=== PATIENT | female | born 1990 | race Two or more races ===

== ENCOUNTER → 2020-08-16 11:45 | Outpatient (BNVA) | payer OTHER, SELFPAY | PROVIDERS: PCP Internal Medicine; Visit Provider Surgery | DX: R10.33 Periumbilical pain (principal) | CPT/HCPCS: 99212 ==

== ENCOUNTER 2020-08-24 10:00 | Outpatient (REF) | payer OTHER, SELFPAY ==
--- NOTE | ~2020-08-24 | CT_ITS ---
EXAMINATION: CT ABDOMEN AND PELVIS WITHOUT CONTRAST CLINICAL INFORMATION: Periumbilical pain. COMPARISON: Abdominal ultrasound 11/24/2019. CT abdomen and pelvis May 2009. TECHNIQUE: Multidetector volumetric imaging was performed from the superior aspect of the liver through the pubic symphysis. Sagittal and coronal reformatted images were obtained on the technologist's workstation. This CT examination was performed using dose optimization techniques as appropriate, variously including the following: *Automated exposure control *Adjustment of mA and/or kV according to patient size (this includes techniques or standardized protocols for targeted exams where dose is matched to indication/reason for exam; i.e. extremities or head) *Use of iterative reconstruction technique DLP: 551 mGy-cm FINDINGS: LUNG BASES: Clear. LIVER, GALLBLADDER, AND BILIARY TREE: The liver is normal in size, shape, and attenuation. No focal hepatic lesion or biliary ductal dilatation is present. The gallbladder is unremarkable with no evidence of radiopaque gallstones, gallbladder wall thickening, or obvious pericholecystic inflammatory changes. PANCREAS: Unremarkable. SPLEEN: Unremarkable. ADRENAL GLANDS: Unremarkable. KIDNEYS AND URETERS: The kidneys are normal in size, shape, and attenuation. No hydronephrosis, hydroureter, or calculi are seen. No perinephric stranding. BLADDER: Unremarkable. GASTROINTESTINAL TRACT: The small and large bowel is unremarkable. The appendix is unremarkable. ABDOMINAL WALL: There is a focal area of fluid density just deep to the abdominal wall at the level of the umbilicus (see axial image 352, series 4). This measures 2.3 cm transverse, 0.8 cm AP and 1.8 cm craniocaudal. There also appears to be some stranding in the adjacent mesenteric or omental fat as well as some stranding in the superficial subcutaneous fat surrounding the umbilicus. There does appear to be a small amount of fat extending through a small defect in the abdominal wall in the region of the umbilicus compatible with a small umbilical hernia. This was not present on the prior CT in May 2009. LYMPH NODES: Normal. VASCULAR: Unremarkable. PELVIC VISCERA: Unremarkable. OSSEOUS STRUCTURES: Unremarkable. CT/CT abdomen pelvis wo con IMPRESSION: Small fat-containing umbilical hernia as well as a small fluid collection deep to the abdominal wall with some minimal stranding in the surrounding fat deep to as well as superficial to the abdominal wall in this area. Etiology is indeterminate but suggests a small inflammatory process/infection perhaps in involving the herniated fat. This was not present on the prior CT in 2008.
== END 2020-08-24 10:01 | disposition home or self-care (01) ==
LOC: HO.CT 10:00
PROVIDERS: Visit Provider Surgery
DX: R10.33 Periumbilical pain (principal)
CPT/HCPCS: 74176

== ENCOUNTER → 2020-08-30 10:48 | Outpatient (BNVA) | payer OTHER, SELFPAY | PROVIDERS: PCP Internal Medicine; Visit Provider Surgery | DX: K42.9 Umbilical hernia without obstruction or gangrene (principal) | CPT/HCPCS: 99212 ==

== ENCOUNTER 2020-09-14 07:52 | Day surgery (SDC) | payer OTHER, SELFPAY ==
[2020-09-07 16:21] VITALS: BMI 32.1
--- NOTE | 2020-09-13 09:54 | HO.ANESPROP2 ---
Documented by User: Lolly Lozoya 09/13/20 09:54 HPI - Anesthesia Eval Consult details Narrative: 30yo F for Repair of Recurrent Umbilical Hernia with Mesh PMFSH Active Problems Active Problems: All Active Problems (Updated 09/07/20 @ 16:18 by Lyndsay Anne) Nausea & vomiting (Acute) Diarrhea (Acute) Epigastric discomfort (Acute) Nausea (Acute) Umbilical hernia (Acute) Morbid obesity (Acute) Umbilical pain (Acute) Past Medical History Medical History Anxiety and depression Constipation Low back pain Migraines Morbid obesity Scoliosis Umbilical hernia Umbilical pain Family History Family History Father No problems noted. Mother No problems noted. Maternal Grandmother Unknown family medical history Brother No problems noted. Sister No problems noted. Sister No problems noted. Sister No problems noted. Son No problems noted. Surgical History Surgical History History of umbilical hernia repair Social History Social History Smoking Status: Never smoker Use of substances other than those prescribed or required for medical reasons: No Advance Directives: No Advance Directives Information Provided: No Advance Directives on File: No Meds Allergies Allergy/AdvReac Type Severity Reaction Status Date / Time acetaminophen [From TYLENOL] Allergy Intermediate Itching Verified 09/14/20 08:00 APAP Allergy Intermediate Itching Uncoded 09/07/20 16:19 Home Medications Medication Instructions Recorded Confirmed Last Taken Type diphenhydramine HCl 50 mg capsule 50 mg PO BEDTIME 08/30/20 09/07/20 Unknown History suvorexant 20 mg tablet 20 mg PO BEDTIME 08/30/20 09/07/20 Unknown History venlafaxine 75 mg capsule,extended 75 mg PO DAILY 08/30/20 09/07/20 Unknown History release 24 hr Exam Exam Date and Time: September 13, 2020 0954 Height,Weight and Vital Signs: Height 5 ft 2 in Weight 79.832 kg Assessment and Plan Assessment Anesthesia Assessment: Chart Reviewed Documented by User: Arelis Faust 09/14/20 08:50 PMF Past Medical History Medical History Anxiety and depression Constipation Low back pain Migraines Morbid obesity Scoliosis Umbilical hernia Umbilical pain Family History Family History Father No problems noted. Mother No problems noted. Maternal Grandmother Unknown family medical history Brother No problems noted. Sister No problems noted. Sister No problems noted. Sister No problems noted. Son No problems noted. Surgical History Surgical History History of umbilical hernia repair Social History Social History Smoking Status: Never smoker Use of substances other than those prescribed or required for medical reasons: No Advance Directives: No Advance Directives Information Provided: No Advance Directives on File: No Meds Allergies Allergy/AdvReac Type Severity Reaction Status Date / Time acetaminophen [From TYLENOL] Allergy Intermediate Itching Verified 09/14/20 08:00 APAP Allergy Intermediate Itching Uncoded 09/07/20 16:19 Home Medications Medication Instructions Recorded Confirmed Last Taken Type diphenhydramine HCl 50 mg capsule 50 mg PO BEDTIME 08/30/20 09/07/20 Unknown History suvorexant 20 mg tablet 20 mg PO BEDTIME 08/30/20 09/07/20 Unknown History venlafaxine 75 mg capsule,extended 75 mg PO DAILY 08/30/20 09/07/20 Unknown History release 24 hr Exam Airway Mallampati Class: II TM Dist: >3cm Neck ROM: Full Assessment and Plan Assessment Anesthesia Assessment: Anesthesia Plan Discussed and Chart Reviewed Final Anesthetic Review NPO: Yes ASA Class: II Final Preanesthetic Review: No Changes in Pt Med Stat, Meds/Allgs Chart Reviewed, Consent Obtained/Reviewed and Anes Risks/Benef Reviewed Patient Risk: Low Procedure Risk: Low Assessment/Block/Sedation in SS: Assess/Block/Sedation-SS Anesthetic Plan Anesthetic Plan: GA Disposition: Standard PACU
[2020-09-14] VITALS (13 sets, daily range): BP systolic 97–130; BP diastolic 41–86; PULSE 56–84; RESP 12–18; TEMP 36.1–36.5; O2SAT 95–97
[2020-09-14 08:10] LABS: UPreg QC Valid YES; Urine Pregnancy NEGATIVE (NEGATIVE)
[2020-09-14] MEDS: Lactated Ringers 1,000 ML 100 ML IVCONT (08:19)
--- NOTE | 2020-09-14 08:55 | MHC.SHP ---
Pre-Procedural Eval Section B Chief Complaint: Umbilical Hernia Allergies: Allergies Allergy/AdvReac Type Severity Reaction Status Date / Time acetaminophen [From TYLENOL] Allergy Intermediate Itching Verified 09/14/20 08:00 APAP Allergy Intermediate Itching Uncoded 09/07/20 16:19 Plan I have reviewed the history and physical and performed a pertinent physical examination on my patient. No changes have occurred unless specified.
--- NOTE | 2020-09-14 09:46 | PM.OP ---
Brief Operative Note Date of Service: 09/14/20 Pre-op diagnosis: Umbilical hernia recurrent Post-op diagnosis: same Procedure: Repair of recurrent umbilical hernia Implants: None Surgeon: Julius House MD Anesthesia: GLMA Estimated blood loss (mL): 2 Pathology: none sent Condition: stable Disposition: PACU
--- NOTE | 2020-09-14 09:47 | W.PM.OPN ---
Operative Note Operative Note Date of Service: 09/14/20 Narrative: Preop diagnosis: Recurrent umbilical hernia Postop diagnosis: Recurrent umbilical hernia Procedure: Repair of recurrent umbilical hernia Surgeon: Julius House MD The patient is a 30 year female who had undergone repair of an umbilical hernia in 2019 with V Patch mesh. She came to me this year complaining of pain again on the area of the umbilicus. I sent her for a CT scan which showed a small recurrent umbilical hernia containing fat. In view of her persistent pain, she wanted to proceed with repair again. She understood the technique of the procedure. She was aware of the risks, benefits, and alternatives. She was brought to the operating room placed supine on table under general anesthesia via laryngeal mask airway. The abdomen was prepped and draped in this herself fashion. A surgical time-out was done. The patient received cefazolin 2 g IV preoperatively. A small transverse supraumbilical incision was made on the skin using blade 15. This was carried down through the full-thickness skin subcutaneous fat with electrocautery. We proceeded to then lift the umbilicus off of the fascia as a flap using gentle sharp dissection with Metzenbaum scissors. By doing so I was able to dissect all the way down to the fascia and was able to identify a small fat containing hernia. This a small defect and was actually 6 mm in diameter. There was no bowel around this area. I could see part of the mesh underneath so it appeared that part of the omentum had crept from the superior edge of the old mesh. I gently applied a Abbi clamp to the fascial edge of the hernia. I made a ohdwrf-zo-hdeez stitch using Maxon 1 to close the hernia defect. The underside of this had been clearly visualized. There were no bowel loops or adhesions. I then irrigated the area. I applied a single stitch from the fascia to the umbilicus to recreate the dimple. I reapposed the subcutaneous layer with Dexon 3-0 interrupted sutures. Skin closure was achieved with Dexon 4-0 subcuticular stitch. Steri-Strips dressings were applied. The incision was infiltrated with Marcaine 0.5% for postop adhesions and the procedure was completed. The patient tolerated the procedure. There were no immediate complications. Initial and final counts of sponges and instruments were correct. Estimated blood loss was about 2 cc. The patient was extubated without difficulty and transferred to the recovery room with stable vital signs.
[2020-09-14] MEDS: oxyCODONE HCl Immed Release 5 MG TABLET PO ×2 (09:53→11:57)
[2020-09-14] MEDS: fentaNYL citrate/PF 100 MCG/2 ML VIAL 50 MCG IVPUSH ×3 (09:55→10:34)
[2020-09-14] MEDS: Ketorolac Tromethamine 30 MG/ML VIAL IVPUSH (10:21)
== END 2020-09-14 13:16 | disposition home or self-care (01) ==
PROVIDERS: Nurse Practitioner; PCP Internal Medicine; Visit Provider Surgery
PROC: (CPT 49585; principal; 2020-09-14 09:40)
DX: K42.9 Umbilical hernia without obstruction or gangrene (principal)
CPT/HCPCS: 49585; 81025; J0690; J1100; J1885; J2250; J2405; J3010

== ENCOUNTER → 2020-10-10 14:29 | Outpatient (BNVA) | payer OTHER, SELFPAY | PROVIDERS: PCP Internal Medicine; Visit Provider Surgery | DX: Z48.815 Encounter for surgical aftercare following surgery on the digestive system (principal); Z87.19 Personal history of other diseases of the digestive system | CPT/HCPCS: 99212 ==

== ENCOUNTER 2020-11-07 08:20 | Outpatient (REF) | payer OTHER, SELFPAY ==
--- NOTE | ~2020-11-07 | XR_ITS ---
EXAMINATION: XR ANKLE, RIGHT CLINICAL INFORMATION: Pain right ankle right foot COMPARISON: None TECHNIQUE: AP, lateral, and mortise views of the right ankle. FINDINGS: The bones and soft tissues are normal. No fracture. Alignment is anatomic. Joint spaces are maintained. No joint effusion. XR/XR ankle RT min 3V IMPRESSION: Normal right ankle.
== END 2020-11-07 08:21 | disposition home or self-care (01) ==
LOC: HO.HOSX 08:20
PROVIDERS: Visit Provider Physician Assistant
DX: S99.911A Unspecified injury of right ankle, initial encounter (principal); M25.571 Pain in right ankle and joints of right foot
CPT/HCPCS: 73610; 99202

== ENCOUNTER → 2020-12-05 12:40 | Outpatient (BNVA) | payer OTHER, SELFPAY | PROVIDERS: PCP Internal Medicine; Visit Provider Physician Assistant | DX: S93.401A Sprain of unspecified ligament of right ankle, initial encounter (principal) | CPT/HCPCS: 99212 ==

== ENCOUNTER 2021-03-12 10:29 | Outpatient (REF) | payer OTHER, SELFPAY ==
[2021-03-12 10:51] LABS: MANUAL DIFF FLAG NO
[2021-03-12 11:08] LABS: Basophils Percent Auto 0.5 % (0-2); Eosinophils Absolute Auto 0.5 X10*3/uL (0.0-0.4); Eosinophils Percent Auto 6.4 % (0-4); Hematocrit 37.3 % (37-47); Hemoglobin 11.8 g/dl (12.0-16.0); Imm Gran Abs Auto 0.02 X10*3/uL (0.00-0.03); Imm Gran Pct Auto 0.3 % (0.0-0.4); Lymphocytes Absolute Auto 2.7 X10*3/uL (1.2-4.9); Lymphocytes Percent Auto 33.6 % (20-40); Mean Corpuscular HGB Conc 31.6 g/dl (31.0-35.0); Mean Corpuscular Hemoglobin 25.2 pg (27.0-33.0); Mean Corpuscular Volume 79.7 fL (80-98); Mean Platelet Volume 11.5 fL (9.4-12.3); Monocytes Absolute Auto 0.4 X10*3/uL (0.1-1.2); Monocytes Percent Auto 4.5 % (2-11); Neutrophils Absolute Auto 4.4 X10*3/uL (2.0-8.3); Neutrophils Percent Auto 54.7 % (45-73); Platelet Count 266 X10*3/uL (160-400); Red Blood Count 4.68 X10*6/uL (4.20-5.50); Red Cell Distribution Width 14.8 % (11.0-16.0)
[2021-03-12 11:42] LABS: Alanine Aminotransferase 18 U/L (0-31); Albumin Level 4.3 g/dL (3.5-5.0); Alkaline Phosphatase 56 U/L (39-117); Anion Gap 13 (12-20); Aspartate Amino Transferase 14 U/L (5-31); Bilirubin Total 0.3 mg/dL (0.0-1.0); Blood Urea Nitrogen 10 mg/dL (9-16); Calcium 9.4 mg/dL (8.4-10.2); Carbon Dioxide 23 mmol/L (22-29); Chloride 107 mmol/L (96-108); Cholesterol 201 mg/dL; Estimated Glomerular Filt Rate > 60; Glucose Fasting 102 mg/dL (60-99); HDL Cholesterol 43 mg/dL; LDL Cholesterol Calculated 129 mg/dl; Potassium 4.6 mmol/L (3.3-5.1); Sodium 138 mmol/L (135-145); Total Protein 7.1 g/dL (6.5-8.0); Triglycerides 148 mg/dL
[2021-03-12 12:03] LABS: Thyroid Stimulating Hormone 1.76 uIU/mL (0.32-4.0)
[2021-03-12 12:10] LABS: Microalbum/Creatinine Ratio Ur 6.4 ug/mg cr
[2021-03-19 14:21] LABS: Vitamin D 25-OH, D2 <4 ng/mL; Vitamin D 25-OH, D3 29 ng/mL; Vitamin D 25-OH, Total 29 ng/mL (30-100)
== END 2021-03-12 10:30 | disposition home or self-care (01) ==
LOC: HO.LAB 10:29
PROVIDERS: PCP Internal Medicine; Visit Provider Internal Medicine
DX: E55.9 Vitamin D deficiency, unspecified (principal); E66.9 Obesity, unspecified; G43.909 Migraine, unspecified, not intractable, without status migrainosus; E11.9 Type 2 diabetes mellitus without complications
CPT/HCPCS: 36415; 80053; 80061; 82043; 82306; 84443; 85025

== ENCOUNTER 2021-07-18 12:18 | Outpatient (REF) | payer OTHER, SELFPAY ==
--- NOTE | ~2021-07-18 | XR_ITS ---
EXAMINATION: XR HAND, BILATERAL CLINICAL INFORMATION: Pain COMPARISON: None available at the time of this dictation. TECHNIQUE: Frontal lateral oblique views of each hand were obtained. FINDINGS: There is no fracture or dislocation. Radiocarpal, intercarpal, carpometacarpal, metacarpophalangeal and interphalangeal joints are intact. There are no osteolytic or osteoblastic lesions. There are no bone erosions. Surrounding soft tissue unremarkable. XR/XR hand LT 2V IMPRESSION: No significant osseous changes to explain patient's pain symptoms No erosions. No evidence of arthritis.
--- NOTE | ~2021-07-18 | XR_ITS ---
EXAMINATION: XR HAND, BILATERAL CLINICAL INFORMATION: Pain COMPARISON: None available at the time of this dictation. TECHNIQUE: Frontal lateral oblique views of each hand were obtained. FINDINGS: There is no fracture or dislocation. Radiocarpal, intercarpal, carpometacarpal, metacarpophalangeal and interphalangeal joints are intact. There are no osteolytic or osteoblastic lesions. There are no bone erosions. Surrounding soft tissue unremarkable. XR/XR hand RT 2V IMPRESSION: No significant osseous changes to explain patient's pain symptoms No erosions. No evidence of arthritis.
== END 2021-07-18 12:19 | disposition home or self-care (01) ==
LOC: HO.XRAY 12:18
PROVIDERS: PCP Internal Medicine; Visit Provider Internal Medicine
DX: M79.641 Pain in right hand (principal); M79.642 Pain in left hand
CPT/HCPCS: 73120

== ENCOUNTER 2021-08-26 09:00 | Outpatient (REF) | payer OTHER, SELFPAY ==
[2021-08-26 14:42] LABS: CT PCR NOT DETECTED (Not Detect.); NG PCR NOT DETECTED (Not Detect.)
[2021-08-27 14:09] LABS: BV Int Neg Control Negative (Negative); BV Int Pos Control Positive (Positive)
[2021-08-29 11:00] LABS: HPV mRNA E6/E7 rflx Not Detected (Not Detected)
== END 2021-08-26 09:01 | disposition home or self-care (01) ==
LOC: HO.LAB 09:00
PROVIDERS: PCP Internal Medicine; Visit Provider Advanced Practice Midwife
DX: Z01.419 Encounter for gynecological examination (general) (routine) without abnormal findings (principal); Z11.51 Encounter for screening for human papillomavirus (HPV); Z20.2 Contact with and (suspected) exposure to infections with a predominantly sexual mode of transmission
CPT/HCPCS: 87480; 87491; 87510; 87591; 87624; 87660; 88142

== ENCOUNTER 2021-10-07 10:00 | Outpatient (RCR) | payer OTHER, SELFPAY ==
--- NOTE | 2021-08-12 10:41 | MHC.OT.OEV ---
[address] [phone] F: [phone] Occupational Therapy Evaluation Diagnosis: PAIN IN UNSPECIFIED HAND Date of Onset: 05/15/21 Attending Provider: Dolores Gonzalez Prescribed Treatment: EVAL AND TREAT History of Current Condition: REPORTS ONSET OF B/L HAND PAIN, LOCKING OF JOINTS SINCE MAY 2021. REPORTS SYMPTOMS INCREASED AFTER COVID-19 VIRUS IN JUNE 2021. XRAYS 07/18/21 OF THE HANDS WITH NO SIGNIFICANT FINDINGS, NO SIGNS OF ARTHRITIS. 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 DIFFICULTIES WITH BUTTONS/ ZIPPERS. MODERATE DIFFICULTIES WITH PERFORMING QUYEN TOILETING TASKS/ DIAPERING. Sleep: TAKING SLEEP MEDICATION; INCREASED REDNESS AND PAIN AT NIGHT. OCCASIONAL STIFFNESS IN AM. Driving: OCCASIONAL DIFFICULTIES WITH GRIPPING/ HOLDING STEERING WHEEL. ALTERNATES UEs. Pain Assessment Pain Score: 5-10/10 Pain Scale Used: Numeric (0 - 10) Pain Location and Description: R HAND 8/10 AT REST; L HAND 5-6/10 AT REST R HAND 10/10; L HAND 8/10 WITH USE GREATEST IN THUMB IP AND MP; D2-D5 DIPj/PIPj OCCASIONAL WRIST DISCOMFORT ACHY/ THROBBING Aggravating Factors: COLD WEATHER Alleviating Factors: SOAKING IN HOT WATER, NAPROXEN (ALLERGIC TO IBUPROFEN/ ACETAMINOPHEN) Skin and Soft Tissue Assessment Skin and Soft Tissue: Comments: SWAN NECK POSTURING OF B/L D4 AND D5 Sensory Assessment Temperature: Light Touch: WFL Proprioception: Vibration: Comments: DENIES PARASTHESIA Edema Assessment Upper Extremity: WNL Lower Extremity: Comments: REPORTS OCCASIONAL EDEMA IN DIGITS CIRCUMFERENCE OF MCPs D2-D5: R 19.1 CM, L 19.0 CM Dexterity Assessment Dexterity: B/L Impaired Comments: FUNCTIONAL DEXTERITY TESTING: L 47 SECONDS, R 43 SECONDS AROM(PROM) Strength Wrist Flexion: R 75, L 70 Extension: R 70, L 80 Ulnar Deviation: Radial Deviation: Comments: Flexion: Extension: Ulnar Deviation: Radial Deviation: Comments: Thumb Thumb CMC Flexion: Thumb MCP Flexion: Thumb IP Flexion: Radial Abduction: Palmar Abduction: [place] ([place] 0-10): R 10/10, L 10/10 Comments: Digits Index MCP: PIP: DIP: Long MCP: PIP: DIP: Ring MCP: PIP: DIP: Small MCP: PIP: DIP: Comments: Gross Grasp: R 50, L 55 Lateral Pinch: Two-Point Pinch: Three-Jaw Dylon: Comments: Patient Education Primary Language: Telugu 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 Patient demonstrates Patient verbalizes Barriers to Learning: None Readiness for Learning: Accepting Who was educated? Patient Comments: Plan of Care Assessment: MS MISTRY IS A RIGHT HANDED FEMALE WHO REPORTS ABOUT A THREE MONTH HISTORY OF PAIN, EDEMA AND LOCKING OF JOINTS IN B/L HANDS, RIGHT GREATER THAN LEFT. SHE POSTURES IN A SWAN NECK DEFORMITY IN THE RING AND SMALL FINGERS OF BILATERAL HANDS. SHE STATES THAT HER PAIN IS GREATEST WITH COLD WEATHER, AND SOAKS HER HANDS IN WARM/HOT WATER FOR PAIN RELIEF. A 66% LIMITATION IS REPORTED PER THE QUICK DASH ASSESSMENT. ONGOING SKILLED OT IS WARRANTED TO ADDRESS THE AREAS MENTIONED ABOVE. STG Duration: 2 WEEKS Short Term Goals: IND HEP IND POSTURING TO AVOID HYPEREXTENSION OF PIPj IND ORTHOSIS USE IND USE OF HEAT, INCLUDING HOME PARAFFIN UNIT REPORT <2/10 PAIN AT REST LTG Duration: 4 WEEKS Radiology Orderly Goals: QUICK DASH <50% REPORT <5/10 PAIN WITH LIGHT LIFTING AND IADLs IMPROVE COORDINATION TO FUNCTIONAL LEVEL PER FUNCTIONAL DEXTERITY TEST IND JOINT PROTECTION STRATEGIES Frequency and Duration: The patient will be seen 2X/WEEK FOR 4 WEEKS Treatment Plan: Therapeutic Exercise Therapeutic Activity Home Exercise Program Splinting Neuro Re-ed Patient Education Desensitization/Sensory Re-ed Edema Control ADL Training Ultrasound NMES Iontophoresis Paraffin Fluidotherapy MHP Cold Packs Joint Mobilization Soft Tissue Mobilization Kinesiotaping Other (see comments) Electronically Signed By: CONSTANTINO POLLOCK/Danie Reviewed/agree with student documentation: N/A Therapist: Please sign and return to therapist, Thank you for your referral.
--- NOTE | 2021-10-28 08:38 | MHC.OT.DC ---
[address] [phone] F: [phone] Occupational Therapy Discharge Note Provider: Dolores Gonzalez Diagnosis: PAIN IN UNSPECIFIED HAND Date of Evaluation: 08/12/21 Date of Discharge: 10/28/21 Treatments to Date: 10 Cancellations to Date: 5 No Shows to Date: 2 Discharge Status: Improved Function Independent with HEP Discharge Summary: MS MISTRY HAS IMPROVED HER FUNCTION AND LEARNED COMPENSATORY TECHNIQUES FOR DECREASING B/L HAND PAIN DURING IADLs. SHE WAS PROVIDED WITH CUSTOM B/L ORTHOSIS FOR USE DURING IADLs TO DECREASED THUMB PAIN. A HOME EXERCISE PROGRAM WAS ESTABILISHED AND Pt WAS IND WITH COMPLETION OF PROGRAM. SHE WILL BE TRANSITIONED TO A HOME BASED PROGRAM AT THIS TIME AND SKILLED OT SERVICES WILL BE DISCONTINUED. Electronically Signed By: WICHO SALDAÑA OTR/L Reviewed/agree with student documentation: N/A Therapist: Please Sign and return to therapist, thank you for your referral.
== END 2021-10-28 08:35 | disposition home or self-care (01) ==
LOC: HO.OT 10:00
PROVIDERS: PCP Internal Medicine; Visit Provider Internal Medicine
DX: M79.643 Pain in unspecified hand (principal)
CPT/HCPCS: 29130; 97018; 97110; 97140; 97166; 97530; 97760

== ENCOUNTER 2021-12-09 08:11 | Outpatient (REF) | payer OTHER, SELFPAY ==
--- NOTE | ~2021-12-09 | MR_ITS ---
EXAMINATION: BRAIN MRI WITHOUT CONTRAST CLINICAL INFORMATION: Migraine headaches. COMPARISON: CT scan of the head 07/11/2009. TECHNIQUE: Multiplanar MR imaging of the brain was performed without contrast. FINDINGS: There are a few scattered nonspecific foci of T2 FLAIR signal hyperintensity within the periventricular white matter. No acute territorial infarct. No pathological magnetic susceptibility artifact. Intracranial vascular flow voids are maintained. There is no intracranial mass effect or midline shift. No abnormal extra-axial collection. Lateral and third ventricles are normal. No hydrocephalus. Midline structures including the cervicomedullary junction are normal. No acute bone marrow signal changes. There is no mastoid middle ear effusion. There are a few retention cysts within the alveolar recess of left maxillary sinus. Trivial mucosal thickening within ethmoid air cells. Globes and orbits are symmetric. MR/MR head/brain wo con IMPRESSION: There are a few scattered nonspecific signal changes involving the supratentorial white matter that can be seen in the clinical setting of migraine headaches. Otherwise no abnormal intracranial finding to provide an explanation for this patient's headaches.
== END 2021-12-09 08:12 | disposition home or self-care (01) ==
LOC: HO.MRI 08:11
PROVIDERS: Visit Provider Student in an Organized Health Care Education/Training Program
DX: G43.909 Migraine, unspecified, not intractable, without status migrainosus (principal)
CPT/HCPCS: 70551

== ENCOUNTER 2021-12-27 08:06 | Outpatient (REF) | payer OTHER, SELFPAY ==
--- NOTE | 2021-12-27 08:35 | EEG_ITS ---
This is a 16-channel EEG with an EKG lead. The patient is reported awake during the tracing. Background EEG rhythm is 5-20 microvolt, 12-14 hertz with no obvious asymmetry or paroxysmal tendency. Photic stimulation does not produce any significant driving. Hyperventilation is not performed. Cardiac lead does not reveal any significant abnormality. No sharp wave spikes or paroxysmal tendency noted. IMPRESSION: Unremarkable EEG. MD MOR Browne/JOSÉ ANTONIO / [phone]
== END 2021-12-27 08:07 | disposition home or self-care (01) ==
LOC: HO.NEURO 08:06
PROVIDERS: Visit Provider Internal Medicine
DX: R55 Syncope and collapse (principal)
CPT/HCPCS: 95816

== ENCOUNTER → 2022-01-02 08:20 | Outpatient (REF) | payer OTHER, SELFPAY ==
--- NOTE | 2022-01-02 08:22 | CA_ITS ---
Transthoracic Echocardiogram Patient (Last, First, Middle): Amaya [place], Gender: Female Date of : 1990 Age: 31 Procedure Date: 01/02/2022 Procedure Type: Transthoracic Echocardiogram Location: OP Height: 157.48 cm Weight: 78.93 kg BSA: 1.80 m2 Heart Rate: bpm BP: 105 / 70 mmHg Lump Maker: TO Referring MD: Dolores Gonzalez MD Independent Video Producer: Tahir Salas MD Symptoms: R55 - Syncope and collapse Study Quality: Fair ECG Rhythm: Sinus Conclusions: - Essentially normal study Findings Left Ventricle Normal left ventricular size, thickness, and systolic function. The visually estimated ejection fraction is between 65-70%. Spectral Doppler is indicative of a normal filling pattern. Right Ventricle Normal right ventricular cavity size and systolic function. Atria Both atria are normal in size. There is no evidence of interatrial shunt. Aortic Valve Normal aortic valve structure and function. There is no aortic valve stenosis. There is no aortic valve regurgitation. Mitral Valve Normal mitral valve structure and function. There is trace mitral valve regurgitation. There is no mitral valve stenosis. Pulmonic Valve The pulmonic valve is likely normal. There is trace pulmonic valve regurgitation. Tricuspid Valve Normal tricuspid valve structure. Tricuspid regurgitation envelope is inadequate for calculation of right ventricular systolic pressure. Normal right atrial pressure. Great Vessels All visible segments of the aorta are normal in size. The pulmonary artery was not well visualized. Venous The inferior vena cava is normal in size and collapses greater than 50% with inspiration. Pericardium/Pleural There is no evidence of pericardial effusion. Prior Study Comparison No prior study available for comparison. Measurements 2D Linear Measurements IVSd: 0.79 0.6-0.9/0.6-1.0 cm LVIDd: 3.70 3.9-5.3/4.2-5.9 cm LVIDd Index: 2.06 2.4-3.2/2.2-3.1 cm/m2 LVIDs: 2.67 2.0-3.6 cm LVPWd: 0.82 0.7-1.1 cm LA Diam: 2.70 2.7-3.8/3.0-4.0 cm LAIDs Index: 1.50 1.5-2.3 cm/m2 LV Mass: 103.03 67-162/88-224 g LV Mass Index: 57.24 43-95/49-115 g/m2 LVOT Diam: 2.00 3.0+(-)1.3 cm 2D Systolic Function EF 4C: 64.90 >55% EF 2C: 71.40 >55% EF BiP: 68.30 >55% Mitral Valve MV Pk E: 0.59 MV PK A: 0.44 MV Decel Time: 220.00 E/A: 1.30 E'Lateral: 12.10 E'Medial: 9.90 E/E' Med: 5.90 E/E' Lat: 4.90 PHT: 64.00 MVA PHT: 3.44 Decel [place]: 2.67 Aortic Valve AoV Pk Bobby: 1.33 AoV Mn Bobby: 0.88 AoV VTI: 0.27 AoV Pk Grad: 7.00 Aov Mn Grad: 4.00 PRISCILLA Cont.VTI: 2.51 LVOT LVOT Pk Bobby: 1.07 LVOT Mn Bobby: 0.72 LVOT VTI: 0.21 LVOT Pk Grad: 5.00 LVOT Mn Grad: 2.00 LVOT Diam: 2.00 LVOT Area: 3.14 Diastolic Function MV Pk E: 0.59 MV Pk A: 0.44 E/A: 1.30 E'Medial: 9.90 E/E' Med: 5.90 E' Laterial: 12.10 E/E' Lat: 4.90 Right Ventricle TAPSE (mm): 20.00 TVS' Bobby: 12.60 Tricuspid Valve RA Press: 3.00 Great Vessels Aorta Sinus of Valsalva: 2.79 2.0-3.[address] [place]: 2.10 1.7-3.4 cm Ao Asc: 2.80 2.1-3.4 cm Updated in Other Vendor System with Status of Final Tahir Salas MD electronically signed on 01/02/2022 4:48:27 PM with status of Final
== END ==
LOC: HO.CARD 08:20
PROVIDERS: PCP Internal Medicine; Visit Provider Internal Medicine
DX: R55 Syncope and collapse (principal)
CPT/HCPCS: 93306

== ENCOUNTER → 2022-02-04 14:42 | Outpatient (BNVA) | payer OTHER, SELFPAY | PROVIDERS: PCP Internal Medicine; Referring Provider Internal Medicine; Visit Provider Internal Medicine | DX: R55 Syncope and collapse (principal); Z79.899 Other long term (current) drug therapy | CPT/HCPCS: 93005; 99202 ==

== ENCOUNTER → 2022-02-05 13:44 | Outpatient (REF) | payer OTHER, SELFPAY ==
--- NOTE | 2022-02-05 13:47 | CA_ITS ---
Transthoracic Echocardiogram Patient (Last, First, Middle): Amaya Montana, Gender: Female Date of : 1990 Age: 31 Procedure Date: 02/05/2022 Procedure Type: Transthoracic Echocardiogram Location: OP Height: 157.48 cm Weight: 81.65 kg BSA: 1.83 m2 Heart Rate: bpm BP: 90 / 60 mmHg Cpas: TO Referring MD: Gamaliel Brooks MD Symptoms: R55 - Syncope and collapse Study Quality: Fair ECG Rhythm: Sinus Conclusions: - The left ventricular systolic function is normal. The calculated ejection fraction is 59% by biplane method. - There is mildly decreased right ventricular systolic function (could also possibly be related to image quality). - No obvious valvular pathology seen on this study. Findings Left Ventricle Normal left ventricular cavity size. There is normal left ventricular wall thickness. The left ventricular systolic function is normal. The calculated ejection fraction is 59% by biplane method. There is no evidence of regional wall motion abnormalities. Diastolic function is normal for age. Right Ventricle The right ventricle was not well visualized. Normal right ventricular cavity size. There is mildly decreased right ventricular systolic function. Atria Both atria are normal in size. Aortic Valve There is a normal trileaflet aortic valve. There is no aortic valve stenosis. There is no aortic valve regurgitation. Mitral Valve The mitral valve appears normal. There is severe anterior mitral annular calcification. There is no mitral valve regurgitation. There is no mitral valve stenosis. Pulmonic Valve The pulmonic valve is likely normal. Tricuspid Valve Normal tricuspid valve structure. There is trace tricuspid valve regurgitation. Tricuspid regurgitation envelope is inadequate for calculation of right ventricular systolic pressure. Great Vessels The aortic annulus, sinuses of valsalva, and asc aorta are normal in size. Venous The inferior vena cava is normal in size and collapses greater than 50% with inspiration. Pericardium/Pleural There is no evidence of pericardial effusion. Prior Study Comparison No significant change compared to prior study dated: 01/02/2022. Recommendations, Care & Conclusions No obvious valvular pathology seen on this study. Measurements 2D Linear Measurements IVSd: 0.75 0.6-0.9/0.6-1.0 cm LVIDd: 4.14 3.9-5.3/4.2-5.9 cm LVIDd Index: 2.26 2.4-3.2/2.2-3.1 cm/m2 LVIDs: 2.76 2.0-3.6 cm LVPWd: 0.67 0.7-1.1 cm LA Diam: 2.60 2.7-3.8/3.0-4.0 cm LAIDs Index: 1.42 1.5-2.3 cm/m2 LV Mass: 105.06 67-162/88-224 g LV Mass Index: 57.41 43-95/49-115 g/m2 LVOT Diam: 1.90 3.0+(-)1.3 cm 2D Systolic Function EF 4C: 60.20 >55% EF 2C: 54.50 >55% EF BiP: 58.60 >55% Mitral Valve MV Pk E: 0.57 MV PK A: 0.44 MV Decel Time: 209.00 E/A: 1.30 E'Lateral: 13.20 E'Medial: 7.29 E/E' Med: 7.80 E/E' Lat: 4.30 PHT: 61.00 MVA PHT: 3.61 Decel [place]: 2.71 Aortic Valve AoV Pk Bobby: 1.10 AoV Mn Bobby: 0.76 AoV VTI: 0.21 AoV Pk Grad: 5.00 Aov Mn Grad: 3.00 PRISCILLA Cont.VTI: 2.22 LVOT LVOT Pk Bobby: 0.95 LVOT Mn Bobby: 0.57 LVOT VTI: 0.17 LVOT Pk Grad: 4.00 LVOT Mn Grad: 2.00 LVOT Diam: 1.90 LVOT Area: 2.84 Diastolic Function MV Pk E: 0.57 MV Pk A: 0.44 E/A: 1.30 E'Medial: 7.29 E/E' Med: 7.80 E' Laterial: 13.20 E/E' Lat: 4.30 Right Ventricle TAPSE (mm): 15.50 TVS' Bobby: 10.90 Tricuspid Valve RA Press: 3.00 Great Vessels Aorta Sinus of Valsalva: 2.74 2.0-3.[address] [place]: 2.05 1.7-3.4 cm Ao Asc: 2.60 2.1-3.4 cm Updated in Other Vendor System with Status of Final Gamaliel Brooks MD electronically signed on 02/06/2022 11:45:28 AM with status of Final
== END ==
LOC: HO.CARD 13:44
PROVIDERS: PCP Internal Medicine; Visit Provider Internal Medicine
DX: R55 Syncope and collapse (principal)
CPT/HCPCS: 93306

== ENCOUNTER 2022-06-26 09:19 | Outpatient (REF) | payer OTHER, SELFPAY ==
[2022-06-26 09:37] LABS: MANUAL DIFF FLAG NO
[2022-06-26 09:51] LABS: Basophils Absolute Auto 0.1 X10*3/uL (0.0-0.2); Basophils Percent Auto 0.6 % (0-2); Eosinophils Absolute Auto 0.4 X10*3/uL (0.0-0.4); Eosinophils Percent Auto 4.9 % (0-4); Hematocrit 36.6 % (37.0-47.0); Hemoglobin 11.5 g/dl (12.0-16.0); Imm Gran Abs Auto 0.02 X10*3/uL (0.00-0.03); Imm Gran Pct Auto 0.3 % (0.0-0.4); Lymphocytes Absolute Auto 2.4 X10*3/uL (1.2-4.9); Lymphocytes Percent Auto 30.2 % (20-40); Mean Corpuscular HGB Conc 31.4 g/dl (31.0-35.0); Mean Corpuscular Hemoglobin 25.3 pg (27.0-33.0); Mean Corpuscular Volume 80.4 fL (80.0-98.0); Mean Platelet Volume 10.9 fL (9.4-12.3); Monocytes Absolute Auto 0.3 X10*3/uL (0.1-1.2); Monocytes Percent Auto 4.3 % (2-11); Neutrophils Absolute Auto 4.7 x10*3/uL (2.0-8.3); Neutrophils Percent Auto 59.7 % (45-73); Platelet Count 298 X10*3/uL (160-400); Red Blood Count 4.55 X10*6/uL (4.20-5.50); Red Cell Distribution Width 15.6 % (11.0-16.0); White Blood Count 7.9 X10*3/uL (4.8-10.8)
[2022-06-26 10:46] LABS: Alanine Aminotransferase 23 U/L (0-31); Albumin Level 4.4 g/dL (3.5-5.0); Alkaline Phosphatase 66 U/L (39-117); Anion Gap 10 (12-20); Aspartate Amino Transferase 14 U/L (5-31); Bilirubin Total 0.2 mg/dL (0.0-1.0); Blood Urea Nitrogen 18 mg/dL (9-16); Calcium 9.5 mg/dL (8.4-10.2); Carbon Dioxide 24 mmol/L (22-29); Chloride 108 mmol/L (96-108); Cholesterol 230 mg/dL; Estimated Glomerular Filt Rate > 60; Glucose Fasting 104 mg/dL (60-99); HDL Cholesterol 44 mg/dL; LDL Cholesterol Calculated 156 mg/dl; Potassium 4.1 mmol/L (3.3-5.1); Sodium 138 mmol/L (135-145); Total Protein 7.2 g/dL (6.5-8.0); Triglycerides 151 mg/dL
[2022-06-26 11:02] LABS: Vitamin D 25-OH Total 22.4 ng/mL (>30)
== END 2022-06-26 09:20 | disposition home or self-care (01) ==
LOC: HO.LAB 09:19
PROVIDERS: PCP Internal Medicine; Visit Provider Internal Medicine
DX: Z00.00 Encounter for general adult medical examination without abnormal findings (principal); G43.909 Migraine, unspecified, not intractable, without status migrainosus; E55.9 Vitamin D deficiency, unspecified; E78.5 Hyperlipidemia, unspecified
CPT/HCPCS: 36415; 80053; 80061; 82306; 85025

== ENCOUNTER 2022-11-21 10:26 | Outpatient (REF) | payer OTHER, SELFPAY ==
[2022-11-21 14:15] LABS: CT PCR NOT DETECTED (Not Detect.); NG PCR NOT DETECTED (Not Detect.)
[2022-11-22 14:51] LABS: BV Int Neg Control Negative (Negative); BV Int Pos Control Positive (Positive)
[2022-11-25 22:08] LABS: HPV mRNA E6/E7 rflx Not Detected (Not Detected)
== END 2022-11-21 10:27 | disposition home or self-care (01) ==
LOC: HO.LNP 10:26
PROVIDERS: PCP Internal Medicine; Visit Provider Advanced Practice Midwife
DX: Z01.419 Encounter for gynecological examination (general) (routine) without abnormal findings (principal); Z11.51 Encounter for screening for human papillomavirus (HPV); Z20.2 Contact with and (suspected) exposure to infections with a predominantly sexual mode of transmission
CPT/HCPCS: 0353U; 87480; 87510; 87624; 87660; 88142

== ENCOUNTER 2023-01-21 14:04 | Outpatient (AMB) | payer OTHER, SELFPAY ==
--- NOTE | 2023-01-21 14:05 | MHC.OFFWIV ---
Intake Vital Signs 01/21/23 14:06 Height 5 ft 2 in Weight 171 lb 8 oz BMI 31.4 BP 90/52 L Blood Pressure Location Rt brachial Position Sitting Pulse 83 Pulse Source Pulse Oximeter Temp 97.4 F Temp Source Temporal Artery Scan Pulse Oximetry (%) 97 Oxygen Delivery Method Room Air Intake Visit Reasons: EP ?shingles on thigh (lobby) Intake Note: Pt is here c/o possible shingle starting on her right thigh. Pt states it feels like its burning, very itchy and painful. Patient Tobacco Use Status: Never used Tobacco Allergies acetaminophen [From TYLENOL] Allergy (Intermediate, Verified 01/21/23 14:06) Itching oxycodone Allergy (Intermediate, Verified 01/21/23 14:06) rash APAP Allergy (Intermediate, Uncoded 01/21/23 14:06) Itching Do you need a note to return to daycare/school/sports/work: No PFSH Medical History (Updated 12/05/22 @ 16:50 by Becky Fall CNM) Allergic rhinitis Anxiety and depression Chronic GERD Constipation Constipation by delayed colonic transit Fibromyalgia DALE (generalized anxiety disorder) Hand pain Insomnia Low back pain Migraines Mild recurrent major depression Moderate recurrent major depression Morbid obesity Obese Polyarthralgia Right ankle injury Scoliosis Umbilical hernia Umbilical pain Surgical History History of umbilical hernia repair Family History Father Essential hypertension Mother Diabetes mellitus Essential hypertension Maternal Grandmother Unknown family medical history Brother No problems noted. Sister No problems noted. Sister No problems noted. Sister No problems noted. Son No problems noted. Social History Housing: House Alcohol intake: never Patient Tobacco Use Status: Never used Tobacco e-Cigarette/Vaping Use: Never Used Second Hand Smoke Exposure: No service: No Current occupational status: unemployed Gender identity: Female Cognitive needs: No Hearing needs: No Vision needs: Yes Female Reproductive History Menstrual Age of Menarche: 10 Review of Systems Eyes Reports no additional complaints ENT Reports Normal hearing present and Denies dysphagia Card Denies dyspnea and Denies slow heart rate Resp Denies cough and Denies dyspnea GI Denies dysphagia and Denies heartburn Denies dysuria Musc Denies tingling Skin/Breast Reports lesions, Denies skin ulcer and Denies unusual bruising Neuro Reports Normal hearing present, Denies Sensory deficit (Neuro), Denies tingling and Denies paresthesias Physical Exam Vital Signs: Last Vital Signs Temp 97.4 F 01/21/23 14:06 Pulse 83 01/21/23 14:06 BP 90/52 L 01/21/23 14:06 Pulse Ox 97 01/21/23 14:06 Oxygen Delivery Method Room Air 01/21/23 14:06 BMI result Body Mass Index 31.4 Const General: healthy appearing and no acute distress Resp Effort & Inspection: normal respiratory effort and able to speak in complete sentences Skin Other: Right medial thigh very tiny vesicles on an erythematous base Neuro Cranial nerves: Yes Normal hearing present Sensory Exam: No Sensory deficit (Neuro) Assessment & Plan Assessment & Plan (1) Shingles: Code(s): B02.9 - Zoster without complications Plan Shingles The patient's history and physical is consistent with above diagnosis. Will treat with antiviral medication. Medications: New valacyclovir (Valtrex) 1,000 mg PO TID 21 tabs 0RF 7 days Coding Level of Care Code Est Pt Level 3 (50348) Diagnoses Shingles B02.9
[2023-01-21 14:06] VITALS: BP 90/52; PULSE 83; TEMP 36.3; O2SAT 97; BMI 31.4
== END 2023-01-21 14:20 | disposition home or self-care (01) ==
PROVIDERS: PCP Internal Medicine; Visit Provider Emergency Medicine
DX: B02.9 Zoster without complications (principal)
CPT/HCPCS: 81003; 99213

== ENCOUNTER 2023-02-05 08:29 | Outpatient (AMB) | payer OTHER, SELFPAY ==
[2023-02-05 08:36] VITALS: BP 122/72; PULSE 83; O2SAT 98; BMI 30.7
--- NOTE | 2023-02-05 08:36 | A.OFFPC_ITS ---
Vital Signs 02/05/23 08:36 Height 5 ft 2 in Weight 168 lb BMI 30.7 BP 122/72 Blood Pressure Location Lt brachial Position Sitting Pulse 83 Pulse Source Pulse Oximeter Pulse Oximetry (%) 98 Oxygen Delivery Method Room Air Intake Visit Reasons: f/u Fibromyalgia Allergies acetaminophen [From TYLENOL] Allergy (Intermediate, Verified 02/05/23 08:36) Itching oxycodone Allergy (Intermediate, Verified 02/05/23 08:36) rash APAP Allergy (Intermediate, Uncoded 02/05/23 08:36) Itching Medication List - Last Reconciled 02/05/23 by WILIAN Sanders buspirone 30 mg PO BID cetirizine 10 mg PO DAILY PRN duloxetine 60 mg PO QAM fluticasone propionate 50 mcg/actuation (Flonase Allergy Relief) 2 sprays intranasal DAILY lactulose 10 grams (15 mL) PO BEDTIME 30 days lemborexant (Dayvigo) 10 mg PO BEDTIME lorazepam 1 mg PO BID meclizine mg PO naproxen 500 mg PO BID 30 days omeprazole 40 mg PO DAILY sumatriptan succinate 50 mg PO Q2-4H PRN 30 days topiramate 50 mg PO BID valacyclovir (Valtrex) 1,000 mg PO TID 7 days Tobacco use date assessed: 11/04/22 Dental Screening Dental Screen Date: 02/05/23 Did you have a dental visit in the last 12 months?: Yes Did you have a dental problem in the last 6 months where you did not have access to dental care?: No Was dental information given to patient?: Patient has dentist HPI HPI Comments History of Present Illness Details This is a 32-year-old female with moderate recurrent major depression, fibromyalgia, migraines, chronic GERD and constipation. Patient of Dr. Hardik bowman seen in October presents today for follow-up visit. Patient reports worsening fibromylgia pain since september, states duloxitine prescribed by psychiatrist Dr. Mendez that was helping her for her fibromyalgia pain however she reports this no longer helping her. Patient was advised by her psychiatrist to follow- up for specialist for her fibromyalgia. Patient reports bilateral pain in all her fingers and has difficulty opening bottles, she also reports pain in her ankle joints. [facility] Medical History (Updated 12/05/22 @ 16:50 by Becky Fall CNM) Allergic rhinitis Anxiety and depression Chronic GERD Constipation Constipation by delayed colonic transit Fibromyalgia DALE (generalized anxiety disorder) Hand pain Insomnia Low back pain Migraines Mild recurrent major depression Moderate recurrent major depression Morbid obesity Obese Polyarthralgia Right ankle injury Scoliosis Umbilical hernia Umbilical pain Surgical History History of umbilical hernia repair Family History Father Essential hypertension Mother Diabetes mellitus Essential hypertension Maternal Grandmother Unknown family medical history Brother No problems noted. Sister No problems noted. Sister No problems noted. Sister No problems noted. Son No problems noted. Social History Housing: House Alcohol intake: never Patient Tobacco Use Status: Never used Tobacco e-Cigarette/Vaping Use: Never Used Second Hand Smoke Exposure: No service: No Current occupational status: unemployed Gender identity: Female Cognitive needs: No Hearing needs: No Vision needs: Yes Female Reproductive History Menstrual Age of Menarche: 10 Questionnaire PHQ-9 Over the last 2 weeks, how often have you been bothered by any of the following problems? 1. Little interest or pleasure in doing things: more than half the days 2. Feeling down, depressed, or hopeless: more than half the days 3. Trouble falling or staying asleep, or sleeping too much: more than half the days 4. Feeling tired or having little energy: nearly every day 5. Poor appetite or overeating: several days 6. Feeling bad about yourself - or that you are a failure or have let yourself or your family down: several days 7. Trouble concentrating on things, such as reading the newspaper or watching television: nearly every day 8. Moving or speaking so slowly that other people could have noticed. Or the opposite - being so fidgety or restless that you have been moving around a lot more than usual: several days 9. Thoughts that you would be better off or of hurting yourself in some way: not at all Total score: 15 Depression Screening Interpretation: Positive Depression Screening Follow-up: Existing condition and In treatment 42966 - PHQ-9 Billing: Yes Source: Developed by Drs. Geovanni L. ManasDanelle saldana Kurt Kroenke and colleagues, with an educational desirae from [employer]. Thrive Questionnaire Date Thrive assessed: 11/04/22 AUDIT C Alcohol Use Questionnaire (AUDIT-C) 1. How often do you have a drink containing alcohol?: Never Total Score: 0 DALE-7 AMB Questionnaire DALE-7 Date DALE - 7 assessed: 07/22/22 Source: Developed by Danelle Sandoval Kurt Kroenke and colleagues, with an educational desirae from [employer]. Review of Systems Const Denies chills, Denies fatigue, Denies fever(s) and Denies poor appetite Eyes Denies no additional complaints ENT Reports Normal hearing present Card Denies chest pain, Denies syncope, Denies rapid heart rate and Denies dyspnea Resp Denies cough and Denies dyspnea GI Denies change in stool character, Denies constipation, Denies diarrhea, Denies nausea and Denies vomiting Denies urinary frequency, Denies dysuria and Denies urinary urgency Musc Reports arthralgias (fingers, ankles ) and Reports limited range of motion Neuro Reports Normal hearing present, Denies confusion and Denies syncope Psych Denies confusion Endo Denies fatigue Physical exam (Primary Care) Vital Signs: Last Vital Signs Pulse 83 02/05/23 08:36 BP 122/72 02/05/23 08:36 Pulse Ox 98 02/05/23 08:36 Oxygen Delivery Method Room Air 02/05/23 08:36 BMI result Body Mass Index 30.7 Tobacco/Smoking Status: Tobacco use Status Tobacco use date assessed 11/04/22 02/05/23 08:41 Patient Tobacco Use Status Never used Tobacco 02/05/23 08:41 e-Cigarette/Vaping Use Never Used 02/05/23 08:41 PHQ-9: PHQ-9 Score PHQ-9: Total score 15 02/05/23 09:05 Depression Screening Interpretation: Positive Depression Screening Follow-up: Existing condition and In treatment Thrive Assessment: Date of Thrive Assessment Date Thrive assessed 11/04/22 02/05/23 08:41 Const General: No confusion Orientation/consciousness: No confusion HENMT Head: Yes normocephalic and Yes atraumatic Eyes Conjunctivae: conjunctivae normal Chest Chest palpation & inspection: normal inspection of the chest Resp Effort & Inspection: normal respiratory effort Auscultation: clear to auscultation bilaterally, no crackles, no rhonchi and no wheezes Cardio Rate: regular rate Rhythm: regular rhythm Heart sounds: S1 normal heart sound present and S2 normal heart sound present Peripheral pulses: dorsalis pedis present GI Inspection: Yes normal to inspection General: Yes no CVA tenderness Back/Spine/Pelvis Back: no CVA tenderness Neuro General: No confusion Cranial nerves: Yes Normal hearing present Extrem General: No edema Right upper extremity: normal to inspection, normal capillary refill and Extremity exam: right hand Details: normal to inspection, normal capillary refill and abnormal ROM of finger Details: pain with active ROM and pain with passive ROM Left upper extremity: normal to inspection, full ROM, normal capillary refill and hand Details: normal to inspection, normal capillary refill and abnormal ROM of finger Details: pain with active ROM and pain with passive ROM Assessment and Plan Assessment & Plan (1) Fibromyalgia: Code(s): M79.7 - Fibromyalgia Plan: Continue on current medication. Will referred to a relocation coordinator to establish care. (2) Polyarthralgia: Code(s): M25.50 - Pain in unspecified joint Plan: Continue naproxen 500 mg b.i.d., diclofenac cream sent to patient's pharmacy to apply to bilateral ankles for joint pain. CMP, ESR, CRP, DESIREE and RF ordered to furthure evaluate joint pain. Plan Keep scheduled physical exam with PCP in March follow-up sooner if needed. Orders: Orders Comprehensive [place]. Panel Fast Today M25.50 - Pain in unspecified joint C Reactive Protein Today M25.50 - Pain in unspecified joint Rheumatoid Factor Today M25.50 - Pain in unspecified joint Erythrocyte Sedimentation Rate Today M25.50 - Pain in unspecified joint DESIREE Reflex Titer and Pattern Today M25.50 - Pain in unspecified joint Referrals Rheumatology Referral M79.7 - Fibromyalgia Medications: New diclofenac sodium 1% (Arthritis Pain (diclofenac)) apply to single elbow, wrist or hand; for hand includes palm/fingers/back of hand 2 grams topical QID 100 grams 0RF Coding Level of Care Code Est Pt Level 3 (37997) Diagnoses Fibromyalgia M79.7 Polyarthralgia M25.50
== END 2023-02-05 09:06 | disposition home or self-care (01) ==
PROVIDERS: PCP Internal Medicine; Visit Provider Nurse Practitioner Family
DX: M79.7 Fibromyalgia (principal); M25.50 Pain in unspecified joint
CPT/HCPCS: 99213

== ENCOUNTER 2023-02-10 09:48 | Outpatient (REF) | payer OTHER, SELFPAY ==
[2023-02-10 13:59] LABS: Rheumatoid Factor < 13.0 IU/mL (<15.0)
[2023-02-10 14:07] LABS: Alanine Aminotransferase 12 U/L (0-31); Albumin Level 4.3 g/dL (3.5-5.0); Alkaline Phosphatase 49 U/L (39-117); Anion Gap 11 (12-20); Aspartate Amino Transferase 12 U/L (5-31); Bilirubin Total 0.2 mg/dL (0.0-1.0); Blood Urea Nitrogen 12 mg/dL (9-16); C Reactive Protein 0.23 mg/dL (< or = 0.50); Calcium 9.6 mg/dL (8.4-10.2); Carbon Dioxide 23 mmol/L (22-29); Chloride 110 mmol/L (96-108); Estimated Glomerular Filt Rate > 60; Glucose Fasting 94 mg/dL (60-99); Potassium 4.3 mmol/L (3.3-5.1); Sodium 140 mmol/L (135-145); Total Protein 7.2 g/dL (6.5-8.0)
[2023-02-10 14:30] LABS: Erythrocyte Sedimentation Rate 19 MM/HR (0-20)
[2023-02-12 14:28] LABS: Anti Nuclear Antibody Screen NEGATIVE (NEGATIVE)
== END 2023-02-10 09:49 | disposition home or self-care (01) ==
LOC: HO.HMGCLDS 09:48
PROVIDERS: PCP Internal Medicine; Visit Provider Nurse Practitioner Family
DX: M25.50 Pain in unspecified joint (principal)
CPT/HCPCS: 36415; 80053; 85652; 86038; 86140; 86431

== ENCOUNTER 2023-03-30 09:58 | Outpatient (AMB) | payer OTHER, SELFPAY ==
--- NOTE | 2023-03-30 09:59 | A.OFFPC_ITS ---
Vital Signs 03/30/23 10:00 Height 5 ft 2 in Weight 174 lb BMI 31.8 BP 110/64 Blood Pressure Location Lt brachial Position Sitting Pulse 87 Pulse Source Pulse Oximeter Pulse Oximetry (%) 98 Oxygen Delivery Method Room Air Intake Visit Reasons: Physical Exam Intake Note: Patient here for a physical exam Computational Mathematician Required: No Accompanied by: Self / Same As Patient Allergies acetaminophen [From TYLENOL] Allergy (Intermediate, Verified 03/30/23 10:13) Itching oxycodone Allergy (Intermediate, Verified 03/30/23 10:13) rash APAP Allergy (Intermediate, Uncoded 03/30/23 10:13) Itching Medication List - Last Reconciled 03/30/23 by Dolores Gonzalez MD buspirone 30 mg PO BID cetirizine 10 mg PO DAILY PRN diclofenac sodium 1% (Arthritis Pain (diclofenac)) 2 grams topical QID duloxetine 60 mg PO QAM fluticasone propionate 50 mcg/actuation (Flonase Allergy Relief) 2 sprays intranasal DAILY lactulose 10 grams (15 mL) PO BEDTIME 30 days lemborexant (Dayvigo) 10 mg PO BEDTIME lorazepam 1 mg PO BID meclizine mg PO naproxen 500 mg PO BID 30 days omeprazole 40 mg PO DAILY sumatriptan succinate 50 mg PO Q2-4H PRN 30 days topiramate 50 mg PO BID valacyclovir (Valtrex) 1,000 mg PO TID 7 days Tobacco use date assessed: 11/04/22 Dental Screening Dental Screen Date: 03/30/23 Did you have a dental visit in the last 12 months?: Yes Did you have a dental problem in the last 6 months where you did not have access to dental care?: No Was dental information given to patient?: Patient has dentist HPI HPI Comments History of Present Illness Details This is 32-year-old female with moderate recurrent major depression t hat comes for her physical exam. Depression stable with duloxetine and this is follow by Psychiatry. Last Pap smear was 2022 and was normal. No chest pain or shortness of breath. She complains of constipation that has been chronic and last Gastroenterology visit was 5 years ago. Has tried MiraLax and lactulose with no significant improvement. [facility] Medical History Moderate recurrent major depression Fibromyalgia Chronic GERD Hand pain Constipation by delayed colonic transit Polyarthralgia Allergic rhinitis DALE (generalized anxiety disorder) Mild recurrent major depression Right ankle injury Obese Insomnia Constipation Low back pain Scoliosis Anxiety and depression Migraines Umbilical hernia Morbid obesity Umbilical pain Surgical History History of umbilical hernia repair Family History Father Essential hypertension Mother Diabetes mellitus Essential hypertension Maternal Grandmother Unknown family medical history Brother No problems noted. Sister No problems noted. Sister No problems noted. Sister No problems noted. Son No problems noted. Social History Housing: House Alcohol intake: never Patient Tobacco Use Status: Never used Tobacco e-Cigarette/Vaping Use: Never Used Second Hand Smoke Exposure: No service: No Current occupational status: unemployed Gender identity: Female Cognitive needs: No Hearing needs: No Vision needs: Yes Female Reproductive History Menstrual Age of Menarche: 10 Questionnaire Thrive Questionnaire Date Thrive assessed: 11/04/22 DALE-7 AMB Questionnaire DALE-7 Date DALE - 7 assessed: 07/22/22 Source: Developed by Drs. Geovanni Malagon, Danelle Shepherd, Richard Dougherty and colleagues, with an educational desirae from [employer]. Review of Systems Const All systems reviewed & are unremarkable except as noted in HPI and below Eyes Reports no additional complaints, Denies change in vision and Denies other visual disturbances Card Denies chest pain at rest, Denies chest pain with activity, Denies edema, Denies irregular heart rhythm, Denies claudication, Denies dyspnea, Denies dyspnea on exertion, Denies orthopnea, Denies paroxysmal nocturnal dyspnea and Denies slow heart rate Resp Denies cough, Denies dyspnea and Denies dyspnea on exertion GI Denies abdominal pain, Denies change in bowel habits, Reports constipation, Denies excessive flatus, Denies nausea and Denies vomiting Denies urinary incontinence, Denies urinary hesitancy and Denies urinary urgency Musc Denies abnormal gait, Denies atrophy, Denies deformity and Denies limited range of motion Skin/Breast Denies bleeding lesions, Denies changing lesions and Denies rash Neuro Denies abnormal gait and Denies lack of coordination Physical exam (Primary Care) Vital Signs: Last Vital Signs Pulse 87 03/30/23 10:00 BP 110/64 03/30/23 10:00 Pulse Ox 98 03/30/23 10:00 Oxygen Delivery Method Room Air 03/30/23 10:00 BMI result Body Mass Index 31.8 Tobacco/Smoking Status: Tobacco use Status Tobacco use date assessed 11/04/22 03/30/23 10:08 Patient Tobacco Use Status Never used Tobacco 03/30/23 10:08 e-Cigarette/Vaping Use Never Used 03/30/23 10:08 Thrive Assessment: Date of Thrive Assessment Date Thrive assessed 11/04/22 03/30/23 10:08 Const Orientation/consciousness: patient oriented x3 HENMT Head: Yes normal to inspection, Yes normocephalic and Yes atraumatic Ears: external ears normal Eyes General: appearance normal, both eyes and all related structures Eyelids: Yes eyelids normal Conjunctivae: conjunctivae normal Neck Neck: Yes normal visual inspection and Yes supple Resp Effort & Inspection: normal respiratory effort Auscultation: clear to auscultation bilaterally Cardio Jugular venous distension: no JVD Rate: regular rate Rhythm: regular rhythm Heart sounds: S1 normal heart sound present and S2 normal heart sound present GI Inspection: Yes normal to inspection Palpation (GI): Soft to palpation and nontender Auscultation: normal bowel sounds Skin General skin exam: no rashes or lesions noted Neuro General: patient oriented x3 and no focal motor deficits Extrem General: Yes full ROM Psych Appearance: grossly normal Office Procedures Flu Questionnaire Does the patient have a severe egg allergy?: No Immunizations flu vacc [id number] 6mos up(PF) 60 mcg(15 mcgx4)/0.5 mL IM syringe Performing Provider: Dolores Gonzalez MD [facility] Documented (not given) by: PATITO Keyes on 03/30/23 10:09 Reason Not Given: Patient Refused Assessment and Plan Assessment & Plan (1) Physical exam: Code(s): Z00.00 - Encounter for general adult medical examination without abnormal findings Plan: Repeat in a year. (2) Moderate recurrent major depression: Code(s): F33.1 - Major depressive disorder, recurrent, moderate Plan: Continue duloxetine. Orders: Orders Comprehensive [place]. Panel Fast Today Z00.00 - Encounter for general adult medical examination without abnormal findings Influenza [id number] Immunization Today Z23 - Encounter for immunization Lipid Panel Today Z00.00 - Encounter for general adult medical examination without abnormal findings Referrals Neurology Referral G43.909 - Migraine, unspecified, not intractable, without status migrainosus Gastroenterology Referral K59.01 - Slow transit constipation Medications: Changed From topiramate 50 mg PO BID To topiramate 50 mg PO BID 180 tabs 0RF 90 days Refilled naproxen 500 mg PO BID 60 tabs 3RF 30 days S93.409A - Sprain of unspecified ligament of unspecified ankle, initial encounter Coding Level of Care Code Est Pt Prev Care 18-39y(36525) Diagnoses Physical exam Z00.00 Moderate recurrent major depression F33.1 Time Spent (min) 34
[2023-03-30 10:00] VITALS: BP 110/64; PULSE 87; O2SAT 98; BMI 31.8
== END 2023-03-30 10:22 | disposition home or self-care (01) ==
PROVIDERS: Visit Provider Internal Medicine
DX: Z00.00 Encounter for general adult medical examination without abnormal findings (principal); F33.1 Major depressive disorder, recurrent, moderate; Z23 Encounter for immunization
CPT/HCPCS: 99395

== ENCOUNTER 2023-05-12 12:27 | Outpatient (AMB) | payer OTHER, SELFPAY ==
--- NOTE | 2023-05-12 13:10 | AM.OFFWIN_ITS ---
Intake Vital Signs 05/12/23 13:13 Height 5 ft 2 in Weight 175 lb BMI 32.0 BP 94/60 Blood Pressure Location Rt brachial Position Sitting Pulse 93 Pulse Source Pulse Oximeter Temp 98.1 F Temp Source Oral Pulse Oximetry (%) 99 Oxygen Delivery Method Room Air Intake Visit Reasons: EST/congestion (lobby masked) Intake Note: Pt is here today c/o chest congestion, bodyaches, H/A 1.5 weeks Patient Tobacco Use Status: Never used Tobacco Allergies acetaminophen [From TYLENOL] Allergy (Intermediate, Verified 05/12/23 13:34) Itching oxycodone Allergy (Intermediate, Verified 05/12/23 13:34) rash APAP Allergy (Intermediate, Uncoded 05/12/23 13:34) Itching Medication List - Last Reconciled 05/12/23 by Casey Faulkner MD buspirone 30 mg PO BID cetirizine 10 mg PO DAILY PRN diclofenac sodium 1% (Arthritis Pain (diclofenac)) 2 grams topical QID duloxetine 60 mg PO QAM fluticasone propionate 50 mcg/actuation (Flonase Allergy Relief) 2 sprays intranasal DAILY lactulose 10 grams (15 mL) PO BEDTIME 30 days lemborexant (Dayvigo) 10 mg PO BEDTIME lorazepam 1 mg PO BID meclizine mg PO naproxen 500 mg PO BID 30 days omeprazole 40 mg PO DAILY sumatriptan succinate 50 mg PO Q2-4H PRN 30 days topiramate 50 mg PO BID 90 days valacyclovir (Valtrex) 1,000 mg PO TID 7 days Do you need a note to return to daycare/school/sports/work: No HPI EST/congestion (lobby masked) HPI Details Patient presents for a sick visit. Reporting symptoms of sinus congestion, sore throat and difficulty swallowing. Low-grade fever. No family member is sick. No recent travel. Patient reports symptoms of malaise and fatigue. [facility] Medical History Moderate recurrent major depression Fibromyalgia Chronic GERD Hand pain Constipation by delayed colonic transit Polyarthralgia Allergic rhinitis DALE (generalized anxiety disorder) Mild recurrent major depression Right ankle injury Obese Insomnia Constipation Low back pain Scoliosis Anxiety and depression Migraines Umbilical hernia Morbid obesity Umbilical pain Surgical History History of umbilical hernia repair Family History Father Essential hypertension Mother Diabetes mellitus Essential hypertension Maternal Grandmother Unknown family medical history Brother No problems noted. Sister No problems noted. Sister No problems noted. Sister No problems noted. Son No problems noted. Social History Housing: House Alcohol intake: never Patient Tobacco Use Status: Never used Tobacco e-Cigarette/Vaping Use: Never Used Second Hand Smoke Exposure: No service: No Current occupational status: unemployed Gender identity: Female Cognitive needs: No Hearing needs: No Vision needs: Yes Female Reproductive History Menstrual Age of Menarche: 10 Physical Exam Vital Signs: Last Vital Signs Temp 98.1 F 05/12/23 13:13 Pulse 93 05/12/23 13:13 BP 94/60 05/12/23 13:13 Pulse Ox 99 05/12/23 13:13 Oxygen Delivery Method Room Air 05/12/23 13:13 BMI result Body Mass Index 32.0 Const General: cooperative and healthy appearing Nutritional Appearance: well nourished Orientation/consciousness: patient oriented x3 Limitations: no limitations HEENT Head: Yes normal to inspection Eyes General: appearance normal, both eyes and all related structures Neck Neck: Yes normal visual inspection Chest Chest palpation & inspection: normal palpation of entire chest wall Resp Effort & Inspection: normal respiratory effort Neuro General: patient oriented x3 Assessment & Plan Assessment & Plan (1) Upper respiratory tract infection: Code(s): J06.9 - Acute upper respiratory infection, unspecified Plan: Antibiotics ordered. Increase fluid intake. Tylenol for aches and pains. If symptoms worsen, follow-up here for a recheck. Coding Level of Care Code Est Pt Level 3 (21224) Diagnoses Upper respiratory tract infection J06.9
[2023-05-12 13:13] VITALS: BP 94/60; PULSE 93; TEMP 36.7; O2SAT 99; BMI 32.0
== END 2023-05-12 13:44 | disposition home or self-care (01) ==
PROVIDERS: PCP Internal Medicine; Visit Provider Internal Medicine
DX: J06.9 Acute upper respiratory infection, unspecified (principal)
CPT/HCPCS: 99213

== ENCOUNTER 2023-05-14 10:54 | Outpatient (AMB) | payer OTHER, SELFPAY ==
--- NOTE | 2023-05-14 11:12 | MHC.OFFVIS ---
Intake Vital Signs 05/14/23 11:13 Height 5 ft 2 in Weight 175 lb 4.28 oz BMI 32.1 BP 104/70 Blood Pressure Location Rt brachial Position Sitting Pulse 75 Pulse Source Pulse Oximeter Temp 97.2 F Temp Source Skin Pulse Oximetry (%) 98 Oxygen Delivery Method Room Air Intake Visit Reasons: FM Intake Note: New pt presents today for FM consult. C/o pain in multiple areas. Bl hand pain, fingers locking. Pain started approx 2 years ago. Has tried duloxetine for a year and mental health provider Dr Mendez feels it is not working was referred to us.. Pain is 10/10, worse in the cold weather. 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 Accompanied by: Self / Same As Patient Allergies acetaminophen [From TYLENOL] Allergy (Intermediate, Verified 05/14/23 11:15) Itching oxycodone Allergy (Intermediate, Verified 05/14/23 11:15) rash APAP Allergy (Intermediate, Uncoded 05/14/23 11:15) Itching Medication List - Last Reconciled 05/14/23 by Meredith Mendes MD azithromycin take 500 mg today (day 1), then 250 mg for 4 days (days 2-5) PO buspirone 30 mg PO BID cetirizine 10 mg PO DAILY PRN diclofenac sodium 1% (Arthritis Pain (diclofenac)) 2 grams topical QID duloxetine 60 mg PO QAM fluticasone propionate 50 mcg/actuation (Flonase Allergy Relief) 2 sprays intranasal DAILY lactulose 10 grams (15 mL) PO BEDTIME 30 days lemborexant (Dayvigo) 10 mg PO BEDTIME lorazepam 1 mg PO BID meclizine mg PO naproxen 500 mg PO BID 30 days omeprazole 40 mg PO DAILY sumatriptan succinate 50 mg PO Q2-4H PRN 30 days topiramate 50 mg PO BID 90 days valacyclovir (Valtrex) 1,000 mg PO TID 7 days HPI HPI Comments History of Present Illness Details 32-year-old female with fibromyalgia presents for evaluation. Patient stated that she was diagnosed with fibromyalgia 2 years ago at the [facility]. Patient has a history of depression, she also has a history of migraines. She has 2 autistic children. She was started on duloxetine by her psychiatrist a year ago and was ineffective. She also states that she was on another medication for fibromyalgia 1 year prior and a was not effective. Patient states that she wakes multiple times during the night from pain. [facility] Medical History Moderate recurrent major depression Fibromyalgia Chronic GERD Hand pain Constipation by delayed colonic transit Polyarthralgia Allergic rhinitis DALE (generalized anxiety disorder) Mild recurrent major depression Right ankle injury Obese Insomnia Constipation Low back pain Scoliosis Anxiety and depression Migraines Umbilical hernia Morbid obesity Umbilical pain Surgical History History of umbilical hernia repair Family History Father Essential hypertension Mother Diabetes mellitus Essential hypertension Maternal Grandmother Unknown family medical history Brother No problems noted. Sister No problems noted. Sister No problems noted. Sister No problems noted. Son No problems noted. Social History Household Members: Children Housing: House Alcohol intake: never Patient Tobacco Use Status: Never used Tobacco e-Cigarette/Vaping Use: Never Used Second Hand Smoke Exposure: No service: No Current occupational status: unemployed Gender identity: Female Cognitive needs: No Hearing needs: No Vision needs: Yes Female Reproductive History Menstrual Age of Menarche: 10 Total pregnancies: 2 Number of Living Children: 2 Review of Systems Const Reports headache(s) and Reports weakness Eyes Reports loss of vision ENT Reports dizziness, Reports headache(s) and Reports hearing loss Card Reports chest pain GI Reports constipation, Reports heartburn and Reports nausea Musc Reports back pain, Reports arthralgias, Reports joint swelling and Reports stiffness Skin/Breast Reports alopecia Neuro Reports dizziness, Reports headache(s), Reports loss of vision, Reports memory loss and Reports weakness Psych Reports abnormal sleep pattern, Reports anxiety, Reports depression and Reports memory loss Physical Exam Vital Signs: Last Vital Signs Temp 97.2 F 05/14/23 11:13 Pulse 75 05/14/23 11:13 BP 104/70 05/14/23 11:13 Pulse Ox 98 05/14/23 11:13 Oxygen Delivery Method Room Air 05/14/23 11:13 BMI result Body Mass Index 32.1 Const General: cooperative, healthy appearing and comfortable Nutritional Appearance: obese Orientation/consciousness: patient oriented x3 Limitations: no limitations HEENT Head: Yes normocephalic and Yes atraumatic Mouth: moist mucous membranes Resp Effort & Inspection: normal respiratory effort and able to speak in complete sentences Cardio Rate: regular rate Skin General skin exam: no rashes or lesions noted Neuro General: patient oriented x3 Extrem Other: Multiple fibromyalgia tender points. No active synovitis Normal nailfold capillaroscopy Assessment & Plan Assessment & Plan (1) Fibromyalgia: Code(s): M79.7 - Fibromyalgia Plan: This is a 32-year-old female with fibromyalgia who presents for evaluation. There are no symptoms or signs suggestive of an autoimmune rheumatic disease Discussed management of fibromyalgia with patient. Is a noninflammatory, non-autoimmune central afferent processing disorder leading to a diffuse pain syndrome. Patient follows up regularly with a psychotherapist and a psychiatrist. Try to follow sleep hygiene practices. I suggested a referral for a sleep study to rule out RACHAEL by her PCP. Patient would benefit from increased physical activity, either through formal physical therapy or by joining a gym. Advised patient that she should start activity slowly and increase as tolerated. Consider low-impact exercises such as walking, swimming, aqua therapy stretching, yoga. With regards to medication she mentions that she was on some medication for fibromyalgia for 1 year and it was ineffective. She has been on duloxetine for 1 year , also ineffective. I explained to patient that the main focus in fibromyalgia treatment is understanding the condition, working on her underlying anxiety/depression, working on her sleep and exercise. Other medications such as gabapentin, Lyrica, milnacipran can be considered Follow-up as needed Plan I spent 34 minutes reviewing patient's chart, evaluating patient, counseling patient and documenting in the chart Coding Level of Care Code New Pt Level 3 (47317) Diagnoses Fibromyalgia M79.7
[2023-05-14 11:13] VITALS: BP 104/70; PULSE 75; TEMP 36.2; O2SAT 98; BMI 32.1
== END 2023-05-14 11:49 | disposition home or self-care (01) ==
PROVIDERS: PCP Internal Medicine; Visit Provider Student in an Organized Health Care Education/Training Program
DX: M79.7 Fibromyalgia (principal)
CPT/HCPCS: 99203

== ENCOUNTER → 2023-05-14 10:54 | Outpatient (BNVA) | payer OTHER, SELFPAY | PROVIDERS: PCP Internal Medicine; Visit Provider Student in an Organized Health Care Education/Training Program | DX: M79.7 Fibromyalgia (principal) | CPT/HCPCS: 99202 ==

== ENCOUNTER 2023-05-19 09:16 | Outpatient (REF) | payer OTHER, SELFPAY ==
[2023-05-19 11:04] LABS: Alanine Aminotransferase 23 U/L (0-31); Albumin Level 4.4 g/dL (3.5-5.0); Alkaline Phosphatase 58 U/L (39-117); Anion Gap 13 (12-20); Aspartate Amino Transferase 13 U/L (5-31); Bilirubin Total 0.1 mg/dL (0.0-1.0); Blood Urea Nitrogen 13 mg/dL (9-16); Calcium 9.9 mg/dL (8.4-10.2); Carbon Dioxide 23 mmol/L (22-29); Chloride 106 mmol/L (96-108); Cholesterol 229 mg/dL (<200); Estimated Glomerular Filt Rate > 60; Glucose Fasting 105 mg/dL (60-99); HDL Cholesterol 47 mg/dL (>40); LDL Cholesterol Calculated 139 mg/dL (<100); Potassium 4.5 mmol/L (3.3-5.1); Sodium 137 mmol/L (135-145); Total Protein 7.9 g/dL (6.5-8.0); Triglycerides 216 mg/dL (<150)
[2023-05-19 11:17] LABS: TSH reflex Free T4 2.31 uIU/mL (0.32-4.0)
[2023-05-19 11:30] LABS: Folate 5.6 ng/mL (> or = 4.0); Vitamin B12 569 pg/mL (200-900)
[2023-05-23 17:13] LABS: Vitamin D 25-OH, D2 <4 ng/mL; Vitamin D 25-OH, D3 40 ng/mL; Vitamin D 25-OH, Total 40 ng/mL (30-100)
== END 2023-05-19 09:17 | disposition home or self-care (01) ==
LOC: HO.LAB 09:16
PROVIDERS: PCP Internal Medicine; Visit Provider Nurse Practitioner Family
DX: Z00.00 Encounter for general adult medical examination without abnormal findings (principal); R19.7 Diarrhea, unspecified; E55.9 Vitamin D deficiency, unspecified; E66.9 Obesity, unspecified; K21.9 Gastro-esophageal reflux disease without esophagitis; K59.01 Slow transit constipation
CPT/HCPCS: 36415; 80053; 80061; 82306; 82607; 82746; 84443; 99202

== ENCOUNTER 2023-05-19 09:16 | Outpatient (AMB) | payer OTHER, SELFPAY ==
--- NOTE | 2023-05-19 09:24 | A.OFFVIS_ITS ---
Intake Vital Signs 05/19/23 09:28 Height 5 ft 2 in Weight 176 lb 5.917 oz BMI 32.3 BP 112/60 Blood Pressure Location Lt brachial Position Sitting Pulse 76 Intake Visit Reasons: Slow Transit constipation Intake Note: Amaya presents in the office as a new patient for slow transit constipation. CC: She is here today for constipation. She has tried Senna and stool softeners and nothing seems to help her. She states that she has blood only when it is hurtful to have a BM. She has tried Miralax but it gave her pains in her stomach. She was given a syrup but was not sure of the name of it. 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 Patient was sent to us to be evaluated for constipation. Patient states that she has been constipated since she was a little girl. Tried multiple [id number] stool softeners and laxative without any effect. Patient also reports acid reflux currently controlled with omeprazole. Patient reports no BM sometimes for over 1 week. Patient reports severe abdominal cramps and bloating. Occasional blood when she has bowel movement. Patient denies any nausea or vomiting. Patient reports that she drinks water every day. Patient denies any other GI concerning symptoms [facility] Medical History Moderate recurrent major depression Fibromyalgia Chronic GERD Hand pain Constipation by delayed colonic transit Polyarthralgia Allergic rhinitis DALE (generalized anxiety disorder) Mild recurrent major depression Right ankle injury Obese Insomnia Constipation Low back pain Scoliosis Anxiety and depression Migraines Umbilical hernia Morbid obesity Umbilical pain Surgical History History of umbilical hernia repair Family History Father Essential hypertension Mother Diabetes mellitus Essential hypertension Maternal Grandmother Unknown family medical history Brother No problems noted. Sister No problems noted. Sister No problems noted. Sister No problems noted. Son No problems noted. Social History Household Members: Children Housing: House Alcohol intake: never Patient Tobacco Use Status: Never used Tobacco e-Cigarette/Vaping Use: Never Used Second Hand Smoke Exposure: No service: No Current occupational status: unemployed Gender identity: Female Cognitive needs: No Hearing needs: No Vision needs: Yes Female Reproductive History Menstrual Age of Menarche: 10 Review of Systems Const Denies weight gain and Denies weight loss ENT Reports no additional complaints, Denies dysphagia and Denies odynophagia Card Reports no additional complaints Resp Reports no additional complaints GI Denies abdominal pain, Denies belching, Denies melena, Denies bloating, Reports constipation, Denies dysphagia, Denies excessive flatus, Denies dyspepsia, Denies heartburn, Denies diarrhea, Denies loose stools, Denies nausea, Denies odynophagia and Denies vomiting Reports no additional complaints Musc Reports no additional complaints Neuro Reports no additional complaints Psych Reports no additional complaints Endo Reports no additional complaints Physical Exam Vital Signs: Last Vital Signs Pulse 76 05/19/23 09:28 BP 112/60 05/19/23 09:28 BMI result Body Mass Index 32.3 Const General: healthy appearing, no acute distress and well developed Nutritional Appearance: obese Orientation/consciousness: patient oriented x3 HEENT Head: Yes normal to inspection, Yes normocephalic and Yes atraumatic Face and sinus: Yes normal facial exam Mouth: Normal oral and palatal mucosa present Throat: Yes posterior oropharynx normal, Yes tonsils normal and Yes uvula midline Eyes General: appearance normal, both eyes and all related structures Neck Neck: Yes normal visual inspection, Yes full ROM and Yes trachea midline Thyroid: Thyroid normal Resp Effort & Inspection: normal respiratory effort, able to speak in complete sentences, no tracheal deviation and symmetric chest movement Auscultation: clear to auscultation bilaterally Cardio Rate: regular rate GI Inspection: Yes normal to inspection, No distended and Yes obesity Palpation (GI): Soft to palpation, not firm, nontender and No hepatosplenomegaly present Auscultation: normal bowel sounds General: Yes no CVA tenderness Back/Spine/Pelvis Back: no CVA tenderness Skin General skin exam: elasticity normal, turgor normal and dry skin Neuro General: patient oriented x3 Psych Appearance: grossly normal Mental Status: mental status grossly normal Affect: normal affect Assessment & Plan Assessment & Plan (1) Chronic GERD: Code(s): K21.9 - Gastro-esophageal reflux disease without esophagitis (2) Constipation by delayed colonic transit: Code(s): K59.01 - Slow transit constipation Plan Continue omeprazole. Discussed with patient avoiding dietary triggers and late night snacking. Patient is not moving her bowels well. Encouraged to increase fluid intake and activity to promote better bowel motility. He patient will be start taking Linzess, she can take Colace in the evening if she will continue to of constipation. Patient will call our office in couple weeks if she will continue to be constipated so we can increase the dose. Will check thyroid, vitamin-D, B12 and folate. Patient will follow-up in 5 weeks, sooner on as needed basis. Patient is agreeable to this plan and verbalizes he understanding of instructions. She was given the opportunity to ask questions and all questions answered. Thank you for allowing me to participate in her care Orders: Orders TSH reflex Free T4 Today K59.00 - Constipation, unspecified Vitamin D 25-OH (D2 and D3) Today E55.9 - Vitamin D deficiency, unspecified Vitamin B12 and Folate Today R19.7 - Diarrhea, unspecified Medications: New linaclotide (Linzess) 145 mcg PO DAILY 30 caps 2RF docusate sodium 200 mg (2 x 100 mg) PO BEDTIME 180 caps 3RF K59.00 - Constipation, unspecified Discontinued lactulose Discontinued Reason: Patient no longer taking 10 grams (15 mL) PO BEDTIME 30 days 450 mL 0RF constipation K59.01 - Slow transit constipation Coding Level of Care Code New Pt Level 3 (61265) Diagnoses Chronic GERD K21.9 Constipation by delayed colonic transit K59.01 Time Spent (min) 40 Comment 30 minutes spent with patient and additional 10 minutes spent reviewing her records
[2023-05-19 09:28] VITALS: BP 112/60; PULSE 76; BMI 32.3
== END 2023-05-19 10:03 | disposition home or self-care (01) ==
PROVIDERS: PCP Internal Medicine; Visit Provider Nurse Practitioner Family
DX: K21.9 Gastro-esophageal reflux disease without esophagitis (principal); K59.01 Slow transit constipation
CPT/HCPCS: 99203

== ENCOUNTER 2023-06-23 09:38 | Outpatient (AMB) | payer OTHER, SELFPAY ==
--- NOTE | 2023-06-23 09:40 | MHC.OFFVIS ---
Intake Vital Signs 06/23/23 09:44 Height 5 ft 2 in Weight 178 lb 9.191 oz BMI 32.7 BP 99/57 L Blood Pressure Location Lt brachial Position Sitting Pulse 64 Intake Visit Reasons: 5 week follow up constipation Intake Note: Amaya presents in the office as a 5 week follow up constipation. CC: She states that she was calling our office about her dosage change and she states that she never heard about it afterwards so she was a little confused. She states that the pills have not done much and she is still having constipation. Allergies acetaminophen [From TYLENOL] Allergy (Intermediate, Verified 06/23/23 09:44) Itching oxycodone Allergy (Intermediate, Verified 06/23/23 09:44) rash APAP Allergy (Intermediate, Uncoded 06/23/23 09:44) Itching HPI 5 week follow up constipation HPI Details LAST VISIT: Chronic GERD Constipation by delayed colonic transit Plan Continue omeprazole. Discussed with patient avoiding dietary triggers and late night snacking. Patient is not moving her bowels well. Encouraged to increase fluid intake and activity to promote better bowel motility. He patient will be start taking Linzess, she can take Colace in the evening if she will continue to of constipation. Patient will call our office in couple weeks if she will continue to be constipated so we can increase the dose. Will check thyroid, vitamin-D, B12 and folate. Patient will follow-up in 5 weeks, sooner on as needed basis. Patient is agreeable to this plan and verbalizes he understanding of instructions. She was given the opportunity to ask questions and all questions answered. ? Thank you for allowing me to participate in her care Orders Orders TSH reflex Free T4 Today K59.00 Vitamin D 25-OH (D2 and D3) Today E55.9 Vitamin B12 and Folate Today R19.7 Medications New linaclotide (Linzess) 145 mcg PO DAILY 30 caps 2RF docusate sodium 200 mg (2 x 100 mg) PO BEDTIME 180 caps 3RF K59.00 Discontinued lactulose Discontinued Reason: Patient no longer taking 10 grams (15 mL) PO BEDTIME 30 days 450 mL 0RF constipation K59.01 TODAY'S VISIT Patient is here today for follow-up and to discuss lab results. Patient had normal labs. Takes Linzess every day and continues to have constipation. No BM sometimes for 5 days. Patient reports that when she does have a bowel movement she does go all lot, which is an improvement. Patient is taking 2 Colace at night time. Patient reports that she is drinking fluids. Denies melena, hematochezia, unintentional weight loss or ribbon like stools. Patient denies any abdominal pain or discomfort. Does report occasional postprandial abdominal bloating. Symptoms of acid reflux are suppressed with omeprazole. Patient denies any dyspepsia, dysphagia or odynophagia. Reports to have a good appetite. [facility] Medical History Moderate recurrent major depression Fibromyalgia Chronic GERD Hand pain Constipation by delayed colonic transit Polyarthralgia Allergic rhinitis DALE (generalized anxiety disorder) Mild recurrent major depression Right ankle injury Obese Insomnia Constipation Low back pain Scoliosis Anxiety and depression Migraines Umbilical hernia Morbid obesity Umbilical pain Surgical History History of umbilical hernia repair Family History Father Essential hypertension Mother Diabetes mellitus Essential hypertension Maternal Grandmother Unknown family medical history Brother No problems noted. Sister No problems noted. Sister No problems noted. Sister No problems noted. Son No problems noted. Social History Household Members: Children Housing: House Alcohol intake: never Patient Tobacco Use Status: Never used Tobacco e-Cigarette/Vaping Use: Never Used Second Hand Smoke Exposure: No service: No Current occupational status: unemployed Gender identity: Female Cognitive needs: No Hearing needs: No Vision needs: Yes Female Reproductive History Menstrual Age of Menarche: 10 Review of Systems Const Denies weight gain and Denies weight loss ENT Reports no additional complaints, Denies dysphagia and Denies odynophagia Card Reports no additional complaints Resp Reports no additional complaints GI Denies abdominal pain, Denies belching, Denies melena, Denies bloating, Reports constipation, Denies dysphagia, Denies excessive flatus, Denies dyspepsia, Denies heartburn, Denies diarrhea, Denies loose stools, Denies nausea, Denies odynophagia and Denies vomiting Reports no additional complaints Musc Reports no additional complaints Neuro Reports no additional complaints Psych Reports no additional complaints Endo Reports no additional complaints Physical Exam Vital Signs: Last Vital Signs Pulse 64 06/23/23 09:44 BP 99/57 L 06/23/23 09:44 BMI result Body Mass Index 32.7 Const General: healthy appearing, no acute distress and well developed Nutritional Appearance: obese Orientation/consciousness: patient oriented x3 Resp Effort & Inspection: normal respiratory effort, able to speak in complete sentences, no tracheal deviation and symmetric chest movement Auscultation: clear to auscultation bilaterally Cardio Rate: regular rate GI Inspection: Yes normal to inspection, No distended and Yes obesity Palpation (GI): Soft to palpation, not firm, nontender and No hepatosplenomegaly present Auscultation: normal bowel sounds General: Yes no CVA tenderness Back/Spine/Pelvis Back: no CVA tenderness Skin General skin exam: elasticity normal, turgor normal and dry skin Neuro General: patient oriented x3 Psych Appearance: grossly normal Mental Status: mental status grossly normal Affect: normal affect Results Reviewed Results Reviewed: Laboratory Tests 05/19/23 10:36 Vitamin B12 569 25-OH Vitamin D Total 40 Folate 5.6 TSH 2.31 Assessment & Plan Assessment & Plan (1) Chronic GERD: Code(s): K21.9 - Gastro-esophageal reflux disease without esophagitis (2) Constipation by delayed colonic transit: Code(s): K59.01 - Slow transit constipation Plan Full continue taking omeprazole daily. Patient was encouraged to avoid dietary triggers and late Kristine plaquing. Patient will increase fluid intake and activity to promote better bowel motility. We will increase Linzess to 290 mcg daily. Patient can take Dulcolax tablets at nighttime to see if that will improve. Patient will call our office if she will have any issues. She will return to our office in 2-3 weeks, sooner on as needed basis. Patient is agreeable to this plan and verbalizes understanding of instructions. She was given the opportunity questions and all questions answered. Thank you for allowing me to participate in her care Medications: New linaclotide (Linzess) 290 mcg PO QAM 30 caps 4RF K59.00 - Constipation, unspecified bisacodyl (Dulcolax (bisacodyl)) 10 mg (2 x 5 mg) PO BEDTIME 180 tabs 4RF Discontinued linaclotide (Linzess) Discontinued Reason: Doctor's Order 145 mcg PO DAILY 30 caps 2RF Coding Level of Care Code Est Pt Level 3 (65019) Diagnoses Chronic GERD K21.9 Constipation by delayed colonic transit K59.01 Time Spent (min) 25 Comment 15 minutes spent with patient and additional 10 minutes spent reviewing her records
[2023-06-23 09:44] VITALS: BP 99/57; PULSE 64; BMI 32.7
== END 2023-06-23 10:11 | disposition home or self-care (01) ==
PROVIDERS: PCP Internal Medicine; Visit Provider Nurse Practitioner Family
DX: K21.9 Gastro-esophageal reflux disease without esophagitis (principal); K59.01 Slow transit constipation
CPT/HCPCS: 99213

== ENCOUNTER → 2023-06-23 09:38 | Outpatient (BNVA) | payer OTHER, SELFPAY | PROVIDERS: PCP Internal Medicine; Visit Provider Nurse Practitioner Family | DX: K21.9 Gastro-esophageal reflux disease without esophagitis (principal); K59.01 Slow transit constipation | CPT/HCPCS: 99212 ==

== ENCOUNTER 2023-07-08 08:59 | Outpatient (AMB) | payer OTHER, SELFPAY ==
--- NOTE | 2023-07-08 09:13 | A.OFFVIS_ITS ---
Intake Vital Signs 07/08/23 09:15 Height 5 ft 2 in Weight 183 lb 13.848 oz BMI 33.6 BP 105/75 Blood Pressure Location Rt brachial Position Sitting Pulse 90 Pulse Source Pulse Oximeter Intake Visit Reasons: 3 week follow up rediscuss meds Intake Note: Pt presents to the office today for a 3 week follow up to rediscuss meds. Pt states when she has gas she has a lot of stomach pain and bloating. Pt denies any vomiting or diarrhea bust states she will get nauseous occaionally when the pain is bad. Allergies acetaminophen [From TYLENOL] Allergy (Intermediate, Verified 07/08/23 09:16) Itching oxycodone Allergy (Intermediate, Verified 07/08/23 09:16) rash APAP Allergy (Intermediate, Uncoded 07/08/23 09:16) Itching HPI 3 week follow up rediscuss meds HPI Details LAST VISIT Chronic GERD Constipation by delayed colonic transit Plan Full continue taking omeprazole daily. Patient was encouraged to avoid dietary triggers and late Kristine plaquing. Patient will increase fluid intake and activity to promote better bowel motility. We will increase Linzess to 290 mcg daily. Patient can take Dulcolax tablets at nighttime to see if that will improve. Patient will call our office if she will have any issues. She will return to our office in 2-3 weeks, sooner on as needed basis. Patient is agreeable to this plan and verbalizes understanding of instructions. She was given the opportunity questions and all questions answered. ? Thank you for allowing me to participate in her care Medications New linaclotide (Linzess) 290 mcg PO QAM 30 caps 4RF K59.00 bisacodyl (Dulcolax (bisacodyl)) 10 mg (2 x 5 mg) PO BEDTIME 180 tabs 4RF Discontinued linaclotide (Linzess) Discontinued Reason: Doctor's Order 145 mcg PO DAILY 30 caps 2RF TODAY'S VISIT: Patient is here today for follow-up. Patient reports that she started taking Linzess 290 mcg in the morning and Dulcolax tablets in the evening. Patient states that she moves her bowels, however she feels like she is still not emptying completely. Patient reports frequent bloating no matter what she eats. Patient is not on any particular diet. Reports to be eating anything. Patient states that she eats chicken, steak, vegetables. Patient is avoiding food that is fried. Patient reports occasional acid reflux despite taking omeprazole. Denies any dyspepsia, dysphagia or odynophagia. Patient states that she feels very gassy. Patient reports feeling cramps if she is unable to have a bowel movement and feels very bloated than. Sometimes nauseous specially when bloated and constipated. Patient denies any melena, hematochezia, unintentional weight loss or ribbon like stools. Patient denies any diarrhea. PENDING SALE TO [facility] Medical History Moderate recurrent major depression Fibromyalgia Chronic GERD Hand pain Constipation by delayed colonic transit Polyarthralgia Allergic rhinitis DALE (generalized anxiety disorder) Mild recurrent major depression Right ankle injury Obese Insomnia Constipation Low back pain Scoliosis Anxiety and depression Migraines Umbilical hernia Morbid obesity Umbilical pain Surgical History History of umbilical hernia repair Family History Father Essential hypertension Mother Diabetes mellitus Essential hypertension Maternal Grandmother Unknown family medical history Brother No problems noted. Sister No problems noted. Sister No problems noted. Sister No problems noted. Son No problems noted. Social History Household Members: Children Housing: House Alcohol intake: never Patient Tobacco Use Status: Never used Tobacco e-Cigarette/Vaping Use: Never Used Second Hand Smoke Exposure: No service: No Current occupational status: unemployed Gender identity: Female Cognitive needs: No Hearing needs: No Vision needs: Yes Female Reproductive History Menstrual Age of Menarche: 10 Review of Systems Const Denies weight gain and Denies weight loss ENT Reports no additional complaints, Denies dysphagia and Denies odynophagia Card Reports no additional complaints Resp Reports no additional complaints GI Denies abdominal pain, Denies belching, Denies melena, Reports bloating, Denies change in bowel habits, Reports constipation, Reports GI cramping, Denies dysphagia, Denies excessive flatus, Denies dyspepsia, Denies heartburn, Denies diarrhea, Denies loose stools, Reports nausea, Denies odynophagia and Denies vomiting Reports no additional complaints Musc Reports no additional complaints Neuro Reports no additional complaints Psych Reports no additional complaints Endo Reports no additional complaints Physical Exam Vital Signs: Last Vital Signs Pulse 90 07/08/23 09:15 BP 105/75 07/08/23 09:15 BMI result Body Mass Index 33.6 Const General: healthy appearing, no acute distress and well developed Nutritional Appearance: obese Orientation/consciousness: patient oriented x3 Resp Effort & Inspection: normal respiratory effort, able to speak in complete sentences, no tracheal deviation and symmetric chest movement Auscultation: clear to auscultation bilaterally Cardio Rate: regular rate GI Inspection: Yes normal to inspection, No distended and Yes obesity Palpation (GI): Soft to palpation, not firm, nontender and No hepatosplenomegaly present Auscultation: normal bowel sounds General: Yes no CVA tenderness Back/Spine/Pelvis Back: no CVA tenderness Skin General skin exam: elasticity normal, turgor normal and dry skin Neuro General: patient oriented x3 Psych Appearance: grossly normal Mental Status: mental status grossly normal Assessment & Plan Assessment & Plan (1) Chronic GERD: Code(s): K21.9 - Gastro-esophageal reflux disease without esophagitis (2) Constipation by delayed colonic transit: Code(s): K59.01 - Slow transit constipation (3) Postprandial abdominal bloating: Code(s): R14.0 - Abdominal distension (gaseous) (4) IBS (irritable bowel syndrome): Code(s): K58.9 - Irritable bowel syndrome without diarrhea Qualifiers: Irritable bowel syndrome type: with constipation Qualified Code(s): K58.1 - Irritable bowel syndrome with constipation Plan Patient will stop taking omeprazole and will switch her to esomeprazole. Patient was also encouraged to avoid dietary triggers late night snacking. Staying upright for minimum 3 hours after meals discussed with patient. Patient will also follow low FODMAP diet. List of food recommended as well as list of food to avoid given to patient. Patient will try to avoid beans, lactose, gluten and see if his symptoms will get better. Patient was also encouraged to drink plenty fluids. Currently patient is not drinking enough. Encouraged to increase mobility to promote better bowel will motility I will see patient in 5 weeks, sooner on as needed basis. Patient is agreeable to this plan and verbalizes understanding of instructions. She was given the opportunity to ask questions and all questions answered. Thank you for allowing me to participate in her care Medications: New esomeprazole magnesium (Nexium) 40 mg PO DAILY 30 caps 5RF K21.9 - Gastro- esophageal reflux disease without esophagitis Discontinued omeprazole Discontinued Reason: Doctor's Order 40 mg PO DAILY 90 caps 2RF Coding Level of Care Code Est Pt Level 3 (85736) Diagnoses Chronic GERD K21.9 Constipation by delayed colonic transit K59.01 Postprandial abdominal bloating R14.0 Irritable bowel syndrome with constipation K58.1 Irritable bowel syndrome type: with constipation Time Spent (min) 30 Comment 20 minutes spent with patient and additional 10 minutes spent reviewing her records
[2023-07-08 09:15] VITALS: BP 105/75; PULSE 90; BMI 33.6
== END 2023-07-08 09:38 | disposition home or self-care (01) ==
PROVIDERS: PCP Internal Medicine; Visit Provider Nurse Practitioner Family
DX: K21.9 Gastro-esophageal reflux disease without esophagitis (principal); K59.01 Slow transit constipation; R14.0 Abdominal distension (gaseous); K58.1 Irritable bowel syndrome with constipation
CPT/HCPCS: 99213

== ENCOUNTER → 2023-07-08 08:59 | Outpatient (BNVA) | payer OTHER, SELFPAY | PROVIDERS: PCP Internal Medicine; Visit Provider Nurse Practitioner Family | DX: K21.9 Gastro-esophageal reflux disease without esophagitis (principal); K59.01 Slow transit constipation; K58.1 Irritable bowel syndrome with constipation; R14.0 Abdominal distension (gaseous) | CPT/HCPCS: 99212 ==

== ENCOUNTER 2023-08-12 09:08 | Outpatient (AMB) | payer OTHER, SELFPAY ==
--- NOTE | 2023-08-12 09:14 | MHC.OFFVIS ---
Intake Vital Signs 08/12/23 09:16 Height 5 ft 2 in Weight 184 lb BMI 33.7 BP 111/66 Blood Pressure Location Lt brachial Position Sitting Pulse 70 Intake Visit Reasons: 5 week follow up Intake Note: Amaya presents in the office as a 5 week follow up. CC: The mediation for her stomach she does not feel like works for her. She has to do it twice a day but was given it or once a day. Drier Take Off Tender Required: No Allergies acetaminophen [From TYLENOL] Allergy (Intermediate, Verified 08/12/23 09:18) Itching oxycodone Allergy (Intermediate, Verified 08/12/23 09:18) rash APAP Allergy (Intermediate, Uncoded 08/12/23 09:18) Itching HPI 5 week follow up HPI Details LAST VISIT: Chronic GERD Constipation by delayed colonic transit Postprandial abdominal bloating IBS (irritable bowel syndrome) Plan Patient will stop taking omeprazole and will switch her to esomeprazole. Patient was also encouraged to avoid dietary triggers late night snacking. Staying upright for minimum 3 hours after meals discussed with patient. Patient will also follow low FODMAP diet. List of food recommended as well as list of food to avoid given to patient. Patient will try to avoid beans, lactose, gluten and see if his symptoms will get better. Patient was also encouraged to drink plenty fluids. Currently patient is not drinking enough. Encouraged to increase mobility to promote better bowel will motility I will see patient in 5 weeks, sooner on as needed basis. Patient is agreeable to this plan and verbalizes understanding of instructions. She was given the opportunity to ask questions and all questions answered. ? Thank you for allowing me to participate in her care Medications New esomeprazole magnesium (Nexium) 40 mg PO DAILY 30 caps 5RF K21.9 Discontinued omeprazole Discontinued Reason: Doctor's Order 40 mg PO DAILY 90 caps 2RF TODAY'S VISIT: Patient is here today for follow-up. Patient reports that she is taking Nexium in the morning and still feels like she will have epigastric discomfort postprandially. Sometimes when she does not eat she feels like she has bloating and left upper quadrant discomfort. Patient states that she wakes up in the morning frequently feeling pain in her upper abdomen and feeling of nausea. Postprandially patient feels like she gets very bloated. Sometimes she has to take Nexium twice a day as her symptoms get worse towards the end of the day. Patient reports that she is moving her bowels better now that she is taking MiraLax and Dulcolax. Patient denies any melena, hematochezia, unintentional weight loss or ribbon like stools. Patient states that she changed her diet and feels better, however she continues to have epigastric pain with no matter what she eats. Patient denies odynophagia or dysphagia [facility] Medical History Moderate recurrent major depression Fibromyalgia Chronic GERD Hand pain Constipation by delayed colonic transit Polyarthralgia Allergic rhinitis DALE (generalized anxiety disorder) Mild recurrent major depression Right ankle injury Obese Insomnia Constipation Low back pain Scoliosis Anxiety and depression Migraines Umbilical hernia Morbid obesity Umbilical pain Surgical History History of umbilical hernia repair Family History Father Essential hypertension Mother Diabetes mellitus Essential hypertension Maternal Grandmother Unknown family medical history Brother No problems noted. Sister No problems noted. Sister No problems noted. Sister No problems noted. Son No problems noted. Social History Household Members: Children Housing: House Alcohol intake: never Patient Tobacco Use Status: Never used Tobacco e-Cigarette/Vaping Use: Never Used Second Hand Smoke Exposure: No service: No Current occupational status: unemployed Gender identity: Female Cognitive needs: No Hearing needs: No Vision needs: Yes Female Reproductive History Menstrual Age of Menarche: 10 Review of Systems Const Denies weight gain and Denies weight loss ENT Reports no additional complaints, Denies dysphagia and Denies odynophagia Card Reports no additional complaints Resp Reports no additional complaints GI Reports abdominal pain (epigastric), Denies belching, Denies melena, Reports bloating, Denies change in bowel habits, Denies dysphagia, Denies excessive flatus, Denies dyspepsia, Reports heartburn, Denies diarrhea, Denies loose stools, Denies nausea, Denies odynophagia and Denies vomiting Reports no additional complaints Musc Reports no additional complaints Neuro Reports no additional complaints Psych Reports no additional complaints Endo Reports no additional complaints Physical Exam Vital Signs: Last Vital Signs Pulse 70 08/12/23 09:16 BP 111/66 08/12/23 09:16 BMI result Body Mass Index 33.7 Const General: healthy appearing, no acute distress and well developed Nutritional Appearance: obese Orientation/consciousness: patient oriented x3 Resp Effort & Inspection: normal respiratory effort, able to speak in complete sentences, no tracheal deviation and symmetric chest movement Auscultation: clear to auscultation bilaterally Cardio Rate: regular rate GI Inspection: Yes normal to inspection, No distended and Yes obesity Palpation (GI): Soft to palpation, not firm, nontender and No hepatosplenomegaly present Auscultation: normal bowel sounds General: Yes no CVA tenderness Back/Spine/Pelvis Back: no CVA tenderness Skin General skin exam: elasticity normal, turgor normal and dry skin Neuro General: patient oriented x3 Psych Appearance: grossly normal Mental Status: mental status grossly normal Assessment & Plan Assessment & Plan (1) Chronic GERD: Code(s): K21.9 - Gastro-esophageal reflux disease without esophagitis (2) Constipation by delayed colonic transit: Code(s): K59.01 - Slow transit constipation (3) Postprandial abdominal bloating: Code(s): R14.0 - Abdominal distension (gaseous) (4) IBS (irritable bowel syndrome): Code(s): K58.9 - Irritable bowel syndrome without diarrhea Qualifiers: Irritable bowel syndrome type: without diarrhea Qualified Code(s): K58.9 - Irritable bowel syndrome without diarrhea Plan Patient continues with epigastric discomfort after meals and occasionally pain not related to meals. Will send her to rule out celiac, check lipase and liver panel. Will check for H pylori. Patient will stop taking Nexium and will start her on pantoprazole. She can take sucralfate at bedtime. Discussed with patient continue avoiding dietary triggers and late night snacking. Staying upright for minimum 3 hours after meals discussed with patient. I will see her in 6 weeks, sooner on as needed basis. Patient is agreeable to this plan and verbalizes understanding of instructions. She was given the opportunity to ask questions and all questions answered. Thank you for allowing me to participate in her care Orders: Orders Transglutaminase IgA Today R10.9 - Unspecified abdominal pain Lipase Today R10.9 - Unspecified abdominal pain Liver Panel Today R74.01 - Elevation of levels of liver transaminase levels H pylori Ag Stool Today K21.9 - Gastro-esophageal reflux disease without esophagitis Pancreatic Elastase-1 Today R10.9 - Unspecified abdominal pain Transglutaminase Ab IgG Today R10.9 - Unspecified abdominal pain Medications: New sucralfate 1 g PO BEDTIME 30 tabs 4RF R19.7 - Diarrhea, unspecified pantoprazole take one tablet half an hour before breakfast 40 mg PO DAILY 30 tabs 2RF K21.9 - Gastro-esophageal reflux disease without esophagitis Discontinued esomeprazole magnesium (Nexium) Discontinued Reason: Doctor's Order 40 mg PO DAILY 30 caps 5RF K21.9 - Gastro-esophageal reflux disease without esophagitis Coding Level of Care Code Est Pt Level 4 (14053) Diagnoses Chronic GERD K21.9 Constipation by delayed colonic transit K59.01 Postprandial abdominal bloating R14.0 Irritable bowel syndrome without diarrhea K58.9 Irritable bowel syndrome type: without diarrhea Time Spent (min) 35 Comment 20 minutes spent with patient and additional 15 minutes spent reviewing her records
[2023-08-12 09:16] VITALS: BP 111/66; PULSE 70; BMI 33.7
== END 2023-08-12 09:52 | disposition home or self-care (01) ==
PROVIDERS: PCP Internal Medicine; Visit Provider Nurse Practitioner Family
DX: K21.9 Gastro-esophageal reflux disease without esophagitis (principal); K59.01 Slow transit constipation; R14.0 Abdominal distension (gaseous); K58.9 Irritable bowel syndrome, unspecified
CPT/HCPCS: 99214

== ENCOUNTER 2023-08-12 09:08 | Outpatient (REF) | payer OTHER, SELFPAY ==
[2023-08-12 11:04] LABS: Alanine Aminotransferase 17 U/L (0-31); Albumin Level 4.2 g/dL (3.5-5.0); Alkaline Phosphatase 55 U/L (39-117); Aspartate Amino Transferase 11 U/L (5-31); Bilirubin Direct < 0.2 mg/dL (0.0-0.5); Bilirubin Total 0.2 mg/dL (0.0-1.0); Lipase 33 U/L (8-78); Total Protein 7.3 g/dL (6.5-8.0)
[2023-08-13 19:09] LABS: Transglutaminase Ab IgG <1.0 U/mL; Transglutaminase IgA <1.0 U/mL
== END 2023-08-12 09:09 | disposition home or self-care (01) ==
LOC: HO.LAB 09:08
PROVIDERS: PCP Internal Medicine; Visit Provider Nurse Practitioner Family
DX: R10.9 Unspecified abdominal pain (principal); R74.01 Elevation of levels of liver transaminase levels; K21.9 Gastro-esophageal reflux disease without esophagitis; K58.1 Irritable bowel syndrome with constipation; K58.0 Irritable bowel syndrome with diarrhea; K59.01 Slow transit constipation; R14.0 Abdominal distension (gaseous)
CPT/HCPCS: 36415; 80076; 83690; 86364; 99212

== ENCOUNTER 2023-08-14 11:23 | Outpatient (REF) | payer OTHER, SELFPAY ==
[2023-08-22 18:58] LABS: Pancreatic Elastase-1 >500 mcg/g
== END 2023-08-14 11:24 | disposition home or self-care (01) ==
LOC: HO.LNP 11:23
PROVIDERS: Visit Provider Nurse Practitioner Family
DX: R10.9 Unspecified abdominal pain (principal); K21.9 Gastro-esophageal reflux disease without esophagitis
CPT/HCPCS: 82656; 87338

== ENCOUNTER 2023-08-17 08:59 | Day surgery (SDC) | payer OTHER, SELFPAY ==
--- NOTE | 2023-08-14 11:57 | HO.ANESPROP2 ---
Documented by User: Lolly Lozoya NP 08/14/23 11:58 HPI - Anesthesia Eval Consult details Narrative: 33yo F for Upper Endoscopy PMFSH Active Problems Active Problems: All Active Problems (Updated 12/05/22 @ 16:50 by Becky Fall CNM) control counseling (Acute) Cervical cancer screening (Acute) Physical exam (Acute) Syncope and collapse (Acute) Hospital discharge follow-up (Acute) Migraines (Acute) Chest pain (Acute) Syncope (Acute) Moderate recurrent major depression (Acute) Fibromyalgia (Acute) Potential exposure to STD (Acute) Well woman exam with routine gynecological exam (Acute) Chronic GERD (Acute) Hand pain (Acute) Constipation by delayed colonic transit (Acute) Polyarthralgia (Acute) Allergic rhinitis (Acute) DALE (generalized anxiety disorder) (Acute) Right ankle sprain (Acute) Right ankle injury (Acute) Obese (Acute) Migraines (Acute) Insomnia (Acute) Nausea & vomiting (Acute) Diarrhea (Acute) Epigastric discomfort (Acute) Nausea (Acute) Umbilical hernia (Acute) Umbilical pain (Acute) Past Medical History Medical History Moderate recurrent major depression Fibromyalgia Chronic GERD Hand pain Constipation by delayed colonic transit Polyarthralgia Allergic rhinitis DALE (generalized anxiety disorder) Mild recurrent major depression Right ankle injury Obese Insomnia Constipation Low back pain Scoliosis Anxiety and depression Migraines Umbilical hernia Morbid obesity Umbilical pain Family History Family History Father Essential hypertension Mother Diabetes mellitus Essential hypertension Maternal Grandmother Unknown family medical history Brother No problems noted. Sister No problems noted. Sister No problems noted. Sister No problems noted. Son No problems noted. Surgical History Surgical History History of umbilical hernia repair Social History Social History Household Members: Children Housing: House Alcohol intake: never Patient Tobacco Use Status: Never used Tobacco e-Cigarette/Vaping Use: Never Used Second Hand Smoke Exposure: No Advance Directives: No Advance Directives Information Provided: Yes service: No Current occupational status: unemployed Gender identity: Female Cognitive needs: No Hearing needs: No Vision needs: Yes Meds Allergies Allergy/AdvReac Type Severity Reaction Status Date / Time acetaminophen [From TYLENOL] Allergy Intermediate Itching Verified 08/17/23 09:39 oxycodone Allergy Intermediate rash Verified 08/17/23 09:39 APAP Allergy Intermediate Itching Uncoded 08/12/23 09:18 Home Medications Medication Instructions Recorded Confirmed Last Taken Type buspirone 30 mg tablet 30 mg PO BID 11/26/21 03/30/23 Unknown History meclizine 25 mg tablet mg PO 11/26/21 03/30/23 Unknown History lorazepam 1 mg tablet 1 mg PO BID 07/22/22 03/30/23 Unknown History lemborexant 10 mg tablet (Dayvigo) 10 mg PO BEDTIME 02/05/23 03/30/23 Unknown History Exam Pertinent Lab Results Pertinent Lab Results: Laboratory Tests 06/26/22 05/19/23 09:35 10:36 WBC 7.9 Hgb 11.5 L Hct 36.6 L Plt Count 298 Sodium 137 Potassium 4.5 Chloride 106 Carbon Dioxide 23 BUN 13 Creatinine 0.82 Narrative Narrative: ECHO 2021 Conclusions: - The left ventricular systolic function is normal. The calculated ejection fraction is 59% by biplane method. - There is mildly decreased right ventricular systolic function (could also possibly be related to image quality). - No obvious valvular pathology seen on this study. Documented by User: Juliana Dewey MD 08/17/23 09:54 [facility] Past Medical History Medical History Moderate recurrent major depression Fibromyalgia Chronic GERD Hand pain Constipation by delayed colonic transit Polyarthralgia Allergic rhinitis DALE (generalized anxiety disorder) Mild recurrent major depression Right ankle injury Obese Insomnia Constipation Low back pain Scoliosis Anxiety and depression Migraines Umbilical hernia Morbid obesity Umbilical pain Family History Family History Father Essential hypertension Mother Diabetes mellitus Essential hypertension Maternal Grandmother Unknown family medical history Brother No problems noted. Sister No problems noted. Sister No problems noted. Sister No problems noted. Son No problems noted. Family history of problems with anesthesia: No Surgical History Surgical History History of umbilical hernia repair History of Problems with Anesthesia: No Social History Social History Household Members: Children Housing: House Alcohol intake: never Patient Tobacco Use Status: Never used Tobacco e-Cigarette/Vaping Use: Never Used Second Hand Smoke Exposure: No Advance Directives: No Advance Directives Information Provided: Yes service: No Current occupational status: unemployed Gender identity: Female Cognitive needs: No Hearing needs: No Vision needs: Yes Meds Allergies Allergy/AdvReac Type Severity Reaction Status Date / Time acetaminophen [From TYLENOL] Allergy Intermediate Itching Verified 08/17/23 09:39 oxycodone Allergy Intermediate rash Verified 08/17/23 09:39 APAP Allergy Intermediate Itching Uncoded 08/12/23 09:18 Home Medications Medication Instructions Recorded Confirmed Last Taken Type buspirone 30 mg tablet 30 mg PO BID 11/26/21 03/30/23 Unknown History meclizine 25 mg tablet mg PO 11/26/21 03/30/23 Unknown History lorazepam 1 mg tablet 1 mg PO BID 07/22/22 03/30/23 Unknown History lemborexant 10 mg tablet (Dayvigo) 10 mg PO BEDTIME 02/05/23 03/30/23 Unknown History Exam Airway Mallampati Class: II TM Dist: >3cm Neck ROM: Full Heart: rrr Lungs: cta Assessment and Plan Assessment Anesthesia Assessment: Anesthesia Plan Discussed and Chart Reviewed Final Anesthetic Review Family History of Problems with Anesthesia: No History of Problems with Anesthesia: No NPO: Yes ASA Class: II Final Preanesthetic Review: No Changes in Pt Med Stat, Meds/Allgs Chart Reviewed and Consent Obtained/Reviewed Patient Risk: Low Procedure Risk: Intermediate Anesthetic Plan Anesthetic Plan: MAC: Disposition: Standard PACU
[2023-08-17 09:24] LABS: UPreg QC Valid YES; Urine Pregnancy NEGATIVE (NEGATIVE)
--- NOTE | 2023-08-17 09:31 | MHC.SHP ---
Pre-Procedural Eval Section A - 24 Hr Update-Section A only Date of Service: 08/17/23 The patient is an INPATIENT: No The patient has been examined within 24 hours of the surgical procedure. The History & Physical has been completed within 30 days and I have reviewed it.: No Section B - Complete if H&P > 30 days Chief Complaint: GERD, epigastric pain Relevant Family History (Specify if Yes): No Relevant Social History: None Present Medications: see Short Stay Collaborative assessment Medical History: Significant History (Fibromyalgia Chronic GERD Hand pain Constipation by delayed colonic transit Polyarthralgia Allergic rhinitis DALE (generalized anxiety disorder) Mild recurrent major depression Right ankle injury Obese Insomnia Constipation Low back pain Scoliosis Anxiety and depression Migraines Umbilical hernia Mor) History of Previous Operations: Relevant previous surgery/procedure and date(s) (History of umbilical hernia repair) Allergies: Allergies Allergy/AdvReac Type Severity Reaction Status Date / Time acetaminophen [From TYLENOL] Allergy Intermediate Itching Verified 08/12/23 09:18 oxycodone Allergy Intermediate rash Verified 08/12/23 09:18 APAP Allergy Intermediate Itching Uncoded 08/12/23 09:18 Review of Systems Sugical H&P ROS: Negative: Constitution, Cardiovascular and Respiratory and Yes, Specify: Gastrointestinal (GERD) Exam Surgical H&P Exam: Normal: Heart, Normal: Lungs, Normal: Extremities and Normal: Abdomen Plan Diagnosis/Plan: Change (Proceed with EGD) I have reviewed the history and physical and performed a pertinent physical examination on my patient. No changes have occurred unless specified. Time Spent With Patient Time: Total time managing care of this patient today ____ minutes.
[2023-08-17 09:56] VITALS: BP 114/82; PULSE 64; RESP 15; TEMP 36.8; O2SAT 95; BMI 33.5
[2023-08-17] MEDS: Lactated Ringers 1,000 ML 100 ML IVCONT (10:01)
--- NOTE | 2023-08-17 10:07 | W.PM.OPN ---
Operative Note Operative Note Date of Service: 08/17/23 Narrative: FLEXIBLE TRANSORAL UPPER GASTROINTESTINAL ENDOSCOPY WITH BIOPSIES Pre-op diagnosis: GERD, upper abdominal pain Post-op diagnosis: GERD, gastric polyps, gastritis Endoscopist:? Maegan Sarmiento MD Anesthesia:?MAC Consent: Indications for the procedure and potential complications of bleeding, perforation, reaction to medications and missed diagnosis were discussed with the patient and informed consent was obtained. Instrument: Olympus GIF H 190 mid size upper endoscope Monitoring: Vital signs and clinical assessment, continuous EKG monitoring, Pulse oximetry, Carbon Dioxide monitoring and blood pressure monitoring were done throughout the procedure. Procedure: The patient was placed in the left lateral decubitis position and pre-procedure medications were administered and a bite block was placed. The endoscope was inserted into the mouth and advanced under direct vision to the third part of duodenum. A careful inspection was made as the upper endoscope was withdrawn including a retroflexed examination of the proximal stomach; Findings and interventions are described below. Findings: Larynx: Normal Esophagus: GE junction at 35 cms. No esophagitis or Bowling's. Stomach: A few 4-5 mm benign appearing polyps in the gastric body - biopsied. A 2 cms x 3 cms focal area of erythematous and friable mucosa in the distal body along the greater curve - biopsied. Mild gastric antral erythema - biopsies were obtained to check for Helicobacter pylori infection. Grade 2 flap valve on retroflexed examination of the cardia. DUODENAL: Normal bulb and descending duodenum - biopsies were obtained from 3rd part of the duodenal check for celiac sprue. Intervention: Biopsies as noted above Impression and Post Procedure Diagnosis: Endoscopy Findings: STOMACH: A few 4-5 mm benign appearing polyps in the gastric body - biopsied. A 2 cms x 3 cms focal area of erythematous and friable mucosa in the distal body along the greater curve - likely related to Naproxen use. Mild gastric antral erythema - biopsies were obtained to check for Helicobacter pylori infection. DUODENUM: Normal - biopsied to check for celiac sprue Plan: Await pathology results Patient has an appointment on 10/09/23 in the GI Clinic with Kelsy Manriquez NP. Above findings were reviewed with the patient and GERD and Gastric Polyps handouts was given in the discharge area
[2023-08-17 10:23] VITALS: BP 102/62; PULSE 73; RESP 16; TEMP 36.3; O2SAT 96
[2023-08-17 10:38] VITALS: BP 106/65; PULSE 69; RESP 16; TEMP 36.3; O2SAT 97
[2023-08-17 10:53] VITALS: BP 103/68; PULSE 66; RESP 14; TEMP 36.2; O2SAT 98
== END 2023-08-17 10:58 | disposition home or self-care (01) ==
PROVIDERS: Nurse Practitioner; PCP Internal Medicine; Visit Provider Internal Medicine Gastroenterology
PROC: 0DJ08ZZ Inspection of Upper Intestinal Tract, Via Natural or Artificial Opening Endoscopic (ICD-10-PCS; CPT 43235; principal; 2023-08-17 10:00)
DX: K31.7 Polyp of stomach and duodenum (principal); K29.60 Other gastritis without bleeding; K21.9 Gastro-esophageal reflux disease without esophagitis; R14.0 Abdominal distension (gaseous); K59.01 Slow transit constipation; K58.9 Irritable bowel syndrome, unspecified; E66.9 Obesity, unspecified; Z68.33 Body mass index [BMI] 33.0-33.9, adult
CPT/HCPCS: 43239; 81025; 88305; 88313; 88342; J2704

== ENCOUNTER → 2023-08-17 08:59 | Outpatient (BNV) | payer OTHER, SELFPAY | PROVIDERS: PCP Internal Medicine; Visit Provider Internal Medicine Gastroenterology | DX: K21.9 Gastro-esophageal reflux disease without esophagitis (principal); K31.7 Polyp of stomach and duodenum; K29.70 Gastritis, unspecified, without bleeding | CPT/HCPCS: 43239 ==

== ENCOUNTER 2023-09-08 11:55 | Outpatient (AMB) | payer OTHER, SELFPAY ==
--- NOTE | 2023-09-08 12:04 | MHC.OFFVIS ---
Intake Vital Signs 09/08/23 12:05 Height 5 ft 2 in Weight 187 lb 6.287 oz BMI 34.3 BP 101/63 Blood Pressure Location Rt brachial Position Sitting Pulse 75 Intake Visit Reasons: s/p egd Intake Note: Patient in office today in follow up of EGD on 08/16/33. CC: Patient reports that the first 2 weeks after the EGD she was having a lot of pain from LUQ abdomen, worst after eating. She states that she is now feeling somewhat better from abdominal pain. She c/o nausea, acid reflux, and heartburn. Per patient sometimes she needs to take Pantoprazole BID d/t symptoms. Patient states she is having regular BMs. Public Health Sanitarian Required: No Accompanied by: Self / Same As Patient Allergies acetaminophen [From TYLENOL] Allergy (Intermediate, Verified 09/08/23 12:12) Itching oxycodone Allergy (Intermediate, Verified 09/08/23 12:12) rash APAP Allergy (Intermediate, Uncoded 08/12/23 09:18) Itching HPI s/p egd HPI Details LAST VISIT Chronic GERD Constipation by delayed colonic transit Postprandial abdominal bloating IBS (irritable bowel syndrome) Plan Patient continues with epigastric discomfort after meals and occasionally pain not related to meals. Will send her to rule out celiac, check lipase and liver panel. Will check for H pylori. Patient will stop taking Nexium and will start her on pantoprazole. She can take sucralfate at bedtime. Discussed with patient continue avoiding dietary triggers and late night snacking. Staying upright for minimum 3 hours after meals discussed with patient. I will see her in 6 weeks, sooner on as needed basis. Patient is agreeable to this plan and verbalizes understanding of instructions. She was given the opportunity to ask questions and all questions answered. ? Thank you for allowing me to participate in her care Orders Orders Transglutaminase IgA Today R10.9 Lipase Today R10.9 Liver Panel Today R74.01 H pylori Ag Stool Today K21.9 Pancreatic Elastase-1 Today R10.9 Transglutaminase Ab IgG Today R10.9 Medications New sucralfate 1 g PO BEDTIME 30 tabs 4RF R19.7 pantoprazole take one tablet half an hour before breakfast 40 mg PO DAILY 30 tabs 2RF K21.9 Discontinued esomeprazole magnesium (Nexium) Discontinued Reason: Doctor's Order 40 mg PO DAILY 30 caps 5RF K21.9 UPPER ENDOSCOPY Findings: Larynx: Normal Esophagus: GE junction at 35 cms. No esophagitis or Bowling's. Stomach: A few 4-5 mm benign appearing polyps in the gastric body - biopsied. A 2 cms x 3 cms focal area of erythematous and friable mucosa in the distal body along the greater curve - biopsied. Mild gastric antral erythema - biopsies were obtained to check for Helicobacter pylori infection. Grade 2 flap valve on retroflexed examination of the cardia. DUODENAL: Normal bulb and descending duodenum - biopsies were obtained from 3rd part of the duodenal check for celiac sprue. Intervention: Biopsies as noted above Impression and Post Procedure Diagnosis: Endoscopy Findings: STOMACH: A few 4-5 mm benign appearing polyps in the gastric body - biopsied. A 2 cms x 3 cms focal area of erythematous and friable mucosa in the distal body along the greater curve - likely related to Naproxen use. Mild gastric antral erythema - biopsies were obtained to check for Helicobacter pylori infection. DUODENUM: Normal - biopsied to check for celiac sprue Plan: Await pathology results Patient has an appointment on 10/09/23 in the GI Clinic with Kelsy Manriquez NP. Above findings were reviewed with the patient and GERD and Gastric Polyps handouts was given in the discharge area PATHOLOGY RESULTS Diagnosis A. Small bowel, biopsy: Duodenal mucosa within normal limits; negative for celiac disease. B. Stomach, antrum, biopsy: Antral-type mucosa with mild chronic inactive inflammation; no Helicobacter organisms seen. C. Stomach, body, biopsy: Oxyntic mucosa with mild chronic inactive inflammation; no Helicobacter organisms seen. D. Stomach, polyps, biopsy: Fundic gland polyps with background mild chronic inactive inflammation; no Helicobacter organisms seen TODAY'S VISIT Laboratory Tests 08/12/23 08/12/23 08/14/23 10:14 10:14 11:24 Total Bilirubin 0.2 Direct Bilirubin < 0.2 AST 11 ALT 17 Lipase 33 Stool Pancreat Lizzeth stase >500 Tiss Transglutamin IgG <1.0 Tiss Transglutamin IgA <1.0 Patient is here today for follow-up and to discuss upper endoscopy results, biopsy and lab results. Patient had normal lab values. We ruled out pancreatic insufficiency, pancreatitis, celiac. Biopsy from upper endoscopy confirmed negative for celiac sprue. Patient has mild irritation to her stomach most likely related to food and also NSAID use. Patient stopped taking NSAIDs. Currently is taking pantoprazole in the morning and sometimes in the afternoon he will have acid reflux and dyspepsia. Patient reports that she is moving her bowels better now that she is taking Linzess and occasionally Dulcolax in the evening. Patient states that Linzess works for her well. Feels like she empties, however sometimes she needs to use Dulcolax in order to empty her bowels completely. Patient does admit that she is eating rice, however patient started to eat more vegetables and is avoiding greasy and fried food. Patient would like to lose weight, have not tried any diet or has not seen and ops manager who can have. Patient denies any nausea or vomiting. Reports occasional left upper quadrant discomfort with no radiation to any area. Patient reports that after the procedure she had left upper quadrant pain for almost 2 weeks. REPLACED BY [facility] Medical History Moderate recurrent major depression Fibromyalgia Chronic GERD Hand pain Constipation by delayed colonic transit Polyarthralgia Allergic rhinitis DALE (generalized anxiety disorder) Mild recurrent major depression Right ankle injury Obese Insomnia Constipation Low back pain Scoliosis Anxiety and depression Migraines Umbilical hernia Morbid obesity Umbilical pain Surgical History History of esophagogastroduodenoscopy (EGD) History of umbilical hernia repair Family History Father Essential hypertension Mother Diabetes mellitus Essential hypertension Maternal Grandmother Unknown family medical history Brother No problems noted. Sister No problems noted. Sister No problems noted. Sister No problems noted. Son No problems noted. Social History Household Members: Children Housing: House Alcohol intake: never Patient Tobacco Use Status: Never used Tobacco e-Cigarette/Vaping Use: Never Used Second Hand Smoke Exposure: No service: No Current occupational status: unemployed Gender identity: Female Cognitive needs: No Hearing needs: No Vision needs: Yes Female Reproductive History Menstrual Age of Menarche: 10 Review of Systems Const Denies weight gain and Denies weight loss ENT Reports no additional complaints, Denies dysphagia and Denies odynophagia Card Reports no additional complaints Resp Reports no additional complaints GI Reports abdominal pain (LUQ, occasional), Denies belching, Denies melena, Reports bloating, Reports constipation (Occasional), Denies dysphagia, Denies excessive flatus, Denies dyspepsia, Reports heartburn (Occasional in the afternoon), Denies diarrhea, Denies loose stools, Denies nausea, Denies odynophagia and Denies vomiting Reports no additional complaints Musc Reports no additional complaints Neuro Reports no additional complaints Psych Reports no additional complaints Endo Reports no additional complaints Physical Exam Vital Signs: Last Vital Signs Pulse 75 09/08/23 12:05 BP 101/63 09/08/23 12:05 BMI result Body Mass Index 34.3 Const General: healthy appearing and no acute distress Nutritional Appearance: obese Orientation/consciousness: patient oriented x3 Resp Effort & Inspection: normal respiratory effort, able to speak in complete sentences, no tracheal deviation and symmetric chest movement Auscultation: clear to auscultation bilaterally Cardio Rate: regular rate GI Inspection: Yes normal to inspection, No distended and Yes obesity Palpation (GI): Soft to palpation, not firm, nontender and No hepatosplenomegaly present Auscultation: normal bowel sounds General: Yes no CVA tenderness Back/Spine/Pelvis Back: no CVA tenderness Skin General skin exam: elasticity normal, turgor normal and dry skin Neuro General: patient oriented x3 Psych Appearance: grossly normal Mental Status: mental status grossly normal Assessment & Plan Assessment & Plan (1) Chronic GERD: Code(s): K21.9 - Gastro-esophageal reflux disease without esophagitis (2) Constipation by delayed colonic transit: Code(s): K59.01 - Slow transit constipation (3) Postprandial abdominal bloating: Code(s): R14.0 - Abdominal distension (gaseous) (4) IBS (irritable bowel syndrome): Code(s): K58.9 - Irritable bowel syndrome without diarrhea Qualifiers: Irritable bowel syndrome type: with constipation Qualified Code(s): K58.1 - Irritable bowel syndrome with constipation Plan Pain and left upper quadrant most likely related to gas trapping in splenic flexure due to constipation. Patient was encouraged to drink plenty fluids increase activity to promote better bowel motility. Continue taking Linzess daily and Dulcolax on as needed basis to help her empty completely. All of her blood work was discussed with patient and negative for any acute findings. Continue PPI and sucralfate as ordered. Discussed with patient low FODMAP diet and list of food recommended as well as list of food to avoid given to patient. She will return in the office in 3 months, sooner on as needed basis. Patient will try berberine supplement with breakfast to see if it helps with carbs cravings. Patient is agreeable to this plan and verbalizes understanding of instructions. She was given the opportunity to ask questions and all questions answered. Thank you for allowing me to participate in her care Medications: Refilled sucralfate 1 g PO BEDTIME 30 tabs 4RF R19.7 - Diarrhea, unspecified pantoprazole take one tablet half an hour before breakfast 40 mg PO DAILY 30 tabs 2RF K21.9 - Gastro-esophageal reflux disease without esophagitis Discontinued naproxen Discontinued Reason: Doctor's Order 500 mg PO BID 30 days 60 tabs 3RF S93.409A - Sprain of unspecified ligament of unspecified ankle, initial encounter Coding Level of Care Code Est Pt Level 4 (26501) Diagnoses Chronic GERD K21.9 Constipation by delayed colonic transit K59.01 Postprandial abdominal bloating R14.0 Irritable bowel syndrome with constipation K58.1 Irritable bowel syndrome type: with constipation Time Spent (min) 35 Comment 20 minutes spent with patient and additional 15 minutes spent reviewing her records
[2023-09-08 12:05] VITALS: BP 101/63; PULSE 75; BMI 34.3
== END 2023-09-08 12:37 | disposition home or self-care (01) ==
PROVIDERS: PCP Internal Medicine; Visit Provider Nurse Practitioner Family
DX: K21.9 Gastro-esophageal reflux disease without esophagitis (principal); K59.01 Slow transit constipation; R14.0 Abdominal distension (gaseous); K58.1 Irritable bowel syndrome with constipation
CPT/HCPCS: 99214

== ENCOUNTER → 2023-09-08 11:55 | Outpatient (BNVA) | payer OTHER, SELFPAY | PROVIDERS: PCP Internal Medicine; Visit Provider Nurse Practitioner Family | DX: K21.9 Gastro-esophageal reflux disease without esophagitis (principal); K59.01 Slow transit constipation; K58.1 Irritable bowel syndrome with constipation; R14.0 Abdominal distension (gaseous) | CPT/HCPCS: 99212 ==

== ENCOUNTER 2023-09-23 12:58 | Outpatient (AMB) | payer OTHER, SELFPAY ==
[2023-09-23 13:01] VITALS: BP 110/70; BMI 34.6
--- NOTE | 2023-09-23 13:01 | MHC.PC.OV ---
Vital Signs 09/23/23 13:01 Height 5 ft 2 in Weight 189 lb BMI 34.6 BP 110/70 Blood Pressure Location Lt brachial Position Sitting Intake Visit Reasons: Results F/U Intake Note: Patient here for results follow up, c/o ankle and leg pain, depression and anxiety Intensive Care Medicine Specialist Required: No Accompanied by: Self / Same As Patient Allergies acetaminophen [From TYLENOL] Allergy (Intermediate, Verified 09/23/23 13:28) Itching oxycodone Allergy (Intermediate, Verified 09/23/23 13:28) rash APAP Allergy (Intermediate, Uncoded 09/23/23 13:28) Itching Medication List - Last Reconciled 09/23/23 by Dolores Gonzalez MD bisacodyl (Dulcolax (bisacodyl)) 10 mg (2 x 5 mg) PO BEDTIME buspirone 30 mg PO BID cetirizine 10 mg PO DAILY PRN diclofenac sodium 1% (Arthritis Pain (diclofenac)) 2 grams topical QID docusate sodium 200 mg (2 x 100 mg) PO BEDTIME fluticasone propionate 50 mcg/actuation (Flonase Allergy Relief) 2 sprays intranasal DAILY lemborexant (Dayvigo) 10 mg PO BEDTIME linaclotide (Linzess) 290 mcg PO QAM lorazepam 1 mg PO BID meclizine 25 mg PO DAILY PRN pantoprazole 40 mg PO DAILY sucralfate 1 g PO BEDTIME sumatriptan succinate 50 mg PO Q2-4H PRN 30 days valacyclovir (Valtrex) 1,000 mg PO TID 7 days Tobacco use date assessed: 09/23/23 Dental Screening Dental Screen Date: 09/23/23 Did you have a dental visit in the last 12 months?: Yes Did you have a dental problem in the last 6 months where you did not have access to dental care?: No Was dental information given to patient?: Patient has dentist HPI HPI Comments History of Present Illness Details This is a 33-year-old female with chronic GERD, constipation, migraines and moderate recurrent major depression that comes today follow-up on her conditions. GERD stable with Carafate and this is follow by Gastroenterology as well as constipation which is stable with Linzess. On sumatriptan as needed for her migraines and this is follow by Neurology. Has depression but lost her counselor and Psychiatry and is on a waiting list. She is obese with a BMI of 34.6 and has tried diet and exercise with no improvement. Will send Wegovy for weight loss. Complains of diffuse joint pain more prominent in the and goals most likely due to fibromyalgia. Was advised to practice sleep hygiene education. [facility] Medical History Moderate recurrent major depression Fibromyalgia Chronic GERD Hand pain Constipation by delayed colonic transit Polyarthralgia Allergic rhinitis DALE (generalized anxiety disorder) Mild recurrent major depression Right ankle injury Obese Insomnia Constipation Low back pain Scoliosis Anxiety and depression Migraines Umbilical hernia Morbid obesity Umbilical pain Surgical History History of esophagogastroduodenoscopy (EGD) History of umbilical hernia repair Family History Father Essential hypertension Mother Diabetes mellitus Essential hypertension Maternal Grandmother Unknown family medical history Brother No problems noted. Sister No problems noted. Sister No problems noted. Sister No problems noted. Son No problems noted. Social History Household Members: Children Housing: House Alcohol intake: never Patient Tobacco Use Status: Never used Tobacco e-Cigarette/Vaping Use: Never Used Second Hand Smoke Exposure: No service: No Current occupational status: unemployed Gender identity: Female Cognitive needs: No Hearing needs: No Vision needs: Yes Female Reproductive History Menstrual Age of Menarche: 10 Questionnaire PHQ-9 Over the last 2 weeks, how often have you been bothered by any of the following problems? 1. Little interest or pleasure in doing things: more than half the days 2. Feeling down, depressed, or hopeless: more than half the days 3. Trouble falling or staying asleep, or sleeping too much: nearly every day 4. Feeling tired or having little energy: nearly every day 5. Poor appetite or overeating: several days 6. Feeling bad about yourself - or that you are a failure or have let yourself or your family down: more than half the days 7. Trouble concentrating on things, such as reading the newspaper or watching television: more than half the days 8. Moving or speaking so slowly that other people could have noticed. Or the opposite - being so fidgety or restless that you have been moving around a lot more than usual: more than half the days 9. Thoughts that you would be better off or of hurting yourself in some way: not at all Total score: 17 Source: Developed by Drs. Geovanni Malagon, Danelle Shepherd, Richard Dougherty and colleagues, with an educational desirae from [employer]. Thrive Questionnaire Date Thrive assessed: 09/23/23 I am a: Patient What is your living situation today?: I have a steady place to live Within the past 12 months, did the food you bought not last and you didn't have the money to get more?: Never true Within the past 12 months, did you worry whether your food would run out before you got money to buy more?: Never true Do you have trouble paying for medicines?: No Do you have trouble getting transportation to medical appointments?: No Do you have trouble paying your heating and electricity bill?: No Do you have trouble taking care of your child, family member or friend?: No Do you have trouble with day-to-day activities such as bathing, preparing meals, shopping, managing finances, etc.?: No Are you currently unemployed and looking for a job?: No Are you interested in more education?: No Please select the resources that you would like help with: None Currently or been in a relationship where the following occur: no concerns reported THRIVE Score: 0 AUDIT C Alcohol Use Questionnaire (AUDIT-C) 1. How often do you have a drink containing alcohol?: Never Total Score: 0 DALE-7 AMB Questionnaire DALE-7 Date DALE - 7 assessed: 09/23/23 Feeling nervous, anxious, or on edge: 3 = Nearly every day Not being able to stop or control worryin = Not at all Worrying too much about different things: 1 = Several days Trouble relaxin = Nearly every day Being so restless that it is hard to sit still: 1 = Several days Becoming easily annoyed or irritable: 2 = More than half the days Feeling afraid as if something awful might happen: 1 = Several days Total DALE-7 score (0-4 normal; 5-9 mild; 10-14 moderate; 15-21 severe): 11 Source: Developed by Drs. Geovanni Malagon, Danelle Shepherd, Richard Dougherty and colleagues, with an educational desirae from [employer]. Review of Systems Const All systems reviewed & are unremarkable except as noted in HPI and below Eyes Reports no additional complaints, Denies change in vision and Denies other visual disturbances Card Denies chest pain at rest, Denies chest pain with activity, Denies edema, Denies irregular heart rhythm, Denies claudication, Denies dyspnea, Denies dyspnea on exertion, Denies orthopnea, Denies paroxysmal nocturnal dyspnea and Denies slow heart rate Resp Denies cough, Denies dyspnea and Denies dyspnea on exertion Physical exam (Primary Care) Vital Signs: Last Vital Signs BP 110/70 09/23/23 13:01 BMI result Body Mass Index 34.6 Tobacco/Smoking Status: Tobacco use Status Tobacco use date assessed 09/23/23 09/23/23 13:10 Patient Tobacco Use Status Never used Tobacco 09/23/23 13:10 e-Cigarette/Vaping Use Never Used 09/23/23 13:10 PHQ-9: PHQ-9 Score PHQ-9: Total score 17 09/23/23 13:10 Thrive Assessment: Date of Thrive Assessment Date Thrive assessed 09/23/23 09/23/23 13:10 Currently or been in a relationship where the following occur: no concerns reported Resp Effort & Inspection: normal respiratory effort Auscultation: clear to auscultation bilaterally Cardio Jugular venous distension: no JVD Rate: regular rate Rhythm: regular rhythm Heart sounds: S1 normal heart sound present and S2 normal heart sound present Extrem General: Yes full ROM Assessment and Plan Assessment & Plan (1) Moderate recurrent major depression: Code(s): F33.1 - Major depressive disorder, recurrent, moderate Plan: Continue Dayvigo. (2) Migraines: Code(s): G43.909 - Migraine, unspecified, not intractable, without status migrainosus Plan: Use sumatriptan as needed. (3) Constipation by delayed colonic transit: Code(s): K59.01 - Slow transit constipation Plan: Continue Linzess. (4) Chronic GERD: Code(s): K21.9 - Gastro-esophageal reflux disease without esophagitis Plan: Continue Carafate. Medications: New buspirone 30 mg PO BID 30 days 60 tabs 6RF semaglutide (weight loss) (Ori) administer weeks 1 through 4 of therapy 0.25 mg (0.5 mL) subcut QWEEK 30 days 2.5 mL 0RF Changed From lemborexant (Dayvigo) 10 mg PO BEDTIME To lemborexant (Dayvigo) 10 mg PO BEDTIME 90 days 90 tabs 1RF From lorazepam 1 mg PO BID To lorazepam 1 mg PO BID 30 days 60 tabs 0RF Coding Level of Care Code Est Pt Level 4 (44930) Diagnoses Moderate recurrent major depression F33.1 Migraines G43.909 Constipation by delayed colonic transit K59.01 Chronic GERD K21.9 Time Spent (min) 24
== END 2023-09-23 13:36 | disposition home or self-care (01) ==
PROVIDERS: PCP Internal Medicine; Visit Provider Internal Medicine
DX: F33.1 Major depressive disorder, recurrent, moderate (principal); G43.909 Migraine, unspecified, not intractable, without status migrainosus; K59.01 Slow transit constipation; K21.9 Gastro-esophageal reflux disease without esophagitis
CPT/HCPCS: 99214

== ENCOUNTER 2023-12-08 11:20 | Outpatient (AMB) | payer OTHER, SELFPAY ==
--- NOTE | 2023-12-08 11:23 | A.OFFVIS_ITS ---
Vital Signs 12/08/23 11:32 Height 5 ft 2 in Weight 182 lb 8.684 oz BMI 33.4 BP 112/68 Blood Pressure Location Rt brachial Position Sitting Pulse 68 Pulse Source Pulse Oximeter Pulse Oximetry (%) 98 Oxygen Delivery Method Room Air Intake Visit Reasons: 3 month follow up GERD Intake Note: Amaya presents in office today for a scheduled 3 mos FUV. CC: Amaya was rx'd pantoprazole and sucralfate at her last visit. Pt denies any new concerns or sx since starting new Rx. Pt states that their sx seem to be stable and/or unchanged since starting new Rx. 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 Patient was encouraged to drink plenty fluids increase activity to promote better bowel motility. Continue taking Linzess daily and Dulcolax on as needed basis to help her empty completely. All of her blood work was discussed with patient and negative for any acute findings. Continue PPI and sucralfate as ordered. Discussed with patient low FODMAP diet and list of food recommended as well as list of food to avoid given to patient. She will return in the office in 3 months, sooner on as needed basis. Patient will try berberine supplement with breakfast to see if it helps with carbs cravings. Patient is agreeable to this plan and verbalizes understanding of instructions. She was given the opportunity to ask questions and all questions answered. ? Thank you for allowing me to participate in her care Medications Refilled sucralfate 1 g PO BEDTIME 30 tabs 4RF R19.7 pantoprazole take one tablet half an hour before breakfast 40 mg PO DAILY 30 tabs 2RF K21.9 Discontinued naproxen Discontinued Reason: Doctor's Order 500 mg PO BID 30 days 60 tabs 3RF S93.409A TODAY'S VISIT Patient is here today for follow-up. Patient reports that since last time I have seen her she has been feeling little better, however she still has occasional epigastric discomfort after dinner and sometimes when she wakes up in the morning. Patient states that she feels like the sucralfate might not be helping as much. Patient states that she takes pantoprazole in the morning and for the most part she feels well. Patient is trying to avoid dietary triggers. Patient is avoiding food that is spicy, greasy or fried. Patient states that she is trying to change her diet. States that she is moving her bowels better now. She is taking Linzess and occasionally is using Dulcolax. Patient states that she started taking Wegovy about month ago to help her lose weight. Patient reports that she is tolerating it well [facility] Medical History Moderate recurrent major depression Fibromyalgia Chronic GERD Hand pain Constipation by delayed colonic transit Polyarthralgia Allergic rhinitis DALE (generalized anxiety disorder) Mild recurrent major depression Right ankle injury Obese Insomnia Constipation Low back pain Scoliosis Anxiety and depression Migraines Umbilical hernia Morbid obesity Umbilical pain Surgical History History of esophagogastroduodenoscopy (EGD) History of umbilical hernia repair Family History Father Essential hypertension Mother Diabetes mellitus Essential hypertension Maternal Grandmother Unknown family medical history Brother No problems noted. Sister No problems noted. Sister No problems noted. Sister No problems noted. Son No problems noted. Social History Household Members: Children Housing: House Alcohol intake: never Patient Tobacco Use Status: Never used Tobacco e-Cigarette/Vaping Use: Never Used Second Hand Smoke Exposure: No service: No Current occupational status: unemployed Gender identity: Female Cognitive needs: No Hearing needs: No Vision needs: Yes Female Reproductive History Menstrual Age of Menarche: 10 Review of Systems Const Denies weight gain and Denies weight loss ENT Reports no additional complaints, Denies dysphagia and Denies odynophagia Card Reports no additional complaints Resp Reports no additional complaints GI Reports abdominal pain (LUQ, occasional), Denies belching, Denies melena, Reports bloating, Reports constipation (Occasional), Denies dysphagia, Denies excessive flatus, Denies dyspepsia, Reports heartburn (Occasional in the afternoon), Denies diarrhea, Denies loose stools, Denies nausea, Denies odynophagia and Denies vomiting Reports no additional complaints Musc Reports no additional complaints Neuro Reports no additional complaints Psych Reports no additional complaints Endo Reports no additional complaints Physical Exam Vital Signs: Last Vital Signs Pulse 68 12/08/23 11:32 BP 112/68 12/08/23 11:32 Pulse Ox 98 12/08/23 11:32 Oxygen Delivery Method Room Air 12/08/23 11:32 BMI result Body Mass Index 33.4 Const General: healthy appearing and no acute distress Nutritional Appearance: obese Orientation/consciousness: patient oriented x3 Resp Effort & Inspection: normal respiratory effort, able to speak in complete sentences, no tracheal deviation and symmetric chest movement Auscultation: clear to auscultation bilaterally Cardio Rate: regular rate GI Inspection: Yes normal to inspection, No distended and Yes obesity Palpation (GI): Soft to palpation, not firm, nontender and No hepatosplenomegaly present Auscultation: normal bowel sounds General: Yes no CVA tenderness Back/Spine/Pelvis Back: no CVA tenderness Skin General skin exam: elasticity normal, turgor normal and dry skin Neuro General: patient oriented x3 Psych Appearance: grossly normal Mental Status: mental status grossly normal Assessment & Plan Assessment & Plan (1) Chronic GERD: Code(s): K21.9 - Gastro-esophageal reflux disease without esophagitis Category: Medical (2) Constipation by delayed colonic transit: Code(s): K59.01 - Slow transit constipation Category: Medical (3) Postprandial abdominal bloating: Code(s): R14.0 - Abdominal distension (gaseous) (4) IBS (irritable bowel syndrome): Code(s): K58.9 - Irritable bowel syndrome without diarrhea Qualifiers: Irritable bowel syndrome type: with constipation Qualified Code(s): K58.1 - Irritable bowel syndrome with constipation Plan Stop sucralfate and start famotidine 40 mg at bedtime. Continue avoiding dietary triggers and late night snacking. Staying upright for minimum 3 hours after meals discussed with patient. Continue taking Linzess and Dulcolax as needed. Weight loss management with Ori followed by PCP. Patient is aware to look for symptoms and reports to her PCP. Patient will follow-up in 3 months, sooner on as needed basis. She is agreeable to this plan and verbalizes understanding of instructions. She was given the opportunity to ask questions and all questions answered. Thank you for allowing me to participate in her care Medications: New famotidine 40 mg PO BEDTIME 30 tabs 3RF K21.9 - Gastro-esophageal reflux disease without esophagitis Discontinued sucralfate Discontinued Reason: Doctor's Order 1 g PO BEDTIME 30 tabs 4RF R19.7 - Diarrhea, unspecified Coding Level of Care Code Est Pt Level 3 (27127) Diagnoses Chronic GERD K21.9 Constipation by delayed colonic transit K59.01 Postprandial abdominal bloating R14.0 Irritable bowel syndrome with constipation K58.1 Irritable bowel syndrome type: with constipation Time Spent (min) 30 Comment 20 minutes spent with patient and additional 10 minutes spent reviewing her records
[2023-12-08 11:32] VITALS: BP 112/68; PULSE 68; O2SAT 98; BMI 33.4
== END 2023-12-08 12:08 | disposition home or self-care (01) ==
PROVIDERS: PCP Internal Medicine; Visit Provider Nurse Practitioner Family
DX: K21.9 Gastro-esophageal reflux disease without esophagitis (principal); K59.01 Slow transit constipation; R14.0 Abdominal distension (gaseous); K58.1 Irritable bowel syndrome with constipation
CPT/HCPCS: 99213

== ENCOUNTER → 2023-12-08 11:20 | Outpatient (BNVA) | payer OTHER, SELFPAY | PROVIDERS: PCP Internal Medicine; Visit Provider Nurse Practitioner Family | DX: K21.9 Gastro-esophageal reflux disease without esophagitis (principal); K59.01 Slow transit constipation; R14.0 Abdominal distension (gaseous); K58.1 Irritable bowel syndrome with constipation | CPT/HCPCS: 99212 ==

== ENCOUNTER 2024-04-04 10:08 | Outpatient (AMB) | payer OTHER, SELFPAY ==
--- NOTE | 2024-04-04 10:11 | A.OFFPC_ITS ---
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 Accompanied by: Self / Same As Patient Allergies acetaminophen [From TYLENOL] Allergy (Intermediate, Verified 04/04/24 10:24) Itching oxycodone Allergy (Intermediate, Verified 04/04/24 10:24) rash APAP Allergy (Intermediate, Uncoded 04/04/24 10:24) Itching Medication List - Last Reconciled 04/04/24 by Dolores Gonzalez MD bisacodyl (Dulcolax (bisacodyl)) 10 mg (2 x 5 mg) PO BEDTIME buspirone 30 mg PO BID 30 days cetirizine 10 mg PO DAILY PRN diclofenac sodium 1% (Arthritis Pain (diclofenac)) 2 grams topical QID docusate sodium 200 mg (2 x 100 mg) PO BEDTIME duloxetine 60 mg PO DAILY famotidine 40 mg PO BEDTIME fluticasone propionate 50 mcg/actuation 2 sprays intranasal DAILY lemborexant (Dayvigo) 10 mg PO BEDTIME 90 days linaclotide (Linzess) 290 mcg PO DAILY lorazepam 1 mg PO BID 30 days meclizine 25 mg PO DAILY PRN pantoprazole 40 mg PO DAILY propranolol 20 mg PO BID sumatriptan succinate mg PO topiramate 50 mg PO BID valacyclovir (Valtrex) 1,000 mg PO TID 7 days Tobacco use date assessed: 09/23/23 Dental Screening Dental Screen Date: 09/23/23 HPI HPI Comments History of Present Illness Details This is a 33-year-old female with moderate recurrent major depression that comes for her physical exam. Depression is follow by Psychiatry. Pap smear done 2022 was normal. Has diffuse joint pain and still has depression and this is why I will increase duloxetine from 60 mg to 90 mg. No chest pain or shortness on breath. [facility] Medical History (Updated 04/04/24 @ 10:35 by Dolores Gonzalez MD) Moderate recurrent major depression Fibromyalgia Chronic GERD Hand pain Constipation by delayed colonic transit Polyarthralgia Allergic rhinitis DALE (generalized anxiety disorder) Mild recurrent major depression Right ankle injury Obese Insomnia Constipation Low back pain Scoliosis Anxiety and depression Migraines Umbilical hernia Morbid obesity Umbilical pain Surgical History History of esophagogastroduodenoscopy (EGD) History of umbilical hernia repair Family History (Updated 04/04/24 @ 10:29 by Dolores Gonzalez MD) Father Essential hypertension Mother Diabetes mellitus Essential hypertension Pulmonary fibrosis Maternal Grandmother Unknown family medical history Brother No problems noted. Sister No problems noted. Sister No problems noted. Sister No problems noted. Son No problems noted. Social History Household Members: Children Housing: House Alcohol intake: never Patient Tobacco Use Status: Never used Tobacco e-Cigarette/Vaping Use: Never Used Second Hand Smoke Exposure: No service: No Current occupational status: unemployed Gender identity: Female Cognitive needs: No Hearing needs: No Vision needs: Yes Female Reproductive History Menstrual Age of Menarche: 10 Questionnaire PHQ-9 Over the last 2 weeks, how often have you been bothered by any of the following problems? 1. Little interest or pleasure in doing things: nearly every day 2. Feeling down, depressed, or hopeless: nearly every day 3. Trouble falling or staying asleep, or sleeping too much: nearly every day 4. Feeling tired or having little energy: nearly every day 5. Poor appetite or overeating: several days 6. Feeling bad about yourself - or that you are a failure or have let yourself or your family down: not at all 7. Trouble concentrating on things, such as reading the newspaper or watching television: nearly every day 8. Moving or speaking so slowly that other people could have noticed. Or the opposite - being so fidgety or restless that you have been moving around a lot more than usual: not at all 9. Thoughts that you would be better off or of hurting yourself in some way: not at all Total score: 16 Depression Screening Interpretation: Positive Depression Screening Follow-up: Existing condition, In treatment, Community Mental Health Worker F/U and Follow- up Visit Requested Depression Screening Done: Yes 57956 - PHQ-9 Billing: Yes Source: Developed by Drs. Geovanni Malagon, Danelle Shepherd, Richard Dougherty and colleagues, with an educational desirae from [employer]. Thrive Questionnaire Date Thrive assessed: 04/04/24 I am a: Patient What is your living situation today?: I choose not to answer this question Within the past 12 months, did the food you bought not last and you didn't have the money to get more?: I choose not to answer this question Within the past 12 months, did you worry whether your food would run out before you got money to buy more?: I choose not to answer this question Do you have trouble paying for medicines?: I choose not to answer this question Do you have trouble getting transportation to medical appointments?: I choose not to answer this question Do you have trouble paying your heating and electricity bill?: I choose not to answer this question Do you have trouble taking care of your child, family member or friend?: No Do you have trouble with day-to-day activities such as bathing, preparing meals, shopping, managing finances, etc.?: I choose not to answer this question Are you currently unemployed and looking for a job?: I choose not to answer this question Are you interested in more education?: I choose not to answer this question Please select the resources that you would like help with: None Currently or been in a relationship where the following occur: I choose not to answer THRIVE Score: 0 AUDIT C Alcohol Use Questionnaire (AUDIT-C) 1. How often do you have a drink containing alcohol?: Never Total Score: 0 Score Reviewed/Action Taken: No DALE-7 AMB Questionnaire DALE-7 Date DALE - 7 assessed: 04/04/24 Feeling nervous, anxious, or on edge: 3 = Nearly every day Not being able to stop or control worryin = Nearly every day Worrying too much about different things: 3 = Nearly every day Trouble relaxin = Nearly every day Being so restless that it is hard to sit still: 3 = Nearly every day Becoming easily annoyed or irritable: 3 = Nearly every day Feeling afraid as if something awful might happen: 3 = Nearly every day Total DALE-7 score (0-4 normal; 5-9 mild; 10-14 moderate; 15-21 severe): 21 Source: Developed by Drs. Geovanni Malagon, Richard Barry and colleagues, with an educational desirae from [employer]. DALE-7 Assessment Billing DALE-7 Assessment Tool: DALE-7 Assessment 35692 Review of Systems Const All systems reviewed & are unremarkable except as noted in HPI and below ENT Reports post nasal drip Card Denies chest pain at rest, Denies chest pain with activity, Denies edema, Denies irregular heart rhythm, Denies claudication, Denies dyspnea, Denies dyspnea on exertion, Denies orthopnea, Denies paroxysmal nocturnal dyspnea and Denies slow heart rate Resp Denies cough, Denies dyspnea and Denies dyspnea on exertion GI Denies abdominal pain, Denies change in bowel habits, Denies excessive flatus, Denies nausea and Denies vomiting Denies urinary incontinence, Denies urinary hesitancy and Denies urinary urgency Musc Reports back pain, Denies atrophy, Denies deformity, Reports arthralgias, Denies limited range of motion and Reports muscle weakness Psych Reports abnormal sleep pattern, Reports anxiety and Reports depression Physical exam (Primary Care) Vital Signs: Last Vital Signs BP 120/78 04/04/24 10:14 BMI result Body Mass Index 34.2 BMI Assessment/Plan discussion: High BMI High, discussed plan: lifestyle, weight reduction, dietary and physical activity Tobacco/Smoking Status: Tobacco use Status Tobacco use date assessed 09/23/23 04/04/24 10:13 Patient Tobacco Use Status Never used Tobacco 04/04/24 10:13 e-Cigarette/Vaping Use Never Used 04/04/24 10:13 PHQ-9: PHQ-9 Score PHQ-9: Total score 16 04/04/24 10:30 Depression Screening Interpretation: Positive Depression Screening Follow-up: Existing condition, In treatment, Community Mental Health Worker F/U and Follow- up Visit Requested Thrive Assessment: Date of Thrive Assessment Date Thrive assessed 04/04/24 04/04/24 10:13 Currently or been in a relationship where the following occur: I choose not to answer HENMT Head: Yes normal to inspection, Yes normocephalic and Yes atraumatic Ears: external ears normal Eyes General: appearance normal, both eyes and all related structures Eyelids: Yes eyelids normal Conjunctivae: conjunctivae normal Neck Neck: Yes normal visual inspection and Yes supple Resp Effort & Inspection: normal respiratory effort Auscultation: clear to auscultation bilaterally Cardio Jugular venous distension: no JVD Rate: regular rate Rhythm: regular rhythm Heart sounds: S1 normal heart sound present and S2 normal heart sound present GI Inspection: Yes normal to inspection Palpation (GI): Soft to palpation and nontender Auscultation: normal bowel sounds Skin General skin exam: no rashes or lesions noted Neuro General: no focal motor deficits Extrem General: Yes full ROM Psych Appearance: grossly normal Office Procedures Flu Questionnaire Does the patient have a severe egg allergy?: No Immunizations Fluarix Triv [id number] (PF) 45 mcg (15 mcg x 3)/0.5 mL IM syringe Performing Provider: Dolores Gonzalez MD Performing [facility]: [facility] [place] [facility] Documented (not given) by: PATITO Keyes on 04/04/24 10:19 Reason Not Given: Patient Refused Coding Level of Care Code Est Pt Prev Care 18-39y(16992) Diagnoses Physical exam Z00.00 Moderate recurrent major depression F33.1 Additional Codes DALE-7 Assessment Billing - DALE-7 Assessment Tool: DALE-7 Assessment 26923 ([id number]) Time Spent (min) 33 Assessment & Plan Assessment & Plan (1) Physical exam: Code(s): Z00.00 - Encounter for general adult medical examination without abnormal findings Category: Medical Plan: Repeat in a year. (2) Moderate recurrent major depression: Code(s): F33.1 - Major depressive disorder, recurrent, moderate Category: Medical Plan: Increase duloxetine. Follow-up with psychiatry. Orders: Orders Vitamin B12 and Folate Today E53.8 - Deficiency of other specified B group vitamins Complete Blood Count Auto Diff Today D64.9 - Anemia, unspecified Lipid Panel Today E78.5 - Hyperlipidemia, unspecified Comprehensive [place]. Panel Fast Today Z00.00 - Encounter for general adult medical examination without abnormal findings Influenza [id number] Immunization Today Z23 - Encounter for immunization Vitamin D 25-OH Total Today E55.9 - Vitamin D deficiency, unspecified IRON PROFILE Today D64.9 - Anemia, unspecified Medications: New duloxetine 30 mg PO DAILY 90 caps 1RF 90 days
[2024-04-04 10:14] VITALS: BP 120/78; BMI 34.2
== END 2024-04-04 10:42 | disposition home or self-care (01) ==
PROVIDERS: PCP Internal Medicine; Visit Provider Internal Medicine
DX: Z00.00 Encounter for general adult medical examination without abnormal findings (principal); F33.1 Major depressive disorder, recurrent, moderate; Z23 Encounter for immunization

== ENCOUNTER → 2024-04-04 10:08 | Outpatient (BNVA) | payer OTHER, SELFPAY | PROVIDERS: PCP Internal Medicine; Visit Provider Internal Medicine | DX: Z00.00 Encounter for general adult medical examination without abnormal findings (principal); F33.1 Major depressive disorder, recurrent, moderate; Z79.899 Other long term (current) drug therapy; Z28.21 Immunization not carried out because of patient refusal | CPT/HCPCS: 90471; 96127; 99395 ==

== ENCOUNTER 2024-04-12 12:57 | Outpatient (AMB) | payer OTHER, SELFPAY ==
[2024-04-12 13:03] VITALS: BP 122/80; BMI 34.4
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
== END 2024-04-12 13:27 | disposition home or self-care (01) ==
PROVIDERS: PCP Internal Medicine; Visit Provider Internal Medicine
DX: M25.511 Pain in right shoulder (principal); M25.551 Pain in right hip; M54.2 Cervicalgia; F33.1 Major depressive disorder, recurrent, moderate; M79.7 Fibromyalgia

== ENCOUNTER → 2024-04-12 12:57 | Outpatient (BNVA) | payer OTHER, SELFPAY | PROVIDERS: PCP Internal Medicine; Visit Provider Internal Medicine ==

== ENCOUNTER 2024-04-13 10:07 | Outpatient (REF) | payer OTHER, SELFPAY ==
[2024-04-13 10:46] LABS: MANUAL DIFF FLAG NO
[2024-04-13 11:28] LABS: Basophils Absolute Auto 0.1 X10*3/uL (0.0-0.2); Basophils Percent Auto 0.6 % (0-2); Eosinophils Absolute Auto 0.4 X10*3/uL (0.0-0.4); Eosinophils Percent Auto 4.6 % (0-4); Hematocrit 35.1 % (37.0-47.0); Imm Gran Abs Auto 0.02 X10*3/uL (0.00-0.03); Imm Gran Pct Auto 0.3 % (0.0-0.4); Lymphocytes Absolute Auto 2.7 X10*3/uL (1.2-4.9); Mean Corpuscular HGB Conc 31.3 g/dl (31.0-35.0); Mean Corpuscular Hemoglobin 24.2 pg (27.0-33.0); Mean Corpuscular Volume 77.1 fL (80.0-98.0); Mean Platelet Volume 11.5 fL (9.4-12.3); Monocytes Absolute Auto 0.4 X10*3/uL (0.1-1.2); Monocytes Percent Auto 4.8 % (2-11); Neutrophils Absolute Auto 4.4 x10*3/uL (2.0-8.3); Neutrophils Percent Auto 55.7 % (45-73); Platelet Count 329 X10*3/uL (160-400); Red Blood Count 4.55 X10*6/uL (4.20-5.50)
[2024-04-13 12:28] LABS: Folate 7.1 ng/mL (> or = 4.0); Vitamin B12 591 pg/mL (200-900)
[2024-04-13 12:44] LABS: Alanine Aminotransferase 24 U/L (0-31); Albumin Level 4.5 g/dL (3.5-5.0); Alkaline Phosphatase 50 U/L (39-117); Anion Gap 14 (12-20); Aspartate Amino Transferase 22 U/L (5-31); Bilirubin Total 0.3 mg/dL (0.0-1.0); Blood Urea Nitrogen 12 mg/dL (9-16); Calcium 9.3 mg/dL (8.4-10.2); Carbon Dioxide 25 mmol/L (22-29); Chloride 106 mmol/L (96-108); Cholesterol 200 mg/dL (<200); Estimated Glomerular Filt Rate > 60; Glucose Fasting 106 mg/dL (60-99); HDL Cholesterol 48 mg/dL (>40); Iron 34 mcg/dL (30-160); LDL Cholesterol Calculated 129 mg/dL (<100); Percent Iron Saturation 10 % (15-50); Potassium 4.2 mmol/L (3.3-5.1); Sodium 141 mmol/L (135-145); Total Iron Binding Capacity 343 mcg/dL (228-428); Total Protein 7.7 g/dL (6.5-8.0); Triglycerides 115 mg/dL (<150); Unsaturated Iron Binding 309 ug/dL
[2024-04-13 13:08] LABS: Vitamin D 25-OH Total 30.9 ng/mL (>30)
== END 2024-04-13 10:08 | disposition home or self-care (01) ==
LOC: HO.LAB 10:07
PROVIDERS: PCP Internal Medicine; Visit Provider Internal Medicine
DX: Z00.00 Encounter for general adult medical examination without abnormal findings (principal); D64.9 Anemia, unspecified; E78.5 Hyperlipidemia, unspecified; E55.9 Vitamin D deficiency, unspecified; E53.8 Deficiency of other specified B group vitamins; M54.2 Cervicalgia; M25.511 Pain in right shoulder; M25.551 Pain in right hip
CPT/HCPCS: 36415; 72040; 73030; 73502; 80053; 80061; 82306; 82607; 82746; 83540; 85025

== ENCOUNTER 2024-06-06 14:27 | Outpatient (AMB) | payer OTHER, SELFPAY ==
--- NOTE | 2024-06-06 14:36 | A.OFFVIS_ITS ---
Vital Signs 06/06/24 14:39 Height 5 ft 2 in Weight 185 lb 3.013 oz BMI 33.9 BP 110/66 Blood Pressure Location Rt brachial Position Sitting Pulse 86 Pulse Source Pulse Oximeter Pulse Oximetry (%) 97 Oxygen Delivery Method Room Air Intake Visit Reasons: follow up CIC, Gerd Intake Note: ESTABLISHED PATIENT Amaya presents in office today for a scheduled 6 mos FUV. Meds and Allergies reviewed? Y No recent or relevant surgeries? N Any significant concerns or new changes? Increase in nocturnal toileting and hemorrhoid related concerns. Pharmacy verified? 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 Continue avoiding dietary triggers and late night snacking. Staying upright for minimum 3 hours after meals discussed with patient. Continue taking Linzess and Dulcolax as needed. Weight loss management with [facility] followed by PCP. Patient is aware to look for symptoms and reports to her PCP. Patient will follow-up in 3 months, sooner on as needed basis. She is agreeable to this plan and verbalizes understanding of instructions. She was given the opportunity to ask questions and all questions answered. ? Thank you for allowing me to participate in her care Medications New famotidine 40 mg PO BEDTIME 30 tabs 3RF K21.9 Discontinued sucralfate Discontinued Reason: Doctor's Order 1 g PO BEDTIME 30 tabs 4RF R19.7 TODAY'S VISIT Patient is here today for follow-up. Patient reports that she has been doing fairly well, however she will still have occasional urgency during the night time. She feels like she does not empty her bowels completely. Taking Linzess in the morning and occasionally takes the stool starts nurse at night time. Patient reports that her symptoms of acid reflux are suppressed for the most part. She is taking pantoprazole in the morning and famotidine at bedtime. Her symptoms of acid reflux are suppressed. Denies any epigastric pain postprandially. Denies any nausea or vomiting. Patient denies dyspepsia, dysphagia or odynophagia. Denies melena, hematochezia. Patient denies any other GI concerning symptoms. [facility] Medical History Moderate recurrent major depression Fibromyalgia Chronic GERD Hand pain Constipation by delayed colonic transit Polyarthralgia Allergic rhinitis DALE (generalized anxiety disorder) Mild recurrent major depression Right ankle injury Obese Insomnia Constipation Low back pain Scoliosis Anxiety and depression Migraines Umbilical hernia Morbid obesity Umbilical pain Surgical History History of esophagogastroduodenoscopy (EGD) History of umbilical hernia repair Family History Father Essential hypertension Mother Diabetes mellitus Essential hypertension Pulmonary fibrosis Maternal Grandmother Unknown family medical history Brother No problems noted. Sister No problems noted. Sister No problems noted. Sister No problems noted. Son No problems noted. Social History Household Members: Children Housing: House Alcohol intake: never Patient Tobacco Use Status: Never used Tobacco e-Cigarette/Vaping Use: Never Used Second Hand Smoke Exposure: No service: No Current occupational status: unemployed Gender identity: Female Cognitive needs: No Hearing needs: No Vision needs: Yes Female Reproductive History Menstrual Age of Menarche: 10 Review of Systems Const Denies weight gain and Denies weight loss ENT Reports no additional complaints, Denies dysphagia and Denies odynophagia Card Reports no additional complaints Resp Reports no additional complaints GI Denies abdominal pain, Denies belching, Denies melena, Reports bloating, Reports constipation (Occasional), Denies dysphagia, Denies excessive flatus, Denies dyspepsia, Denies heartburn, Denies diarrhea, Reports loose stools, Denies nausea, Denies odynophagia and Denies vomiting Reports no additional complaints Musc Reports no additional complaints Neuro Reports no additional complaints Psych Reports no additional complaints Endo Reports no additional complaints Physical Exam Vital Signs: Last Vital Signs Pulse 86 06/06/24 14:39 BP 110/66 06/06/24 14:39 Pulse Ox 97 06/06/24 14:39 Oxygen Delivery Method Room Air 06/06/24 14:39 BMI result Body Mass Index 33.9 Const General: healthy appearing and no acute distress Nutritional Appearance: obese Orientation/consciousness: patient oriented x3 Resp Effort & Inspection: normal respiratory effort, able to speak in complete sentences, no tracheal deviation and symmetric chest movement Auscultation: clear to auscultation bilaterally Cardio Rate: regular rate GI Inspection: Yes normal to inspection, No distended and Yes obesity Palpation (GI): Soft to palpation, not firm, nontender and No hepatosplenomegaly present Auscultation: normal bowel sounds General: Yes no CVA tenderness Back/Spine/Pelvis Back: no CVA tenderness Skin General skin exam: elasticity normal, turgor normal and dry skin Neuro General: patient oriented x3 Psych Appearance: grossly normal Mental Status: mental status grossly normal Assessment & Plan Assessment & Plan (1) Chronic GERD: Code(s): K21.9 - Gastro-esophageal reflux disease without esophagitis Category: Medical (2) Constipation by delayed colonic transit: Code(s): K59.01 - Slow transit constipation Category: Medical (3) Postprandial abdominal bloating: Code(s): R14.0 - Abdominal distension (gaseous) (4) IBS (irritable bowel syndrome): Code(s): K58.9 - Irritable bowel syndrome, unspecified Qualifiers: Irritable bowel syndrome type: with both diarrhea and constipation Qualified Code(s): K58.2 - Mixed irritable bowel syndrome Plan Patient was encouraged to increase fiber intake. May take probiotics as well. Continue taking Linzess. May take stool softener as needed. Increase fluid intake and activity to promote better bowel motility. Avoid dietary triggers and late night snacking. Continue pantoprazole in the morning. Will decrease famotidine to 20 mg at night time. Patient was encouraged to stay upright for minimum 3 hours after meals. Follow-up in 6 months, sooner on as needed basis. Patient is agreeable to this plan and verbalizes understanding of instructions. She was given the opportunity to ask questions and all questions answered. Thank you for allowing me to participate in her care Medications: New famotidine (Pepcid) 20 mg PO BEDTIME 30 tabs 3RF K21.9 - Gastro-esophageal reflux disease without esophagitis Discontinued famotidine Discontinued Reason: Doctor's Order 40 mg PO BEDTIME 30 tabs 3RF K21.9 - Gastro-esophageal reflux disease without esophagitis Coding Level of Care Code Est Pt Level 3 (96946) Diagnoses Chronic GERD K21.9 Constipation by delayed colonic transit K59.01 Postprandial abdominal bloating R14.0 Irritable bowel syndrome with both constipation and diarrhea K58.2 Irritable bowel syndrome type: with both diarrhea and constipation Time Spent (min) 25 Comment 15 minutes spent with patient and additional 10 minutes spent reviewing her records
[2024-06-06 14:39] VITALS: BP 110/66; PULSE 86; O2SAT 97; BMI 33.9
== END 2024-06-06 15:49 | disposition home or self-care (01) ==
PROVIDERS: PCP Internal Medicine; Visit Provider Nurse Practitioner Family
DX: K21.9 Gastro-esophageal reflux disease without esophagitis (principal); K59.01 Slow transit constipation; R14.0 Abdominal distension (gaseous); K58.2 Mixed irritable bowel syndrome
CPT/HCPCS: 99213

== ENCOUNTER → 2024-06-06 14:27 | Outpatient (BNVA) | payer OTHER, SELFPAY | PROVIDERS: PCP Internal Medicine; Visit Provider Nurse Practitioner Family | DX: K58.2 Mixed irritable bowel syndrome (principal); K59.01 Slow transit constipation; K21.9 Gastro-esophageal reflux disease without esophagitis; R14.0 Abdominal distension (gaseous) | CPT/HCPCS: 99212 ==

== ENCOUNTER 2024-10-03 10:42 | Outpatient (AMB) | payer OTHER, SELFPAY ==
--- OUTSIDE RECORDS SUMMARY | 2024-10-03 10:45 | XMS_ITS | Clinical Summary ---
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 Name Role Phone Unavailable Primary Care Provider Unavailabl e Social History Tobacco Use Types Packs/Day Years Used Date Smoking Tobacco: Never Assessed Comments Unknown Sex and Gender Information Value Date Recorded Sex Assigned at Not on file Legal Sex Female 10:45 PM EST Gender Identity Not on file Sexual Orientation Not on file Plan of Treatment Health Maintenance Due Date Last Done Comments DTaP,Tdap,and Td Vaccines (1 - Tdap) 2007 Hepatitis B Vaccines (1 of 3 - 19+ 3-dose series) 2007 Cervical Cancer Screening: P ap Smear 2009 Depression Screening 05/18/2022 HIV Screening 05/18/2022 Hepatitis C Screening 05/18/2022 Social Influencers of Health Screening 05/18/2022 COVID-19 Vaccine (2023-2 5 season) 2024 Influenza Vaccine (Season Ended) 2025 HIB Vaccines Aged Out No longer eligi ble based on patient's age to complete this topic HPV Vaccines Aged Out No longer eligi ble based on patient's age to complete this topic Hepatitis A Vaccines Aged Out No long er eligible based on patient's age to complete this topic IPV Vaccines Aged Out No longer eligi ble based on patient's age to complete this topic MMR Vaccines Aged Out No longer eligi ble based on patient's age to complete this topic Meningococcal ACWY Vaccine Aged Out N o longer eligible based on patient's age to complete this topic Meningococcal B Vaccine Aged Out No l onger eligible based on patient's age to complete this topic Pneumococcal Vaccine: Pediat rics (0 to 5 Years) and At-Risk Patients (6 to 64 Years) Aged Out No longer eligible b ased on patient's age to complete this topic RSV Immunization Patients Un stella 20 months Aged Out No longer eligible b ased on patient's age to complete this topic Varicella Vaccines Aged Out No longer eligible based on patient's age to complete this topic
--- NOTE | 2024-10-03 10:51 | A.OFFPC_ITS ---
Vital Signs 10/03/24 10:53 Height 5 ft 2 in Weight 167 lb BMI 30.5 BP 112/76 Blood Pressure Location Lt brachial Position Sitting Intake Visit Reasons: depression Intake Note: Patient here for a follow up Depression Child Support Case Officer Required: No Accompanied by: Self / Same As Patient Allergies acetaminophen [From TYLENOL] Allergy (Intermediate, Verified 10/03/24 11:04) Itching oxycodone Allergy (Intermediate, Verified 10/03/24 11:04) rash APAP Allergy (Intermediate, Uncoded 10/03/24 11:04) Itching Medication List - Last Reconciled 10/03/24 by Dolores Gonzalez MD bisacodyl (Dulcolax (bisacodyl)) 10 mg (2 x 5 mg) PO BEDTIME bupropion HCl XL 150 mg PO DAILY cetirizine 10 mg PO DAILY PRN clonazepam 1 mg PO BID PRN cyclobenzaprine 10 mg PO BEDTIME 30 days diclofenac sodium 1% (Arthritis Pain (diclofenac)) 2 grams topical QID docusate sodium 200 mg (2 x 100 mg) PO BEDTIME duloxetine 60 mg PO DAILY duloxetine 30 mg PO DAILY 90 days famotidine 20 mg PO BEDTIME fluticasone propionate 50 mcg/actuation 2 sprays intranasal DAILY lemborexant (Dayvigo) 10 mg PO BEDTIME 90 days linaclotide (Linzess) 290 mcg PO QAM meclizine 25 mg PO DAILY PRN meloxicam 15 mg PO DAILY 30 days ondansetron 4 mg PO DAILY pantoprazole 40 mg PO QAM propranolol 20 mg PO BID sumatriptan succinate mg PO tirzepatide 5 mg subcut QWEEK topiramate 50 mg PO BID valacyclovir (Valtrex) 1,000 mg PO TID 7 days verapamil 40 mg PO BID Tobacco use date assessed: 10/03/24 Dental Screening Dental Screen Date: 10/03/24 Did you have a dental visit in the last 12 months?: No Did you have a dental problem in the last 6 months where you did not have access to dental care?: No Was dental information given to patient?: Patient has dentist HPI HPI Comments History of Present Illness Details The patient is a 34-year-old female presenting with a follow-up for various chronic issues. Prediabetes was previously noted with a fasting glucose of 106 and hyperlipidemia with slightly elevated cholesterol. She has mild anemia, with recent significant menstrual irregularities, experiencing twice- monthly cycles. For depression, a PHQ-9 of 13 was noted, and bupropion increased under psychiatric guidance, showing recent improvement attributed to diet and weight loss, which were self-motivated steps. The patient manages migraines with dejesus matriptan, propranolol, and Topamax, and when adhering to these, the episodes appear controlled. Her fibromyalgia is treated with duloxetine and muscle spasms with Flexeril. GERD management involves famotidine and pantoprazole. She suffers from chronic constipation, addressed with Dulcolax and lenses. Emotional and physical support through recent weight loss has positively impacted her mental health, reducing her depressive symptoms significantly. [facility] Medical History (Updated 10/03/24 @ 11:21 by Dolores Gonzalez MD) Moderate recurrent major depression Fibromyalgia Chronic GERD Hand pain Constipation by delayed colonic transit Polyarthralgia Allergic rhinitis DALE (generalized anxiety disorder) Mild recurrent major depression Right ankle injury Obese Insomnia Constipation Low back pain Scoliosis Anxiety and depression Migraines Umbilical hernia Morbid obesity Umbilical pain Surgical History History of esophagogastroduodenoscopy (EGD) History of umbilical hernia repair Family History Father Essential hypertension Mother Diabetes mellitus Essential hypertension Pulmonary fibrosis Maternal Grandmother Unknown family medical history Brother No problems noted. Sister No problems noted. Sister No problems noted. Sister No problems noted. Son No problems noted. Social History Household Members: Children Housing: House Alcohol intake: never Patient Tobacco Use Status: Never used Tobacco e-Cigarette/Vaping Use: Never Used Second Hand Smoke Exposure: No service: No Current occupational status: unemployed Gender identity: Female Cognitive needs: No Hearing needs: No Vision needs: Yes Female Reproductive History Menstrual Age of Menarche: 10 Questionnaire PHQ-9 Over the last 2 weeks, how often have you been bothered by any of the following problems? 1. Little interest or pleasure in doing things: more than half the days 2. Feeling down, depressed, or hopeless: nearly every day 3. Trouble falling or staying asleep, or sleeping too much: more than half the days 4. Feeling tired or having little energy: more than half the days 5. Poor appetite or overeating: not at all 6. Feeling bad about yourself - or that you are a failure or have let yourself or your family down: not at all 7. Trouble concentrating on things, such as reading the newspaper or watching television: nearly every day 8. Moving or speaking so slowly that other people could have noticed. Or the opposite - being so fidgety or restless that you have been moving around a lot more than usual: several days 9. Thoughts that you would be better off or of hurting yourself in some way: not at all Total score: 13 Depression Screening Interpretation: Positive Depression Screening Follow-up: Existing condition, In treatment, Community Mental Health Worker F/U and Follow- up Visit Requested Depression Screening Done: Yes 42914 - PHQ-9 Billing: Yes Source: Developed by Drs. Geovanni Malagon, Danelle Shepherd, Richard Dougherty and colleagues, with an educational desirae from [employer]. Thrive Questionnaire Date Thrive assessed: 10/03/24 I am a: Patient What is your living situation today?: I choose not to answer this question Within the past 12 months, did the food you bought not last and you didn't have the money to get more?: I choose not to answer this question Within the past 12 months, did you worry whether your food would run out before you got money to buy more?: I choose not to answer this question Do you have trouble paying for medicines?: I choose not to answer this question Do you have trouble getting transportation to medical appointments?: I choose not to answer this question Do you have trouble paying your heating and electricity bill?: I choose not to answer this question Do you have trouble taking care of your child, family member or friend?: No Do you have trouble with day-to-day activities such as bathing, preparing meals, shopping, managing finances, etc.?: I choose not to answer this question Are you currently unemployed and looking for a job?: I choose not to answer this question Are you interested in more education?: I choose not to answer this question Please select the resources that you would like help with: None Currently or been in a relationship where the following occur: I choose not to answer THRIVE Score: 0 AUDIT C Alcohol Use Questionnaire (AUDIT-C) 1. How often do you have a drink containing alcohol?: Never Total Score: 0 Score Reviewed/Action Taken: No DALE-7 AMB Questionnaire DALE-7 Date DALE - 7 assessed: 10/03/24 Feeling nervous, anxious, or on edge: 3 = Nearly every day Not being able to stop or control worryin = Several days Worrying too much about different things: 3 = Nearly every day Trouble relaxin = More than half the days Being so restless that it is hard to sit still: 1 = Several days Becoming easily annoyed or irritable: 2 = More than half the days Feeling afraid as if something awful might happen: 1 = Several days Total DALE-7 score (0-4 normal; 5-9 mild; 10-14 moderate; 15-21 severe): 13 Source: Developed by Drs. Geovanni Malagon, Danelle Shepherd, Richard Dougherty and colleagues, with an educational desirae from [employer]. DALE-7 Assessment Billing DALE-7 Assessment Tool: DALE-7 Assessment 51236 Review of Systems Const All systems reviewed & are unremarkable except as noted in HPI and below Card Denies chest pain at rest, Denies chest pain with activity, Denies edema, Denies irregular heart rhythm, Denies claudication, Denies dyspnea, Denies dyspnea on exertion, Denies orthopnea, Denies paroxysmal nocturnal dyspnea and Denies slow heart rate Resp Denies cough, Denies dyspnea and Denies dyspnea on exertion GI Denies abdominal pain, Denies change in bowel habits, Denies excessive flatus, Denies nausea and Denies vomiting Denies urinary incontinence, Denies urinary hesitancy and Denies urinary urgency Musc Denies atrophy, Denies deformity and Denies limited range of motion Skin/Breast Denies bleeding lesions, Denies changing lesions and Denies rash Physical exam (Primary Care) Vital Signs: Last Vital Signs BP 112/76 10/03/24 10:53 BMI result Body Mass Index 30.5 BMI Assessment/Plan discussion: High BMI High, discussed plan: lifestyle, weight reduction, dietary and physical activity Tobacco/Smoking Status: Tobacco use Status Tobacco use date assessed 10/03/24 10/03/24 11:01 Patient Tobacco Use Status Never used Tobacco 10/03/24 10:53 e-Cigarette/Vaping Use Never Used 10/03/24 10:53 PHQ-9: PHQ-9 Score PHQ-9: Total score 13 10/03/24 11:01 Depression Screening Interpretation: Positive Depression Screening Follow-up: Existing condition, In treatment, Community Mental Health Worker F/U and Follow- up Visit Requested Thrive Assessment: Date of Thrive Assessment Date Thrive assessed 10/03/24 10/03/24 10:53 Currently or been in a relationship where the following occur: I choose not to answer Resp Effort & Inspection: normal respiratory effort Auscultation: clear to auscultation bilaterally Cardio Jugular venous distension: no JVD Rate: regular rate Rhythm: regular rhythm Heart sounds: S1 normal heart sound present and S2 normal heart sound present Extrem General: Yes full ROM Coding Level of Care Code Est Pt Level 4 (36875) Complex EM visit Add On G2211 Diagnoses Abnormal menses N92.6 Right foot pain M79.671 Left foot pain M79.672 Migraines G43.909 Chronic GERD K21.9 Constipation by delayed colonic transit K59.01 Iron deficiency anemia due to chronic blood loss D50.0 Impaired glucose tolerance R73.02 Pure hypercholesterolemia E78.00 Additional Codes PHQ-9 - 08979 - PHQ-9 Billing: Yes ([id number]) DALE-7 Assessment Billing - DALE-7 Assessment Tool: DALE-7 Assessment 05976 ([id number]) Time Spent (min) 23 Assessment & Plan Assessment & Plan (1) Abnormal menses: Code(s): N92.6 - Irregular menstruation, unspecified Category: Medical (2) Right foot pain: Code(s): M79.671 - Pain in right foot Category: Medical (3) Left foot pain: Code(s): M79.672 - Pain in left foot Category: Medical (4) Migraines: Code(s): G43.909 - Migraine, unspecified, not intractable, without status migrainosus Category: Medical (5) Chronic GERD: Code(s): K21.9 - Gastro-esophageal reflux disease without esophagitis Category: Medical (6) Constipation by delayed colonic transit: Code(s): K59.01 - Slow transit constipation Category: Medical (7) Iron deficiency anemia due to chronic blood loss: Code(s): D50.0 - Iron deficiency anemia secondary to blood loss (chronic) Category: Medical (8) Impaired glucose tolerance: Code(s): R73.02 - Impaired glucose tolerance (oral) Category: Medical (9) Pure hypercholesterolemia: Code(s): E78.00 - Pure hypercholesterolemia, unspecified Category: Medical Plan I plan to address the patient's prediabetes by repeating fasting glucose levels to monitor progress. Elevated cholesterol will be tackled with lifestyle modifications, focusing on diet modifications. Pertaining to her anemia, further labs to ascertain levels and determine the need for iron supplements will be reviewed. Noting menstruation irregularities, a referral to gynecology is indicated to explore perimenopause possibilities. Depression management continues with increased bupropion and evaluation of PHQ-9 scores. Anxiety can be controlled with clonazepam. For migraine management, adhering to therapy including sumatriptan, propranolol, and Topamax shows effectiveness. Fibromyalgia management includes duloxetine, with Flexeril aiding muscle spasms. For GERD, famotidine and pantoprazole remain in use. Chronic constipation is controlled with Dulcolax. Encourage continuity in her motivational dietary adjustments and weight maintenance. Follow-up appointments will review overall management and health progress. Patient was informed and verbally consented to the use of an ambient scribe for clinic note documentation during this visit. During the visit, I discussed with the patient her diagnoses and emphasized the importance of managing these conditions through lifestyle interventions and medication adherence. We reviewed the potential progression of prediabetes to diabetes, reinforcing the necessity for repeat glucose testing. I confirmed the importance of lifestyle actions in addressing hyperlipidemia and possible anemia treatment with supplemental iron. Discussed menstrual irregularities related to possible perimenopause and the need for specialist evaluation. For depression, the transition to an increased bupropion dosage showed effective adjustment, with continued monitoring advised. Migraine management strategy includes consistency with present medications. I explored GERD management and shared advice regarding dietary patterns for sustained weight loss. Future follow-up is essential to gauge outcomes of current treatments and make necessary adjustments. Orders: Orders Lipid Panel Today E78.5 - Hyperlipidemia, unspecified Complete Blood Count Auto Diff Today D64.9 - Anemia, unspecified IRON PROFILE Today D64.9 - Anemia, unspecified Vitamin B12 and Folate Today E53.8 - Deficiency of other specified B group vitamins XR foot LT 2V Today M79.672 - Pain in left foot XR foot RT 2V Today M79.671 - Pain in right foot Vitamin D 25-OH Total Today E55.9 - Vitamin D deficiency, unspecified Comprehensive [place]. Panel Fast Today G43.909 - Migraine, unspecified, not intractable, without status migrainosus Referrals STOCK TRACER Referral N92.6 - Irregular menstruation, unspecified Medications: Refilled diclofenac sodium 1% (Arthritis Pain (diclofenac)) apply to single elbow, wrist or hand; for hand includes palm/fingers/back of hand 2 grams topical QID 100 grams 0RF meloxicam 15 mg PO DAILY 30 days 30 tabs 0RF Patient Instructions: - Repeat fasting glucose testing is needed. - Maintain dietary modifications, aim for healthy weight loss. - Monitor for changes in menstrual cycle; consider consultation with gynecology. - Continue current medications for depression and anxiety. - Adhere to migraine treatment; schedule neurology follow-up if necessary. - Persist with current GERD management; observe dietary choices. - Keep constipation management regimen as discussed. - Return for follow-up appointments to review health progress.
[2024-10-03 10:53] VITALS: BP 112/76; BMI 30.5
== END 2024-10-03 11:19 | disposition home or self-care (01) ==
LOC: HO.HMCH 10:42
PROVIDERS: PCP Internal Medicine; Visit Provider Internal Medicine
DX: N92.6 Irregular menstruation, unspecified (principal); M79.671 Pain in right foot; M79.672 Pain in left foot; G43.909 Migraine, unspecified, not intractable, without status migrainosus; K21.9 Gastro-esophageal reflux disease without esophagitis; K59.01 Slow transit constipation; D50.0 Iron deficiency anemia secondary to blood loss (chronic); R73.02 Impaired glucose tolerance (oral); E78.00 Pure hypercholesterolemia, unspecified

== ENCOUNTER → 2024-10-03 10:42 | Outpatient (BNVA) | payer OTHER, SELFPAY | PROVIDERS: PCP Internal Medicine; Visit Provider Internal Medicine | DX: N92.6 Irregular menstruation, unspecified (principal); M79.671 Pain in right foot; M79.672 Pain in left foot; G43.909 Migraine, unspecified, not intractable, without status migrainosus; K21.9 Gastro-esophageal reflux disease without esophagitis; K59.01 Slow transit constipation; D50.0 Iron deficiency anemia secondary to blood loss (chronic); R73.02 Impaired glucose tolerance (oral); E78.00 Pure hypercholesterolemia, unspecified | CPT/HCPCS: 96127; 99212 ==

== ENCOUNTER 2024-10-13 09:23 | Outpatient (REF) | payer OTHER, SELFPAY ==
--- NOTE | ~2024-10-13 | XR_ITS ---
CLINICAL HISTORY: M79.672 - Pain in left foot 3 view left foot Comparison: None Findings: Bones intact. No dislocations. No significant arthritic change or erosions. No ankle effusion. No radiopaque foreign body. IMPRESSION: 1. No acute findings. This document has been electronically signed by: Osvaldo Almonte MD on 10/15/2024 07:43:06
--- NOTE | ~2024-10-13 | XR_ITS ---
CLINICAL HISTORY: M79.671 - Pain in right foot 3 view right foot Comparison: None Findings: No fractures or dislocations. No significant loss of joint space, osteophytes, or erosions. No ankle effusion. No radiopaque foreign body. IMPRESSION: 1. No acute findings. This document has been electronically signed by: Osvaldo Almonte MD on 10/15/2024 07:43:07
[2024-10-13 09:35] LABS: MANUAL DIFF FLAG NO
[2024-10-13 09:55] LABS: Basophils Absolute Auto 0.1 X10*3/uL (0.0-0.2); Basophils Percent Auto 0.6 % (0-2); Eosinophils Absolute Auto 0.4 X10*3/uL (0.0-0.4); Eosinophils Percent Auto 4.6 % (0-4); Hematocrit 35.9 % (37.0-47.0); Hemoglobin 11.4 g/dl (12.0-16.0); Imm Gran Abs Auto 0.03 X10*3/uL (0.00-0.03); Imm Gran Pct Auto 0.4 % (0.0-0.4); Lymphocytes Absolute Auto 3.1 X10*3/uL (1.2-4.9); Lymphocytes Percent Auto 38.3 % (20-40); Mean Corpuscular HGB Conc 31.8 g/dl (31.0-35.0); Mean Corpuscular Hemoglobin 24.4 pg (27.0-33.0); Mean Corpuscular Volume 76.7 fL (80.0-98.0); Mean Platelet Volume 11.5 fL (9.4-12.3); Monocytes Absolute Auto 0.5 X10*3/uL (0.1-1.2); Monocytes Percent Auto 5.7 % (2-11); Neutrophils Absolute Auto 4.1 x10*3/uL (2.0-8.3); Neutrophils Percent Auto 50.4 % (45-73); Platelet Count 322 X10*3/uL (160-400); Red Blood Count 4.68 X10*6/uL (4.20-5.50); Red Cell Distribution Width 16.2 % (11.0-16.0)
--- OUTSIDE RECORDS SUMMARY | 2024-10-13 10:14 | XMS_ITS | Clinical Summary ---
Author Organization [facility] it Address [address] [place] [address] Care Team Providers Care City Plant Supervisor Name Role Phone Unavailable Primary Care Provider [...]
[2024-10-13 10:59] LABS: Alanine Aminotransferase 21 U/L (0-31); Albumin Level 4.5 g/dL (3.5-5.0); Alkaline Phosphatase 56 U/L (39-117); Anion Gap 13 (12-20); Aspartate Amino Transferase 26 U/L (5-31); Bilirubin Total 0.4 mg/dL (0.0-1.0); Blood Urea Nitrogen 11 mg/dL (9-16); Calcium 9.5 mg/dL (8.4-10.2); Carbon Dioxide 23 mmol/L (22-29); Chloride 108 mmol/L (96-108); Cholesterol 231 mg/dL (<200); Estimated Glomerular Filt Rate > 60; Glucose Fasting 93 mg/dL (60-99); HDL Cholesterol 37 mg/dL (>40); Iron 52 mcg/dL (30-160); LDL Cholesterol Calculated 162 mg/dL (<100); Percent Iron Saturation 18 % (15-50); Potassium 3.5 mmol/L (3.3-5.1); Sodium 140 mmol/L (135-145); Total Iron Binding Capacity 288 mcg/dL (228-428); Total Protein 7.5 g/dL (6.5-8.0); Triglycerides 164 mg/dL (<150); Unsaturated Iron Binding 236 ug/dL
[2024-10-13 11:03] LABS: Vitamin D 25-OH Total 27.1 ng/mL (>30)
[2024-10-13 11:27] LABS: Folate 6.8 ng/mL (> or = 4.0); Vitamin B12 623 pg/mL (200-900)
== END 2024-10-13 09:24 | disposition home or self-care (01) ==
LOC: HO.XRAY 09:23
PROVIDERS: PCP Internal Medicine; Visit Provider Internal Medicine
DX: M79.671 Pain in right foot (principal); M79.672 Pain in left foot; D64.9 Anemia, unspecified; E55.9 Vitamin D deficiency, unspecified; E78.5 Hyperlipidemia, unspecified; E53.8 Deficiency of other specified B group vitamins; G43.909 Migraine, unspecified, not intractable, without status migrainosus
CPT/HCPCS: 36415; 73620; 80053; 80061; 82306; 82607; 82746; 83540; 85025

== ENCOUNTER → 2024-10-13 09:35 | Outpatient (BNV) | payer OTHER, SELFPAY | PROVIDERS: PCP Internal Medicine; Visit Provider Specialist | DX: M79.671 Pain in right foot (principal); M79.672 Pain in left foot | CPT/HCPCS: 73620 ==

== ENCOUNTER 2024-12-02 14:32 | Outpatient (AMB) | payer OTHER, SELFPAY ==
--- OUTSIDE RECORDS SUMMARY | 2024-12-02 14:34 | XMS_ITS | Clinical Summary ---
Author Organization [facility] it Address [address] [place] [address] Care Team Providers Care Veterinary Surgery Technologist Name Role Phone Unavailable Primary Care Provider [...]
[2024-12-02 14:38] VITALS: BP 112/68; PULSE 83; TEMP 37; O2SAT 96; BMI 27.4
--- NOTE | 2024-12-02 14:38 | MHC.OFFWIV ---
Intake Vital Signs 12/02/24 14:38 Height 5 ft 2 in Weight 150 lb BMI 27.4 BP 112/68 Blood Pressure Location Lt brachial Position Sitting Pulse 83 Pulse Source Pulse Oximeter Temp 98.6 F Temp Source Oral Pulse Oximetry (%) 96 Intake Visit Reasons: EP Tick bite Patient Tobacco Use Status: Never used Tobacco Allergies acetaminophen (From TYLENOL) Allergy (Intermediate, Verified 12/02/24 14:39) Itching oxycodone Allergy (Intermediate, Verified 12/02/24 14:39) rash APAP Allergy (Intermediate, Uncoded 10/03/24 11:04) Itching Do you need a note to return to daycare/school/sports/work: No HPI HPI Comments History of Present Illness Details History - The patient is a 34-year-old female presenting with tick exposure on the neck at the base of her head. - The patient felt something crawling on her while she was in her bed this am. - She discovered a tick in her hair this morning, which caused tenderness in the area. - There was no visible bite javy or puncture but it hurts to touch the area. - She was working in the yard the previous day, which may have contributed to the tick exposure. - The patient reports no fever, joint pain, or additional rashes. Physical Exam General: Cooperative, healthy appearing, comfortable, no acute distress and well developed Orientation: Patient oriented x3 Limitations: No limitations Head: Tenderness noted at the site of tick on the right posterior neck Neck: Normal visual inspection and Yes full ROM. No lymphadenopathy noted. Respiratory: Normal respiratory effort and able to speak in complete sentences. Skin: No redness noted. No rashes noted. No open areas or bite snyder noted. Patient was informed and verbally consented to the use of an ambient scribe for clinic note documentation during this visit. [facility] Medical History Moderate recurrent major depression Fibromyalgia Chronic GERD Hand pain Constipation by delayed colonic transit Polyarthralgia Allergic rhinitis DALE (generalized anxiety disorder) Mild recurrent major depression Right ankle injury Obese Insomnia Constipation Low back pain Scoliosis Anxiety and depression Migraines Umbilical hernia Morbid obesity Umbilical pain Surgical History History of esophagogastroduodenoscopy (EGD) History of umbilical hernia repair Family History Father Essential hypertension Mother Diabetes mellitus Essential hypertension Pulmonary fibrosis Maternal Grandmother Unknown family medical history Brother No problems noted. Sister No problems noted. Sister No problems noted. Sister No problems noted. Son No problems noted. Social History Household Members: Children Housing: House Alcohol intake: never Patient Tobacco Use Status: Never used Tobacco e-Cigarette/Vaping Use: Never Used Second Hand Smoke Exposure: No service: No Current occupational status: unemployed Gender identity: Female Cognitive needs: No Hearing needs: No Vision needs: Yes Female Reproductive History Menstrual Age of Menarche: 10 Review of Systems Const All systems reviewed & are unremarkable except as noted in HPI and below Physical Exam Vital Signs: Last Vital Signs Temp 98.6 F 12/02/24 14:38 Pulse 83 12/02/24 14:38 BP 112/68 12/02/24 14:38 Pulse Ox 96 12/02/24 14:38 BMI result Body Mass Index 27.4 Assessment & Plan Assessment & Plan (1) Tick bite of neck: Code(s): S10.96XA - Insect bite of unspecified part of neck, initial encounter; W57.XXXA - Bitten or stung by nonvenomous insect and other nonvenomous arthropods, initial encounter Qualifiers: Encounter type: initial encounter Qualified Code(s): S10.96XA - Insect bite of unspecified part of neck, initial encounter; W57.XXXA - Bitten or stung by nonvenomous insect and other nonvenomous arthropods, initial encounter Plan Most likely ticj exposure Plan - Prescribed doxycycline for prophylaxis against potential tick-borne illnesses. - Advised to avoid sun exposure due to photosensitivity risk associated with doxycycline. - Tylenol or motrin as needed - follow up with PCP Medications: New doxycycline hyclate 100 mg PO BID 14 tabs 0RF 7 days Coding Level of Care Code Est Pt Level 3 (64698) Diagnoses Tick bite of neck, initial encounter S10.96XA; W57.XXXA Encounter type: initial encounter
== END 2024-12-02 15:43 | disposition home or self-care (01) ==
PROVIDERS: PCP Internal Medicine; Visit Provider Physician Assistant Medical
DX: S10.96XA Insect bite of unspecified part of neck, initial encounter (principal); W57.XXXA Bitten or stung by nonvenomous insect and other nonvenomous arthropods, initial encounter

== ENCOUNTER → 2024-12-02 14:32 | Outpatient (BNVA) | payer OTHER, SELFPAY | PROVIDERS: PCP Internal Medicine; Visit Provider Physician Assistant Medical | DX: S10.96XA Insect bite of unspecified part of neck, initial encounter (principal); W57.XXXA Bitten or stung by nonvenomous insect and other nonvenomous arthropods, initial encounter | CPT/HCPCS: 99212 ==

== ENCOUNTER 2024-12-27 09:36 | Outpatient (AMB) | payer OTHER, SELFPAY ==
--- NOTE | 2024-12-27 09:38 | MHC.OFFVIS ---
Vital Signs 12/27/24 09:40 Height 5 ft 2 in Weight 141 lb BMI 25.8 BP 96/58 L Blood Pressure Location Lt brachial Position Sitting Pulse 92 Pulse Oximetry (%) 100 Oxygen Delivery Method Room Air Intake Visit Reasons: GERD mgmt. 6 mos FUV. Intake Note: Patient 6 month follow up for GERD. Patient cc: last month she was with N/V, constipation with sensation of not emptying completely, abdominal pain with bloating, GERD is better with med. 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 6 mos FUV.: Details: LAST VISIT: Chronic GERD Constipation by delayed colonic transit Postprandial abdominal bloating IBS (irritable bowel syndrome) Plan Patient was encouraged to increase fiber intake. May take probiotics as well. Continue taking Linzess. May take stool softener as needed. Increase fluid intake and activity to promote better bowel motility. Avoid dietary triggers and late night snacking. Continue pantoprazole in the morning. Will decrease famotidine to 20 mg at night time. Patient was encouraged to stay upright for minimum 3 hours after meals. Follow-up in 6 months, sooner on as needed basis. Patient is agreeable to this plan and verbalizes understanding of instructions. She was given the opportunity to ask questions and all questions answered. ? Thank you for allowing me to participate in her care New famotidine (Pepcid) 20 mg PO BEDTIME 30 tabs 3RF K21.9 Discontinued famotidine Discontinued Reason: Doctor's Order 40 mg PO BEDTIME 30 tabs 3RF K21.9 TODAY'S VISIT: Patient is here today for follow-up. Patient reports that the for the most part she has been doing better. Patient lost 40 lb in 6 months. She was started on terzepatide and for the most part patient reports that she is tolerating well. Patient also is eating better. She is going to the gym. He still occasionally will have epigastric pain and acid reflux. Reports abdominal bloating from time to time. She has take Linzess and sometimes for Dulcolax tablets in order to have a bowel movement. Denies melena, hematochezia, unintentional weight loss or ribbon like stools. Denies dyspepsia, dysphagia or odynophagia. [facility] Medical History Moderate recurrent major depression Fibromyalgia Chronic GERD Hand pain Constipation by delayed colonic transit Polyarthralgia Allergic rhinitis DALE (generalized anxiety disorder) Mild recurrent major depression Right ankle injury Obese Insomnia Constipation Low back pain Scoliosis Anxiety and depression Migraines Umbilical hernia Morbid obesity Umbilical pain Surgical History History of esophagogastroduodenoscopy (EGD) History of umbilical hernia repair Family History Father Essential hypertension Mother Diabetes mellitus Essential hypertension Pulmonary fibrosis Maternal Grandmother Unknown family medical history Brother No problems noted. Sister No problems noted. Sister No problems noted. Sister No problems noted. Son No problems noted. Social History Household Members: Children Housing: House Alcohol intake: never Patient Tobacco Use Status: Never used Tobacco e-Cigarette/Vaping Use: Never Used Second Hand Smoke Exposure: No service: No Current occupational status: unemployed Gender identity: Female Cognitive needs: No Hearing needs: No Vision needs: Yes Female Reproductive History Menstrual Age of Menarche: 10 Review of Systems Const Denies weight gain and Denies weight loss ENT Reports no additional complaints, Denies dysphagia and Denies odynophagia Card Reports no additional complaints Resp Reports no additional complaints GI Denies abdominal pain, Denies belching, Denies melena, Reports bloating, Reports constipation (Occasional), Denies dysphagia, Denies excessive flatus, Denies dyspepsia, Reports heartburn, Denies diarrhea, Denies loose stools, Denies nausea, Denies odynophagia and Denies vomiting Reports no additional complaints Musc Reports no additional complaints Neuro Reports no additional complaints Psych Reports no additional complaints Endo Reports no additional complaints Physical Exam Vital Signs: Last Vital Signs Pulse 92 12/27/24 09:40 BP 96/58 L 12/27/24 09:40 Pulse Ox 100 12/27/24 09:40 Oxygen Delivery Method Room Air 12/27/24 09:40 BMI result Body Mass Index 25.8 Const General: healthy appearing and no acute distress Nutritional Appearance: obese Orientation/consciousness: patient oriented x3 Resp Effort & Inspection: normal respiratory effort, able to speak in complete sentences, no tracheal deviation and symmetric chest movement Auscultation: clear to auscultation bilaterally Cardio Rate: regular rate GI Inspection: Yes normal to inspection, No distended and Yes obesity Palpation (GI): Soft to palpation, not firm, nontender and No hepatosplenomegaly present Auscultation: normal bowel sounds General: Yes no CVA tenderness Back/Spine/Pelvis Back: no CVA tenderness Skin General skin exam: elasticity normal, turgor normal and dry skin Neuro General: patient oriented x3 Psych Appearance: grossly normal Mental Status: mental status grossly normal Assessment & Plan Assessment & Plan (1) Nausea: Code(s): R11.0 - Nausea Category: Medical (2) Chronic GERD: Code(s): K21.9 - Gastro-esophageal reflux disease without esophagitis Category: Medical (3) Constipation by delayed colonic transit: Code(s): K59.01 - Slow transit constipation Category: Medical (4) Epigastric discomfort: Code(s): R10.13 - Epigastric pain Category: Medical (5) Postprandial abdominal bloating: Code(s): R14.0 - Abdominal distension (gaseous) Plan Patient will stop Linzess and will start taking Motegrity. May take Dulcolax no more than 2 tablets and evening if no bowel movement. Will change PPI to Nexium. Avoid dietary triggers and late night snacking. Staying upright for minimal 3 hours after meals discussed with patient. Patient encouraged to increase fluid intake and activity to promote better bowel motility. Follow-up in 3 months, sooner on as needed basis. She is agreeable to this plan and verbalizes understanding of instructions. She was given the opportunity to ask questions and all questions answered. Thank you for allowing me to participate in her care Medications: New prucalopride (Motegrity) 2 mg PO DAILY 30 tabs 2RF K59.04 - Chronic idiopathic constipation esomeprazole magnesium (Nexium) 40 mg PO DAILY 30 caps 2RF K21.9 - Gastro-esophageal reflux disease without esophagitis prucalopride (Motegrity) 2 mg PO DAILY 30 tabs 2RF K59.04 - Chronic idiopathic constipation Discontinued linaclotide (Linzess) Discontinued Reason: Doctor's Order 290 mcg PO QAM 30 caps 4RF K59.00 - Constipation, unspecified pantoprazole Discontinued Reason: Doctor's Order 40 mg PO QAM 90 tabs 2RF K21.9 - Gastro-esophageal reflux disease without esophagitis Coding Level of Care Code Est Pt Level 4 (28928) Complex EM visit Add On G2211 Diagnoses Nausea R11.0 Chronic GERD K21.9 Constipation by delayed colonic transit K59.01 Epigastric discomfort R10.13 Postprandial abdominal bloating R14.0 Time Spent (min) 35 Comment 25 minutes spent with patient and additional 10 minutes spent reviewing her records
[2024-12-27 09:40] VITALS: BP 96/58; PULSE 92; O2SAT 100; BMI 25.8
--- OUTSIDE RECORDS SUMMARY | 2024-12-27 10:16 | XMS_ITS | Clinical Summary ---
Author Organization [facility] it Address [address] [place] [address] Care Team Providers Care Instrument Tech Name Role Phone Unavailable Primary Care Provider [...] Vaccine (2023-2 5 season) 2024 Influenza Vaccine (#1) 2025 HIB Vaccines Aged Out No longer [...] 5 Years) and At-Risk Patients (6 to 49 Years) Aged Out No longer eligible b ased on patient's age to complete this topic RSV Immunization Patients Un stella 20 months Aged Out No longer eligible b ased on patient's age to complete this topic Varicella Vaccines Aged Out No longer eligible based on patient's age to complete this topic
== END 2024-12-27 10:03 | disposition home or self-care (01) ==
LOC: HO.HGI 09:37
PROVIDERS: PCP Internal Medicine; Visit Provider Nurse Practitioner Family
DX: R11.0 Nausea (principal); K21.9 Gastro-esophageal reflux disease without esophagitis; K59.01 Slow transit constipation; R10.13 Epigastric pain; R14.0 Abdominal distension (gaseous)
CPT/HCPCS: 99214; G2211

== ENCOUNTER → 2024-12-27 09:36 | Outpatient (BNVA) | payer OTHER, SELFPAY | PROVIDERS: PCP Internal Medicine; Visit Provider Nurse Practitioner Family | DX: K21.9 Gastro-esophageal reflux disease without esophagitis (principal); R11.0 Nausea; K59.01 Slow transit constipation; R10.13 Epigastric pain; R14.0 Abdominal distension (gaseous) | CPT/HCPCS: 99212 ==

== ENCOUNTER 2025-02-01 10:58 | Outpatient (AMB) | payer OTHER, SELFPAY ==
[2025-02-01 11:01] VITALS: BP 104/70; PULSE 78; BMI 24.2
--- NOTE | 2025-02-01 11:01 | A.OFFVIS_ITS ---
Vital Signs 02/01/25 11:01 Height 5 ft 2 in Weight 132 lb 4.438 oz BMI 24.2 BP 104/70 Blood Pressure Location Lt brachial Position Sitting Pulse 78 Intake Visit Reasons: 5w Intake Note: Est pt for GERD + CIC mgmt. CC; She states that she has issues with constipation a lot and she feels like it is getting worse. States that her reflux depends on her medications if she takes and what she eats. She states she did not have a good result with the nexium - she had to take her linzess and dulcolax after 5 days of not going to the bathroom. 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 Required: No Accompanied by: Self / Same As Patient Allergies acetaminophen (From TYLENOL) Allergy (Intermediate, Verified 02/01/25 11:04) Itching oxycodone Allergy (Intermediate, Verified 02/01/25 11:04) rash APAP Allergy (Intermediate, Uncoded 02/01/25 11:04) Itching Medication List - Last Reconciled 02/01/25 by WILIAN Ernst- bisacodyl 10 mg (2 x 5 mg) PO BEDTIME bupropion HCl XL 150 mg PO DAILY cetirizine 10 mg PO DAILY PRN clonazepam 1 mg PO BID PRN diclofenac sodium 1% (Arthritis Pain (diclofenac)) 2 grams topical QID divalproex ER 250 mg PO DAILY docusate sodium 200 mg (2 x 100 mg) PO BEDTIME doxycycline hyclate 100 mg PO BID 7 days duloxetine 60 mg PO DAILY duloxetine 30 mg PO DAILY 90 days esomeprazole magnesium (Nexium) 40 mg PO DAILY famotidine 20 mg PO BEDTIME fluticasone propionate 50 mcg/actuation 2 sprays intranasal DAILY lemborexant (Dayvigo) 10 mg PO BEDTIME 90 days meclizine 25 mg PO DAILY PRN meloxicam 15 mg PO DAILY 30 days ondansetron 4 mg PO DAILY propranolol 20 mg PO BID sumatriptan succinate mg PO tirzepatide 5 mg subcut QWEEK topiramate 50 mg PO BID valacyclovir (Valtrex) 1,000 mg PO TID 7 days verapamil 40 mg PO BID HPI HPI 5w: Details: LAST VISIT Nausea Chronic GERD Constipation by delayed colonic transit Epigastric discomfort Postprandial abdominal bloating Plan Patient will stop Linzess and will start taking Motegrity. May take Dulcolax no more than 2 tablets and evening if no bowel movement. Will change PPI to Nexium. Avoid dietary triggers and late night snacking. Staying upright for minimal 3 hours after meals discussed with patient. Patient encouraged to increase fluid intake and activity to promote better bowel motility. Follow-up in 3 months, sooner on as needed basis. She is agreeable to this plan and verbalizes understanding of instructions. She was given the opportunity to ask questions and all questions answered. ? Thank you for allowing me to participate in her care New prucalopride (Motegrity) 2 mg PO DAILY 30 tabs 2RF K59.04 esomeprazole magnesium (Nexium) 40 mg PO DAILY 30 caps 2RF K21.9 prucalopride (Motegrity) 2 mg PO DAILY 30 tabs 2RF K59.04 Discontinued linaclotide (Linzess) Discontinued Reason: Doctor's Order 290 mcg PO QAM 30 caps 4RF K59.00 pantoprazole Discontinued Reason: Doctor's Order 40 mg PO QAM 90 tabs 2RF K21.9 TODAY'S VISIT Patient is here today for follow-up. Patient reports that she has been doing well, however she still struggles with constipation. She tried Motegrity, however it was not working for her. She had no BM for 5 days. Patient switched to Linzess. With Linzess she is taking Dulcolax in the evening and Ex-Lax twice a day in addition in order to have a bowel movement. Patient denies melena, hematochezia, unintentional weight loss or ribbon like stools. Patient is on terzepatide for weight loss. Patient last total of 50 lb already. Her goal is 5 more lb. Patient is hoping to be done in February. Patient reports that her acid reflux is suppressed only if she has no BM for 3-5 days she is having epigastric pain. Patient currently is taking Nexium. Patient denies this dyspepsia, dysphagia or odynophagia. [facility] Medical History Moderate recurrent major depression Fibromyalgia Chronic GERD Hand pain Constipation by delayed colonic transit Polyarthralgia Allergic rhinitis DALE (generalized anxiety disorder) Mild recurrent major depression Right ankle injury Obese Insomnia Constipation Low back pain Scoliosis Anxiety and depression Migraines Umbilical hernia Morbid obesity Umbilical pain Surgical History History of esophagogastroduodenoscopy (EGD) History of umbilical hernia repair Family History Father Essential hypertension Mother Diabetes mellitus Essential hypertension Pulmonary fibrosis Maternal Grandmother Unknown family medical history Brother No problems noted. Sister No problems noted. Sister No problems noted. Sister No problems noted. Son No problems noted. Social History Household Members: Children Housing: House Alcohol intake: never Patient Tobacco Use Status: Never used Tobacco e-Cigarette/Vaping Use: Never Used Second Hand Smoke Exposure: No service: No Current occupational status: unemployed Gender identity: Female Cognitive needs: No Hearing needs: No Vision needs: Yes Female Reproductive History Menstrual Age of Menarche: 10 Review of Systems Const Denies weight gain and Denies weight loss ENT Reports no additional complaints, Denies dysphagia and Denies odynophagia Card Reports no additional complaints Resp Reports no additional complaints GI Denies abdominal pain, Denies belching, Denies melena, Reports bloating, Reports constipation (Occasional), Denies dysphagia, Denies excessive flatus, Denies dyspepsia, Reports heartburn (Occasional), Denies diarrhea, Denies loose stools, Denies nausea, Denies odynophagia and Denies vomiting Reports no additional complaints Musc Reports no additional complaints Neuro Reports no additional complaints Psych Reports no additional complaints Endo Reports no additional complaints Physical Exam Vital Signs: Last Vital Signs Pulse 78 02/01/25 11:01 BP 104/70 02/01/25 11:01 BMI result Body Mass Index 24.2 Const General: healthy appearing and no acute distress Nutritional Appearance: obese Orientation/consciousness: patient oriented x3 Resp Effort & Inspection: normal respiratory effort, able to speak in complete sentences, no tracheal deviation and symmetric chest movement Auscultation: clear to auscultation bilaterally Cardio Rate: regular rate GI Inspection: Yes normal to inspection, No distended and Yes obesity Palpation (GI): Soft to palpation, not firm, nontender and No hepatosplenomegaly present Auscultation: normal bowel sounds General: Yes no CVA tenderness Back/Spine/Pelvis Back: no CVA tenderness Skin General skin exam: elasticity normal, turgor normal and dry skin Neuro General: patient oriented x3 Psych Appearance: grossly normal Mental Status: mental status grossly normal Assessment & Plan Assessment & Plan (1) Nausea: Code(s): R11.0 - Nausea Category: Medical (2) Chronic GERD: Code(s): K21.9 - Gastro-esophageal reflux disease without esophagitis Category: Medical (3) Constipation by delayed colonic transit: Code(s): K59.01 - Slow transit constipation Category: Medical (4) Epigastric discomfort: Code(s): R10.13 - Epigastric pain Category: Medical Plan Patient will continue taking Nexium. Avoid dietary triggers and late night snacking. Staying upright for minimal 3 hours after meals discussed with patient. She will stop Linzess as this is not working for her. Will try Amitiza twice a day. Patient will call us if she will have trouble moving her bowels. Milk of magnesia will be ordered as needed if no bowel movements in 2-3 days. Patient was encouraged to increase fluid intake and activity to promote better bowel motility. Follow-up in 3 months, sooner on as needed basis. She is agreeable to this plan and verbalizes understanding of instructions. She was given the opportunity to ask questions and all questions answered. Thank you for allowing me to participate in her care Medications: New lubiprostone (Amitiza) 24 mcg PO BID 60 caps 3RF magnesium hydroxide (Milk of Magnesia) 10 mL PO DAILY PRN 355 mL 0RF constipation Coding Level of Care Code Est Pt Level 4 (82673) Complex EM visit Add On G2211 Diagnoses Nausea R11.0 Chronic GERD K21.9 Constipation by delayed colonic transit K59.01 Epigastric discomfort R10.13 Time Spent (min) 35 Comment 25 minutes spent with patient and additional 10 minutes spent reviewing her records
--- OUTSIDE RECORDS SUMMARY | 2025-02-01 12:21 | XMS_ITS | Clinical Summary ---
Author Organization [facility] it Address [address] [place] [address] Care Team Providers Care Healthcare Educator Name Role Phone Unavailable Primary Care Provider [...] Cervical Cancer Screening: P ap Smear 2009 HIV Screening 05/18/2022 Hepatitis C Screening 05/18/2022 Social Influencers of Health Screening 05/18/2022 COVID-19 Vaccine ( - 2023-2 5 season) 2024 Depression Screening 06/15/2024 Influenza Vaccine (#1) 2025 HIB Vaccines Aged [...]
== END 2025-02-01 11:20 | disposition home or self-care (01) ==
LOC: HO.HGI 10:59
PROVIDERS: PCP Internal Medicine; Visit Provider Nurse Practitioner Family
DX: R11.0 Nausea (principal); K21.9 Gastro-esophageal reflux disease without esophagitis; K59.01 Slow transit constipation; R10.13 Epigastric pain
CPT/HCPCS: 99214

== ENCOUNTER → 2025-02-01 10:58 | Outpatient (BNVA) | payer OTHER, SELFPAY | PROVIDERS: PCP Internal Medicine; Visit Provider Nurse Practitioner Family | DX: K21.9 Gastro-esophageal reflux disease without esophagitis (principal); R11.0 Nausea; K59.01 Slow transit constipation; R10.13 Epigastric pain | CPT/HCPCS: 99212 ==

== ENCOUNTER 2025-02-16 09:50 | Outpatient (AMB) | payer OTHER, SELFPAY ==
--- NOTE | 2025-02-16 10:29 | A.OFFVIS_ITS ---
Intake Visit Reasons: 6 weeks/ Migraine Allergies acetaminophen (From TYLENOL) Allergy (Intermediate, Verified 02/01/25 11:04) Itching oxycodone Allergy (Intermediate, Verified 02/01/25 11:04) rash APAP Allergy (Intermediate, Uncoded 02/01/25 11:04) Itching HPI Comments Details: 34 yo woman with anxiety, depression, FM, and migraine, including complicated migraine symptoms. She is presenting with the complaint of migraines. She has noticed an increase in the frequency of headaches, which now often occur upon waking. She has a history of trying various migraine prophylactic medications including Depakote, topiramate, propranolol, and verapamil, with limited success. Despite ineffective management with these medications, her sleep quality is reported as good. The patient is currently on duloxetine. As part of her migraine history, she recalls previous use of a medication from when she was 14, the details of which are obscured by time. Nurtec has not been used in recent years. Given the recurrent nature of her headaches and the ineffectiveness of past treatments, alternative medication strategies require consideration, taking into account her insurance coverage. [facility] Medical History Moderate recurrent major depression Fibromyalgia Chronic GERD Hand pain Constipation by delayed colonic transit Polyarthralgia Allergic rhinitis DALE (generalized anxiety disorder) Mild recurrent major depression Right ankle injury Obese Insomnia Constipation Low back pain Scoliosis Anxiety and depression Migraines Umbilical hernia Morbid obesity Umbilical pain Surgical History History of esophagogastroduodenoscopy (EGD) History of umbilical hernia repair Family History Father Essential hypertension Mother Diabetes mellitus Essential hypertension Pulmonary fibrosis Maternal Grandmother Unknown family medical history Brother No problems noted. Sister No problems noted. Sister No problems noted. Sister No problems noted. Son No problems noted. Social History Household Members: Children Housing: House Alcohol intake: never Patient Tobacco Use Status: Never used Tobacco e-Cigarette/Vaping Use: Never Used Second Hand Smoke Exposure: No service: No Current occupational status: unemployed Gender identity: Female Cognitive needs: No Hearing needs: No Vision needs: Yes Female Reproductive History Menstrual Age of Menarche: 10 Review of Systems Const Details: - Neurological: Reports headaches more frequently, waking with headaches. - Sleep: Reports good sleep quality. Physical Exam Neuro Other: Mental Status: Alert and oriented to person, place, and time. Normal attention. Normal spontaneous speech, fluency, and comprehension. No obvious issues with mood and memory. Affect is appropriate. Cranial Nerves: CN II: Visual leggett full to confrontation, visual acuity intact. CN III, IV, : Pupils equal, round, reactive to light and accommodation. Extraocular movements are normal. CN V: Facial sensation is normal. CN VII: Facial movements symmetrical. CN VIII: Hearing intact to bedside conversation is normal. CN IX, X: Palate elevates symmetrically. CN XI: Shoulder shrug and head turn symmetrical. CN XII: Tongue midline without atrophy or fasciculations. Coordination: [id number] and [id number] testing normal. No dysmetria. Gait and Station: No obvious gait abnormality. No ataxia or instability. Extrapyramidal: Full facial expressions and blinking. No rigidity. Movements are appropriate with no tremor or abnormality. Speech: Normal; no dysarthria or tremor. Assessment & Plan Assessment & Plan (1) Migraines: Comment: Meds tried: Topiramate, sumatriptan, propranolol, verapamil, Duloxetine MRI brain WO at [facility] in December 2021: No sig abn. Code(s): G43.909 - Migraine, unspecified, not intractable, without status migrainosus Category: Medical Qualifiers: Migraine type: unspecified Status migrainosus presence: without status migrainosus Intractability: not intractable Qualified Code(s): G43.909 - Migraine, unspecified, not intractable, without status migrainosus Plan: I discussed with the patient the likely diagnosis of chronic migraines and the ineffectiveness of current and past medications, such as Depakote. We explored alternative treatments, including a new medication regimen, depending on insurance approval. The patient was informed about the possibility of taking this medication every other day and to monitor for effectiveness. Plan Impression: Chronic intractable migraine w/o aura Rec: DC depakote Try Nurtec 75mg every other day Medications: New rimegepant (Nurtec ODT) 75 mg PO Q OTHER DAY 15 tabs 2RF 30 days Coding Level of Care Code Est Pt Level 4 (15564) Diagnoses Migraine without status migrainosus, not intractable, unspecified migraine type G43.909 Migraine type: unspecified Status migrainosus presence: without status migrainosus Intractability: not intractable
--- OUTSIDE RECORDS SUMMARY | 2025-02-16 10:49 | XMS_ITS | Clinical Summary ---
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
== END 2025-02-16 10:36 | disposition home or self-care (01) ==
LOC: HO.HSM 09:51
PROVIDERS: PCP Internal Medicine; Visit Provider Psychiatry & Neurology Neurology
DX: G43.909 Migraine, unspecified, not intractable, without status migrainosus (principal)
CPT/HCPCS: 99214

== ENCOUNTER → 2025-02-16 09:50 | Outpatient (BNVA) | payer OTHER, SELFPAY | PROVIDERS: PCP Internal Medicine; Visit Provider Psychiatry & Neurology Neurology | DX: G43.909 Migraine, unspecified, not intractable, without status migrainosus (principal) | CPT/HCPCS: 99212 ==

== ENCOUNTER 2025-03-15 16:22 | Outpatient (AMB) | payer OTHER, SELFPAY ==
--- OUTSIDE RECORDS SUMMARY | 2025-03-09 14:13 | XMS_ITS | Encounter Summary ---
Author Organization [facility] Address [address] [place] [address] Care Team Providers Care Crime Scene Technician Name Role Phone Physician, No Pcp Primary Care Provider Unavaila ble Reason for Visit * Reason Comments Syncope * Auth/Cert (Routine) Specialty Diagnoses / Procedures Referred By Ari pavon Referred To Contact Diagnoses Hypokalemia Syncope Near syncope Procedures [facility] IP/OBS CARE INITIAL MODERATE LEVEL PER DAY Jaden Cramer MD [address] [place] [phone] Phone: tel: fax: [facility] [address] [place] [phone] Phone: tel: Referral ID Status Reason Start Date Expiration Date Visits Re quested Visits Authorized [id number] 1 1 Encounter Details Date Type Department Care Team (Latest Contact Info) Description 03/09/2025 2:13 PM EDT - 03/10/2025 4:54 PM EDT Hospital Encounter [facility] [address] [place] [phone] Argenis Gamboa MD [address] [place] [address] Jaden Cramer MD [address] [place] [phone] Moises Garrison MD [address] [place] [id number] Hypokalemia (Primary Dx); Near syncope Discharge Disposition: Home or Self Care Social History Tobacco Use Types Packs/Day Years Used Date Smoking Tobacco: Never Assessed Interpersonal Safety Answer Date Record ed Physical Abuse Unrecognized value 03/09/2025 Verbal Abuse Unrecognized value 03/09/2025 Comments Unknown Sex and Gender Information Value Date Recorded Sex Assigned at Not on file Legal Sex Female 10:45 PM EST Gender Identity Not on file Sexual Orientation Not on file documented as of this encounter Last Filed Vital Signs Vital Sign Reading Time Taken Comments Blood Pressure 107/78 03/10/2025 4:11 PM EDT Pulse 66 03/10/2025 4:11 PM EDT Temperature 36.3 C (97.3 F) 03/10/2025 4:11 PM EDT Respiratory Rate 18 03/10/2025 4:11 PM EDT Oxygen Saturation 100% 03/10/2025 4:11 PM EDT Inhaled Oxygen Concentration - - Weight 58.4 kg (128 lb 12.8 oz) 03/09/2025 9:25 PM EDT Height 157.5 cm (5' 2 ) 03/09/2025 9:25 PM EDT Body Mass Index 23.56 03/09/2025 9:25 PM EDT documented in this encounter Functional Status * Calculated C-SSRS Risk Score (Lifetime/Recent) Answer Date of Assessment Author No Risk Indicated 03/09/2025 7:40 PM EDT Subha Bar RN * [place] Suicide Severity Rating Scale (Screener/Recent Self-Report) Question Answer Date of Assessment Author 1. Wish to be (Past 1 Month) No 03/09/2025 7:40 PM EDT Subha Bar RN 2. Non-Specific Active Suici ashlie Thoughts (Past 1 Month) No 03/09/2025 7:40 PM EDT Anna Bar RN 6. Suicidal Behavior (Lifetime) No 7:40 PM EDT Subha Bar RN documented as of this encounter Discharge Summaries * Moises Garrison MD - 03/10/2025 2:25 PM EDT Images from the original note were not included. DISCHARGE SUMMARY Patient Information Amaya Montana : 1990 [34 y.o.] Admitting Provider Jaden Cramer MD Discharge Provider Moises Garrison MD, Moises Major* Primary Care Physician No Pcp Physician Admission Date 03/09/2025 Discharge Date 03/10/2025 Discharge disposition-Home Summary of Hospital Problems Primary Discharge Diagnosis: Presyncope Hospital Course Summary Admission HPI from H&P per admitting physician/BRIAN- This is a 34-year-old female with a past medical history significant for anxiety and depression, muscle spasms, migraine headaches, herpes simplex virus, hypertension who presents emergency department today for an evaluation of dizziness, tingling of bilateral hands and feet and a near syncopal event. At time of my assessment of patient, she has currently denying current symptoms however are here. She reports that earlier today she was at the campaign specialist office when she was standing and then she went to walk into the room when she felt dizzy, felt her became blurry and reports that everything went black for a few seconds. Patient reports that she has been increasing her Dulcolax on her ownto 20 mg twice daily and has been having 2-3 episodes of loose diarrheal stools . Patient reports that if she does not take this amount of Dulcolax, she does not have bowel movements and then her abdomen feels full and she cannot eat and is uncomfortable. Patient also reports that she called her medications last night, did not eat much or drink this morning, had diarrhea and then went to her appointment Chest x-ray:Normal heart size and pulmonary vascularity. Lungs are clear and costophrenic angles are sharp. No acute osseous abnormality. EKG: NSR Initial laboratory results: CMP reveals potassium of 2.8, anion gap 12, AST 8. High-sensitivity troponin 3 with a repeat of 3. hCG negative. CBC with differential mainly unremarkable. Urinalysis negative for infection however does reveal trace ketones and large blood/RBCs. In the emergency department the above was performed and patient received a total of 80 mEq p.o. potassium and 1L NS. The decision was made to admit patient for medical management. Brief Hospital course Patient is a 34 years old female with past medical history significant for but not limited to anxiety, depression, migraine, hypertension, presents to the hospital with dizziness and presyncope episode. - Patient reports that she was at her campaign specialist clinic when she suddenly felt nausea, blurry vision, dizziness, nausea followed by feeling of almost passing out however she did not lose consciousness or have any fall. - She reports that she has history of IBS and takes couple of medicines for IBS related constipation and has had multiple episodes of bowel movements in last few days. - Also she is on multiple medications including Wellbutrin, Cymbalta, lemborexant, Topamax, Klonopin which could be affecting neurological status. -CT scan head negative for any acute intracranial changes. - Obtaining CT angiogram head and neck to rule out any hemodynamically significant occlusion. - However this appears to be most likely consistent with vasovagal episode with possible polypharmacy. Patient education given and recommended to maintain hydration and follow-up with psychiatry to discuss weaning down on psychiatric medications. Physical Exam at time of Discharge Temp (24hrs), Av.7 ??C (98 ??F), Min:36.3 ??C (97.3 ??F), Max:37.2 ??C (98.9 ??F) Body mass index is 23.56 kg/m??. No results found for: PTWT , PTHT Physical Exam General-patient appears comfortable, no acute distress HEENT-NCAT Eyes-anicteric Cardiology-no significant murmur appreciated Respiratory-no significant wheezing appreciated abdomen-nontender nondistended Extremity-no significant lower extremity edema noted Neurology-awake alert oriented to time place and person Skin-warm and dry Follow-Up Instructions and Recommendations Outpatient follow-up with psychiatry discussed weaning down on psych medication regimen Discharge Medications Your medication list CONTINUE taking these medications Instructions Last Dose Given Next Dose Due bisacodyL 5 mg EC tablet Commonly known as: DULCOLAX Take 2 tablets (10 mg total) by mouth at bedtime. at bedtime buPROPion XL 300 mg 24 hr tablet Commonly known as: WELLBUTRIN XL Take 1 tablet (300 mg total) by mouth 1 (one) time each day in the morning. clonazePAM 1 mg tablet Commonly known as: KlonoPIN Take 1 tablet (1 mg total) by mouth 2 (two) times a day if needed for anxiety. Dayvigo 10 mg tablet Generic drug: lemborexant Take 1 tablet by mouth at bedtime. Max Daily Amount: 1 tablet DUL[address] capsule Commonly known as: CYMBALTA Take 1 capsule (60 mg total) by mouth 2 (two) times a day. esomeprazole [address] capsule Commonly known as: NexIUM Take 1 capsule (40 mg total) by mouth 1 (one) time each day before breakfast. SUMAtriptan 100 mg tablet Commonly known as: IMITREX Take 1 tablet (100 mg total) by mouth 1 (one) time if needed for migraine. STOP taking these medications divalproex 250 mg 24 hr tablet Commonly known as: DEPAKOTE ER lubiprostone 24 mcg capsule Commonly known as: AMITIZA meloxicam 15 mg tablet Commonly known as: MOBIC Lab Results Component Value Date GLUCOSE 86 03/10/2025 CALCIUM 7.8 (L) 03/10/2025 NA 141 03/10/2025 K 4.2 03/10/2025 CO2 22 03/10/2025 CL 116 (H) 03/10/2025 BUN 6 03/10/2025 CREATININE 0.61 03/10/2025 Lab Results Component Value Date WBC 5.5 03/10/2025 HGB 9.0 (L) 03/10/2025 HCT 28.5 (L) 03/10/2025 MCV 80.5 03/10/2025 PLT 215 03/10/2025 CT Head wo Contrast Result Date: 03/09/2025 INDICATION: Syncope, simple, normal neuro exam CT head without contrast Comparison: None available Findings: No acute hemorrhage. No extra-axial fluid collection. No hydrocephalus, mass-effect or herniation. Dominguez-white differentiation is maintained. White matter is within normal limits for age. No acute orbital pathology. No acute soft tissue abnormality. No fracture. The visualized paranasal sinuses are predominantly clear. The mastoid air cells are clear. Impression: No acute findings. This document has been electronically signed by: Lyn Peres MD on 03/09/2025 19:47:30 XR Chest 2 Views Result Date: 03/09/2025 XR CHEST 2 VIEWS INDICATION: chest pain TECHNIQUE: XR CHEST 2 VIEWS COMPARISON: No priors available. FINDINGS/IMPRESSION: Normal heart size and pulmonary vascularity. Lungs are clear and costophrenic angles are sharp. No acute osseous abnormality. -------- FINAL REPORT -------- Dictated By: Tabatha Brooks Dictated Date: 03/09/2025 15:05 ET Assigned Physician: Tabatha Brooks Reviewed and Electronically Signed By: Tabatha Brooks Signed Date: 03/09/2025 15:06 ET Workstation ID: [id number] Transcribed By: Self Edit Transcribed Date: 03/09/2025 15:05 ET About 35 minutes spent independently today in discharge process for this patient including but not limited to chart review, clinical decision making, care coordination. documented in this encounter Discharge Instructions * Discharge Instructions* Moises Garrison MD - 03/10/2025 11:59 AM EDT - Please follow-up with your psychiatrist outpatient; you may need to wean off on some of your anxiety/depression medications. - Follow-up with primary care physician documented in this encounter Medications at Time of Discharge bisacodyL (DULCOLAX) 5 mg EC tablet Take 2 tablets (10 mg total) by mouth at bedtime. at bedtime 02/18/2025 buPROPion XL (WELLBUTRIN XL) 300 mg 24 hr tablet Take 1 tablet (300 mg total) by mouth 1 (one) time each day in the morning. 02/22/2025 clonazePAM (KlonoPIN) 1 mg tablet Take 1 tablet (1 mg total) by mouth 2 (two) times a day if needed for anxiety. 02/22/2025 Dayvigo 10 mg tablet Take 1 tablet by mouth at bedtime. Max Daily Amount: 1 tablet 02/23/2025 DULoxetine (CYMBALTA) [address] capsule Take 1 capsule (60 mg total) by mouth 2 (two) times a day. 02/22/2025 esomeprazole (NexIUM) [address] capsule Take 1 capsule (40 mg total) by mouth 1 (one) time each day before breakfast. 12/27/2024 SUMAtriptan (IMITREX) 100 mg tablet Take 1 tablet (100 mg total) by mouth 1 (one) time if needed for migraine. 02/24/2025 documented as of this encounter Discharge Disposition Disposition Code Departure Means Destination Comment s Home or Self Care Car Home documented in this encounter Progress Notes * Rylie Danielson RN - 03/10/2025 4:30 PM EDT Education provided with regards to home meds and f/u appointments. Patient acknowledged. * Yolanda Alcala RN - 03/10/2025 4:10 PM EDT 03/10/25 1610 Initial Transition Plan Initial Transition Plan Home Discharge Planning Living Arrangements Family members;Children Type of Residence Private residence Assistive Devices Eyeglasses Support Systems Parent;Children Medication Coverage Has Med Coverage Under Insurance Plan Yes Medication Affordability No concerns related to payment for meds Anticipated Discharge Needs Discipline following for SNF placement Injection Molding SupervisorChild Adolescent Psychiatrist What day is the transport expected? 03/10/25 Final Discharge Disposition Home or Self Care * Subha Bar RN - 03/10/2025 4:05 AM EDT Problem: Falls: Fall Risk (Adult IP BH) Goal: (Goal) Patient will experience maximum safety and reduce risk for falls. Outcome: Progressing Goal: Patient will not fall or injure themselves during hospitalization. Outcome: Progressing Problem: Sensory: Acute Pain Goal: Pain level will improve or be tolerable Outcome: Progressing Goal: Ability to develop a pain control plan will improve Outcome: Progressing Problem: Cognitive: Acute Pain Goal: Expressions of feelings of enhanced comfort will increase Outcome: Progressing Problem: Patient Specific Problem: Acute Pain Goal: Patient Specific Outcome Outcome: Progressing Goals: Identify possible barriers to meeting goals/advancing plan of care: Stability of the patient: Moderately Stable - Low risk of patient condition declining or worsening End of Shift Summary: Patient safety and comfort maintained. Pain medicated. Standby to the BR. On IV fluids. Resting calmly. Bed alarm on. Fall precaution noted. * Andra Ceballos RN - 03/09/2025 6:48 PM EDT ED RN HANDOFF (All Smith Below Must Be Completed) Reason/Diagnosis for Admission: hypokalemia/near syncope Type of Admission: [x] Medsurg, [] Telemetry Already in a Hospital Bed: [] Yes / [x] No Room Considerations/Precautions (ex: fever, diarrhea, or any infectious concerns): [] Yes / [x] No Flatwork Washer: [] Yes / [x] No If YES, Cardiac Rhythm: [x] NSR, [] SB, [] ST, [] A-FIB, [] A-Flutter, [] Pacemaker, [] 1st Degree HB, [] 2nd Degree HB, [] 3rd Degree HB Reason for Flatwork Washer: VS: Visit Vitals BP 110/77 (BP Location: Left arm, Patient Position: Sitting) Pulse 72 Temp 36.3 ??C (97.3 ??F) (Oral) Resp 18 Ht 1.58 m (62.21 ) Wt 58.1 kg (128 lb) SpO2 100% BMI 23.26 kg/m?? BSA 1.59 m?? Current Mental Status: A/O x [x]4, []3, []2, []1 Current Ambulation Status: ad jazmín IV Access: [x] Yes / [] No Field IV present: [] Yes / [x] No Hx of Violence: [] Yes / [x] No / [] Unknown Fall Risk:[] Yes / [x] No Yellow Bracelet Applied [] Yes / [] No Yellow Socks Applied [] Yes / [] No Patient Belongings inventoried and BL completed: [] Yes / [x] No Patient belongings stored in the security closet: [] Yes (If Yes please supply Security bag #): [x] No Patient Medications stored in Pharmacy: [] Yes (If Yes please supply Medication Security bag #): [x] No ED Summary of Care: pt came to ER after having a near syncopal episode. Found to have k of 2.8. 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 Patient states prior to this she felt fine, she has been sitting in line for about 10 minutes when this started, has a history of similar symptoms with prolonged standing, most recently earlier this year. Patient states this happened a few times in the last 10 years, she has only been to emergency department for this, spoke with her PCP who said there was nothing more to do since the ED did not find anything, has not seen a mosquito sprayer. She denies fainting. Patient states that her symptoms went on for about 30 minutes and have since resolved. She also states that she noticed that when they took her blood pressure here her hand went stiff like she had no control over it but there was no twitching. Patient states that she is currently menstruating, denies chest pain, shortness of breath, palpitations, abdominal pain, urinary symptoms, abnormal vaginal discha rge or bleeding, recent cold or flu symptoms, vomiting, diarrhea. History provided by: Patient nuclear control operator used: No [place] Coma Scale Score: 15 Patient History No past medical history on file. No past surgical history on file. No family history on file. Social History Tobacco Use Smoking status: Not on file Smokeless tobacco: Not on file Substance Use Topics Alcohol use: Not on file Drug use: Not on file Review of Systems Review of Systems Physical Exam ED Triage Vitals [03/09/25 1149] Temp Heart Rate Resp BP 36.4 ??C (97.5 ??F) 85 16 93/77 SpO2 Temp src Heart Rate Source Patient Position 100 % -- -- -- BP Location FiO2 (%) -- -- Physical Exam Vitals and nursing note reviewed. Constitutional: General: She is not in acute distress. Appearance: Normal appearance. She is not ill-appearing. HENT: Mouth/Throat: Mouth: Mucous membranes are dry. Eyes: General: Vision grossly intact. No visual field deficit. Extraocular Movements: Extraocular movements intact. Right eye: No nystagmus. Left eye: No nystagmus. Pupils: Pupils are equal, round, and reactive to light. Cardiovascular: Rate and Rhythm: Normal rate and regular rhythm. Heart sounds: Normal heart sounds. Pulmonary: Effort: Pulmonary effort is normal. Breath sounds: Normal breath sounds. Abdominal: Palpations: Abdomen is soft. Tenderness: There is no abdominal tenderness. Musculoskeletal: General: Normal range of motion. Skin: Capillary Refill: Capillary refill takes less than 2 seconds. Neurological: General: No focal deficit present. Mental Status: She is alert. Cranial Nerves: Cranial nerves 2-12 are intact. Sensory: Sensation is intact. Motor: Motor function is intact. Coordination: Coordination is intact. Vdmapn-Nxom-Hbsydv Test normal. ED Course & MDM Medical Decision Making Ddx: Orthostasis, vasovagal, hypovolemia, electrolyte derangement, anemia, arrhythmia, valvular pathology, UTI, unlikely acute intracranial pathology Patient is well-appearing with vitals soft BP to 93/77 improved to 100/22 on repeat, otherwise WNL on RA on arrival and normal cardiopulmonary and abdominal exams with somewhat dry mucous membranes and normal cap refill. Will obtain orthostatic vitals. Patient is pending EKG, CXR, UA, basic labs, lytes, trop. Will treat with IVF fluids, analgesia specifically triptan per pt request. Did consider CTH however patient has mild headache, no red flag symptoms, light- headedness is less commonly an intracranial etiology, neuro exam is reassuring. Discussed plan, potential admission depending on findings and clinical status. Amount and/or Complexity of Data Reviewed Labs: ordered. Decision-making details documented in ED Course. Radiology: ordered and independent interpretation performed. Decision-making details documented in ED Course. ECG/medicine tests: ordered and independent interpretation performed. Decision- making details documented in ED Course. Risk Decision regarding hospitalization. ED Course as of 03/10/252207 Shaye Mar 09, 2025 1559 ECG 12 lead 03/09/2025 12:01:55 on my read normal sinus rhythm, regular, rate 70, normal intervals, no BRODY, borderline ST depression in V3, no TWI, compared to 11/21/21 no significant change [RG] 1600 XR Chest 2 Views On my read no consolidations, effusions, edema read by radiology as FINDINGS/IMPRESSION: Normal heart size and pulmonary vascularity. Lungs are clear and costophrenic angles are sharp. No acute osseous abnormality. [RG] 1601 CBC and differential(!) No leukocytosis or anemia [RG] 1601 Lipase: 44 WNL [RG] 1601 High Sensitivity Troponin I: <3 WNL [RG] 1601 Magnesium: 2.3 WNL [RG] 1601 Urinalysis with reflex microscopic(!) No evidence of infection, has hematuria, per patient she is menstruating [RG] 1602 Comprehensive metabolic panel(!!) Severe hypokalemia to 2.8, otherwise unremarkable, will replete, will likely need admission [RG] 1635 Discussed low potassium with patient, given her symptoms feel that she needs to be admitted [facility], patient is agreeable. Hospitalist consult began. [RG] 1806 Patient admitted to hospitalist [RG] ED Course User Index [RG] Argenis Gamboa MD Clinical Impressions as of 03/10/252207 Hypokalemia Near syncope Procedures Argenis Gamboa MD 03/09/25 1606 Argenis Gamboa MD 03/10/25 2214 documented in this encounter Plan of Treatment Not on file documented as of this encounter Procedures Procedure Name Priority Date/Time Associated Diagnosis Comments ECG ANNOTATED 03/13/2025 CT ANGIO HEAD/NECK WO AND/OR W CONTRAST STAT 03/10/2025 1:50 PM EDT CBC WITH AUTO DIFFERENTIAL Routine 03/10/2025 6:43 AM EDT CBC AND DIFFERENTIAL Routine 03/10/2025 6:43 AM EDT BASIC METABOLIC PANEL Routine 03/10/2025 6:[address] HEAD WO CONTRAST STAT 03/09/2025 6 :55 PM EDT SST - GOLD Routine 03/09/2025 6:33 PM EDT EXTRA TUBES Routine 03/09/2025 6:33 PM EDT POTASSIUM STAT Add-on 03/09/2025 6:33 PM EDT XR CHEST 2 VIEWS STAT 03/09/2025 2:55 PM EDT TROPONIN I HIGH SENSITIVITY Timed 03/09/2025 2:14 PM EDT URINALYSIS WITH REFLEX MICROSCOPIC STAT 03/09/2025 2:03 PM EDT URINALYSIS WITH REFLEX MICROSCOPIC STAT 03/09/2025 2:03 PM EDT ECG 12-LEAD STAT 03/09/2025 12:01 PM EDT TROPONIN I HIGH SENSITIVITY Timed 03/09/2025 11:57 AM EDT CBC WITH AUTO DIFFERENTIAL STAT 03/09/2025 11:57 AM EDT CBC AND DIFFERENTIAL STAT 03/09/2025 11:57 AM EDT HCG, SERUM, QUALITATIVE STAT Add-on 03/09/2025 11:57 AM EDT MAGNESIUM STAT 03/09/2025 11:57 AM EDT LIPASE STAT 03/09/2025 11:57 AM EDT COMPREHENSIVE METABOLIC PANEL STAT 03/09/2025 11:57 AM EDT documented in this encounter Results * ECG-Annotated (03/13/2025) us Provider Onbase MD ECG ORDERABLES Final Result * CT Angio Head/Neck wo and/or w Contrast (03/10/2025 1:50 PM EDT) Anatomical Region Laterality Modality Head and Neck Computed Tomogra phy 03/10/2025 3:08 PM EDT Impressions 03/10/2025 3:12 PM EDT NO ACUTE FINDINGS. -------- FINAL REPORT -------- Dictated By: Tabatha Brooks Dictated Date: 03/10/2025 15:08 ET Assigned Physician: Tabatha Brooks Reviewed and Electronically Signed By: Tabatha Brooks Signed Date: 03/10/2025 15:12 ET Workstation ID: [id number] Transcribed By: Self Edit Transcribed Date: 03/10/2025 15:08 ET Narrative 03/10/2025 3:12 PM EDT PROCEDURE: CTA HEAD AND NECK INDICATION: syncope. ?CVA TECHNIQUE: CTA of the head and neck with intravenous contrast. Multiplanar reformats. The examination was performed utilizing dose reduction techniques.3-D or MIP images were produced with postprocessing on an independent computer workstation. 90cc Omnipaque 370 injected. Scan was analyzed using [facility] Contact AI based computer aided triage software. Total DLP: 1555 mGy/cm COMPARISON: No priors available. FINDINGS: Noncon Brain: Cerebral hemispheres are symmetric without evidence for mass, hemorrhage or CT evidence for acute territorial infarct. CTA Neck: There is a left-sided aortic arch. Great vessels are patent with conventional anatomy. Common carotid and internal carotid arteries are patent in the neck. Cervical vertebral arteries are patent. Visualized lung apices are clear. Soft tissues of the neck are normal. CTA Head: Intracranial portions of the internal carotid arteries are patent. Proximal middle and anterior circulation is patent. Vertebrobasilar system is patent. Proximal recreation leader are patent. Major dural venous sinuses opacify normally with contrast. Extracranial structures are unremarkable. Degenerative changes in the bones. Procedure Note Tabatha Brooks MD - 03/10/2025 PROCEDURE: CTA HEAD AND NECK INDICATION: syncope. ?CVA TECHNIQUE: CTA of the head and neck with intravenous contrast. Multiplanarreformats. The examination was performed utilizing dose reductiontechniques.3-D or MIP images were produced with postprocessing on anindependent computer workstation. 90cc Omnipaque 370 injected. Scan wasanalyzed using [facility] Contact AI based computer aided triage software. Total DLP: 1555 mGy/cm COMPARISON: No priors available. FINDINGS: Noncon Brain: Cerebral hemispheres are symmetric without evidence for mass, hemorrhageor CT evidence for acute territorial infarct. CTA Neck: There is a left-sided aortic arch. Great vessels are patent withconventional anatomy. Common carotid and internal carotid arteries arepatent in the neck. Cervical vertebral arteries are patent. Visualized lung apices are clear. Soft tissues of the neck are normal. CTA Head: Intracranial portions of the internal carotid arteries are patent. Proximal middle and anterior circulation is patent. Vertebrobasilar system is patent. Proximal recreation leader are patent. Major dural venous sinuses opacify normally with contrast. Extracranial structures are unremarkable. Degenerative changes in thebones. IMPRESSION: NO ACUTE FINDINGS. -------- FINAL REPORT -------- Dictated By: Tabatha Brooks Dictated Date: 03/10/2025 15:08 ET Assigned Physician: Tabatha Brooks Reviewed and Electronically Signed By: Tabatha Brooks Signed Date: 03/10/2025 15:12 ET Workstation ID: [id number] Transcribed By: Self Edit Transcribed Date: 03/10/2025 15:08 ET Moises Garrison MD [facility] [place]EDURES F inal Result * (ABNORMAL) CBC auto differential (03/10/2025 6:43 AM EDT) [facility] Signature WBC 5.5 4.8 - 10.8 K/mcL LAB HEMETOLOGY METHOD 03/10/2025 7:26 AM EDT [facility] RBC 3.50(L) 3.80 - 4.80 M/mcL LAB HEMETOLOGY METHOD 03/10/2025 7:26 AM [facility] Hemoglobin 9.0(L) 11.5 - 16.0 g/dL LAB HEMETOLOGY METHOD 03/10/2025 7:26 AM [facility] Hematocrit 28.5(L) 35.0 - 47.0 % LAB HEMETOLOGY METHOD 03/10/2025 7:26 AM [facility] MCV 80.5 79.0 - 98.0 FL LAB HEMETOLOGY METHOD 03/10/2025 7:26 AM [facility] MCH 25.4(L) 27.0 - 32.0 pcg LAB HEMETOLOGY METHOD 03/10/2025 7:26 AM [facility] MCHC 31.6(L) 32.0 - 37.0 g/dL LAB HEMETOLOGY METHOD 03/10/2025 7:26 AM [facility] RDW 16.1(H) 11.0 - 15.0 % LAB HEMETOLOGY METHOD 03/10/2025 7:26 AM [facility] Platelets 215 130 - 400 K/mcL LAB HEMETOLOGY METHOD 03/10/2025 7:26 AM [facility] MPV 12.0(H) 7.0 - 11.0 FL LAB HEMETOLOGY METHOD 03/10/2025 7:26 AM [facility] NRBC 0.0 <1.0 % LAB HEMETOLOGY METHOD 03/10/2025 7:26 AM [facility] NRBC Absolute 0.00 <0.10 K/mcL LAB HEMETOLOGY METHOD 03/10/2025 7:26 AM [facility] Neutrophils Relative 41.1 % LAB HEMETOLOGY METHOD 03/10/2025 7:26 AM [facility] Lymphocytes Relative 44.5 % LAB HEMETOLOGY METHOD 03/10/2025 7:26 AM [facility] Monocytes Relative 6.7 % LAB HEMETOLOGY METHOD 03/10/2025 7:26 AM [facility] Eosinophils Relative 7.1 % LAB HEMETOLOGY METHOD 03/10/2025 7:26 AM [facility] Basophils Relative 0.4 % LAB HEMETOLOGY METHOD 03/10/2025 7:26 AM [facility] Immature Granulocytes Relative 0.2 % LAB HEMETOLOGY METHOD 03/10/2025 7:26 AM [facility] Neutrophils Absolute 2.27 1.50 - 7.00 K/mcL LAB HEMETOLOGY METHOD 03/10/2025 7:26 AM [facility] Lymphocytes Absolute 2.45 1.00 - 5.00 K/mcL LAB HEMETOLOGY METHOD 03/10/2025 7:26 AM [facility] Monocytes Absolute 0.37 0.20 - 1.00 K/mcL LAB HEMETOLOGY METHOD 03/10/2025 7:26 AM [facility] Eosinophils Absolute 0.39 0.00 - 0.50 K/mcL LAB HEMETOLOGY METHOD 03/10/2025 7:26 AM [facility] Basophils Absolute 0.02 0.00 - 0.20 K/mcL LAB HEMETOLOGY METHOD 03/10/2025 7:26 AM [facility] Immature Granulocytes Absolute 0.01 0.00 - 0.03 K/mcL LAB HEMETOLOGY METHOD 03/10/2025 7:26 AM [facility] Blood Venous blood specimen / Unknown Venipuncture / Unknown 03/10/2025 6:43 AM EDT 03/10/2025 7:04 AM EDT Meryl Lucas Krupa SUPERVISOR DEHYDROGENATION LAB BLOOD ORDERABLES Fin al Result [facility] [address] [place] [address], * (ABNORMAL) Basic metabolic panel (03/10/2025 6:43 AM EDT) Sodium 141 133 - 145 mmol/L LAB CHEMISTRY METHOD 03/10/2025 7:29 AM [facility] Potassium 4.2 3.5 - 5.5 mmol/L LAB CHEMISTRY METHOD 03/10/2025 7:29 AM [facility] Chloride 116(H) 96 - 110 mmol/L LAB CHEMISTRY METHOD 03/10/2025 7:29 AM [facility] CO2 22 21 - 32 mmol/L LAB CHEMISTRY METHOD 03/10/2025 7:29 AM [facility] Anion Gap 3 3 - 11 LAB CHEMISTRY METHOD 03/10/2025 7:29 AM [facility] Glucose 86 70 - 100 mg/dL LAB CHEMISTRY METHOD 03/10/2025 7:29 AM [facility] BUN 6 5 - 25 mg/dL LAB CHEMISTRY METHOD 03/10/2025 7:29 AM [facility] Creatinine 0.61 0.50 - 1.10 mg/dL LAB CHEMISTRY METHOD 03/10/2025 7:29 AM [facility] eGFR 119 >=60 mL/min/1. 73m2 LAB CHEMISTRY METHOD 03/10/2025 7:29 AM [facility] Comment:Calculation based on the Chronic Kidney Disease Epidemiology Collaboration (CKD-EPI) equation refit without adjustment for race. BUN/Creatinine Ratio 9.8 LAB CHEMISTRY METHOD 03/10/2025 7:29 AM [facility] Calcium 7.8(L) 8.5 - 10.5 mg/dL LAB CHEMISTRY METHOD 03/10/2025 7:29 AM EDT [facility] Blood Venous blood specimen / Unknown Venipuncture / Unknown 03/10/2025 6:43 AM EDT 03/10/2025 7:04 AM EDT us Meryl Gentile SUPER[employer] DEHYDROGENATION LAB BLOOD ORDERABLES Fin al Result [facility] [address] [place] [address], * CT Head wo Contrast (03/09/2025 6:55 PM EDT) Anatomical Region Laterality Modality Head and Neck Computed Tomogra phy 03/09/2025 7:47 PM EDT Impressions 03/09/2025 7:47 PM EDT Impression: No acute findings. This document has been electronically signed by: Lyn Peres MD on 03/09/2025 19:47:30 Narrative 03/09/2025 7:47 PM EDT INDICATION: Syncope, simple, normal neuro exam CT head without contrast Comparison: None available Findings: No acute hemorrhage. No extra-axial fluid collection. No hydrocephalus, mass-effect or herniation. Dominguez-white differentiation is maintained. White matter is within normal limits for age. No acute orbital pathology. No acute soft tissue abnormality. No fracture. The visualized paranasal sinuses are predominantly clear. The mastoid air cells are clear. Procedure Note Lyn Grace MD - 03/09/2025 INDICATION: Syncope, simple, normal neuro exam CT head without contrast Comparison: None available Findings: No acute hemorrhage. No extra-axial fluid collection. No hydrocephalus, mass-effect or herniation. Dominguez-white differentiation is maintained.White matter is within normal limits for age. No acute orbital pathology. No acute soft tissue abnormality. Nofracture. The visualized paranasal sinuses are predominantly clear. The mastoidair cells are clear. IMPRESSION: Impression: No acute findings. This document has been electronically signed by: Lny Peres MD on 03/09/2025 19:47:30 Meryl Gentile SUPERVISOR DEHYDROGENATION IMG CT PROCEDURES Final Result * (ABNORMAL) Potassium (03/09/2025 6:33 PM EDT) [facility] Potassium 3.3(L) 3.5 - 5.5 mmol/L LAB CHEMISTRY METHOD 03/09/2025 8:17 PM EDT [facility] Comment:Hemolysis present Blood Venous blood specimen / Unknown 03/09/2025 6:33 PM EDT 03/09/2025 6:46 PM EDT Meryl Gentile NP LAB BLOOD ORDERABLES Fin al Result Performing Organization Address City/[facility]/ZIP Co de Phone Number [facility] [address] [place] [address], [place] [phone] * SST tube (03/09/2025 6:33 PM EDT) [facility] Extra Tube Hold for add-ons. 03/09/2025 8:01 PM EDT [facility] Comment:Auto resulted. Blood Venous blood specimen / Unknown 03/09/2025 6:33 PM EDT 03/09/2025 6:46 PM EDT Jaden Cramer MD LAB BLOOD ORDERABLES Fi nal Result Performing Organization Address City/[facility]/ZIP Co de Phone Number [facility] [address] [place] [address], [place] [phone] * XR Chest 2 Views (03/09/2025 2:55 PM EDT) Anatomical Region Laterality Modality Body Radiographic Gracie ging 03/09/2025 3:05 PM EDT Impressions 03/09/2025 3:06 PM EDT FINDINGS/IMPRESSION: Normal heart size and pulmonary vascularity. Lungs are clear and costophrenic angles are sharp. No acute osseous abnormality. -------- FINAL REPORT -------- Dictated By: Tabatha Brooks Dictated Date: 03/09/2025 15:05 ET Assigned Physician: Tabatha Brooks Reviewed and Electronically Signed By: Tabatha Brooks Signed Date: 03/09/2025 15:06 ET Workstation ID: [id number] Transcribed By: Self Edit Transcribed Date: 03/09/2025 15:05 ET Narrative 03/09/2025 3:06 PM EDT XR CHEST 2 VIEWS INDICATION: chest pain TECHNIQUE: XR CHEST 2 VIEWS COMPARISON: No priors available. Procedure Note Tabatha Brooks MD - 03/09/2025 XR CHEST 2 VIEWS INDICATION: chest pain TECHNIQUE: XR CHEST 2 VIEWS COMPARISON: No priors available. IMPRESSION: FINDINGS/IMPRESSION: Normal heart size and pulmonary vascularity. Lungsare clear and costophrenic angles are sharp. No acute osseousabnormality. -------- FINAL REPORT -------- Dictated By: Tabatha Brooks Dictated Date: 03/09/2025 15:05 ET Assigned Physician: Tabatha Brooks Reviewed and Electronically Signed By: Tabatha Brooks Signed Date: 03/09/2025 15:06 ET Workstation ID: [id number] Transcribed By: Self Edit Transcribed Date: 03/09/2025 15:05 ET Rigoberto Quiroz MD IMG XR PROCEDURES Final Result * Troponin I high sensitivity (03/09/2025 2:14 PM EDT) High Sensitivity Troponin I <3 <=54 ng/L LAB CHEMISTRY METHOD 03/09/2025 4:06 PM EDT [facility] Blood Venous blood specimen / Unknown Venipuncture / Unknown 03/09/2025 2:14 PM EDT 03/09/2025 3:24 PM EDT Narrative [facility] - 03/09/2025 4:06 PM EDT High levels of biotin in samples may falsely decrease hsTroponin values. Use caution when interpreting hsTroponin results in patients taking biotin who exhibit renal impairment (eGFR <60) or in patients taking more than 20 mg/day of biotin. us Rigoberto Quiroz MD LAB BLOOD ORDERABLES Final Res ult [facility] [address] [place] [address], [place] [phone] * (ABNORMAL) Urinalysis with reflex microscopic (03/09/2025 2:03 PM EDT) Pathologist [facility] [place] Specific [place] Urine 1.015 1.003 - 1.030 LAB URINALYSIS - AUTOMATED METHOD 03/09/2025 3:47 PM EDT [facility] pH, Urine 6.0 5.0 - 8.0 pH LAB URINALYSIS - AUTOMATED METHOD [facility]09[facility] Leukocytes, Urine Negative Negative LAB URINALYSIS - AUTOMATED METHOD 03/09/2025 3:[facility] Nitrite, Urine Negative Negative LAB URINALYSIS - AUTOMATED METHOD 03/09/2025 3:47 PM EDT [facility] Protein, Urine Trace <=Trace mg/dL LAB URINALYSIS - AUTOMATED METHOD 03/09/2025 3:47 PM EDT [facility] Glucose, Urine Negative Negative mg/dL LAB URINALYSIS - AUTOMATED METHOD 03/09/2025 3:47 PM EDT [facility] Ketones, Urine Trace(A) Negative mg/dL LAB URINALYSIS - AUTOMATED METHOD 03/09/2025 3:47 PM EDT [facility] Urobilinogen , Urine 0.2 0.2 - 1.0 mg/dL LAB URINALYSIS - AUTOMATED METHOD 03/09/2025 3:47 PM EDT [facility] Bilirubin, Urine Negative Negative LAB URINALYSIS - AUTOMATED METHOD 03/09/2025 3:47 PM EDT [facility] Blood, Urine Large(A) Negative LAB URINALYSIS - AUTOMATED METHOD 03/09/2025 3:47 PM EDT [facility] RBC, Urine >100(H) 0 - 4 /HPF 03/09/2025 3:47 PM EDT [facility] WBC, Urine 10(H) 0 - 4 /HPF 03/09/2025 3:47 PM EDT [facility] Squamous Epithelial, Urine 20 0 - 60 /LPF 03/09/2025 3:47 PM EDT [facility] Non-Squamous Epithelial, Urine 2-5 Transitional epithelial cells. /LPF 03/09/2025 3:47 PM EDT [facility] Crystals, Urine Heavy Uric Acid crystals. /LPF 03/09/2025 3:47 PM EDT [facility] Bacteria, Urine Negative Negative /HPF 03/09/2025 3:47 PM EDT [facility] Hyaline Casts, Urine 1 0 - 3 /LPF 03/09/2025 3:47 PM EDT [facility] Mucus, Urine Moderate None /HPF 03/09/2025 3:47 PM EDT [facility] Urine Urine specimen obtained by clean catch procedure / Unknown Non-blood Collection / Unknown 03/09/2025 2:03 PM EDT 03/09/2025 2:41 PM EDT us Rigoberto Quiroz MD LAB URINE ORDERABLES Final Res ult [facility] [address] [place] [address], * ECG 12 lead (03/09/2025 12:01 PM EDT) Ventricular Rate ECG 70 BPM GEMUSE Atrial Rate 70 BPM GEMUSE P-R Interval 138 ms GEMUSE QRS Duration 82 ms GEMUSE Q-T Interval 418 ms GEMUSE QTc 451 ms GEMUSE P Wave [place] 32 degrees GEMUSE R [place] 62 degrees GEMUSE T [place] 16 degrees GEMUSE ECG Interpretation Normal sinus rhythm T wave abnormality, consider inferior ischemia Abnormal ECG When compared with ECG of 21-NOV-2021 19:27, T wave inversion now evident in Anterior leads Confirmed by Naun KRAUSE JOHN ([id number]) on 03/09/2025 1:35:48 PM GEMUSE 03/09/2025 12:0 1 PM EDT 03/09/2025 1:35 PM EDT us Rigoberto Quiroz MD ECG ORDERABLES Final Result GEMUSE * hCG, serum, qualitative (03/09/2025 11:57 AM EDT) [facility] hCG Qual Negative Negative 03/09/2025 5:42 PM EDT [facility] Blood Venous blood specimen / Unknown Venipuncture / Unknown 03/09/2025 11:57 AM EDT 03/09/2025 1:26 PM EDT Argenis Gamboa MD LAB BLOOD ORDERABLES Final Resul t [facility] [address] [place] [address], [place] [phone] * (ABNORMAL) CBC auto differential (03/09/2025 11:57 AM EDT) [facility] WBC 6.9 4.8 - 10.8 K/mcL LAB HEMETOLOGY METHOD 03/09/2025 1:33 PM EDT [facility] RBC 4.50 3.80 - 4.80 M/mcL LAB HEMETOLOGY METHOD 03/09/2025 1:33 PM EDT [facility] Hemoglobin 11.6 11.5 - 16.0 g/dL LAB HEMETOLOGY METHOD 03/09/2025 1:33 PM EDT [facility] Hematocrit 35.8 35.0 - 47.0 % LAB HEMETOLOGY METHOD 03/09/2025 1:33 PM EDT [facility] MCV 79.2 79.0 - 98.0 FL LAB HEMETOLOGY METHOD 03/09/2025 1:33 PM [facility] MCH 25.7(L) 27.0 - 32.0 pcg LAB HEMETOLOGY METHOD 03/09/2025 1:33 PM EDT [facility] MCHC 32.4 32.0 - 37.0 g/dL LAB HEMETOLOGY METHOD 03/09/2025 1:33 PM [facility] RDW 15.9(H) 11.0 - 15.0 % LAB HEMETOLOGY METHOD 03/09/2025 1:33 PM [facility] Platelets 312 130 - 400 K/mcL LAB HEMETOLOGY METHOD 03/09/2025 1:33 PM [facility] MPV 12.1(H) 7.0 - 11.0 FL LAB HEMETOLOGY METHOD 03/09/2025 1:[facility] NRBC 0.0 <1.0 % LAB HEMETOLOGY METHOD 03/09/2025 1:33 PM [facility] NRBC Absolute 0.00 <0.10 K/mcL LAB HEMETOLOGY METHOD 03/09/2025 1:33 PM [facility] Neutrophils Relative 50.1 % LAB HEMETOLOGY METHOD 03/09/2025 1:33 PM [facility] Lymphocytes Relative 36.9 % LAB HEMETOLOGY METHOD 03/09/2025 1:33 PM [facility] Monocytes Relative 5.9 % LAB HEMETOLOGY METHOD 03/09/2025 1:33 PM [facility] Eosinophils Relative 6.1 % LAB HEMETOLOGY METHOD 03/09/2025 1:33 PM [facility] Basophils Relative 0.7 % LAB HEMETOLOGY METHOD 03/09/2025 1:33 PM EDT [facility] Immature Granulocytes Relative 0.3 % LAB HEMETOLOGY METHOD 03/09/2025 1:33 PM EDT [facility] Neutrophils Absolute 3.46 1.50 - 7.00 K/mcL LAB HEMETOLOGY METHOD 03/09/2025 1:33 PM EDT [facility] Lymphocytes Absolute 2.55 1.00 - 5.00 K/mcL LAB HEMETOLOGY METHOD 03/09/2025 1:33 PM EDT [facility] Monocytes Absolute 0.41 0.20 - 1.00 K/mcL LAB HEMETOLOGY METHOD 03/09/2025 1:33 PM EDT [facility] Eosinophils Absolute 0.42 0.00 - 0.50 K/mcL LAB HEMETOLOGY METHOD 03/09/2025 1:33 PM EDT [facility] Basophils Absolute 0.05 0.00 - 0.20 K/mcL LAB HEMETOLOGY METHOD 03/09/2025 1:33 PM EDT [facility] Immature Granulocytes Absolute 0.02 0.00 - 0.03 K/mcL LAB HEMETOLOGY METHOD 03/09/2025 1:33 PM EDT [facility] Blood Venous blood specimen / Unknown Venipuncture / Unknown 03/09/2025 11:57 AM EDT 03/09/2025 1:26 PM EDT us Rigoberto Quiroz MD LAB BLOOD ORDERABLES Final Res ult [facility] [address] [place] [address], * Troponin I high sensitivity (03/09/2025 11:57 AM EDT) High Sensitivity Troponin I <3 <=54 ng/L LAB CHEMISTRY METHOD 03/09/2025 2:08 PM EDT [facility] Blood Venous blood specimen / Unknown Venipuncture / Unknown 03/09/2025 11:57 AM EDT 03/09/2025 1:26 PM EDT Narrative [facility] - 03/09/2025 2:08 PM EDT High levels of biotin in samples may falsely decrease hsTroponin values. Use caution when interpreting hsTroponin results in patients taking biotin who exhibit renal impairment (eGFR <60) or in patients taking more than 20 mg/day of biotin. us Rigoberto Quiroz MD LAB BLOOD ORDERABLES Final Res ult Performing Organization Address [facility]/ZIP Co de Phone Number [facility] [address] [place] [address], [place] [phone] * Magnesium (03/09/2025 11:57 AM EDT) Magnesium 2.3 1.9 - 2.6 mg/dL LAB CHEMISTRY METHOD 03/09/2025 1:52 PM EDT [facility] Blood Venous blood specimen / Unknown Venipuncture / Unknown 03/09/2025 11:57 AM EDT 03/09/2025 1:26 PM EDT us Rigoberto Quiroz MD LAB BLOOD ORDERABLES Final Res ult [facility] [address] [place] [address], [place] [phone] * Lipase (03/09/2025 11:57 AM EDT) Lipase 44 13 - 75 unit/L LAB CHEMISTRY METHOD 03/09/2025 1:52 PM EDT [facility] Blood Venous blood specimen / Unknown Venipuncture / Unknown 03/09/2025 11:57 AM EDT 03/09/2025 1:26 PM EDT us Rigoberto Quiroz MD LAB BLOOD ORDERABLES Final Res ult [facility] [address] [place] [address], [place] [phone] * (ABNORMAL) Comprehensive metabolic panel (03/09/2025 11:57 AM EDT) Pathologist [facility] [place] Sodium 138 133 - 145 mmol/L LAB CHEMISTRY METHOD 03/09/2025 2:09 PM [facility] Potassium 2.8(LL) 3.5 - 5.5 mmol/L LAB CHEMISTRY METHOD 03/09/2025 2:09 PM [facility] Chloride 103 96 - 110 mmol/L LAB CHEMISTRY METHOD 03/09/2025 2:09 PM [facility] CO2 23 21 - 32 mmol/L LAB CHEMISTRY METHOD 03/09/2025 2:09 PM [facility] Anion Gap 12(H) 3 - 11 LAB CHEMISTRY METHOD 03/09/2025 2:09 PM [facility] Glucose 88 70 - 100 mg/dL LAB CHEMISTRY METHOD 03/09/2025 2:09 PM [facility] BUN 8 5 - 25 mg/dL LAB CHEMISTRY METHOD 03/09/2025 2:09 PM [facility] Creatinine 0.78 0.50 - 1.10 mg/dL LAB CHEMISTRY METHOD 03/09/2025 2:09 PM [facility] eGFR 101 >=60 mL/min/1. 73m2 LAB CHEMISTRY METHOD 03/09/2025 2:09 PM [facility] Comment:Calculation based on the Chronic Kidney Disease Epidemiology Collaboration (CKD-EPI) equation refit without adjustment for race. BUN/Creatinine Ratio 10.3 LAB CHEMISTRY METHOD 03/09/2025 2:09 PM [facility] Calcium 9.4 8.5 - 10.5 mg/dL LAB CHEMISTRY METHOD 03/09/2025 2:09 PM EDT [facility] AST (SGOT) 8(L) 10 - 42 unit/L LAB CHEMISTRY METHOD 03/09/2025 2:09 PM [facility] ALT (SGPT) 15 10 - 60 unit/L LAB CHEMISTRY METHOD 03/09/2025 2:09 PM EDT [facility] Alkaline Phosphatase 53 42 - 121 unit/L LAB CHEMISTRY METHOD 03/09/2025 2:09 PM EDT [facility] Total Protein 7.4 6.0 - 8.0 g/dL LAB CHEMISTRY METHOD 03/09/2025 2:09 PM T [facility] Albumin 4.4 3.2 - 5.0 g/dL LAB CHEMISTRY METHOD 03/09/2025 2:09 PM T [facility] Total Bilirubin 0.5 0.0 - 1.4 mg/dL LAB CHEMISTRY METHOD 03/09/2025 2:09 PM T [facility] Blood Venous blood specimen / Unknown Venipuncture / Unknown 03/09/2025 11:57 AM EDT 03/09/2025 1:26 PM EDT us Rigoberto Quiroz MD LAB BLOOD ORDERABLES Final Res ult [facility] [address] [place] [address], [place] [phone] documented in this encounter Visit Diagnoses Diagnosis Syncope- Primary Syncope and collapse Hypokalemia Hypopotassemia Near syncope documented in this encounter Admitting Diagnoses Diagnosis Syncope Syncope and collapse documented in this encounter Administered Medications Inactive Administered Medications - up to 3 most recent administrations Medication Order MAR Action Action Date Dose Rate Site bisacodyL (DULCOLAX) EC tablet 10 mg 10 mg, oral, Nightly, First dose (after last modification) on Shaye 03/09/25 at 2215, Do not give within 1 hour of antacids, milk, or dairy products. Do not crush, chew, or split. Given 03/09/2025 10:18 PM EDT 10 mg buPROPion XL (WELLBUTRIN XL) 24 hr tablet 300 mg 300 mg, oral, Every morning, First dose on Thu03/10/25 at 0700, Do not crush, chew, or split. Given 03/10/2025 5:53 AM EDT 300 mg clonazePAM (KlonoPIN) tablet 1 mg 1 mg, oral, 2 times daily PRN, anxiety, Starting on Thu03/09/25 at 2017, Hazardous Medication Intact: - Single pair of ASTM standard [id number] certified gloves - Eye/face protection if vomit or potential to spit up Manipulated: - Double pair of ASTM standard [id number] certified gloves - Eye/face protection if vomit or potential to spit up - Staff at reproductive risk must also wear a hazardous gown - Crushing must be performed in sealed closed pouch - Splitting/cutting should be performed by pharmacy, if possible Given 03/09/2025 11:56 PM EDT 1 mg diphenhydrAMINE (BENADRYL) capsule 25 mg 25 mg, oral, Once, On Thu03/10/25 at 0315, For 1 dose Given 03/10/2025 3:31 AM EDT 25 mg divalproex (DEPAKOTE ER) 24 hr tablet 250 mg 250 mg, oral, Daily, First dose on Thu03/10/25 at 0900, Hazardous Medication Intact: - Single pair of ASTM standard [id number] certified gloves - Eye/face protection if vomit or potential to spit up - Do NOT split, crush, or open dosage units Given 03/10/2025 9:49 AM EDT 250 mg DULoxetine (CYMBALTA) DR capsule 60 mg 60 mg, oral, 2 times daily, First dose on Thu03/09/25 at 2215, Do not crush or chew. Given 03/10/2025 9:49 AM EDT 60 mg Given 03/09/2025 10:18 PM EDT 60 mg ibuprofen (ADVIL,MOTRIN) tablet 400 mg 400 mg, oral, Once as needed, headaches, Starting on Thu03/10/25 at 1615, For 1 dose, Administer with food or milk to decrease GI upset Given 03/10/2025 4:38 PM EDT 400 mg iopamidoL (ISOVUE-370) 370 mg iodine /mL (76 %) injection 90 mL 90 mL, intravenous, Once in imaging, Starting on Thu03/10/25 at 1335, For 1 dose Given 03/10/2025 1:37 PM EDT 90 mL pantoprazole (PROTONIX) EC tablet 40 mg 40 mg, oral, Every morning before breakfast, First dose on Thu03/10/25 at 0700, Do not crush, chew, or split. Given 03/10/2025 5:54 AM EDT 40 mg potassium chloride (KLOR-CON M20) CR tablet 40 mEq 40 mEq, oral, Once, On Shaye 03/09/25 at 2215, For 1 dose, Tablet may be swallowed whole (do not crush/chew/suck on) OR broken in half and each half swallowed separately OR dissolved (whole tablet) in ~4 ounces of water (allow ~2 minutes to dissolve, stir well and administer immediately). Given 03/09/2025 10:19 PM EDT 40 mEq potassium chloride (KLOR-CON M20) CR tablet 40 mEq 40 mEq, oral, Once, On Thu03/10/25 at 0015, For 1 dose, Tablet may be swallowed whole (do not crush/chew/suck on) OR broken in half and each half swallowed separately OR dissolved (whole tablet) in ~4 ounces of water (allow ~2 minutes to dissolve, stir well and administer immediately). Given 03/09/2025 11:56 PM EDT 40 mEq potassium chloride (KLOR-CON) packet 40 mEq 40 mEq, oral, Once, On Thu03/09/25 at 1559, For 1 dose, Dissolve each packet in 4 ounces of water = 5 mEq per 1 oz fluid. Given 03/09/2025 5:18 PM EDT 40 mEq potassium chloride (KLOR-CON) packet 40 mEq 40 mEq, oral, Once, On Thu03/09/25 at 1759, For 1 dose, Dissolve each packet in 4 ounces of water = 5 mEq per 1 oz fluid. Given 03/09/2025 5:19 PM EDT 40 mEq sodium chloride 0.9 % bolus 1,000 mL 1,000 mL, intravenous, at 1,000 mL/hr, Administer over 1 Hours, Once, On Thu03/09/25 at 1559, For 1 dose New Bag 03/09/2025 4:56 PM EDT 1,000 mL 1000 mL/hr sodium chloride 0.9 % flush 10 mL 10 mL, intravenous, Once, On Thu03/10/25 at 1400, For 1 dose Given 03/10/2025 1:36 PM EDT 10 mL sodium chloride 0.9 % infusion 100 mL/hr, intravenous, Continuous, Starting on Thu03/09/25 at 1858, For 12 hours New Bag 03/10/2025 5:56 AM EDT 100 mL/hr 100 mL/hr New Bag 03/09/2025 8:13 PM EDT 100 mL/hr 100 mL/hr SUMAtriptan (IMITREX) tablet 25 mg 25 mg, oral, Once as needed, migraine, Starting on Shaye 03/09/25 at 1606, For 1 dose, Do not exceed 2 doses in 24 hours and do not exceed 200 mg in 24 hours. Given 03/09/2025 9:12 PM EDT 25 mg documented in this encounter Discontinued Medications Medication Sig Discontinue Reason Start Date End Da te famotidine (PEPCID) 40 mg tablet Take 1 tablet (40 mg total) by mouth at bedtime. at bedtime. 03/09/2025 topiramate (TOPAMAX) 50 mg tablet Take 1 tablet (50 mg total) by mouth 2 (two) times a day. 01/25/2025 03/09/2025 cetirizine (ZyrTEC) 10 mg tablet Take 1 tablet (10 mg total) by mouth 1 (one) time each day if needed for allergies. 10/28/2024 03/09/2025 divalproex (DEPAKOTE ER) 250 mg 24 hr tablet Take 1 tablet (250 mg total) by mouth 1 (one) time each day. for 30 days Stop Taking at Discharge 01/07/2025 03/10/2025 lubiprostone (AMITIZA) 24 mcg capsule Take 1 capsule (24 mcg total) by mouth 2 (two) times a day. Stop Taking at Discharge 02/02/2025 03/10/2025 meloxicam (MOBIC) 15 mg tablet Take 1 tablet (15 mg total) by mouth 1 (one) time each day if needed for mild pain. Stop Taking at Discharge 02/20/2025 03/10/2025 documented as of this encounter Historical Medications * This list may reflect changes made after this encounter. SUMAtriptan (IMITREX) 100 mg tablet Take 1 tablet (100 mg total) by mouth 1 (one) time if needed for migraine. 02/24/2025 Dayvigo 10 mg tablet Take 1 tablet by mouth at bedtime. Max Daily Amount: 1 tablet 02/23/2025 esomeprazole (NexIUM) [address] capsule Take 1 capsule (40 mg total) by mouth 1 (one) time each day before breakfast. 12/27/2024 DULoxetine (CYMBALTA) [address] capsule Take 1 capsule (60 mg total) by mouth 2 (two) times a day. 02/22/2025 clonazePAM (KlonoPIN) 1 mg tablet Take 1 tablet (1 mg total) by mouth 2 (two) times a day if needed for anxiety. 02/22/2025 buPROPion XL (WELLBUTRIN XL) 300 mg 24 hr tablet Take 1 tablet (300 mg total) by mouth 1 (one) time each day in the morning. 02/22/2025 bisacodyL (DULCOLAX) 5 mg EC tablet Take 2 tablets (10 mg total) by mouth at bedtime. at bedtime 02/18/2025 topiramate (TOPAMAX) 50 mg tablet Take 1 tablet (50 mg total) by mouth 2 (two) times a day. 01/25/2025 03/09/2025 meloxicam (MOBIC) 15 mg tablet Take 1 tablet (15 mg total) by mouth 1 (one) time each day if needed for mild pain. 02/20/2025 03/10/2025 lubiprostone (AMITIZA) 24 mcg capsule Take 1 capsule (24 mcg total) by mouth 2 (two) times a day. 02/02/2025 03/10/2025 famotidine (PEPCID) 40 mg tablet Take 1 tablet (40 mg total) by mouth at bedtime. at bedtime. 03/09/2025 divalproex (DEPAKOTE ER) 250 mg 24 hr tablet Take 1 tablet (250 mg total) by mouth 1 (one) time each day. for 30 days 01/07/2025 03/10/2025 cetirizine (ZyrTEC) 10 mg tablet Take 1 tablet (10 mg total) by mouth 1 (one) time each day if needed for allergies. 10/28/2024 03/09/2025 added in this encounter Active and Recently Administered Medications Times are shown in EDT. Scheduled Medication Order 03/08/2025 03/09/2025 03/10/2025 bisacodyL (DULCOLAX) EC tablet 10 mg 10 mg, oral, Nightly, First dose (after last modification) on Shaye 03/09/25 at 2215, Do not give within 1 hour of antacids, milk, or dairy products. Do not crush, chew, or split. 8 (Given - Provider: Subha Bar RN) buPROPion XL (WELLBUTRIN XL) 24 hr tablet 300 mg 300 mg, oral, Every morning, First dose on Thu03/10/25 at 0700, Do not crush, chew, or split. 0553 (Given - Provid er: Subha Bar RN) diphenhydrAMINE (BENADRYL) capsule 25 mg (COMPLETED) 25 mg, oral, Once, On Thu03/10/25 at 0315, For 1 dose 0331 (Given - Provid er: Subha Bar RN) divalproex (DEPAKOTE ER) 24 hr tablet 250 mg 250 mg, oral, Daily, First dose on Thu03/10/25 at 0900, Hazardous Medication Intact: - Single pair of ASTM standard [id number] certified gloves - Eye/face protection if vomit or potential to spit up - Do NOT split, crush, or open dosage units 0949 (Given - Provid er: Kellee Covington RN) DULoxetine (CYMBALTA) DR capsule 60 mg 60 mg, oral, 2 times daily, First dose on Shaye 03/09/25 at 2215, Do not crush or chew. 2218 (Given - Provider: Subha Bar RN) 0949 (Given - Provider: Kellee Covington RN) iopamidoL (ISOVUE-370) 370 mg iodine /mL (76 %) injection 90 mL (COMPLETED) 90 mL, intravenous, Once in imaging, Starting on Thu03/10/25 at 1335, For 1 dose 1337 (Given - Provid er: Merline Daley) pantoprazole (PROTONIX) EC tablet 40 mg 40 mg, oral, Every morning before breakfast, First dose on Thu03/10/25 at 0700, Do not crush, chew, or split. 0554 (Given - Provid er: Subha Bar RN) potassium chloride (KLOR-CON M20) CR tablet 40 mEq (COMPLETED)(Linked Group 1) 40 mEq, oral, Once, On Thu03/09/25 at 2215, For 1 dose, Tablet may be swallowed whole (do not crush/chew/suck on) OR broken in half and each half swallowed separately OR dissolved (whole tablet) in ~4 ounces of water (allow ~2 minutes to dissolve, stir well and administer immediately). 221 (Given - Provider: Subha Bar RN) potassium chloride (KLOR-CON M20) CR tablet 40 mEq (COMPLETED)(Linked Group 1) 40 mEq, oral, Once, On Thu03/10/25 at 0015, For 1 dose, Tablet may be swallowed whole (do not crush/chew/suck on) OR broken in half and each half swallowed separately OR dissolved (whole tablet) in ~4 ounces of water (allow ~2 minutes to dissolve, stir well and administer immediately). 235 (Given - Provider: Subha Bar RN) potassium chloride (KLOR-CON) packet 40 mEq (COMPLETED)(Linked Group 2) 40 mEq, oral, Once, On Thu03/09/25 at 1559, For 1 dose, Dissolve each packet in 4 ounces of water = 5 mEq per 1 oz fluid. 171 (Given - Provider: Andra Ceballos RN) potassium chloride (KLOR-CON) packet 40 mEq (COMPLETED)(Linked Group 2) 40 mEq, oral, Once, On Thu03/09/25 at 1759, For 1 dose, Dissolve each packet in 4 ounces of water = 5 mEq per 1 oz fluid. 171 (Given - Provider: Andra Ceballos RN) sodium chloride 0.9 % bolus 1,000 mL (COMPLETED) 1,000 mL, intravenous, at 1,000 mL/hr, Administer over 1 Hours, Once, On Thu03/09/25 at 1559, For 1 dose 1656 (New Bag - Provider: Andra Ceballos RN)1756 (Stopped - Provider: Andra Ceballos RN) sodium chloride 0.9 % flush 10 mL (COMPLETED) 10 mL, intravenous, Once, On Thu03/10/25 at 1400, For 1 dose 1336 (Given - Provid er: Merline Daley) Continuous Medication Order 03/08/2025 03/09/2025 03/10/2025 sodium chloride 0.9 % infusion 100 mL/hr, intravenous, Continuous, Starting on Thu03/09/25 at 1858, For 12 hours 2012 (New Bag - Provider: Subha Bar RN) 0556 (New Bag - Provider: Subha Bar RN)1000 (Stopped - Provider: Kellee Covington RN) PRN Medication Order 03/08/2025 03/09/2025 03/10/2025 clonazePAM (KlonoPIN) tablet 1 mg 1 mg, oral, 2 times daily PRN, anxiety, Starting on Thu03/09/25 at 2017, Hazardous Medication Intact: - Single pair of ASTM standard [id number] certified gloves - Eye/face protection if vomit or potential to spit up Manipulated: - Double pair of ASTM standard [id number] certified gloves - Eye/face protection if vomit or potential to spit up - Staff at reproductive risk must also wear a hazardous gown - Crushing must be performed in sealed closed pouch - Splitting/cutting should be performed by pharmacy, if possible 4026 (Given - Provider: Subha Bar, DOMINIQUE) ibuprofen (ADVIL,MOTRIN) tablet 400 mg (COMPLETED) 400 mg, oral, Once as needed, headaches, Starting on Thu03/10/25 at 1615, For 1 dose, Administer with food or milk to decrease GI upset 1638 (Given - Provid er: Kellee Covington RN) SUMAtriptan (IMITREX) tablet 25 mg (COMPLETED) 25 mg, oral, Once as needed, migraine, Starting on Thu03/09/25 at 1606, For 1 dose, Do not exceed 2 doses in 24 hours and do not exceed 200 mg in 24 hours. 2111 (Given - Provider: Subha Bar RN) Linked Groups Order Group 1: potassium chloride (KLOR-CON M20) CR tablet 40 mEq (COMPLETED)Jump to med 40 mEq, oral, Once, On Shaye 03/09/25 at 2215, For 1 dose, Tablet may be swallowed whole (do not crush/chew/suck on) OR broken in half and each half swallowed separately OR dissolved (whole tablet) in ~4 ounces of water (allow ~2 minutes to dissolve, stir well and administer immediately). Followed by potassium chloride (KLOR-CON M20) CR tablet 40 mEq (COMPLETED)Jump to med 40 mEq, oral, Once, On Thu03/10/25 at 0015, For 1 dose, Tablet may be swallowed whole (do not crush/chew/suck on) OR broken in half and each half swallowed separately OR dissolved (whole tablet) in ~4 ounces of water (allow ~2 minutes to dissolve, stir well and administer immediately). Group 2: potassium chloride (KLOR-CON) packet 40 mEq (COMPLETED)Jump to med 40 mEq, oral, Once, On Shaye 03/09/25 at 1559, For 1 dose, Dissolve each packet in 4 ounces of water = 5 mEq per 1 oz fluid. Followed by potassium chloride (KLOR-CON) packet 40 mEq (COMPLETED)Jump to med 40 mEq, oral, Once, On Shaye 03/09/25 at 1759, For 1 dose, Dissolve each packet in 4 ounces of water = 5 mEq per 1 oz fluid. documented in this encounter Orders Medications Ordered That Faisal ht Not Have Been Administered Count Last Ordered Date First Ordered Date bisacodyL (DULCOLAX) EC tablet 10 mg 1 02/14 EKG Orders Without Results Count Last Ordered D ate First Ordered Date ECG 12-LEAD 2 03/09/2025 Nursing Count Last Ordered Date First Orde red Date ORTHOSTATIC BLOOD PRESSURE 1 03/09/2025 VITAL SIGNS 1 03/09/2025 Admission Count Last Ordered Date First Orde red Date INITIATE OBSERVATION STATUS 1 03/09/2025 Discharge Count Last Ordered Date First Orde red Date DISCHARGE PATIENT 1 03/10/2025 documented in this encounter Care Teams Crime Scene Technician Relationship Specialty Start Date End Date Physician, No Pcp PCP - General 03/09/25 documented as of this encounter
[2025-03-15 16:25] VITALS: BP 114/66; PULSE 64; TEMP 36.2; O2SAT 100; BMI 23.8
--- NOTE | 2025-03-15 16:25 | MHC.PC.OV ---
Vital Signs 03/15/25 16:25 Height 5 ft 2 in Weight 130 lb 4 oz BMI 23.8 BP 114/66 Blood Pressure Location Lt brachial Position Sitting Pulse 64 Pulse Source Pulse Oximeter Temp 97.1 F Temp Source Temporal Artery Scan Pulse Oximetry (%) 100 Oxygen Delivery Method Room Air Intake Visit Reasons: [facility] 03/10 Low BP/Potassium level 4.0 Hub Associate Required: No Accompanied by: Self / Same As Patient Allergies acetaminophen (From TYLENOL) Allergy (Intermediate, Verified 03/15/25 17:03) Itching oxycodone Allergy (Intermediate, Verified 03/15/25 17:03) rash APAP Allergy (Intermediate, Uncoded 03/15/25 17:03) Itching Medication List - Last Reconciled 03/15/25 by Dolores Gonzalez MD bisacodyl 10 mg (2 x 5 mg) PO BEDTIME bupropion HCl XL 150 mg PO DAILY cetirizine 10 mg PO DAILY PRN clonazepam 1 mg PO BID PRN diclofenac sodium 1% (Arthritis Pain (diclofenac)) 2 grams topical QID divalproex ER 250 mg PO DAILY docusate sodium 200 mg (2 x 100 mg) PO BEDTIME doxycycline hyclate 100 mg PO BID 7 days duloxetine 60 mg PO DAILY duloxetine 30 mg PO DAILY 90 days esomeprazole magnesium (Nexium) 40 mg PO DAILY famotidine 20 mg PO BEDTIME fluticasone propionate 50 mcg/actuation 2 sprays intranasal DAILY lemborexant (Dayvigo) 10 mg PO BEDTIME 90 days lubiprostone (Amitiza) 24 mcg PO BID magnesium hydroxide (Milk of Magnesia) 10 mL PO DAILY PRN ondansetron 4 mg PO DAILY prucalopride (Motegrity) 2 mg PO DAILY rimegepant (Nurtec ODT) 75 mg PO Q OTHER DAY 30 days tirzepatide 5 mg subcut QWEEK valacyclovir (Valtrex) 1,000 mg PO TID 7 days verapamil 40 mg PO BID Tobacco use date assessed: 03/15/25 Dental Screening Dental Screen Date: 03/15/25 Did you have a dental visit in the last 12 months?: No Did you have a dental problem in the last 6 months where you did not have access to dental care?: No Was dental information given to patient?: No HPI HPI Comments History of Present Illness Details The patient is a 34-year-old female presenting with episodes of loss of consciousness and associated symptoms. She reported a recent episode where she experienced a loss of consciousness while at an appointment, which was preceded by cold sweating and followed by an inability to walk without assistance. Upon arrival at the hospital, she was found to have hypokalemia with a potassium level of 2.5 mmol/L, which slightly improved to 2.7 mmol/L after treatment. The patient has a history of experiencing shortness of breath and difficulty sleeping, which she has been experiencing for over 10 years. She also reported episodes of hair loss over the past three weeks, which she noticed after waking up with hair on her pillow. In the past, she has experienced similar episodes of loss of consciousness, but this is the first time she experienced symptoms involving her hands and legs, which included involuntary movements and discoloration. She has not been taking verapamil, which was previously prescribed, due to insurance issues. [facility] Medical History (Updated 03/15/25 @ 17:14 by Dolores Gonzalez MD) Moderate recurrent major depression Fibromyalgia Chronic GERD Hand pain Constipation by delayed colonic transit Polyarthralgia Allergic rhinitis DALE (generalized anxiety disorder) Mild recurrent major depression Right ankle injury Obese Insomnia Constipation Low back pain Scoliosis Anxiety and depression Migraines Umbilical hernia Morbid obesity Umbilical pain Surgical History History of esophagogastroduodenoscopy (EGD) History of umbilical hernia repair Family History Father Essential hypertension Mother Diabetes mellitus Essential hypertension Pulmonary fibrosis Maternal Grandmother Unknown family medical history Brother No problems noted. Sister No problems noted. Sister No problems noted. Sister No problems noted. Son No problems noted. Social History Household Members: Children Housing: House Alcohol intake: never Patient Tobacco Use Status: Never used Tobacco e-Cigarette/Vaping Use: Never Used Second Hand Smoke Exposure: No service: No Current occupational status: unemployed Gender identity: Female Cognitive needs: No Hearing needs: No Vision needs: Yes Female Reproductive History Menstrual Age of Menarche: 10 Questionnaire PHQ-9 Over the last 2 weeks, how often have you been bothered by any of the following problems? 1. Little interest or pleasure in doing things: more than half the days 2. Feeling down, depressed, or hopeless: nearly every day 3. Trouble falling or staying asleep, or sleeping too much: nearly every day 4. Feeling tired or having little energy: nearly every day 5. Poor appetite or overeating: several days 6. Feeling bad about yourself - or that you are a failure or have let yourself or your family down: not at all 7. Trouble concentrating on things, such as reading the newspaper or watching television: more than half the days 8. Moving or speaking so slowly that other people could have noticed. Or the opposite - being so fidgety or restless that you have been moving around a lot more than usual: several days 9. Thoughts that you would be better off or of hurting yourself in some way: not at all Total score: 15 Depression Screening Interpretation: Positive (no suicidal thoughts) Depression Screening Follow-up: Existing condition and Follow-up Visit Requested Depression Screening Done: Yes [id number] - PHQ-9 Billing: Yes Source: Developed by Drs. Geovanni Malagon, Danelle Shepherd, Richard Dougherty and colleagues, with an educational desirae from [employer]. Thrive Questionnaire Date Thrive assessed: 10/03/24 I am a: Patient What is your living situation today?: I have a steady place to live Within the past 12 months, did the food you bought not last and you didn't have the money to get more?: I choose not to answer this question Within the past 12 months, did you worry whether your food would run out before you got money to buy more?: Sometimes True Do you have trouble paying for medicines?: I choose not to answer this question Do you have trouble getting transportation to medical appointments?: No Do you have trouble paying your heating and electricity bill?: I choose not to answer this question Do you have trouble taking care of your child, family member or friend?: No Do you have trouble with day-to-day activities such as bathing, preparing meals, shopping, managing finances, etc.?: I choose not to answer this question Are you currently unemployed and looking for a job?: I choose not to answer this question Are you interested in more education?: Yes Please select the resources that you would like help with: None Currently or been in a relationship where the following occur: I choose not to answer THRIVE Score: 1 AUDIT C Alcohol Use Questionnaire (AUDIT-C) 1. How often do you have a drink containing alcohol?: Never 3. How often do you have six or more drinks on one occasion?: Never Total Score: 0 Score Reviewed/Action Taken: No DALE-7 AMB Questionnaire DALE-7 Date DALE - 7 assessed: 10/03/24 Feeling nervous, anxious, or on edge: 2 = More than half the days Not being able to stop or control worryin = Nearly every day Worrying too much about different things: 1 = Several days Trouble relaxin = More than half the days Being so restless that it is hard to sit still: 1 = Several days Becoming easily annoyed or irritable: 2 = More than half the days Feeling afraid as if something awful might happen: 0 = Not at all Total DALE-7 score (0-4 normal; 5-9 mild; 10-14 moderate; 15-21 severe): 11 Source: Developed by Drs. Geovanni Malagon, Danelle Shepherd, Richard Dougherty and colleagues, with an educational desirae from [employer]. Review of Systems Const All systems reviewed & are unremarkable except as noted in HPI and below Card Denies chest pain at rest, Denies chest pain with activity, Denies edema, Denies irregular heart rhythm, Denies claudication, Denies dyspnea, Denies dyspnea on exertion, Denies orthopnea, Denies paroxysmal nocturnal dyspnea and Denies slow heart rate Resp Denies cough, Denies dyspnea and Denies dyspnea on exertion Physical exam (Primary Care) Vital Signs: Last Vital Signs Temp 97.1 F 03/15/25 16:25 Pulse 64 03/15/25 16:25 BP 114/66 03/15/25 16:25 Pulse Ox 100 03/15/25 16:25 Oxygen Delivery Method Room Air 03/15/25 16:25 BMI result Body Mass Index 23.8 Tobacco/Smoking Status: Tobacco use Status Tobacco use date assessed 03/15/25 03/15/25 16:30 Patient Tobacco Use Status Never used Tobacco 03/15/25 16:30 e-Cigarette/Vaping Use Never Used 03/15/25 16:30 PHQ-9: PHQ-9 Score PHQ-9: Total score 15 03/15/25 17:09 Depression Screening Interpretation: Positive (no suicidal thoughts) Depression Screening Follow-up: Existing condition and Follow-up Visit Requested Thrive Assessment: Date of Thrive Assessment Date Thrive assessed 10/03/24 03/15/25 16:30 Currently or been in a relationship where the following occur: I choose not to answer Resp Effort & Inspection: normal respiratory effort Auscultation: clear to auscultation bilaterally Cardio Jugular venous distension: no JVD Rate: regular rate Rhythm: regular rhythm Heart sounds: S1 normal heart sound present and S2 normal heart sound present Extrem General: Yes full ROM Coding Level of Care Code Est Pt Level 4 (22247) Complex EM visit Add On G2211 Diagnoses Moderate recurrent major depression F33.1 DALE (generalized anxiety disorder) F41.1 Migraine without status migrainosus, not intractable, unspecified migraine type G43.909 Migraine type: unspecified Status migrainosus presence: without status migrainosus Intractability: not intractable Syncope R55 Pure hypercholesterolemia E78.00 Additional Codes PHQ-9 - 36359 - PHQ-9 Billing: Yes ([id number]) Time Spent (min) 21 Assessment & Plan Assessment & Plan (1) Moderate recurrent major depression: Code(s): F33.1 - Major depressive disorder, recurrent, moderate Category: Medical (2) DALE (generalized anxiety disorder): Code(s): F41.1 - Generalized anxiety disorder Category: Medical (3) Migraines: Comment: Meds tried: Topiramate, sumatriptan, propranolol, verapamil, Dulox[place] [facility] [place] No sig abn. Code(s): G43.909 - Migraine, unspecified, not intractable, without status migrainosus Category: Medical Qualifiers: Migraine type: unspecified Status migrainosus presence: without status migrainosus Intractability: not intractable Qualified Code(s): G43.909 - Migraine, unspecified, not intractable, without status migrainosus (4) Syncope: Code(s): R55 - Syncope and collapse Category: Medical (5) Pure hypercholesterolemia: Code(s): E78.00 - Pure hypercholesterolemia, unspecified Category: Medical Plan Plan Patient was informed and verbally consented to the use of an ambient scribe for clinic note documentation during this visit. 1. Neurocardiogenic Syncope The patient is suspected to have neurocardiogenic syncope, which may be triggered by factors such as heat, dehydration, or stress. It was recommended to avoid these triggers as there is no specific medication for this condition. 2. Hypokalemia The patient was found to have hypokalemia with a potassium level of 2.5 mmol/L, which improved to 2.7 mmol/L after treatment. A follow-up potassium level check was planned to monitor the condition. 3. Hair Loss The patient reported significant hair loss over the past three weeks. Thyroid function tests were considered to rule out thyroid-related causes. 4. Shortness Of Breath The patient has been experiencing shortness of breath for over 10 years, which has been recurrent and associated with difficulty sleeping. Further evaluation by a sharemilker was recommended to explore potential cardiac causes. 5. Loss Of Consciousness The patient has experienced recurrent episodes of loss of consciousness, with the most recent episode involving additional symptoms of involuntary movements and discoloration of the hands. A referral to a neurologist was made for further evaluation. Orders: Orders MR head/brain wo con Today R55 - Syncope and collapse CA echo transthoracic complete Today R55 - Syncope and collapse Thyroid Stimulating Hormone Today R55 - Syncope and collapse Comprehensive [place]. Panel Fast Today E78.00 - Pure hypercholesterolemia, unspecified ECG holter monitor 48 hour Today R55 - Syncope and collapse US carotid duplex BI Today R55 - Syncope and collapse EEG ambulatory Today R55 - Syncope and collapse Referrals Cardiology Referral R55 - Syncope and collapse
--- OUTSIDE RECORDS SUMMARY | 2025-03-15 16:41 | XMS_ITS | Clinical Summary ---
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 at bedtime 02/19/20 25 Active buPROPion XL (WELLBUTRIN XL) 300 mg 24 hr tablet Take 1 tablet (300 mg total) by mouth 1 (one) time each day in the morning. 02/23/20 25 Active clonazePAM (KlonoPIN) 1 mg tablet Take 1 tablet (1 mg total) by mouth 2 (two) times a day if needed for anxiety. 02/23/20 25 Active DULoxetine (CYMBALTA) [address] capsule Take 1 capsule (60 mg total) by mouth 2 (two) times a day. 02/23/20 25 Active esomeprazole (NexIUM) [address] capsule Take 1 capsule (40 mg total) by mouth 1 (one) time each day before breakfast. 12/28/19 25 Active Dayvigo 10 mg tablet Take 1 tablet by mouth at bedtime. Max Daily Amount: 1 tablet 02/24/20 25 Active SUMAtriptan (IMITREX) 100 mg tablet Take 1 tablet (100 mg total) by mouth 1 (one) time if needed for migraine. 02/25/20 25 Active cetirizine (ZyrTEC) 10 mg tablet Take 1 tablet (10 mg total) by mouth 1 (one) time each day if needed for allergies. 10/29/19 25 025 Discontinued divalproex (DEPAKOTE ER) 250 mg 24 hr tablet Take 1 tablet (250 mg total) by mouth 1 (one) time each day. for 30 days 01/08/20 25 025 Discontinued(St op Taking at Discharge) famotidine (PEPCID) 40 mg tablet Take 1 tablet (40 mg total) by mouth at bedtime. at bedtime. 025 Discontinued lubiprostone (AMITIZA) 24 mcg capsule Take 1 capsule (24 mcg total) by mouth 2 (two) times a day. 02/03/20 025 Discontinued(St op Taking at Discharge) meloxicam (MOBIC) 15 mg tablet Take 1 tablet (15 mg total) by mouth 1 (one) time each day if needed for mild pain. 02/21/20 025 Discontinued(St op Taking at Discharge) topiramate (TOPAMAX) 50 mg tablet Take 1 tablet (50 mg total) by mouth 2 (two) times a day. 01/26/20 025 Discontinued Active Problems Problem Noted Date Diagnosed Date Syncope 03/09/2025 Encounters Date Type Department Care Team Description 03/09/2025 2:13 PM EDT - 03/10/2025 4:54 PM EDT Hospital Encounter [facility] Urology Unit [address] [place] [id number] Argenis Gamboa MD Seralathan, Manikandan, MD Kela, Kashyap Devendrabhai, MD Hypokalemia (Primary Dx); Near syncope Discharge Disposition: Home or Self Care from Last 3 Months Medical History Medical History Date Comments Anxiety Depression Headache Social History Tobacco Use Types Packs/Day Years Used Date Smoking Tobacco: Never Assessed Interpersonal Safety Answer Date Record ed Physical Abuse Unrecognized value 03/09/2025 Verbal Abuse Unrecognized value 03/09/2025 Comments Unknown Sex and Gender Information Value Date Recorded Sex Assigned at Not on file Legal Sex Female 10:45 PM EST Gender Identity Not on file Sexual Orientation Not on file Obstetrics History Last Filed Vital Signs Vital Sign Reading [...] Mass Index 23.56 03/09/2025 9:25 PM EDT Plan of Treatment Health Maintenance Due Date Last Done Comments Hepatitis B Vaccines (1 of 3 - 19+ 3-dose series) 2007 Cervical Cancer Screening: P ap Smear 2009 HPV Vaccines (1 - 3-dose SCD M series) 2015 DTaP,Tdap,and Td Vaccines (3 - Td or Tdap) 06/15/2019 06/15/2009, 06/15/2004 HIV Screening 05/18/2022 Hepatitis C Screening 05/18/2022 Social Influencers of Health Screening 05/18/2022 Depression Screening 06/15/2024 COVID-19 Vaccine (3 - 2024-2 6 season) 2025 01/05/2021, 12/08/2020 Influenza Vaccine (#1) 2025 RSV Immunization Adult Patients (1 - 1-dose 75+ series) 2063 HIB Vaccines Aged Out No longer eligi [...] age to complete this topic Pneumococcal Vaccine: Pediatrics (0 to 5 Years) and At-Risk Patients (6 to 49 Years) Aged Out No longer eligible b ased on patient's age to complete this topic RSV Immunization Patients Under 20 months Aged Out No longer eligible b ased on patient's age to complete this topic Varicella Vaccines Aged Out No longer eligible based on patient's age to complete this topic Procedures Procedure Name Priority Date/Time Associated Diagnosis Comments ECG ANNOTATED 03/13/2025 CT ANGIO HEAD/NECK WO AND/OR W CONTRAST STAT 03/10/2025 1:50 PM EDT CBC WITH AUTO DIFFERENTIAL Routine 03/10/2025 6:43 AM EDT BASIC METABOLIC PANEL Routine 03/10/2025 6:43 AM EDT CBC AND DIFFERENTIAL Routine 03/10/2025 6:[address] HEAD WO CONTRAST STAT 03/09/2025 6 :55 PM EDT POTASSIUM STAT Add-on 03/09/2025 6:33 PM EDT SST - GOLD Routine 03/09/2025 6:33 PM EDT EXTRA TUBES Routine 03/09/2025 6:33 PM EDT XR CHEST 2 VIEWS STAT 03/09/2025 2:55 PM EDT TROPONIN I HIGH SENSITIVITY Timed 03/09/2025 2:14 PM EDT URINALYSIS WITH REFLEX MICROSCOPIC STAT 03/09/2025 2:03 PM EDT URINALYSIS WITH REFLEX MICROSCOPIC STAT 03/09/2025 2:03 PM EDT ECG 12-LEAD STAT 03/09/2025 12:01 PM EDT HCG, SERUM, QUALITATIVE STAT Add-on 03/09/2025 11:57 AM EDT CBC WITH AUTO DIFFERENTIAL STAT 03/09/2025 11:57 AM EDT TROPONIN I HIGH SENSITIVITY Timed 03/09/2025 11:57 AM EDT MAGNESIUM STAT 03/09/2025 11:57 AM EDT LIPASE STAT 03/09/2025 11:57 AM EDT COMPREHENSIVE METABOLIC PANEL STAT 03/09/2025 11:57 AM EDT CBC AND DIFFERENTIAL STAT 03/09/2025 11:57 AM EDT from Last 3 Months Results * ECG-Annotated (03/13/2025) us Provider Onbase [...] Signed Date: 03/10/2025 15:12 ET Workstation ID: [id number] Transcribed By: Self Edit Transcribed Date: 03/10/2025 15:08 ET Narrative 03/10/2025 3:12 PM EDT PROCEDURE: CTA HEAD AND NECK INDICATION: syncope. ?CVA TECHNIQUE: CTA of the head and neck with intravenous contrast. Multiplanar reformats. The examination was performed utilizing dose reduction techniques.3-D or MIP images were produced with postprocessing on an independent computer workstation. 90cc Omnipaque 370 injected. Scan was analyzed using [facility] Contact AI based computer aided triage software. [...] is patent. Vertebrobasilar system is patent. Proximal production foreman are patent. Major dural venous sinuses opacify normally with contrast. Extracranial structures are unremarkable. Degenerative changes in the bones. Procedure Note Tabatha Brooks MD - 03/10/2025 PROCEDURE: CTA HEAD AND NECK INDICATION: syncope. ?CVA TECHNIQUE: CTA of the head and neck with intravenous contrast. Multiplanarreformats. The examination was performed utilizing dose reductiontechniques.3-D or MIP images were produced with postprocessing on anHeartbeat computer workstation. 90cc Omnipaque 370 injected. Scan wasanalyzed using [employer] Contact AI based computer aided triage software. [...] is patent. Vertebrobasilar system is patent. Proximal production foreman are patent. Major dural venous sinuses opacify normally with contrast. Extracranial structures are unremarkable. Degenerative changes in thebones. IMPRESSION: NO ACUTE FINDINGS. -------- FINAL REPORT -------- Dictated By: Tabatha Brooks Dictated Date: 03/10/2025 15:08 ET Assigned Physician: Tabatha Brooks Reviewed and Electronically Signed By: Tabatha Brooks Signed Date: 03/10/2025 15:12 ET Workstation ID: [id number] Transcribed By: Self Edit Transcribed Date: 03/10/2025 15:08 ET Moises Garrison MD IM CT PROCEDURES F inal Result * (ABNORMAL) CBC auto differential (03/10/2025 6:43 AM EDT) Only the most recent of2 resultswithin the time period is included. [facility] WBC 5.5 4.8 - 10.8 K/mcL LAB HEMETOLOGY METHOD 03/10/2025 7:26 AM [facility] RBC 3.50(L) 3.80 - 4.80 M/mcL LAB HEMETOLOGY METHOD 03/10/2025 7:26 AM [facility] Hemoglobin 9.0(L) 11.5 - 16.0 g/dL LAB HEMETOLOGY METHOD 03/10/2025 7:26 AM [facility] Hematocrit 28.5(L) 35.0 - 47.0 % LAB HEMETOLOGY METHOD 03/10/2025 7:26 AM [facility] MCV 80.5 79.0 - 98.0 FL LAB HEMETOLOGY METHOD 03/10/2025 7:26 AM [facility] MCH 25.4(L) 27.0 - 32.0 pcg LAB HEMETOLOGY METHOD 03/10/2025 7:26 AM [facility] MCHC 31.6(L) 32.0 - 37.0 g/dL LAB HEMETOLOGY METHOD 03/10/2025 7:26 AM [facility] RDW 16.1(H) 11.0 - 15.0 % LAB HEMETOLOGY METHOD 03/10/2025 7:26 AM [facility] Platelets 215 130 - 400 K/mcL LAB HEMETOLOGY METHOD 03/10/2025 7:26 AM [facility] MPV 12.0(H) 7.0 - 11.0 FL LAB HEMETOLOGY METHOD 03/10/2025 7:26 AM [facility] NRBC 0.0 <1.0 % LAB HEMETOLOGY METHOD 03/10/2025 7:26 AM [facility] NRBC Absolute 0.00 <0.10 K/mcL LAB HEMETOLOGY METHOD 03/10/2025 7:26 AM [facility] Neutrophils Relative 41.1 % LAB HEMETOLOGY METHOD 03/10/2025 7:26 AM [facility] Lymphocytes Relative 44.5 % LAB HEMETOLOGY METHOD 03/10/2025 7:26 AM [facility] Monocytes Relative 6.7 % LAB HEMETOLOGY METHOD 03/10/2025 7:26 AM [facility] Eosinophils Relative 7.1 % LAB HEMETOLOGY METHOD 03/10/2025 7:26 AM [facility] Basophils Relative 0.4 % LAB HEMETOLOGY METHOD 03/10/2025 7:26 AM [facility] Immature Granulocytes Relative 0.2 % LAB HEMETOLOGY METHOD 03/10/2025 7:26 AM [facility] Neutrophils Absolute 2.27 1.50 - 7.00 K/mcL LAB HEMETOLOGY METHOD 03/10/2025 7:26 AM [facility] Lymphocytes Absolute 2.45 1.00 - 5.00 K/mcL LAB HEMETOLOGY METHOD 03/10/2025 7:26 AM [facility] Monocytes Absolute 0.37 0.20 - 1.00 K/mcL LAB HEMETOLOGY METHOD 03/10/2025 7:26 AM [facility] Eosinophils Absolute 0.39 0.00 - 0.50 K/mcL LAB HEMETOLOGY METHOD 03/10/2025 7:26 AM [facility] Basophils Absolute 0.02 0.00 - 0.20 K/mcL LAB HEMETOLOGY METHOD 03/10/2025 7:26 AM [facility] Immature Granulocytes Absolute 0.01 0.00 - 0.03 K/mcL LAB HEMETOLOGY METHOD 03/10/2025 7:26 AM [facility] Blood Venous blood specimen / Unknown Venipuncture / Unknown 03/10/2025 6:43 AM EDT 03/10/2025 7:04 AM EDT us Meryl Gentile NP LAB BLOOD ORDERABLES Fin al Result [facility] [address] [place] [address], [place] [phone] * (ABNORMAL) Basic metabolic panel (03/10/2025 6:43 AM EDT) Sodium 141 133 - 145 mmol/L LAB CHEMISTRY METHOD 03/10/2025 7:29 AM [facility] Potassium 4.2 3.5 - 5.5 mmol/L LAB CHEMISTRY METHOD 03/10/2025 7:29 AM [facility] Chloride 116(H) 96 - 110 mmol/L LAB CHEMISTRY METHOD 03/10/2025 7:29 AM [facility] CO2 22 21 - 32 mmol/L LAB CHEMISTRY METHOD 03/10/2025 7:29 AM [facility] Anion Gap 3 3 - 11 LAB CHEMISTRY METHOD 03/10/2025 7:29 AM [facility] Glucose 86 70 - 100 mg/dL LAB CHEMISTRY METHOD 03/10/2025 7:29 AM [facility] BUN 6 5 - 25 mg/dL LAB CHEMISTRY METHOD 03/10/2025 7:29 AM [facility] Creatinine 0.61 0.50 - 1.10 mg/dL LAB CHEMISTRY METHOD 03/10/2025 7:29 AM [facility] eGFR 119 >=60 mL/min/1. 73m2 LAB CHEMISTRY METHOD 03/10/2025 7:29 AM EDT [facility] Comment:Calculation based on the Chronic Kidney Disease Epidemiology Collaboration (CKD-EPI) equation refit without adjustment for race. BUN/Creatinine Ratio 9.8 LAB CHEMISTRY METHOD 03/10/2025 7:29 AM EDT [facility] Calcium 7.8(L) 8.5 - 10.5 mg/dL LAB CHEMISTRY METHOD 03/10/2025 7:29 AM EDT [facility] Blood Venous blood specimen / Unknown Venipuncture / Unknown 03/10/2025 6:43 AM EDT 03/10/2025 7:04 AM EDT us Meryl Gentile NP LAB BLOOD ORDERABLES Fin al Result [facility] [address] [place] [address], * CT Head wo Contrast (03/09/2025 6:55 [...] by: Lyn Peres MD on 03/09/2025 19:47:30 Meryl Gentile NP IMG CT PROCEDURES Final Result * SST tube (03/09/2025 6:33 PM EDT) [facility] Extra Tube Hold for add-ons. 03/09/2025 8:01 PM EDT [facility] Comment:Auto resulted. Blood Venous blood specimen / Unknown 03/09/2025 6:33 PM EDT 03/09/2025 6:46 PM EDT Jaden Cramer MD LAB BLOOD ORDERABLES Fi nal Result Performing Organization Address [facility]/ZIP Co de Phone Number [facility] [address] [place] [address], * (ABNORMAL) Potassium (03/09/2025 6:33 PM EDT) [facility] Potassium 3.3(L) 3.5 - 5.5 mmol/L LAB CHEMISTRY METHOD 03/09/2025 8:17 PM EDT [facility] Comment:Hemolysis present Blood Venous blood specimen / Unknown 03/09/2025 6:33 PM EDT 03/09/2025 6:46 PM EDT Meryl Gentile NP LAB BLOOD ORDERABLES Fin al Result Performing Organization Address City/[facility]/ZIP Co de Phone Number [facility] [address] [place] [address], [place] [phone] * XR Chest 2 Views (03/09/2025 2:55 [...] Signed Date: 03/09/2025 15:06 ET Workstation ID: [id number] Transcribed By: Self Edit Transcribed Date: 03/09/2025 [...] Signed Date: 03/09/2025 15:06 ET Workstation ID: [id number] Transcribed By: Self Edit Transcribed Date: 03/09/2025 15:05 ET Rigoberto Quiroz MD IMG XR PROCEDURES Final Result * Troponin I high sensitivity (03/09/2025 2:14 PM EDT) Only the most recent of2 resultswithin the time period is included. High Sensitivity Troponin I <3 <=54 ng/L LAB CHEMISTRY METHOD 03/09/2025 4:06 PM EDT [facility] Blood Venous blood specimen / Unknown Venipuncture / Unknown 03/09/2025 2:14 PM EDT 03/09/2025 3:24 PM EDT Narrative [facility] - 03/09/2025 4:06 PM EDT High levels of biotin in samples may falsely decrease hsTroponin values. Use caution when interpreting hsTroponin results in patients taking biotin who exhibit renal impairment (eGFR <60) or in patients taking more than 20 mg/day of biotin. us Rigoberto Quiroz MD LAB BLOOD ORDERABLES Final Res ult [facility] [address] [place] [address], [place] [phone] * (ABNORMAL) Urinalysis with reflex microscopic (03/09/2025 2:03 PM EDT) Specific Leopold Urine 1.015 1.003 - 1.030 LAB URINALYSIS - AUTOMATED METHOD 03/09[facility]2025 3:[facility] pH, Urine 6.0 5.0 - 8.0 pH LAB URINALYSIS - AUTOMATED METHOD 03/09/2025 3:47 PM [facility] Leukocytes, Urine Negative Negative LAB URINALYSIS - AUTOMATED METHOD 03/09/2025 3:47 PM EDT [facility] Nitrite, Urine Negative Negative LAB URINALYSIS - AUTOMATED METHOD 03/09/2025 3:47 PM EDT [facility] Protein, Urine Trace <=Trace mg/dL LAB URINALYSIS - AUTOMATED METHOD 03/09/2025 3:47 PM T [facility] Glucose, Urine Negative Negative mg/dL LAB URINALYSIS - AUTOMATED METHOD 03/09/2025 3:47 PM EDT [facility] Ketones, Urine Trace(A) Negative mg/dL LAB URINALYSIS - AUTOMATED METHOD 03/09/2025 3:47 PM [facility] Urobilinogen , Urine 0.2 0.2 - 1.0 mg/dL LAB URINALYSIS - AUTOMATED METHOD 03/09/2025 3:47 PM [facility] Bilirubin, Urine Negative Negative LAB URINALYSIS - AUTOMATED METHOD 03/09/2025 3:47 PM [facility] Blood, Urine Large(A) Negative LAB URINALYSIS - AUTOMATED METHOD 03/09/2025 3:47 PM [facility] RBC, Urine >100(H) 0 - 4 /HPF 03/09/2025 3:47 PM [facility] WBC, Urine 10(H) 0 - 4 /HPF 03/09/2025 3:47 PM [facility] Squamous Epithelial, Urine 20 0 - 60 /LPF 03/09/2025 3:47 PM [facility] Non-Squamous Epithelial, Urine 2-5 Transitional epithelial cells. /LPF 03/09/2025 3:47 PM [facility] Crystals, Urine Heavy Uric Acid crystals. /LPF 03/09/2025 3:47 PM [facility] Bacteria, Urine Negative Negative /HPF 03/09/2025 3:47 PM [facility] Hyaline Casts, Urine 1 0 - 3 /LPF 03/09/2025 3:47 PM [facility] Mucus, Urine Moderate None /HPF 03/09/2025 3:47 PM [facility] Urine Urine specimen obtained by clean catch procedure / Unknown Non-blood Collection / Unknown 03/09/2025 2:03 PM EDT 03/09/2025 2:41 PM EDT us Rigoberto Quiroz MD LAB URINE ORDERABLES Final Res ult Performing Organization Address [facility]/ZIP Co de Phone Number [facility] [address] [place] [address], [place] [phone] * ECG 12 lead (03/09/2025 12:01 PM EDT) [facility] Ventricular Rate ECG 70 BPM GEMUSE Atrial Rate 70 BPM GEMUSE P-R Interval 138 ms GEMUSE QRS Duration 82 ms GEMUSE Q-T Interval 418 ms GEMUSE QTc 451 ms GEMUSE P Wave [place] 32 degrees GEMUSE R [place] 62 degrees GEMUSE T [place] 16 degrees GEMUSE ECG Interpretation Normal sinus rhythm T wave abnormality, consider inferior ischemia Abnormal ECG When compared with ECG of 21-NOV-2021 19:27, T wave inversion now evident in Anterior leads Confirmed by Naun KRAUSE JOHN ([id number]) on 03/09/2025 1:35:48 PM GEMUSE 03/09/2025 12:0 1 PM EDT 03/09/2025 1:35 PM EDT Rigoberto Quiroz MD ECG ORDERABLES Final Result Performing Organization Address [facility] de Phone Number GEMUSE * hCG, serum, qualitative (03/09/2025 11:57 AM EDT) [facility] hCG Qual Negative Negative 03/09/2025 5:42 PM EDT [facility] Blood Venous blood specimen / Unknown Venipuncture / Unknown 03/09/2025 11:57 AM EDT 03/09/2025 1:26 PM EDT Argenis Gamboa MD LAB BLOOD ORDERABLES Final Resul t Performing Organization Address [facility] Co de Phone Number [facility] [address] [place] [address], [place] [phone] * Magnesium (03/09/2025 11:57 AM EDT) [facility] Magnesium 2.3 1.9 - 2.6 mg/dL LAB CHEMISTRY METHOD 03/09/2025 1:52 PM EDT [facility] Blood Venous blood specimen / Unknown Venipuncture / Unknown 03/09/2025 11:57 AM EDT 03/09/2025 1:26 PM EDT us Rigoberto Quiroz MD LAB BLOOD ORDERABLES Final Res ult Performing Organization Address City/[facility]/ZIP Co de Phone Number [facility] [address] [place] [address], [place] [phone] * Lipase (03/09/2025 11:57 AM EDT) [facility] Lipase 44 13 - 75 unit/L LAB CHEMISTRY METHOD 03/09/2025 1:52 PM EDT [facility] Blood Venous blood specimen / Unknown Venipuncture / Unknown 03/09/2025 11:57 AM EDT 03/09/2025 1:26 PM EDT us Rigoberto Quiroz MD LAB BLOOD ORDERABLES Final Res ult Performing Organization Address [facility] de Phone Number [facility] [address] [place] [address], [place] [phone] * (ABNORMAL) Comprehensive metabolic panel (03/09/2025 11:57 AM EDT) [facility] Sodium 138 133 - 145 mmol/L LAB CHEMISTRY METHOD 03/09/2025 2:09 PM EDT [facility] Potassium 2.8(LL) 3.5 - 5.5 mmol/L LAB CHEMISTRY METHOD 03/09/2025 2:09 PM EDT [facility] Chloride 103 96 - 110 mmol/L LAB CHEMISTRY METHOD 03/09/2025 2:09 PM EDT [facility] CO2 23 21 - 32 mmol/L LAB CHEMISTRY METHOD 03/09/2025 2:09 PM [facility] Anion Gap 12(H) 3 - 11 LAB CHEMISTRY METHOD 03/09/2025 2:09 PM [facility] Glucose 88 70 - 100 mg/dL LAB CHEMISTRY METHOD 03/09/2025 2:09 PM [facility] BUN 8 5 - 25 mg/dL LAB CHEMISTRY METHOD 03/09/2025 2:09 PM [facility] Creatinine 0.78 0.50 - 1.10 mg/dL LAB CHEMISTRY METHOD 03/09/2025 2:09 PM [facility] eGFR 101 >=60 mL/min/1. 73m2 LAB CHEMISTRY METHOD 03/09/2025 2:09 PM [facility] Comment:Calculation based on the Chronic Kidney Disease Epidemiology Collaboration (CKD-EPI) equation refit without adjustment for race. BUN/Creatinine Ratio 10.3 LAB CHEMISTRY METHOD 03/09/2025 2:09 PM [facility] Calcium 9.4 8.5 - 10.5 mg/dL LAB CHEMISTRY METHOD 03/09/2025 2:09 PM [facility] AST (SGOT) 8(L) 10 - 42 unit/L LAB CHEMISTRY METHOD 03/09/2025 2:09 [facility] ALT (SGPT) 15 10 - 60 unit/L LAB CHEMISTRY METHOD 03/09/2025 2:09 PM [facility] Alkaline Phosphatase 53 42 - 121 unit/L LAB CHEMISTRY METHOD 03/09/2025 2:09 PM [facility] Total Protein 7.4 6.0 - 8.0 g/dL LAB CHEMISTRY METHOD 03/09/2025 2:09 PM [facility] Albumin 4.4 3.2 - 5.0 g/dL LAB CHEMISTRY METHOD 03/09/2025 2:09 PM [facility] Total Bilirubin 0.5 0.0 - 1.4 mg/dL LAB CHEMISTRY METHOD 03/09/2025 2:09 PM EDT [facility] Blood Venous blood specimen / Unknown Venipuncture / Unknown 03/09/2025 11:57 AM EDT 03/09/2025 1:26 PM EDT us Rigoberto Quiroz MD LAB BLOOD ORDERABLES Final Res ult [facility] [address] [place] [address], [place] [phone] from Last 3 Months Insurance MEDICAID - [place] Advance Directives * Full Code - Confirmed (Latest Code Status on File) Date Activated Date Inactivated Comments 03/09/2025 7:01 PM 03/10/2025 6:[address] atus was ascertained in the following way: Code status discussion: discussion with patient To update the patient's code status, place a code status order. Do not modify or discontinue any currently active code status orders. Care Teams Cathode [employer] Tube Assembler Relationship Specialty Start Date End Date Physician, No Pcp PCP - General 03/09/25
--- OUTSIDE RECORDS SUMMARY | 2025-03-15 16:41 | XMS_ITS | Clinical Summary ---
Author Organization [facility] spital Address [address] [place] [address] Phone Care Team Providers Care Computational Scientist Name Role Phone Unavailable Primary Care Provider Unavailabl e Encounters Date Type Department Care Team Description 02/10/2025 Orders Only [facility] [address] [place] [address] Odalis Frances, [facility] [place] Family history of carrier of genetic disease from Last 3 Months Social History Tobacco Use Types Packs/Day Years Used Date Smoking Tobacco: Never Assessed Comments Unknown Sex and Gender Information Value Date Recorded Sex Assigned at Not on file Legal Sex Female 8:20 AM EDT Gender Identity Not on file Sexual Orientation Not on file Plan of Treatment Not on file Procedures Procedure Name Priority Date/Time Associated Diagnosis Comments EXOME SEQUENCING, PARENT/FAMILY MEMBER SAMPLE, OP, 561D Routine 02/10/2025 4:17 PM EDT Family history of carrier of genetic disease EXOME/GENOME SEQUENCING, PARENT/FAMILY MEMBER SAMPLE Routine 02/10/2025 4:17 PM EDT Family history of carrier of genetic disease from Last 3 Months Results * Exome Sequencing, Parent/Family Member Sample (02/10/2025 4:17 PM EDT) Remote Swab 02/10/2025 4:17 PM EDT 02/10/2025 4:17 PM EDT us Jo Wheat MD LAB GENETICS ORDERABLES F inal Result [facility] [address] [place] [address], [place] [phone] from Last 3 Months
== END 2025-03-15 17:18 | disposition home or self-care (01) ==
LOC: HO.HMCH 16:22
PROVIDERS: PCP Internal Medicine; Visit Provider Internal Medicine
DX: F33.1 Major depressive disorder, recurrent, moderate (principal); F41.1 Generalized anxiety disorder; G43.909 Migraine, unspecified, not intractable, without status migrainosus; R55 Syncope and collapse; E78.00 Pure hypercholesterolemia, unspecified

== ENCOUNTER → 2025-03-15 16:22 | Outpatient (BNVA) | payer OTHER, SELFPAY | PROVIDERS: PCP Internal Medicine; Visit Provider Internal Medicine | DX: F33.1 Major depressive disorder, recurrent, moderate (principal); F41.1 Generalized anxiety disorder; G43.909 Migraine, unspecified, not intractable, without status migrainosus; R55 Syncope and collapse; E78.00 Pure hypercholesterolemia, unspecified; E87.6 Hypokalemia; L65.9 Nonscarring hair loss, unspecified; R06.02 Shortness of breath | CPT/HCPCS: 96127; 99212 ==

== ENCOUNTER 2025-03-30 09:14 | Outpatient (REF) | payer OTHER, SELFPAY ==
--- OUTSIDE RECORDS SUMMARY | 2025-03-28 22:07 | XMS_ITS | Encounter Summary ---
Author Organization [facility] Address [address] [place] [address] Care Team Providers Care Clinical Trials Nurse Name Role Phone Physician, No Pcp Primary Care Provider Unavaila ble Reason for Visit * Reason Comments Constipation Encounter Details Date Type Department Care Team (Late st Contact Info) Description 03/28/2025 10:07 PM EDT - 03/29/2025 12:39 AM EDT Emergency [facility] Emergency [address] [place] [address] Jorge Ghosh MD [address] [place] [address] Pyelonephritis (Primary Dx) Discharge Disposition: Home or Self Care Social [...] Sign Reading Time Taken Comments Blood Pressure 102/58 03/28/2025 10:01 PM EDT Pulse 68 03/28/2025 10:01 PM EDT Temperature 36.8 C (98.2 F) 03/28/2025 10:01 PM EDT Respiratory Rate 18 03/28/2025 10:01 PM EDT Oxygen Saturation 100% 03/28/2025 10:01 PM EDT Inhaled Oxygen Concentration - - Weight 62.6 kg (138 lb) 03/28/2025 6:20 PM EDT Height 157.5 cm (5' 2 ) 03/28/2025 6:20 PM EDT Body Mass Index 25.24 03/28/2025 6:20 PM EDT documented in this encounter Functional Status * Calculated C-SSRS Risk Score (Lifetime/Recent) Answer Date of Assessment Author No Risk Indicated 03/28/2025 6:19 PM EDT Rio Vasquez RN * [place] Suicide Severity Rating Scale (Screener/Recent Self-Report) Question Answer Date of Assessment Author 1. Wish to be (Past 1 Month) No 025 6:19 PM EDT Ayse Vasquez RN 2. Non-Specific Active Suici ashlie Thoughts (Past 1 Month) No 03/28/2025 6:19 PM EDT Ayse Vasquez RN 6. Suicidal Behavior (Lifetime) No 6:19 PM EDT Ayse Vasquez RN documented as of this encounter Medications at Time of Discharge bisacodyL (DULCOLAX) 5 mg EC tablet Take 2 tablets (10 mg total) by mouth at bedtime. at bedtime 02/18/2025 buPROPion XL (WELLBUTRIN XL) 300 mg 24 hr tablet Take 1 tablet (300 mg total) by mouth 1 (one) time each day in the morning. 02/22/2025 cefpodoxime (VANTIN) 200 mg tablet Take 1 tablet (200 mg total) by mouth 2 (two) times a day for 10 days. 20 each 03/29/2025 04/08/2025 clonazePAM (KlonoPIN) 1 mg tablet Take 1 tablet (1 mg total) by mouth 2 (two) times a day if needed for anxiety. 02/22/2025 Dayvigo 10 mg tablet Take 1 tablet by mouth at bedtime. Max Daily Amount: 1 tablet 02/23/2025 DULoxetine (CYMBALTA) [address] capsule Take 1 capsule (60 mg total) by mouth 2 (two) times a day. 02/22/2025 SUMAtriptan (IMITREX) 100 mg tablet Take 1 tablet (100 mg total) by mouth 1 (one) time if needed for migraine. 02/24/2025 documented as of this encounter Ordered Prescriptions Prescription Sig Dispense Quantity Refills Last Filled Start Date End Date cefpodoxime (VANTIN) 200 mg tablet Take 1 tablet (200 mg total) by mouth 2 (two) times a day for 10 days. 20 each 03/29/2025 04/08/2025 documented in this encounter Discharge Disposition Disposition Code Departure Means Destination Comment s Home or Self Care documented in this encounter Progress Notes * Ayse Vasquez RN - 03/28/2025 6:19 PM EDT Pt has acid reflux/constipation No bm x 6 days +abd pain * Jorge Ghosh MD - 03/28/2025 6:16 PM EDT HPI Chief Complaint Patient presents with ??? Constipation 34-year-old female with a past medical history of IBS and GERD presenting with constipation. Patient endorses having lower abdominal discomfort, associated with a bloated like feeling. Patient endorses nausea, but denies any vomiting. Patient denies any fever, chills, chest pain, pelvic pain, urinary symptoms, vaginal bleeding, vaginal discharge, back pain. Review of systems otherwise negative. Patient does have a history of constipation, and has been taking her outside physician prescribed medication. Patient denies any history of abdominal surgeries. No data recorded Patient History Medical History[1] Surgical History[2] Family History[3] Social History Tobacco Use ??? Smoking status: Not on file ??? Smokeless tobacco: Not on file Substance Use Topics ??? Alcohol use: Not on file ??? Drug use: Not on file Review of Systems Review of Systems Constitutional: Negative for chills and fever. HENT: Negative for rhinorrhea and sore throat. Eyes: Negative for pain. Respiratory: Negative for cough, choking, chest tightness, shortness of breath and wheezing. Cardiovascular: Negative for chest pain and leg swelling. Gastrointestinal: Positive for constipation. Negative for abdominal pain, diarrhea, nausea and vomiting. Genitourinary: Negative for difficulty urinating, dysuria, flank pain, hematuria and pelvic pain. Musculoskeletal: Negative for back pain and neck pain. Skin: Negative for rash. Neurological: Negative for dizziness, weakness, light-headedness, numbness and headaches. Psychiatric/Behavioral: Negative for agitation, behavioral problems, confusion and hallucinations. The patient is not nervous/anxious and is not hyperactive. Physical Exam ED Triage Vitals [03/28/25 1820] Temp Heart Rate Resp BP 37 ??C (98.6 ??F) 72 16 120/72 SpO2 Temp Source Heart Rate Source Patient Position 100 % Oral -- Sitting BP Location FiO2 (%) Left arm -- Physical Exam Constitutional: Appearance: Normal appearance. HENT: Head: Normocephalic. Nose: Nose normal. Eyes: Extraocular Movements: Extraocular movements intact. Pupils: Pupils are equal, round, and reactive to light. Cardiovascular: Rate and Rhythm: Normal rate. Pulmonary: Effort: Pulmonary effort is normal. Breath sounds: Normal breath sounds. Abdominal: General: Abdomen is flat. There is no distension. Palpations: Abdomen is soft. There is no mass. Tenderness: There is abdominal tenderness. There is left CVA tenderness. Hernia: No hernia is present. Comments: Mild suprapubic tenderness. Musculoskeletal: General: No swelling or tenderness. Normal range of motion. Cervical back: Normal range of motion. Skin: General: Skin is warm. Capillary Refill: Capillary refill takes less than 2 seconds. Neurological: General: No focal deficit present. Mental Status: She is alert and oriented to person, place, and time. Psychiatric: Mood and Affect: Mood normal. ED Course & MDM ED Course as of 03/29/2532Mar 29, 202530 CBC within normal limits. Hemoglobin within normal limits. CMP within normal limits. UA positive for leukocytes and significant amount of WBC. test negative. CT abdomen pelvis with no acute pathology, notable for small anterior pericardial effusion. Patient denies any chest pain, or shortness of breath. Vitals otherwise stable. Shared decision making, plan for discharge, patient provided with strict return precautions. Patient provided with pyelonephritis treatment. [OR] ED Course User Index [OR] Jorge Ghosh MD Clinical Impressions as of 03/29/2532 Pyelonephritis Medical Decision Making Based on this clinical presentation, plan to rule out intra-abdominal pathology such as SBO versus stercoral colitis. Low concern for SBO, patient has no history of intra-abdominal surgeries. Patient is also able to pass flatus. Low concern for nephrolithiasis, patient denies any colicky pain, andhas no hematuria. Patient does have a history of constipation, therefore this could also be an acute on chronic exacerbation of constipation. Patient does have suprapubic tenderness on exam, therefore plan to rule out UTI. On palpation of CVA, mild CVA tenderness on the left also plan to rule out pyelonephritis. Patient with stable vitals otherwise. Procedures Jorge Ghosh MD 03/29/25 0032 [1] Past Medical History: Diagnosis Date ??? Anxiety ??? Depression ??? Headache [2] History reviewed. No pertinent surgical history. [3] No family history on file. documented in this encounter Plan of Treatment Not on file documented as of this encounter Procedures Procedure Name Priority Date/Time Associated Diagnosis Comments CT ABDOMEN PELVIS W CONTRAST STAT 03/28/2025 11:10 PM EDT POC , URINE DIAGNOSTIC STAT 03/28/2025 10:43 PM EDT URINALYSIS WITH REFLEX MICROSCOPIC STAT 03/28/2025 10:40 PM EDT DOMINGUEZ URINE CULTURE TUBE Routine 03/28/2025 10:40 PM EDT URINALYSIS WITH REFLEX MICROSCOPIC STAT 03/28/2025 10:40 PM EDT EXTRA TUBES Routine 03/28/2025 10:40 PM EDT CBC WITH AUTO DIFFERENTIAL STAT 03/28/2025 8:54 PM EDT CBC AND DIFFERENTIAL STAT 03/28/2025 8:54 PM EDT HCG, QUANTITATIVE STAT Add-on 03/28/2025 8:5 4 PM EDT LIPASE STAT 03/28/2025 8:54 PM EDT COMPREHENSIVE METABOLIC PANEL STAT 03/28/2025 8:54 PM EDT documented in this encounter Results * CT Abdomen Pelvis w Contrast (03/28/2025 11:10 PM EDT) Anatomical Region Laterality Modality Body Computed Tomogra phy 03/28/2025 11:3 1 PM EDT Impressions 03/28/2025 11:31 PM EDT 1. No acute intraabdominal or pelvic pathology. 2. Small anterior pericardial effusion. This document has been electronically signed by: Steve Drew MD on 03/28/2025 23:31:26 Narrative 03/28/2025 11:31 PM EDT INDICATION: Abdominal pain, acute, no prior medical history CT abdomen and pelvis with contrast Comparison: CT/[place]/SR - ABDOMEN AND PELVIS C+ CT - 04/02/22 13:05 EDT Findings: No consolidation or effusion. Normal heart size. Small anterior pericardial effusion. Focal fat infiltration in segment 4B of the liver. Gallbladder, spleen, pancreas, and adrenal glands are within normal limits. No hydronephrosis. Symmetric contrast enhancement of the kidneys. No bowel obstruction, pneumatosis or pneumoperitoneum. Normal appendix. Abdominal aorta is normal in caliber. Portal venous system is patent. No enlarged abdominopelvic lymph nodes. Corpus luteum in the left ovary. Pelvic organs are otherwise within normal limits. No acute fracture. Procedure Note Steve Drew MD - 03/28/2025 INDICATION: Abdominal pain, acute, no prior medical history CT abdomen and pelvis with contrast Comparison: CT/[place]/SR - ABDOMEN AND PELVIS C+ CT - 04/02/22 13:05 EDT Findings: No consolidation or effusion. Normal heart size. Small anterior pericardial effusion. Focal fat infiltration in segment 4B of the liver. Gallbladder, spleen, pancreas, and adrenal glands are within normal limits. No hydronephrosis. Symmetric contrast enhancement of the kidneys. No bowel obstruction, pneumatosis or pneumoperitoneum. Normal appendix. Abdominal aorta is normal in caliber. Portal venous system is patent. No enlarged abdominopelvic lymph nodes. Corpus luteum in the left ovary. Pelvic organs are otherwise within normal limits. No acute fracture. IMPRESSION: 1. No acute intraabdominal or pelvic pathology. 2. Small anterior pericardial effusion. This document has been electronically signed by: Steve Drew MD on 03/28/2025 23:31:26 us Jorge Ghosh MD IMG CT PROCEDURES Final Re sult * POC , urine manually resulted (03/28/2025 10:43 PM EDT) [facility] HCG, Ur POC Negative Negative POC hCG Int QC Pass? Yes Yes Urine Urine specimen obtained by clean catch procedure / Unknown 03/28/2025 10:43 PM EDT us Jorge Ghosh MD POINT OF CARE TEST ENTER/E DIT ORDERABLES Final Result * Dominguez urine culture tube (03/28/2025 10:40 PM EDT) [facility] Extra Tube Hold for add-ons. 03/29/2025 1:02 AM EDT [facility] Comment:Auto resulted. Urine Urine specimen obtained by clean catch procedure / Unknown 03/28/2025 10:40 PM EDT 03/28/2025 11:04 PM EDT us Jorge Ghosh MD LAB URINE ORDERABLES Final Result [facility] [address] [place] [address], [place] [phone] * (ABNORMAL) Urinalysis with reflex microscopic (03/28/2025 10:40 PM EDT) [facility] Specific [place] Urine 1.014 1.003 - 1.030 LAB URINALYSIS - AUTOMATED METHOD 03/28/2025 11:30 PM EDT [facility] pH, Urine 6.0 5.0 - 8.0 pH LAB URINALYSIS - AUTOMATED METHOD 03/28/2025 11:30 PM EDT [facility] Leukocytes, Urine Large(A) Negative LAB URINALYSIS - AUTOMATED METHOD 03/28/2025 11:30 PM EDT [facility] Nitrite, Urine Negative Negative LAB URINALYSIS - AUTOMATED METHOD 03/28/2025 11:30 PM [facility] Protein, Urine Negative <=Trace mg/dL LAB URINALYSIS - AUTOMATED METHOD 03/28/2025 11:30 PM [facility] Glucose, Urine Negative Negative mg/dL LAB URINALYSIS - AUTOMATED METHOD 03/28/2025 11:30 PM [facility] Ketones, Urine Negative Negative mg/dL LAB URINALYSIS - AUTOMATED METHOD 03/28/2025 11:30 PM [facility] Urobilinogen, Urine 0.2 0.2 - 1.0 mg/dL LAB URINALYSIS - AUTOMATED METHOD 03/28/2025 11:30 PM [facility] Bilirubin, Urine Negative Negative LAB URINALYSIS - AUTOMATED METHOD 03/28/2025 11:30 PM [facility] Blood, Urine Negative Negative LAB URINALYSIS - AUTOMATED METHOD 03/28/2025 11:30 PM [facility] RBC, Urine 4 0 - 4 /HPF LAB URINALYSIS - AUTOMATED METHOD 03/28/2025 11:30 PM [facility] WBC, Urine 184.6(H) 0 - 4 /HPF LAB URINALYSIS - AUTOMATED METHOD 03/28/2025 11:30 PM [facility] Squamous Epithelial, Urine 60 0 - 60 /LPF LAB URINALYSIS - AUTOMATED METHOD 03/28/2025 11:30 PM [facility] Bacteria, Urine Few(A) Negative /HPF LAB URINALYSIS - AUTOMATED METHOD 03/28/2025 11:30 PM [facility] Hyaline Casts, Urine 0.8 0 - 3 /LPF LAB URINALYSIS - AUTOMATED METHOD 03/28/2025 11:30 PM [facility] Urine Urine specimen obtained by clean catch procedure / Unknown Non-blood Collection / Unknown 03/28/2025 10:40 PM EDT 03/28/2025 11:03 PM EDT us Jorge Ghosh MD LAB URINE ORDERABLES Final Result Performing Organization Address [facility]/ZIP Co de Phone Number [facility] [address] [place] [address], [place] [phone] * HCG, quantitative (03/28/2025 8:54 PM EDT) [facility] hCG Quant <1 mIU/mL LAB CHEMISTRY METHOD 03/28/2025 10:53 PM EDT [facility] Blood Venous blood specimen / Unknown Venipuncture / Unknown 03/28/2025 8:54 PM EDT 03/28/2025 9:08 PM EDT Narrative [facility] - 03/28/2025 10:53 PM EDT Quantitative HCG Reference Ranges Time after Conception MIU/ML 0.2-1 Week 5-50 1-2 Weeks 50-500 2-3 Weeks 100-5,000 3-4 Weeks 500-10,000 4-5 Weeks 1,000-50,000 5-6 Weeks 10,000-100,000 6-8 Weeks 15,000-200,000 2-3 Months 10,000-100,000 2nd Trimester 1,000-94,000 3rd Trimester 2,500-90,000 Non- Females 1-3 us Jorge Ghosh MD LAB BLOOD ORDERABLES Final Result Performing Organization Address City/[facility]/ZIP Co de Phone Number [facility] [address] [place] [address], [place] [phone] * (ABNORMAL) CBC auto differential (03/28/2025 8:54 PM EDT) [facility] WBC 10.2 4.8 - 10.8 K/mcL LAB HEMETOLOGY METHOD 03/28/2025 9:17 PM [facility] RBC 3.70(L) 3.80 - 4.80 M/mcL LAB HEMETOLOGY METHOD 03/28/2025 9:17 PM [facility] Hemoglobin 9.4(L) 11.5 - 16.0 g/dL LAB HEMETOLOGY METHOD 03/28/2025 9:17 PM [facility] Hematocrit 30.5(L) 35.0 - 47.0 % LAB HEMETOLOGY METHOD 03/28/2025 9:17 PM [facility] MCV 81.6 79.0 - 98.0 FL LAB HEMETOLOGY METHOD 03/28/2025 9:17 PM [facility] MCH 25.1(L) 27.0 - 32.0 pcg LAB HEMETOLOGY METHOD 03/28/2025 9:17 PM [facility] MCHC 30.8(L) 32.0 - 37.0 g/dL LAB HEMETOLOGY METHOD 03/28/2025 9:17 PM [facility] RDW 16.2(H) 11.0 - 15.0 % LAB HEMETOLOGY METHOD 03/28/2025 9:17 PM [facility] Platelets 271 130 - 400 K/mcL LAB HEMETOLOGY METHOD 03/28/2025 9:17 PM [facility] MPV 11.7(H) 7.0 - 11.0 FL LAB HEMETOLOGY METHOD 03/28/2025 9:17 PM [facility] NRBC 0.0 <1.0 % LAB HEMETOLOGY METHOD 03/28/2025 9:17 PM [facility] NRBC Absolute 0.00 <0.10 K/mcL LAB HEMETOLOGY METHOD 03/28/2025 9:17 PM EDT [facility] Neutrophils Relative 60.2 % LAB HEMETOLOGY METHOD 03/28/2025 9:17 PM EDT [facility] Lymphocytes Relative 28.7 % LAB HEMETOLOGY METHOD 03/28/2025 9:17 PM [facility] Monocytes Relative 5.6 % LAB HEMETOLOGY METHOD 03/28/2025 9:17 PM [facility] Eosinophils Relative 4.8 % LAB HEMETOLOGY METHOD 03/28/2025 9:17 PM [facility] Basophils Relative 0.4 % LAB HEMETOLOGY METHOD 03/28/2025 9:17 PM [facility] Immature Granulocytes Relative 0.3 % LAB HEMETOLOGY METHOD 03/28/2025 9:17 PM [facility] Neutrophils Absolute 6.12 1.50 - 7.00 K/mcL LAB HEMETOLOGY METHOD 03/28/2025 9:17 PM [facility] Lymphocytes Absolute 2.92 1.00 - 5.00 K/mcL LAB HEMETOLOGY METHOD 03/28/2025 9:17 PM [facility] Monocytes Absolute 0.57 0.20 - 1.00 K/mcL LAB HEMETOLOGY METHOD 03/28/2025 9:17 PM [facility] Eosinophils Absolute 0.49 0.00 - 0.50 K/mcL LAB HEMETOLOGY METHOD 03/28/2025 9:17 PM [facility] Basophils Absolute 0.04 0.00 - 0.20 K/mcL LAB HEMETOLOGY METHOD 03/28/2025 9:17 PM [facility] Immature Granulocytes Absolute 0.03 0.00 - 0.03 K/mcL LAB HEMETOLOGY METHOD 03/28/2025 9:17 PM [facility] Blood Venous blood specimen / Unknown Venipuncture / Unknown 03/28/2025 8:54 PM EDT 03/28/2025 9:08 PM EDT us Jorge Ghosh MD LAB BLOOD ORDERABLES Final Result Performing Organization Address [facility]/ZIP Co de Phone Number [facility] [address] [place] [address], [place] [phone] * Lipase (03/28/2025 8:54 PM EDT) Pathologist [facility] Lipase 45 13 - 75 unit/L LAB CHEMISTRY METHOD 03/28/2025 9:46 PM EDT [facility] Blood Venous blood specimen / Unknown Venipuncture / Unknown 03/28/2025 8:54 PM EDT 03/28/2025 9:08 PM EDT us Jorge Ghosh MD LAB BLOOD ORDERABLES Final Result Performing Organization Address [facility]/ZIP Co de Phone Number [facility] [address] [place] [address], [place] [phone] * (ABNORMAL) Comprehensive metabolic panel (03/28/2025 8:54 PM EDT) [facility] Sodium 140 133 - 145 mmol/L LAB CHEMISTRY METHOD 03/28/2025 9:47 PM EDT [facility] Potassium 4.2 3.5 - 5.5 mmol/L LAB CHEMISTRY METHOD 03/28/2025 9:47 PM EDT [facility] Chloride 112(H) 96 - 110 mmol/L LAB CHEMISTRY METHOD 03/28/2025 9:47 PM EDT [facility] CO2 24 21 - 32 mmol/L LAB CHEMISTRY METHOD 03/28/2025 9:47 PM EDT [facility] Anion Gap 4 3 - 11 LAB CHEMISTRY METHOD 03/28/2025 9:47 PM EDT [facility] Glucose 99 70 - 100 mg/dL LAB CHEMISTRY METHOD 03/28/2025 9:47 PM [facility] BUN 10 5 - 25 mg/dL LAB CHEMISTRY METHOD 03/28/2025 9:47 PM [facility] Creatinine 0.66 0.50 - 1.10 mg/dL LAB CHEMISTRY METHOD 03/28/2025 9:47 PM [facility] eGFR 117 >=60 mL/min/1. 73m2 LAB CHEMISTRY METHOD 03/28/2025 9:47 PM [facility] Comment:Calculation based on the Chronic Kidney Disease Epidemiology Collaboration (CKD-EPI) equation refit without adjustment for race. BUN/Creatinine Ratio 15.2 LAB CHEMISTRY METHOD 03/28/2025 9:47 PM [facility] Calcium 8.7 8.5 - 10.5 mg/dL LAB CHEMISTRY METHOD 03/28/2025 9:47 PM [facility] AST (SGOT) 15 10 - 42 unit/L LAB CHEMISTRY METHOD 03/28/2025 9:47 PM [facility] ALT (SGPT) 19 10 - 60 unit/L LAB CHEMISTRY METHOD 03/28/2025 9:47 PM [facility] Alkaline Phosphatase 41(L) 42 - 121 unit/L LAB CHEMISTRY METHOD 03/28/2025 9:47 PM [facility] Total Protein 6.2 6.0 - 8.0 g/dL LAB CHEMISTRY METHOD 03/28/2025 9:47 PM [facility] Albumin 3.5 3.2 - 5.0 g/dL LAB CHEMISTRY METHOD 03/28/2025 9:47 PM [facility] Total Bilirubin 0.2 0.0 - 1.4 mg/dL LAB CHEMISTRY METHOD 03/28/2025 9:47 PM [facility] Blood Venous blood specimen / Unknown Venipuncture / Unknown 03/28/2025 8:54 PM EDT 03/28/2025 9:08 PM EDT us Jorge Ghosh MD LAB BLOOD ORDERABLES Final Result [facility] [address] [place] [address], documented in this encounter Visit Diagnoses Diagnosis Pyelonephritis- Primary Unspecified pyelonephritis documented in this encounter Administered Medications Inactive Administered Medications - up to 3 most recent administrations Medication Order MAR Action Action Date Dose Rate Site cefTRIAXone (ROCEPHIN) 1 g in sterile water 10 mL IV syringe 1 g, intravenous, Administer over 3 Minutes, Once, On Thu03/29/25 at 0006, For 1 dose, Do not administer simultaneously with any calcium containing solutions via a Y-site in any patient., Indication: Urinary Tract/Genitourinary Given 03/29/2025 12:14 AM EDT 1 g iopamidoL (ISOVUE-370) 370 mg iodine /mL (76 %) injection 90 mL 90 mL, intravenous, Once in imaging, Starting on Thu03/28/25 at 2306, For 1 dose Given 03/28/2025 11:07 PM EDT 90 mL sodium chloride 0.9 % flush 10 mL 10 mL, intravenous, Once, On Thu03/28/25 at 2307, For 1 dose Given 03/28/2025 11:07 PM EDT 10 mL documented in this encounter Discontinued Medications Medication Sig Discontinue Reason Start Date End Da te esomeprazole (NexIUM) [address] capsule Take 1 capsule (40 mg total) by mouth 1 (one) time each day before breakfast. Side effects 12/27/2024 03/29/2025 documented as of this encounter Active and Recently Administered Medications Times are shown in EDT. Scheduled Medication Order 03/27/2025 03/28/2025 03/29/2025 cefTRIAXone (ROCEPHIN) 1 g in sterile water 10 mL IV syringe (COMPLETED) 1 g, intravenous, Administer over 3 Minutes, Once, On Thu03/29/25 at 0006, For 1 dose, Do not administer simultaneously with any calcium containing solutions via a Y-site in any patient., Indication: Urinary Tract/Genitourinary 0014 (Given - Provid er: Nadeen Chao RN) iopamidoL (ISOVUE-370) 370 mg iodine /mL (76 %) injection 90 mL (COMPLETED) 90 mL, intravenous, Once in imaging, Starting on Thu03/28/25 at 2306, For 1 dose 2307 (Given - Provider: Ward Heath) sodium chloride 0.9 % flush 10 mL (COMPLETED) 10 mL, intravenous, Once, On Thu03/28/25 at 2307, For 1 dose 230 (Given - Provider: Ward Heath) documented in this encounter Care Teams Clinical Trials Nurse Relationship Specialty Start Date End Date Physician, No Pcp PCP - General 03/09/25 documented as of this encounter
--- OUTSIDE RECORDS SUMMARY | 2025-03-30 10:25 | XMS_ITS | Clinical Summary ---
Author Organization [facility] sp[facility] Address [address] [place] [address] Phone Care Team Providers Care Tank Operator Name Role Phone Unavailable Primary Care Provider Unavailabl e Encounters Date Type Department Care Team Description 02/10/2025 Orders Only [facility] [address] [place] [address] Odalis Frances, [facility] Family history of carrier of genetic disease [...] inal Result [facility] [address] [place] [address], [place] [phone] from Last 3 Months
--- OUTSIDE RECORDS SUMMARY | 2025-03-30 10:25 | XMS_ITS | Clinical Summary ---
Author Organization [facility] Address [address] [place] [address] Phone Care Team Providers Care Controls Engineer Name Role Phone Physician, No Pcp Primary [...] (two) times a day. 02/23/20 25 Active Dayvigo 10 mg tablet Take 1 tablet by mouth at bedtime. Max Daily Amount: 1 tablet 02/24/20 25 Active SUMAtriptan (IMITREX) 100 mg tablet Take 1 tablet (100 mg total) by mouth 1 (one) time if needed for migraine. 02/25/20 25 Active cefpodoxime (VANTIN) 200 mg tablet Take 1 tablet (200 mg total) by mouth 2 (two) times a day for 10 days. 20 each 03/29/20 025 Active cetirizine (ZyrTEC) 10 mg tablet Take 1 tablet (10 mg total) by mouth 1 (one) time each day if needed for allergies. 10/29/19 025 Discontinued divalproex (DEPAKOTE ER) 250 mg 24 hr tablet Take 1 tablet (250 mg total) by mouth 1 (one) time each day. for 30 days 01/08/20 025 Discontinued(St op Taking at Discharge) esomeprazole (NexIUM) [address] capsule Take 1 capsule (40 mg total) by mouth 1 (one) time each day before breakfast. 12/28/19 025 Discontinued(Si de effects) famotidine (PEPCID) 40 mg tablet Take 1 [...] Encounters Date Type Department Care Team Description 03/28/2025 10:07 PM EDT - 03/29/2025 12:39 AM EDT Emergency [facility] Emergency [address] [place] [address] Jorge Ghosh MD Pyelonephritis (Primary Dx) Discharge Disposition: Home or Self Care 03/09/2025 2:13 PM EDT - 03/10/2025 4:54 PM EDT Hospital Encounter [facility] Unit [address] [place] [address] Cooper, ArgenisMD Shoaib canas Manikandan, MD Kela, Kashyap Devendrabhai, MD Hypokalemia [...] Mass Index 25.24 03/28/2025 6:20 PM EDT Plan of Treatment Health Maintenance [...] URINE DIAGNOSTIC STAT 03/28/2025 10:43 PM EDT [facility] URINE CULTURE TUBE Routine 03/28/2025 10:40 PM EDT EXTRA TUBES Routine 03/28/2025 10:40 PM EDT URINALYSIS WITH REFLEX MICROSCOPIC STAT 03/28/2025 10:40 PM EDT URINALYSIS WITH REFLEX MICROSCOPIC STAT 03/28/2025 10:40 PM EDT HCG, QUANTITATIVE STAT Add-on 03/28/2025 8:5 4 PM EDT CBC WITH AUTO DIFFERENTIAL STAT 03/28/2025 8:54 PM EDT LIPASE STAT 03/28/2025 8:54 PM EDT COMPREHENSIVE METABOLIC PANEL STAT 03/28/2025 8:54 PM EDT CBC AND DIFFERENTIAL STAT 03/28/2025 8:54 PM EDT ECG ANNOTATED 03/13/2025 CT ANGIO HEAD/NECK WO [...] EDT from Last 3 Months Results * CT Abdomen Pelvis w Contrast [...] CT abdomen and pelvis with contrast Comparison: CT/FL/SR - ABDOMEN AND PELVIS C+ CT - [...] CT abdomen and pelvis with contrast Comparison: CT/FL/SR - ABDOMEN AND PELVIS C+ CT - [...] by: Steve Drew MD on 03/28/2025 23:31:26 Jorge Ghosh MD IMG CT PROCEDURES Final Re sult * POC , urine manually resulted (03/28/2025 10:43 PM EDT) [facility] HCG, Ur POC Negative Negative POC hCG Int QC Pass? Yes Yes Urine Urine specimen obtained by clean catch procedure / Unknown 03/28/2025 10:43 PM EDT Jorge Ghosh MD POINT OF CARE TEST ENTER/E DIT ORDERABLES Final Result * (ABNORMAL) Urinalysis with reflex microscopic (03/28/2025 10:40 PM EDT) Only the most recent of2 resultswithin the time period is included. [facility] Specific [place] Urine 1.014 1.003 - 1.030 LAB URINALYSIS - AUTOMATED METHOD 03/28/2025 11:30 PM EDT [facility] pH, Urine 6.0 5.0 - 8.0 pH LAB URINALYSIS - AUTOMATED METHOD 03/28/2025 11:30 PM EDT [facility] Leukocytes, Urine Large(A) Negative LAB URINALYSIS - AUTOMATED METHOD 03/28/2025 11:30 PM T [facility] Nitrite, Urine Negative Negative LAB URINALYSIS - AUTOMATED METHOD 03/28/2025 11:30 PM [facility] Protein, Urine Negative <=Trace mg/dL LAB URINALYSIS - AUTOMATED METHOD 03/28/2025 11:30 PM [facility] Glucose, Urine Negative Negative mg/dL LAB URINALYSIS - AUTOMATED METHOD 03/28/2025 11:30 PM [facility] Ketones, Urine Negative Negative mg/dL LAB URINALYSIS - AUTOMATED METHOD 03/28/2025 11:30 PM [facility] Urobilinogen, Urine 0.2 0.2 - 1.0 mg/dL LAB URINALYSIS - AUTOMATED METHOD 03/28/2025 11:30 PM [facility] Bilirubin, Urine Negative Negative LAB URINALYSIS - AUTOMATED METHOD 03/28/2025 11:30 PM [facility] Blood, Urine Negative Negative LAB URINALYSIS - AUTOMATED METHOD 03/28/2025 11:30 PM [facility] RBC, Urine 4 0 - 4 /HPF LAB URINALYSIS - AUTOMATED METHOD 03/28/2025 11:30 PM [facility] WBC, Urine 184.6(H) 0 - 4 /HPF LAB URINALYSIS - AUTOMATED METHOD 03/28/2025 11:30 PM [facility] Squamous Epithelial, Urine 60 0 - 60 /LPF LAB URINALYSIS - AUTOMATED METHOD 03/28/2025 11:30 PM [facility] Bacteria, Urine Few(A) Negative /HPF LAB URINALYSIS - AUTOMATED METHOD 03/28/2025 11:30 PM [facility] Hyaline Casts, Urine 0.8 0 - 3 /LPF LAB URINALYSIS - AUTOMATED METHOD 03/28/2025 11:30 PM [facility] Urine Urine specimen obtained by clean catch procedure / Unknown Non-blood Collection / Unknown 03/28/2025 10:40 PM EDT 03/28/2025 11:03 PM EDT Jorge Ghosh MD LAB URINE ORDERABLES Final Result Performing Organization Address City/[facility]/ZIP Co de Phone Number [facility] [address] [place] [address], * Dominguez urine culture tube (03/28/2025 10:40 PM EDT) [facility] Extra Tube Hold for add-ons. 03/29/2025 1:02 AM EDT [facility] Comment:Auto resulted. Urine Urine specimen obtained by clean catch procedure / Unknown 03/28/2025 10:40 PM EDT 03/28/2025 11:04 PM EDT Jorge Ghosh MD LAB URINE ORDERABLES Final Result Performing Organization Address [facility]/ZIP Co de Phone Number [facility] [address] [place] [address], [place] [phone] * (ABNORMAL) CBC auto differential (03/28/2025 8:54 PM EDT) Only the most recent of3 resultswithin the time period is included. [facility] WBC 10.2 4.8 - 10.8 K/mcL LAB HEMETOLOGY METHOD 03/28/2025 9:17 PM EDT [facility] RBC 3.70(L) 3.80 - 4.80 M/mcL LAB HEMETOLOGY METHOD 03/28/2025 9:17 PM EDT [facility] Hemoglobin 9.4(L) 11.5 - 16.0 g/dL LAB HEMETOLOGY METHOD 03/28/2025 9:17 PM EDT [facility] Hematocrit 30.5(L) 35.0 - 47.0 % LAB HEMETOLOGY METHOD 03/28/2025 9:17 PM EDT [facility] MCV 81.6 79.0 - 98.0 FL LAB HEMETOLOGY METHOD 03/28/2025 9:17 PM EDT [facility] MCH 25.1(L) 27.0 - 32.0 pcg LAB HEMETOLOGY METHOD 03/28/2025 9:[facility] MCHC 30.8(L) 32.0 - 37.0 g/dL LAB HEMETOLOGY METHOD 03/28/2025 9:17 PM [facility] RDW 16.2(H) 11.0 - 15.0 % LAB HEMETOLOGY METHOD 03/28/2025 9:17 PM [facility] Platelets 271 130 - 400 K/mcL LAB HEMETOLOGY METHOD 03/28/2025 9:17 PM [facility] MPV 11.7(H) 7.0 - 11.0 FL LAB HEMETOLOGY METHOD 03/28/2025 9:17 PM [facility] NRBC 0.0 <1.0 % LAB HEMETOLOGY METHOD 03/28/2025 9:17 PM [facility] NRBC Absolute 0.00 <0.10 K/mcL LAB HEMETOLOGY METHOD 03/28/2025 9:17 PM [facility] Neutrophils Relative 60.2 % LAB HEMETOLOGY METHOD 03/28/2025 9:17 PM [facility] Lymphocytes Relative 28.7 % LAB HEMETOLOGY METHOD 03/28/2025 9:17 PM [facility] Monocytes Relative 5.6 % LAB HEMETOLOGY METHOD 03/28/2025 9:17 PM [facility] Eosinophils Relative 4.8 % LAB HEMETOLOGY METHOD 03/28/2025 9:17 PM [facility] Basophils Relative 0.4 % LAB HEMETOLOGY METHOD 03/28/2025 9:17 PM [facility] Immature Granulocytes Relative 0.3 % LAB HEMETOLOGY METHOD 03/28/2025 9:[facility] Neutrophils Absolute 6.12 1.50 - 7.00 K/mcL LAB HEMETOLOGY METHOD 03/28/2025 9:17 PM EDT [facility] Lymphocytes Absolute 2.92 1.00 - 5.00 K/mcL LAB HEMETOLOGY METHOD 03/28/2025 9:17 PM EDT [facility] Monocytes Absolute 0.57 0.20 - 1.00 K/mcL LAB HEMETOLOGY METHOD 03/28/2025 9:17 PM EDT [facility] Eosinophils Absolute 0.49 0.00 - 0.50 K/mcL LAB HEMETOLOGY METHOD 03/28/2025 9:17 PM EDT [facility] Basophils Absolute 0.04 0.00 - 0.20 K/mcL LAB HEMETOLOGY METHOD 03/28/2025 9:17 PM EDT [facility] Immature Granulocytes Absolute 0.03 0.00 - 0.03 K/[facility] LAB HEMETOLOGY METHOD 03/28/2025 9:17 PM EDT [facility] Blood Venous blood specimen / Unknown Venipuncture / Unknown 03/28/2025 8:54 PM EDT 03/28/2025 9:08 PM EDT Jorge Ghosh MD LAB BLOOD ORDERABLES Final Result [facility] [address] [place] [address], * HCG, quantitative (03/28/2025 8:54 PM EDT) hCG Quant <1 mIU/mL LAB CHEMISTRY METHOD 03/28/2025 10:53 PM EDT [facility] Blood Venous blood specimen / Unknown Venipuncture / Unknown 03/28/2025 8:54 PM EDT 03/28/2025 9:08 PM EDT Narrative [facility] - 03/28/2025 10:53 PM EDT Quantitative HCG Reference Ranges Time after Conception MIU/ML 0.2-1 Week 5-50 1-2 Weeks 50-500 2-3 Weeks 100-5,000 3-4 Weeks 500-10,000 4-5 Weeks 1,000-50,000 5-6 Weeks 10,000-100,000 6-8 Weeks 15,000-200,000 2-3 Months 10,000-100,000 2nd Trimester 1,000-94,000 3rd Trimester 2,500-90,000 Non- Females 1-3 us Jorge Ghosh MD LAB BLOOD ORDERABLES Final Result Performing Organization Address [facility]/ZIP Co de Phone Number [facility] [address] [place] [address], [place] [phone] * Lipase (03/28/2025 8:54 PM EDT) Only the most recent of2 resultswithin the time period is included. Lipase 45 13 - 75 unit/L LAB CHEMISTRY METHOD 03/28/2025 9:46 PM EDT [facility] Blood Venous blood specimen / Unknown Venipuncture / Unknown 03/28/2025 8:54 PM EDT 03/28/2025 9:08 PM EDT us Jorge Ghosh MD LAB BLOOD ORDERABLES Final Result Performing Organization Address [facility]/ZIP Co de Phone Number [facility] [address] [place] [address], [place] [phone] * (ABNORMAL) Comprehensive metabolic panel (03/28/2025 8:54 PM EDT) Only the most recent of2 resultswithin the time period is included. Sodium 140 133 - 145 mmol/L LAB CHEMISTRY METHOD 03/28/2025 9:47 PM [facility] Potassium 4.2 3.5 - 5.5 mmol/L LAB CHEMISTRY METHOD 03/28/2025 9:47 PM [facility] Chloride 112(H) 96 - 110 mmol/L LAB CHEMISTRY METHOD 03/28/2025 9:47 PM [facility] CO2 24 21 - 32 mmol/L LAB CHEMISTRY METHOD 03/28/2025 9:47 PM [facility] Anion Gap 4 3 - 11 LAB CHEMISTRY METHOD 03/28/2025 9:47 PM [facility] Glucose 99 70 - 100 mg/dL LAB CHEMISTRY METHOD 03/28/2025 9:47 PM [facility] BUN 10 5 - 25 mg/dL LAB CHEMISTRY METHOD 03/28/2025 9:47 PM [facility] Creatinine 0.66 0.50 - 1.10 mg/dL LAB CHEMISTRY METHOD 03/28/2025 9:47 PM [facility] eGFR 117 >=60 mL/min/1. 73m2 LAB CHEMISTRY METHOD 03/28/2025 9:47 PM [facility] Comment:Calculation based on the Chronic Kidney Disease Epidemiology Collaboration (CKD-EPI) equation refit without adjustment for race. BUN/Creatinine Ratio 15.2 LAB CHEMISTRY METHOD 03/28/2025 9:47 PM [facility] Calcium 8.7 8.5 - 10.5 mg/dL LAB CHEMISTRY METHOD 03/28/2025 9:47 PM [facility] AST (SGOT) 15 10 - 42 unit/L LAB CHEMISTRY METHOD 03/28/2025 9:47 PM [facility] ALT (SGPT) 19 10 - 60 unit/L LAB CHEMISTRY METHOD 03/28/2025 9:47 PM [facility] Alkaline Phosphatase 41(L) 42 - 121 unit/L LAB CHEMISTRY METHOD 03/28/2025 9:47 PM EDT [facility] Total Protein 6.2 6.0 - 8.0 g/dL LAB CHEMISTRY METHOD 03/28/2025 9:47 PM EDT [facility] Albumin 3.5 3.2 - 5.0 g/dL LAB CHEMISTRY METHOD 03/28/2025 9:47 PM EDT [facility] Total Bilirubin 0.2 0.0 - 1.4 mg/dL LAB CHEMISTRY METHOD 03/28/2025 9:47 PM EDT [facility] Blood Venous blood specimen / Unknown Venipuncture / Unknown 03/28/2025 8:54 PM EDT 03/28/2025 9:08 PM EDT Jorge Ghosh MD LAB BLOOD ORDERABLES Final Result [facility] [address] [place] [address], * ECG-Annotated (03/13/2025) Provider Onbase ECG ORDERABLES Final Result * CT Angio [...] Signed Date: 03/10/2025 15:12 ET Workstation ID: [id number] Transcribed By: Self Edit Transcribed Date: 03/10/2025 15:08 ET Narrative 03/10/2025 3:12 PM EDT PROCEDURE: CTA HEAD AND NECK INDICATION: syncope. ?CVA TECHNIQUE: CTA of the head and neck with intravenous contrast. Multiplanar reformats. The examination was performed utilizing dose reduction techniques.3-D or MIP images were produced with postprocessing on an independent computer workstation. 90cc Omnipaque 370 injected. Scan was analyzed using Any[employer] AI based computer aided triage software. Total [...] is patent. Vertebrobasilar system is patent. Proximal brake drum lathe operator are patent. Major dural venous sinuses opacify [...] 90cc Omnipaque 370 injected. Scan wasanalyzed using [employer] AI based computer aided triage software. Total [...] is patent. Vertebrobasilar system is patent. Proximal brake drum lathe operator are patent. Major dural venous sinuses opacify normally with contrast. Extracranial structures are unremarkable. Degenerative changes in thebones. IMPRESSION: NO ACUTE FINDINGS. -------- FINAL REPORT -------- Dictated By: Tabatha Brooks Dictated Date: 03/10/2025 15:08 ET Assigned Physician: Tabatha Brooks Reviewed and Electronically Signed By: Tabatha Brooks Signed Date: 03/10/2025 15:12 ET Workstation ID: [id number] Transcribed By: Self Edit Transcribed Date: 03/10/2025 15:08 ET Moises Garrison MD IMG CT PROCEDURES F inal Result * (ABNORMAL) Basic metabolic panel (03/10/2025 6:43 AM EDT) Sodium 141 133 - 145 mmol/L LAB CHEMISTRY METHOD 03/10/2025 7:29 AM [facility] Potassium 4.2 3.5 - 5.5 mmol/L LAB CHEMISTRY METHOD 03/10/2025 7:29 AM [facility] Chloride 116(H) 96 - 110 mmol/L LAB CHEMISTRY METHOD 03/10/2025 7:29 AM [facility] CO2 22 21 - 32 mmol/L LAB CHEMISTRY METHOD 03/10/2025 7:29 AM [facility] Anion Gap 3 3 - 11 LAB CHEMISTRY METHOD 03/10/2025 7:29 AM [facility] Glucose 86 70 - 100 mg/dL LAB CHEMISTRY METHOD 03/10/2025 7:29 AM [facility] BUN 6 5 - 25 mg/dL LAB CHEMISTRY METHOD 03/10/2025 7:29 AM [facility] Creatinine 0.61 0.50 - 1.10 mg/dL LAB CHEMISTRY METHOD 03/10/2025 7:29 AM [facility] eGFR 119 >=60 mL/min/1. 73m2 LAB CHEMISTRY METHOD 03/10/2025 7:29 AM [facility] Comment:Calculation based on the Chronic Kidney Disease Epidemiology Collaboration (CKD-EPI) equation refit without adjustment for race. BUN/Creatinine Ratio 9.8 LAB CHEMISTRY METHOD 03/10/2025 7:29 AM EDT [facility] Calcium 7.8(L) 8.5 - 10.5 mg/dL LAB CHEMISTRY METHOD 03/10/2025 7:29 AM EDT [facility] Blood Venous blood specimen / Unknown Venipuncture / Unknown 03/10/2025 6:43 AM EDT 03/10/2025 7:04 AM EDT us Meryl Danie Gentile MANAGER [employer] LAB BLOOD ORDERABLES Fin al Result [facility] ([facility] [address] [place] [address], * CT Head wo Contrast (03/09/2025 6:55 [...] Peres MD on 03/09/2025 19:47:30 Meryl Gentile MANAGER [employer] DAT[employer] IMG CT PROCEDURES Final Result * SST tube (03/09/2025 6:33 PM EDT) Pathologist [facility] Extra Tube Hold for add-ons. 03/09/2025 8:01 PM EDT [facility] Comment:Auto resulted. Blood Venous blood specimen / Unknown 03/09/2025 6:33 PM EDT 03/09/2025 6:46 PM EDT Jaden Cramer MD LAB BLOOD ORDERABLES Fi nal Result Performing Organization Address City/[facility]/ZIP Co de Phone Number [facility] [address] [place] [address], [place] [phone] * (ABNORMAL) Potassium (03/09/2025 6:33 PM EDT) [facility] Potassium 3.3(L) 3.5 - 5.5 mmol/L LAB CHEMISTRY METHOD 03/09/2025 8:17 PM EDT [facility] Comment:Hemolysis present Blood Venous blood specimen / Unknown 03/09/2025 6:33 PM EDT 03/09/2025 6:46 PM EDT Meryl Gentile NP LAB BLOOD ORDERABLES Fin al Result Performing Organization Address [facility]/ZIP Co de Phone Number [facility] [address] [place] [address], [place] [phone] * XR Chest 2 Views (03/09/2025 2:55 [...] Signed Date: 03/09/2025 15:06 ET Workstation ID: [id number] Transcribed By: Self Edit Transcribed Date: 03/09/2025 [...] Signed Date: 03/09/2025 15:06 ET Workstation ID: [id number] Transcribed By: Self Edit Transcribed Date: 03/09/2025 15:05 ET us Rigoberto Quiroz MD IMG XR PROCEDURES Final Result * Troponin I high sensitivity (03/09/2025 2:14 PM EDT) Only the most recent of2 resultswithin the time period is included. High Sensitivity Troponin I <3 <=54 ng/L LAB CHEMISTRY METHOD 03/09/2025 4:06 PM EDT [facility] Blood Venous blood specimen / Unknown Venipuncture / Unknown 03/09/2025 2:14 PM EDT 03/09/2025 3:24 PM EDT Narrative [facility] - 03/09/2025 4:06 PM EDT High levels of biotin in samples may falsely decrease hsTroponin values. Use caution when interpreting hsTroponin results in patients taking biotin who exhibit renal impairment (eGFR <60) or in patients taking more than 20 mg/day of biotin. us Rigoberto Quiroz MD LAB BLOOD ORDERABLES Final Res ult [facility] [address] [place] [address], [place] [phone] * ECG 12 lead (03/09/2025 12:01 PM EDT) Pathologist [facility] Ventricular Rate ECG 70 BPM GEMUSE Atrial Rate 70 BPM GEMUSE P-R Interval 138 ms GEMUSE QRS Duration 82 ms GEMUSE Q-T Interval 418 ms GEMUSE QTc 451 ms GEMUSE P Wave [place] 32 degrees GEMUSE R [place] 62 degrees GEMUSE T [place] 16 degrees GEMUSE ECG Interpretation Normal sinus rhythm T wave abnormality, consider inferior ischemia Abnormal ECG When compared with ECG of 21-NOV-2021 19:27, T wave inversion now evident in Anterior leads Confirmed by Naun KRAUSE JOHN ([id number]) on 03/09/2025 1:35:48 PM GEMUSE 03/09/2025 12:0 1 PM EDT 03/09/2025 1:35 PM EDT us Rigoberto Quiroz MD ECG ORDERABLES Final Result Performing Organization Address City/[facility]/ZIP Co de Phone Number G[facility] * hCG, serum, qualitative (03/09/2025 11:57 AM EDT) [facility] hCG Qual Negative Negative 03/09/2025 5:42 PM EDT [facility] Blood Venous blood specimen / Unknown Venipuncture / Unknown 03/09/2025 11:57 AM EDT 03/09/2025 1:26 PM EDT us Argenis Gamboa MD LAB BLOOD ORDERABLES Final Resul t Performing Organization Address City/[facility]/ZIP Co de Phone Number [facility] [address] [place] [address], [place] [phone] * Magnesium (03/09/2025 11:57 AM EDT) Magnesium 2.3 1.9 - 2.6 mg/dL LAB CHEMISTRY METHOD 03/09/2025 1:52 PM EDT [facility] Blood Venous blood specimen / Unknown Venipuncture / Unknown 03/09/2025 11:57 AM EDT 03/09/2025 1:26 PM EDT Rigoberto Quiroz MD LAB BLOOD ORDERABLES Final Res ult Performing Organization Address [facility] Co de Phone Number [facility] [address] [place] [address], [place] [phone] from Last 3 Months Insurance [facility] Advance Directives * Full Code - Confirmed (Latest Code Status on File) Date Activated Date Inactivated Comments 03/09/2025 7:01 PM 03/10/2025 6:[address] at[facility] was ascertained in the following way: Code status discussion: discussion with patient To update the patient's code status, place a code status order. Do not modify or discontinue any currently active code status orders. Care Teams Controls Engineer Relationship Specialty Start Date End Date Physician, No Pcp PCP - General 03/09/25
[2025-03-30 11:17] LABS: Alanine Aminotransferase 16 U/L (0-31); Albumin Level 4.2 g/dL (3.5-5.0); Alkaline Phosphatase 41 U/L (39-117); Anion Gap 11 (12-20); Aspartate Amino Transferase 13 U/L (5-31); Blood Urea Nitrogen 10 mg/dL (9-16); Calcium 8.7 mg/dL (8.4-10.2); Carbon Dioxide 25 mmol/L (22-29); Chloride 110 mmol/L (96-108); Estimated Glomerular Filt Rate > 60; Potassium 3.7 mmol/L (3.3-5.1); Sodium 142 mmol/L (135-145); Thyroid Stimulating Hormone 2.24 uIU/mL (0.32-4.0); Total Protein 6.4 g/dL (6.5-8.0)
== END 2025-03-30 09:15 | disposition home or self-care (01) ==
LOC: HO.LAB 09:14
PROVIDERS: Visit Provider Internal Medicine
DX: E78.00 Pure hypercholesterolemia, unspecified (principal); R55 Syncope and collapse
CPT/HCPCS: 36415; 80053; 84443

== ENCOUNTER 2025-04-11 09:59 | Outpatient (AMB) | payer OTHER, SELFPAY ==
[2025-04-11 10:20] VITALS: BP 100/72; PULSE 74; O2SAT 99; BMI 24.4
--- NOTE | 2025-04-11 10:20 | MHC.PC.OV ---
Vital Signs 04/11/25 10:20 Height 5 ft 2 in Weight 133 lb 6 oz BMI 24.4 BP 100/72 Blood Pressure Location Lt brachial Position Sitting Pulse 74 Pulse Source Pulse Oximeter Pulse Oximetry (%) 99 Oxygen Delivery Method Room Air Intake Visit Reasons: Annual Exam Professional Driver Required: No Accompanied by: Self / Same As Patient Allergies acetaminophen (From TYLENOL) Allergy (Intermediate, Verified 04/11/25 10:35) Itching ibuprofen Allergy (Intermediate, Verified 04/11/25 10:40) pruritus oxycodone Allergy (Intermediate, Verified 04/11/25 10:35) rash APAP Allergy (Intermediate, Uncoded 04/11/25 10:35) Itching Medication List - Last Reconciled 04/11/25 by Dolroes Gonzalez MD amoxicillin-pot clavulanate 875-125 mg 1 tab PO BID 7 days bisacodyl 10 mg (2 x 5 mg) PO BEDTIME bupropion HCl XL 150 mg PO DAILY cetirizine 10 mg PO DAILY PRN clonazepam 1 mg PO BID PRN diclofenac sodium 1% (Arthritis Pain (diclofenac)) 2 grams topical QID divalproex ER 250 mg PO DAILY docusate sodium 200 mg (2 x 100 mg) PO BEDTIME doxycycline hyclate 100 mg PO BID 7 days duloxetine 60 mg PO DAILY duloxetine 30 mg PO DAILY 90 days esomeprazole magnesium 40 mg PO DAILY famotidine 20 mg PO BEDTIME fluticasone propionate 50 mcg/actuation 2 sprays intranasal DAILY lemborexant (Dayvigo) 10 mg PO BEDTIME 90 days lubiprostone (Amitiza) 24 mcg PO BID magnesium hydroxide (Milk of Magnesia) 10 mL PO DAILY PRN ondansetron 4 mg PO DAILY prucalopride (Motegrity) 2 mg PO DAILY prucalopride (Motegrity) 2 mg PO DAILY rimegepant (Nurtec ODT) 75 mg PO Q OTHER DAY 30 days tirzepatide 5 mg subcut QWEEK valacyclovir (Valtrex) 1,000 mg PO TID 7 days Tobacco use date assessed: 04/11/25 Dental Screening Dental Screen Date: 04/11/25 Did you have a dental visit in the last 12 months?: No Did you have a dental problem in the last 6 months where you did not have access to dental care?: No Was dental information given to patient?: Patient has dentist HPI HPI Comments History of Present Illness Details The patient is a 34-year-old female presenting for an annual physical exam. The patient's current medications include bupropion for depression, cetirizine for allergies, and clonazepam for anxiety. She sees a psychiatrist for her mental health conditions. She takes divalproex, duloxetine 90 mg, esomeprazole and famotidine for acid reflux, a nasal spray, amitiza, Motegrity, Nurtec for migraines, and Valtrex as needed. For chronic constipation, she uses docusate, milk of magnesia, Amitiza, and Motegrity. She follows with gastroenterology for this issue. She had a recent emergency room visit two weeks ago for an inability to have a bowel movement. During that visit, she was diagnosed with a UTI, and the antibiotic prescribed worsened her constipation. She also reports a new complaint of anal pruritus. The patient was previously taking tirzepatide (Zepbound) but stopped two months ago and has experienced weight gain since being discharged from the hospital. Past surgical history includes an endoscopy and an umbilical hernia repair. Her last Papanicolaou smear was in 2022. Her last tetanus vaccine was in 2010. Her father has a history of high blood pressure, Alzheimer's, dementia, and prediabetes. Her mother does not have diabetes. Recent lab results were reviewed and showed normal blood sugar, liver enzymes, and thyroid function. Her cholesterol was once elevated but did not require medication. Her vitamin D level was low at 27. The patient reports back pain and has an MRI scheduled for tomorrow. She has been referred to pain management and has a cardiology appointment in May. The patient does not smoke or drink alcohol. [facility] Medical History (Updated 04/11/25 @ 10:49 by Dolores Gonzalez MD) Moderate recurrent major depression Fibromyalgia Chronic GERD Hand pain Constipation by delayed colonic transit Polyarthralgia Allergic rhinitis DALE (generalized anxiety disorder) Mild recurrent major depression Right ankle injury Obese Insomnia Constipation Low back pain Scoliosis Anxiety and depression Migraines Umbilical hernia Morbid obesity Umbilical pain Surgical History History of esophagogastroduodenoscopy (EGD) History of umbilical hernia repair Family History Father Essential hypertension Mother Diabetes mellitus Essential hypertension Pulmonary fibrosis Maternal Grandmother Unknown family medical history Brother No problems noted. Sister No problems noted. Sister No problems noted. Sister No problems noted. Son No problems noted. Social History Household Members: Children Housing: House Alcohol intake: never Patient Tobacco Use Status: Never used Tobacco e-Cigarette/Vaping Use: Never Used Second Hand Smoke Exposure: No service: No Current occupational status: unemployed Gender identity: Female Cognitive needs: No Hearing needs: No Vision needs: Yes Female Reproductive History Menstrual Age of Menarche: 10 Questionnaire Thrive Questionnaire Date Thrive assessed: 03/15/25 I am a: Patient What is your living situation today?: I have a steady place to live Within the past 12 months, did the food you bought not last and you didn't have the money to get more?: I choose not to answer this question Within the past 12 months, did you worry whether your food would run out before you got money to buy more?: Sometimes True Do you have trouble paying for medicines?: I choose not to answer this question Do you have trouble getting transportation to medical appointments?: No Do you have trouble paying your heating and electricity bill?: I choose not to answer this question Do you have trouble taking care of your child, family member or friend?: No Do you have trouble with day-to-day activities such as bathing, preparing meals, shopping, managing finances, etc.?: I choose not to answer this question Are you currently unemployed and looking for a job?: I choose not to answer this question Are you interested in more education?: Yes Please select the resources that you would like help with: None Currently or been in a relationship where the following occur: I choose not to answer THRIVE Score: 1 AUDIT C Alcohol Use Questionnaire (AUDIT-C) 1. How often do you have a drink containing alcohol?: Never 3. How often do you have six or more drinks on one occasion?: Never Total Score: 0 Score Reviewed/Action Taken: No DALE-7 AMB Questionnaire DALE-7 Date DALE - 7 assessed: 10/03/24 Source: Developed by Bigg Sandovalet B.W. Jo[employer], Richard Dougherty and colleagues, with an educational desirae from [employer]. Review of Systems Const All systems reviewed & are unremarkable except as noted in HPI and below Card Denies chest pain at rest, Denies chest pain with activity, Denies edema, Denies irregular heart rhythm, Denies claudication, Denies dyspnea, Denies dyspnea on exertion, Denies orthopnea, Denies paroxysmal nocturnal dyspnea and Denies slow heart rate Resp Denies cough, Denies dyspnea and Denies dyspnea on exertion GI Denies abdominal pain, Denies change in bowel habits, Denies excessive flatus, Denies nausea and Denies vomiting Denies urinary incontinence, Denies urinary hesitancy and Denies urinary urgency Musc Denies atrophy, Denies deformity and Denies limited range of motion Skin/Breast Denies bleeding lesions, Denies changing lesions and Denies rash Physical exam (Primary Care) Vital Signs: Last Vital Signs Pulse 74 04/11/25 10:20 BP 100/72 04/11/25 10:20 Pulse Ox 99 04/11/25 10:20 Oxygen Delivery Method Room Air 04/11/25 10:20 BMI result Body Mass Index 24.4 Tobacco/Smoking Status: Tobacco use Status Tobacco use date assessed 04/11/25 04/11/25 10:25 Patient Tobacco Use Status Never used Tobacco 04/11/25 10:25 e-Cigarette/Vaping Use Never Used 04/11/25 10:25 Thrive Assessment: Date of Thrive Assessment Date Thrive assessed 03/15/25 04/11/25 10:25 Currently or been in a relationship where the following occur: I choose not to answer [facility] Head: Yes normal to inspection, Yes normocephalic and Yes atraumatic Ears: external ears normal Eyes General: appearance normal, both eyes and all related structures Eyelids: Yes eyelids normal Conjunctivae: conjunctivae normal Neck Neck: Yes normal visual inspection and Yes supple Resp Effort & Inspection: normal respiratory effort Auscultation: clear to auscultation bilaterally Cardio Jugular venous distension: no JVD Rate: regular rate Rhythm: regular rhythm Heart sounds: S1 normal heart sound present and S2 normal heart sound present GI Inspection: Yes normal to inspection Palpation (GI): Soft to palpation and nontender Auscultation: normal bowel sounds Skin General skin exam: no rashes or lesions noted Neuro General: no focal motor deficits Extrem General: Yes full ROM Psych Appearance: grossly normal Immunizations Boostrix Tdap 2.5 Lf unit-8 mcg-5 Lf/0.5 mL intramuscular syringe Performing Provider: Dolores Gonzalez MD [facility] Administered by: PATITO Castanon on 04/11/25 10:52 Dose Route Admin Location Dispensed Lot Number Expiration Date [facility] Government Documents Librarian 0.5 mL IM Right Deltoid 0.5 mL [id number] 09/09/27 67120-855-18 [employer] Total Dispensed Waste 0.5 mL 0 % VIS Given Date VIS Provided VIS Publication Date 04/11/25 Single Vaccine 21 Eligibility Eligibility Date Funding Source Not [facility] Eligible 04/11/25 Private Coding Level of Care Code Est Pt Level 3 (44633) Est Pt Prev Care 18-39y(31153) Diagnoses Physical exam Z00.00 Anal itch L29.0 Lumbar pain M54.50 Moderate recurrent major depression F33.1 Time Spent (min) 33 Assessment & Plan Assessment & Plan (1) Physical exam: Code(s): Z00.00 - Encounter for general adult medical examination without abnormal findings Category: Medical (2) Anal itch: Code(s): L29.0 - Pruritus ani Category: Medical (3) Lumbar pain: Code(s): M54.50 - Low back pain, unspecified Category: Medical (4) Moderate recurrent major depression: Code(s): F33.1 - Major depressive disorder, recurrent, moderate Category: Medical Plan Plan 1. Physical exam The patient will receive a Tdap vaccine today as her last one was in 2010. Recent lab results were reviewed. 2. Vitamin D Deficiency The patient's vitamin D level was low at 27. A prescription for vitamin D supplementation will be provided. 3. Back Pain A referral has been made to pain management for the patient's back pain. The patient has an MRI scheduled for tomorrow. 4. 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 5. Anal Pruritus A cream will be prescribed for anal pruritus. 6. Depression And Anxiety The patient will continue her current medications and follow up with her psychiatrist. Orders: Orders TDaP Immunization Today Z23 - Encounter for immunization Referrals Pain Management Referral M54.50 - Low back pain, unspecified Medications: New hydrocortisone 1% (Anti-Itch (hydrocortisone)) 1 appl topical TID PRN 28.4 grams 0RF skin irritation 2 weeks L29.0 - Pruritus ani cholecalciferol (vitamin D3) 25 mcg PO DAILY 90 caps 1RF 90 days
--- OUTSIDE RECORDS SUMMARY | 2025-04-11 11:59 | XMS_ITS | Clinical Summary ---
Author Organization [facility] spital Address [address] [place] [address] Phone Care Team Providers Care Billposter Name Role Phone Unavailable Primary Care Provider Unavailabl e Encounters Date Type Department Care Team Description 02/10/2025 Orders Only [facility] [address] [place] [id number] Odalis Frances, [facility] [place] Family history of carrier of genetic disease [...] inal Result [facility] [address] [place] [id number], [place] [phone] from Last 3 Months
--- OUTSIDE RECORDS SUMMARY | 2025-04-11 11:59 | XMS_ITS | Clinical Summary ---
Author Organization [facility] Address [address] [place] [address] Phone Care Team Providers Care Production Lead Name Role Phone Physician, No Pcp Primary Care Provider Unavaila ble Allergies Active Allergy Reactions Criticality Noted Date Comments Ibuprofen Nausea And Vomiting 03/09/2025 Naproxen 03/09/2025 Oxycodone Nausea And Vomiting,Rash 03/09/2025 Acetaminophen Itching 03/09/2025 Medications bisacodyL (DULCOLAX) 5 mg EC tablet Take 2 tablets (10 mg total) by mouth at bedtime. at bedtime 5 Active buPROPion XL (WELLBUTRIN XL) 300 mg 24 hr tablet Take 1 tablet (300 mg total) by mouth 1 (one) time each day in the morning. 5 Active clonazePAM (KlonoPIN) 1 mg tablet Take 1 tablet (1 mg total) by mouth 2 (two) times a day if needed for anxiety. 5 Active DULoxetine (CYMBALTA) [address] capsule Take 1 capsule (60 mg total) by mouth 2 (two) times a day. 5 Active Dayvigo 10 mg tablet Take 1 tablet by mouth at bedtime. Max Daily Amount: 1 tablet 5 Active SUMAtriptan (IMITREX) 100 mg tablet Take 1 tablet (100 mg total) by mouth 1 (one) time if needed for migraine. 5 Active esomeprazole (NexIUM) [address] capsule Take 1 capsule (40 mg total) by mouth 1 (one) time each day before breakfast. 0703/29/20 Discontinue d(Side effects) cefpodoxime (VANTIN) 200 mg tablet Take 1 tablet (200 mg total) by mouth 2 (two) times a day for 10 days. 20 each 04/08/20 Active Problems Problem Noted Date Diagnosed Date Syncope 03/09/2025 Encounters Date Type Department Care Team Description 03/28/2025 10:07 PM EDT - 03/29/2025 12:39 AM EDT Emergency [facility] Emergency [address] [place] [id number] Jorge Ghosh MD Pyelonephritis (Primary Dx) Discharge Disposition: Home or Self Care 03/09/2025 2:13 PM EDT - 03/10/2025 4:54 PM EDT Hospital Encounter [facility] Urology Unit [address] [place] [id number] Argenis Gamboa MD Seralathan, Manikandan, MD Kela, [...] EDT XR CHEST 2 VIEWS STAT 03/09/2025 2:5 5 PM EDT TROPONIN I HIGH SENSITIVITY Timed [...] CT abdomen and pelvis with contrast Comparison: CT/NC/SR - ABDOMEN AND PELVIS C+ CT - [...] CT abdomen and pelvis with contrast Comparison: CT/NC/SR - ABDOMEN AND PELVIS C+ CT - [...] urine manually resulted (03/28/2025 10:43 PM EDT) HCG, Ur POC Negative Negative POC hCG Int QC Pass? Yes Yes Urine Urine specimen obtained by clean catch procedure / Unknown 03/28/2025 10:43 PM EDT us Jorge Ghosh MD POINT OF CARE TEST ENTER/E DIT ORDERABLES Final Result * (ABNORMAL) Urinalysis with reflex microscopic (03/28/2025 10:40 PM EDT) Only the most recent of2 resultswithin the time period is included. Specific [place] Urine 1.014 1.003 - 1.030 LAB URINALYSIS - AUTOMATED METHOD 03/28/2025 11:30 PM [facility] pH, Urine 6.0 5.0 - 8.0 pH LAB URINALYSIS - AUTOMATED METHOD 03/28/2025 11:30 PM [facility] Leukocytes, Urine Large(A) Negative LAB URINALYSIS - AUTOMATED METHOD 03/28/2025 11:30 PM [facility] Nitrite, Urine Negative Negative LAB URINALYSIS - AUTOMATED METHOD 03/28/2025 11:30 PM [facility] Protein, Urine Negative <=Trace mg/dL LAB URINALYSIS - AUTOMATED METHOD 03/28/2025 11:30 PM [facility] Glucose, Urine Negative Negative mg/dL LAB URINALYSIS - AUTOMATED METHOD 03/28/2025 11:30 PM [facility] Ketones, Urine Negative Negative mg/dL LAB URINALYSIS - AUTOMATED METHOD 03/28/2025 11:30 PM [facility] Urobilinogen, Urine 0.2 0.2 - 1.0 mg/dL LAB URINALYSIS - AUTOMATED METHOD 03/28/2025 11:30 PM [facility] Bilirubin, Urine Negative Negative LAB URINALYSIS - AUTOMATED METHOD 03/28/2025 11:30 PM [facility] Blood, Urine Negative Negative LAB URINALYSIS - AUTOMATED METHOD 03/28/2025 11:30 PM [facility] RBC, Urine 4 0 - 4 /HPF LAB URINALYSIS - AUTOMATED METHOD 03/28/2025 11:30 PM [facility] WBC, Urine 184.6(H) 0 - 4 /HPF LAB URINALYSIS - AUTOMATED METHOD 03/28/2025 11:30 PM EDT [facility] Squamous Epithelial, Urine 60 0 - 60 /LPF LAB URINALYSIS - AUTOMATED METHOD 03/28/2025 11:30 PM EDT [facility] Bacteria, Urine Few(A) Negative /HPF LAB URINALYSIS - AUTOMATED METHOD 03/28/2025 11:30 PM EDT [facility] Hyaline Casts, Urine 0.8 0 - 3 /LPF LAB URINALYSIS - AUTOMATED METHOD 03/28/2025 11:30 PM EDT [facility] Urine Urine specimen obtained by clean catch procedure / Unknown Non-blood Collection / Unknown 03/28/2025 10:40 PM EDT 03/28/2025 11:03 PM EDT us Jorge Ghosh MD LAB URINE ORDERABLES Final Result Performing Organization Address City/[facility]/ZIP Co de Phone Number [facility] [address] [place] [address], [place] [phone] * Dominguez urine culture tube (03/28/2025 10:40 PM EDT) Pathologist [facility] Extra Tube Hold for add-ons. 03/29/2025 1:02 AM EDT [facility] Comment:Auto resulted. Urine Urine specimen obtained by clean catch procedure / Unknown 03/28/2025 10:40 PM EDT 03/28/2025 11:04 PM EDT us Jorge Ghosh MD LAB URINE ORDERABLES Final Result Performing Organization Address [facility]/ZIP Co de Phone Number [facility] [address] [place] [address], [place] [phone] * (ABNORMAL) CBC auto differential (03/28/2025 8:54 PM EDT) Only the most recent of3 resultswithin the time period is included. WBC 10.2 4.8 - 10.8 K/[facility] LAB HEMETOLOGY METHOD 03/28/2025 9:17 PM [facility] RBC 3.70(L) 3.80 - 4.80 M/[facility] LAB HEMETOLOGY METHOD 03/28/2025 9:17 PM [facility] Hemoglobin 9.4(L) 11.5 - 16.0 g/dL LAB HEMETOLOGY METHOD 03/28/2025 9:17 PM [facility] Hematocrit 30.5(L) 35.0 - 47.0 % LAB HEMETOLOGY METHOD 03/28/2025 9:17 PM [facility] MCV 81.6 79.0 - 98.0 FL LAB HEMETOLOGY METHOD 03/28/2025 9:17 PM [facility] MCH 25.1(L) 27.0 - 32.0 pcg LAB HEMETOLOGY METHOD 03/28/2025 9:17 PM [facility] MCHC 30.8(L) 32.0 - 37.0 g/dL LAB HEMETOLOGY METHOD 03/28/2025 9:17 PM [facility] RDW 16.2(H) 11.0 - 15.0 % LAB HEMETOLOGY METHOD 03/28/2025 9:17 PM [facility] Platelets 271 130 - 400 K/[facility] LAB HEMETOLOGY METHOD 03/28/2025 9:17 PM [facility] MPV 11.7(H) 7.0 - 11.0 [place] LAB HEMETOLOGY METHOD 03/28/2025 9:17 PM [facility] NRBC 0.0 <1.0 % LAB HEMETOLOGY METHOD 03/28/2025 9:17 PM [facility] NRBC Absolute 0.00 <0.10 K/[facility] LAB HEMETOLOGY METHOD 03/28/2025 9:17 PM EDT [facility] Neutrophils Relative 60.2 % LAB HEMETOLOGY METHOD [facility]25 [facility] Lymphocytes Relative 28.7 % LAB HEMETOLOGY METHOD 03/28/2025 9:17 PM [facility] Monocytes Relative 5.6 % LAB HEMETOLOGY METHOD 03/28/2025 9:17 PM [facility] Eosinophils Relative 4.8 % LAB HEMETOLOGY METHOD 03/28/2025 9:17 PM [facility] Basophils Relative 0.4 % LAB HEMETOLOGY METHOD 03/28/2025 9:17 PM [facility] Immature Granulocytes Relative 0.3 % LAB HEMETOLOGY METHOD 03/28/2025 9:17 PM [facility] Neutrophils Absolute 6.12 1.50 - 7.00 K/mcL LAB HEMETOLOGY METHOD 03/28/2025 9:17 PM [facility] Lymphocytes Absolute 2.92 1.00 - 5.00 K/mcL LAB HEMETOLOGY METHOD 03/28/2025 9:17 PM [facility] Monocytes Absolute 0.57 0.20 - 1.00 K/mcL LAB HEMETOLOGY METHOD 03/28/2025 9:17 PM [facility] Eosinophils Absolute 0.49 0.00 - 0.50 K/mcL LAB HEMETOLOGY METHOD 03/28/2025 9:17 PM [facility] Basophils Absolute 0.04 0.00 - 0.20 K/mcL LAB HEMETOLOGY METHOD 03/28/2025 9:17 PM [facility] Immature Granulocytes Absolute 0.03 0.00 - 0.03 K/mcL LAB HEMETOLOGY METHOD 03/28/2025 9:17 PM [facility] Blood Venous blood specimen / Unknown Venipuncture / Unknown 03/28/2025 8:54 PM EDT 03/28/2025 9:08 PM EDT us Jorge Ghosh MD LAB BLOOD ORDERABLES Final Result Performing Organization Address [facility]/ZIP Co de Phone Number [facility] [address] [place] [address], [place] [phone] * HCG, quantitative (03/28/2025 8:54 PM EDT) [facility] hCG Quant <1 mIU/mL LAB CHEMISTRY METHOD 03/28/2025 10:53 PM EDT [facility] Blood Venous blood specimen / Unknown Venipuncture / Unknown 03/28/2025 8:54 PM EDT 03/28/2025 9:08 PM EDT Narrative [facility] - 03/28/2025 10:53 PM EDT Quantitative HCG Reference Ranges Time after Conception MIU/ML 0.2-1 Week 5-50 1-2 Weeks 50-500 2-3 Weeks 100-5,000 3-4 Weeks 500-10,000 4-5 Weeks 1,000-50,000 5-6 Weeks 10,000-100,000 6-8 Weeks 15,000-200,000 2-3 Months 10,000-100,000 2nd Trimester 1,000-94,000 3rd Trimester 2,500-90,000 Non- Females 1-3 us Jorge Ghosh MD LAB BLOOD ORDERABLES Final Result Performing Organization Address City/[facility]/ZIP Co de Phone Number [facility] [address] [place] [address], [place] [phone] * Lipase (03/28/2025 8:54 PM EDT) Only the most recent of2 resultswithin the time period is included. [facility] Lipase 45 13 - 75 unit/L LAB CHEMISTRY METHOD 03/28/2025 9:46 PM [facility] Blood Venous blood specimen / Unknown Venipuncture / Unknown 03/28/2025 8:54 PM EDT 03/28/2025 9:08 PM EDT Jorge Ghosh MD LAB BLOOD ORDERABLES Final Result [facility] [address] [place] [address], [place] [phone] * (ABNORMAL) Comprehensive metabolic panel (03/28/2025 8:54 PM EDT) Only the most recent of2 resultswithin the time period is included. [facility] Sodium 140 133 - 145 mmol/L LAB CHEMISTRY METHOD 03/28/2025 9:47 PM [facility] Potassium 4.2 3.5 - 5.5 mmol/L LAB CHEMISTRY METHOD 03/28/2025 9:47 PM [facility] Chloride 112(H) 96 - 110 mmol/L LAB CHEMISTRY METHOD 03/28/2025 9:47 PM [facility] CO2 24 21 - 32 mmol/L LAB CHEMISTRY METHOD 03/28/2025 9:47 PM [facility] Anion Gap 4 3 - 11 LAB CHEMISTRY METHOD 03/28/2025 9:47 PM [facility] Glucose 99 70 - 100 mg/dL LAB CHEMISTRY METHOD 03/28/2025 9:47 PM [facility] BUN 10 5 - 25 mg/dL LAB CHEMISTRY METHOD 03/28/2025 9:47 PM [facility] Creatinine 0.66 0.50 - 1.10 mg/dL LAB CHEMISTRY METHOD 03/28/2025 9:47 PM [facility] eGFR 117 >=60 mL/min/1. 73m2 LAB CHEMISTRY METHOD 03/28/2025 9:47 PM EDT [facility] Comment:Calculation based on the Chronic Kidney Disease Epidemiology Collaboration (CKD-EPI) equation refit without adjustment for race. BUN/Creatinine Ratio 15.2 LAB CHEMISTRY METHOD 03/28/2025 9:47 PM EDT [facility] Calcium 8.7 8.5 - 10.5 mg/dL LAB CHEMISTRY METHOD 03/28/2025 9:47 PM EDT [facility] AST (SGOT) 15 10 - 42 unit/L LAB CHEMISTRY METHOD 03/28/2025 9:47 PM [facility] ALT (SGPT) 19 10 - 60 unit/L LAB CHEMISTRY METHOD 03/28/2025 9:47 PM [facility] Alkaline Phosphatase 41(L) 42 - 121 unit/L LAB CHEMISTRY METHOD 03/28/2025 9:47 PM [facility] Total Protein 6.2 6.0 - 8.0 g/dL LAB CHEMISTRY METHOD 03/28/2025 9:47 PM [facility] Albumin 3.5 3.2 - 5.0 g/dL LAB CHEMISTRY METHOD 03/28/2025 9:47 PM [facility] Total Bilirubin 0.2 0.0 - 1.4 mg/dL LAB CHEMISTRY METHOD 03/28/2025 9:47 PM [facility] Blood Venous blood specimen / Unknown Venipuncture / Unknown 03/28/2025 8:54 PM EDT 03/28/2025 9:08 PM EDT Jorge Ghosh MD LAB BLOOD ORDERABLES Final Result [facility] [address] [place] [address], * ECG-Annotated (03/13/2025) us Provider Onbase MD [...] Signed Date: 03/10/2025 15:12 ET Workstation ID: [id number] Transcribed By: Self Edit Transcribed Date: 03/10/2025 15:08 ET Narrative 03/10/2025 3:12 PM EDT PROCEDURE: CTA HEAD AND NECK INDICATION: syncope. ?CVA TECHNIQUE: CTA of the head and neck with intravenous contrast. Multiplanar reformats. The examination was performed utilizing dose reduction techniques.3-D or MIP images were produced with postprocessing on an independent computer workstation. 90cc Omnipaque 370 injected. Scan was analyzed using [employer] Contact AI based computer aided triage software. [...] is patent. Vertebrobasilar system is patent. Proximal manager commodities are patent. Major dural venous sinuses opacify [...] 90cc Omnipaque 370 injected. Scan wasanalyzed using [facility] Contact AI based computer aided triage [...] is patent. Vertebrobasilar system is patent. Proximal manager commodities are patent. Major dural venous sinuses opacify normally with contrast. Extracranial structures are unremarkable. Degenerative changes in thebones. IMPRESSION: NO ACUTE FINDINGS. -------- FINAL REPORT -------- Dictated By: Tabatha Brooks Dictated Date: 03/10/2025 15:08 ET Assigned Physician: Tabatha Brooks Reviewed and Electronically Signed By: Tabatha Brooks Signed Date: 03/10/2025 15:12 ET Workstation ID: [id number] Transcribed By: Self Edit Transcribed Date: 03/10/2025 15:08 ET Moises Garrison MD IM CT PROCEDURES F inal Result * (ABNORMAL) Basic metabolic panel (03/10/2025 6:43 AM EDT) Sodium 141 133 - 145 mmol/L LAB CHEMISTRY METHOD 03/10/2025 7:29 AM EDT [facility] Potassium 4.2 3.5 - 5.5 mmol/L LAB CHEMISTRY METHOD 03/10/2025 7:29 AM EDT [facility] Chloride 116(H) 96 - 110 mmol/L LAB CHEMISTRY METHOD 03/10/2025 7:29 AM EDT [facility] CO2 22 21 - 32 mmol/L LAB CHEMISTRY METHOD 03/10/2025 7:29 AM [facility] Anion Gap 3 3 - 11 LAB CHEMISTRY METHOD 03/10/2025 7:29 AM [facility] Glucose 86 70 - 100 mg/dL LAB CHEMISTRY METHOD 03/10/2025 7:29 AM [facility] BUN 6 5 - 25 mg/dL LAB CHEMISTRY METHOD 03/10/2025 7:29 AM [facility] Creatinine 0.61 0.50 - 1.10 mg/dL LAB CHEMISTRY METHOD 03/10/2025 7:29 AM [facility] eGFR 119 >=60 mL/min/1. 73m2 LAB CHEMISTRY METHOD 03/10/2025 7:29 AM [facility] Comment:Calculation based on the Chronic Kidney Disease Epidemiology Collaboration (CKD-EPI) equation refit without adjustment for race. BUN/Creatinine Ratio 9.8 LAB CHEMISTRY METHOD 03/10/2025 7:29 AM [facility] Calcium 7.8(L) 8.5 - 10.5 mg/dL LAB CHEMISTRY METHOD 03/10/2025 7:29 AM [facility] Blood Venous blood specimen / Unknown Venipuncture / Unknown 03/10/2025 6:43 AM EDT 03/10/2025 7:04 AM EDT us Meryl Gentile [employer]PECTOR LAB BLOOD ORDERABLES Fin al Result [facility] [address] [place] [address], * CT Head wo Contrast (03/09/2025 6:55 [...] * SST tube (03/09/2025 6:33 PM EDT) Extra Tube Hold for add-ons. 03/09/2025 8:01 PM EDT [facility] Comment:Auto resulted. Blood Venous blood specimen / Unknown 03/09/2025 6:33 PM EDT 03/09/2025 6:46 PM EDT Jaden Cramer MD LAB BLOOD ORDERABLES Fi nal Result [facility] [address] [place] [address], [place] [phone] * (ABNORMAL) Potassium (03/09/2025 6:33 PM EDT) Potassium 3.3(L) 3.5 - 5.5 mmol/L LAB CHEMISTRY METHOD 03/09/2025 8:17 PM EDT [facility] Comment:Hemolysis present Blood Venous blood specimen / Unknown 03/09/2025 6:33 PM EDT 03/09/2025 6:46 PM EDT us Merylthong Gentile [employer] INSPECTOR LAB BLOOD ORDERABLES Fin al Result [facility] [address] [place] [address], [place] [phone] * XR Chest 2 Views (03/09/2025 2:55 [...] Signed Date: 03/09/2025 15:06 ET Workstation ID: [id number] Transcribed By: Self Edit Transcribed Date: 03/09/2025 [...] Signed Date: 03/09/2025 15:06 ET Workstation ID: [id number] Transcribed By: Self Edit Transcribed Date: 03/09/2025 15:05 ET us Rigoberto Quiroz MD IMG XR PROCEDURES Final Result * Troponin I high sensitivity (03/09/2025 2:14 PM EDT) Only the most recent of2 resultswithin the time period is included. [facility] High Sensitivity Troponin I <3 <=54 ng/L LAB CHEMISTRY METHOD 03/09/2025 4:06 PM EDT [facility] Blood Venous blood specimen / Unknown Venipuncture / Unknown 03/09/2025 2:14 PM EDT 03/09/2025 3:24 PM EDT Narrative [facility] - 03/09/2025 4:06 PM EDT High levels of biotin in samples may falsely decrease hsTroponin values. Use caution when interpreting hsTroponin results in patients taking biotin who exhibit renal impairment (eGFR <60) or in patients taking more than 20 mg/day of biotin. Rigoberto Quiroz MD LAB BLOOD ORDERABLES Final Res ult [facility] [address] [place] [address], * ECG 12 lead (03/09/2025 12:01 PM EDT) [facility] Ventricular Rate ECG 70 BPM [facility] Atrial Rate 70 BPM GEMUSE P-R Interval 138 ms GEMUSE QRS Duration 82 ms GEMUSE Q-T Interval 418 ms GEMUSE QTc 451 ms GEMUSE P Wave [place] 32 degrees GEMUSE R [place] 62 degrees GEMUSE T [place] 16 degrees GEMUSE ECG Interpretation Normal sinus rhythm T wave abnormality, consider inferior ischemia Abnormal ECG When compared with ECG of 21-NOV-2021 19:27, T wave inversion now evident in Anterior leads Confirmed by Naun KRAUSE JOHN ([id number]) on 03/09/2025 1:35:48 PM [facility] 03/09/2025 12:0 1 PM EDT 03/09/2025 1:35 PM EDT us Rigoberto Quiroz MD ECG ORDERABLES Final Result Performing Organization Address City/[facility] Co de Phone Number [facility] * hCG, serum, qualitative (03/09/2025 11:57 AM EDT) hCG Qual Negative Negative 03/09/2025 5:42 PM EDT [facility] Blood Venous blood specimen / Unknown Venipuncture / Unknown 03/09/2025 11:57 AM EDT 03/09/2025 1:26 PM EDT us Argenis Gamboa MD LAB BLOOD ORDERABLES Final Resul t Performing Organization Address [facility] Co de Phone Number [facility] [address] [place] [address], [place] [phone] * Magnesium (03/09/2025 11:57 AM EDT) Pathologist [facility] Magnesium 2.3 1.9 - 2.6 mg/dL LAB CHEMISTRY METHOD 03/09/2025 1:52 PM EDT [facility] Blood Venous blood specimen / Unknown Venipuncture / Unknown 03/09/2025 11:57 AM EDT 03/09/2025 1:26 PM EDT us Rigoberto Quiroz MD LAB BLOOD ORDERABLES Final Res ult Performing Organization Address [facility] Co de Phone Number [facility] [address] [place] [address], [place] [phone] from Last 3 Months Insurance [facility] Advance Directives * Full Code - [...] currently active code status orders. Care Teams Production Lead Relationship Specialty Start Date End Date Physician, No Pcp PCP - General 03/09/25
== END 2025-04-11 10:54 | disposition home or self-care (01) ==
LOC: HO.HMCH 10:01
PROVIDERS: PCP Internal Medicine; Visit Provider Internal Medicine
DX: Z00.00 Encounter for general adult medical examination without abnormal findings (principal); F33.1 Major depressive disorder, recurrent, moderate; L29.0 Pruritus ani; M54.50 Low back pain, unspecified; Z23 Encounter for immunization

== ENCOUNTER → 2025-04-11 09:59 | Outpatient (BNVA) | payer OTHER, SELFPAY | PROVIDERS: PCP Internal Medicine; Visit Provider Internal Medicine | DX: Z00.00 Encounter for general adult medical examination without abnormal findings (principal); K59.09 Other constipation; L29.0 Pruritus ani; M54.50 Low back pain, unspecified; F33.1 Major depressive disorder, recurrent, moderate; E55.9 Vitamin D deficiency, unspecified; F41.9 Anxiety disorder, unspecified; Z23 Encounter for immunization; Z79.899 Other long term (current) drug therapy | CPT/HCPCS: 90471; 90715; 99212; 99395 ==

== ENCOUNTER → 2025-04-12 20:08 | Outpatient (BNV) | payer OTHER, SELFPAY | PROVIDERS: PCP Internal Medicine; Visit Provider Radiology Body Imaging | DX: R55 Syncope and collapse (principal) | CPT/HCPCS: 70551 ==

== ENCOUNTER 2025-04-12 20:12 | Outpatient (REF) | payer OTHER, SELFPAY ==
--- NOTE | ~2025-04-12 | MR_ITS ---
EXAMINATION: MR BRAIN WITHOUT CONTRAST CLINICAL INFORMATION: Reason for Exam-R55 - Syncope and collapse COMPARISON: Brain MRI on December 09, 2021 TECHNIQUE: MRI of the brain was obtained using routine sequences without contrast. FINDINGS: Brain parenchyma: No shift of midline structures. No evidence of acute infarct, mass lesion or parenchymal hemorrhage. Allowing to minor technical differences, scattered T2/FLAIR hyperintense changes predominantly located in the bilateral frontal lobes are essentially unchanged from 2021. Ventricles/extra-axial spaces: No hydrocephalus. No extra-axial fluid collection. Extracranial structures: Arterial flow voids in the skull base are preserved. Note is made of suggestion of minimal indentation of the right vertebral artery in the medulla. Mucus retention cyst or polypoid mucosal thickening in the left maxillary sinus. Bilateral mastoid air cells are clear. MR/MR head/brain wo con IMPRESSION: 1. No acute intracranial findings. 2. Nonspecific white matter changes, predominantly in the bilateral frontal lobes, essentially unchanged from 2021. The differentials are headache related white matter changes, microangiopathic disease, demyelinating disorder and various inflammatory/autoimmune/vasculitic processes. Electronically signed by: Marco Snowden MD 04/13/2025 07:04 AM EDT
--- OUTSIDE RECORDS SUMMARY | 2025-04-12 20:25 | XMS_ITS | Clinical Summary ---
Author Organization [facility] Address [address] [place] [address] Phone Care Team Providers Care Slag Skimmer Name Role Phone Physician, No Pcp Primary [...] EDT - 03/29/2025 12:39 AM EDT Emergency [facility] Emergency [address] [place] [id number] Jorge Ghosh MD Pyelonephritis (Primary Dx) Discharge Disposition: Home or Self Care 03/09/2025 2:13 PM EDT - 03/10/2025 4:54 PM EDT Hospital Encounter [facility] Urology Unit [address] [place] [phone] Argenis Gamboa MD Seralathan, Manikandan, MD Kela, [...] CT abdomen and pelvis with contrast Comparison: CT/NV/SR - ABDOMEN AND PELVIS C+ CT - [...] CT abdomen and pelvis with contrast Comparison: CT/NV/SR - ABDOMEN AND PELVIS C+ CT - [...] resultswithin the time period is included. Specific [place] Urine 1.014 1.003 - 1.030 LAB URINALYSIS - AUTOMATED METHOD 03/28/2025 11:30 PM [facility] pH, Urine 6.0 5.0 - 8.0 pH LAB URINALYSIS - AUTOMATED METHOD 03/28/2025 11:30 PM [facility] Leukocytes, Urine Large(A) Negative LAB URINALYSIS - AUTOMATED METHOD 03/28/2025 11:30 PM [facility] Nitrite, Urine Negative Negative LAB [...] - AUTOMATED METHOD 03/28/2025 11:30 PM EDT [facility] Squamous Epithelial, Urine 60 0 - 60 /LPF LAB URINALYSIS - AUTOMATED METHOD 03/28/2025 11:30 PM EDT [facility] Bacteria, Urine Few(A) Negative /HPF LAB URINALYSIS - AUTOMATED METHOD 03/28/2025 11:30 PM EDT [facility] Hyaline Casts, Urine 0.8 0 - 3 /LPF LAB URINALYSIS - AUTOMATED METHOD 03/28/2025 11:30 PM EDT [facility] Urine Urine specimen obtained by clean catch procedure / Unknown Non-blood Collection / Unknown 03/28/2025 10:40 PM EDT 03/28/2025 11:03 PM EDT us Jorge Ghosh MD LAB URINE ORDERABLES Final Result Performing Organization Address City/[facility]/ZIP Co de Phone Number [facility] [address] [place] [address], [place] [phone] * Dominguez urine culture tube (03/28/2025 10:40 PM EDT) Pathologist [facility] Extra Tube Hold for add-ons. 03/29/2025 1:02 AM EDT [facility] Comment:Auto resulted. Urine Urine specimen obtained by clean catch procedure / Unknown 03/28/2025 10:40 PM EDT 03/28/2025 11:04 PM EDT us Jorge Ghosh MD LAB URINE ORDERABLES Final Result Performing Organization Address [facility]/ZIP Co de Phone Number [facility] [address] [place] [address], [place] [phone] * (ABNORMAL) CBC auto differential (03/28/2025 8:54 PM EDT) Only the most recent of3 resultswithin the time period is included. WBC 10.2 4.8 - 10.8 K/[facility] LAB HEMETOLOGY METHOD 03/28/2025 9:17 PM [facility] RBC 3.70(L) 3.80 - 4.80 M/[facility] LAB HEMETOLOGY METHOD 03/28/2025 9:17 PM [facility] Platelets 271 130 - 400 K/[facility] LAB HEMETOLOGY METHOD 03/28/2025 9:17 PM [facility] MPV 11.7(H) 7.0 - 11.0 [place] LAB HEMETOLOGY METHOD 03/28/2025 9:17 PM [facility] NRBC 0.0 <1.0 % LAB HEMETOLOGY METHOD 03/28/2025 9:17 PM [facility] NRBC Absolute 0.00 <0.10 K/[facility] LAB HEMETOLOGY METHOD 03/28/2025 9:17 PM EDT [facility] Neutrophils Relative 60.2 % LAB HEMETOLOGY METHOD 03/28[facility]2025 9:[facility] Lymphocytes Relative 28.7 % [...] BLOOD ORDERABLES Final Result Performing Organization Address [facility]/ZIP Co de Phone Number [facility] [address] [place] [address], [place] [phone] * HCG, quantitative (03/28/2025 8:54 PM EDT) [facility] hCG Quant <1 mIU/mL LAB CHEMISTRY METHOD 03/28/2025 10:53 PM EDT [facility] Blood Venous blood specimen / Unknown Venipuncture / Unknown 03/28/2025 8:54 PM EDT 03/28/2025 9:08 PM EDT Narrative [facility] - 03/28/2025 10:53 PM EDT Quantitative HCG Reference Ranges Time after Conception MIU/ML 0.2-1 Week 5-50 1-2 Weeks 50-500 2-3 Weeks 100-5,000 3-4 Weeks 500-10,000 4-5 Weeks 1,000-50,000 5-6 Weeks 10,000-100,000 6-8 Weeks 15,000-200,000 2-3 Months 10,000-100,000 2nd Trimester 1,000-94,000 3rd Trimester 2,500-90,000 Non- Females 1-3 us Jorge Ghosh MD LAB BLOOD ORDERABLES Final Result Performing Organization Address City/[facility]/ZIP Co de Phone Number [facility] [address] [place] [address], [place] [phone] * Lipase (03/28/2025 8:54 PM EDT) Only the most recent of2 resultswithin the time period is included. [facility] Lipase 45 13 - 75 unit/L LAB CHEMISTRY METHOD 03/28/2025 9:46 PM [facility] Blood Venous blood specimen / Unknown Venipuncture / Unknown 03/28/2025 8:54 PM EDT 03/28/2025 9:08 PM EDT Jorge Ghosh MD LAB BLOOD ORDERABLES Final Result [facility] [address] [place] [address], [place] [phone] * (ABNORMAL) Comprehensive metabolic panel (03/28/2025 8:54 PM EDT) Only the most recent of2 resultswithin the time period is included. [facility] Sodium 140 133 - 145 mmol/L LAB CHEMISTRY METHOD 03/28/2025 9:47 PM [facility] Potassium 4.2 3.5 - 5.5 mmol/L LAB CHEMISTRY METHOD 03/28/2025 9:47 PM [facility] Chloride 112(H) 96 - 110 mmol/L LAB CHEMISTRY METHOD 03/28/2025 9:47 PM [facility] CO2 24 21 - 32 mmol/L LAB CHEMISTRY METHOD 03/28/2025 9:47 PM [facility] Anion Gap 4 3 - 11 LAB CHEMISTRY METHOD 03/28/2025 9:47 PM [facility] Glucose 99 70 - 100 mg/dL LAB CHEMISTRY METHOD 03/28/2025 9:47 PM [facility] BUN 10 5 - 25 mg/dL LAB CHEMISTRY METHOD 03/28/2025 9:47 PM [facility] Creatinine 0.66 0.50 - 1.10 mg/dL LAB CHEMISTRY METHOD 03/28/2025 9:47 PM [facility] eGFR 117 >=60 mL/min/1. 73m2 LAB CHEMISTRY METHOD 03/28/2025 9:47 PM EDT [facility] Comment:Calculation based on the Chronic Kidney Disease Epidemiology Collaboration (CKD-EPI) equation refit without adjustment for race. BUN/Creatinine Ratio 15.2 LAB CHEMISTRY METHOD 03/28/2025 9:47 PM EDT [facility] Calcium 8.7 8.5 - 10.5 mg/dL LAB CHEMISTRY METHOD 03/28/2025 9:47 PM EDT [facility] AST (SGOT) 15 10 - [...] Ghosh MD LAB BLOOD ORDERABLES Final Result [facility] [address] [place] [address], * ECG-Annotated (03/13/2025) us Provider Onbase MD [...] Signed Date: 03/10/2025 15:12 ET Workstation ID: [id number] Transcribed By: Self Edit Transcribed Date: 03/10/2025 15:08 ET Narrative 03/10/2025 3:12 PM EDT PROCEDURE: CTA HEAD AND NECK INDICATION: syncope. ?CVA TECHNIQUE: CTA of the head and neck with intravenous contrast. Multiplanar reformats. The examination was performed utilizing dose reduction techniques.3-D or MIP images were produced with postprocessing on an independent computer workstation. 90cc Omnipaque 370 injected. Scan was analyzed using [employer] for [employer] Contact AI based computer aided triage software. [...] is patent. Vertebrobasilar system is patent. Proximal healthcare corporate account director are patent. Major dural venous sinuses opacify [...] is patent. Vertebrobasilar system is patent. Proximal healthcare corporate account director are patent. Major dural venous sinuses opacify normally with contrast. Extracranial structures are unremarkable. Degenerative changes in thebones. IMPRESSION: NO ACUTE FINDINGS. -------- FINAL REPORT -------- Dictated By: Tabatha Brooks Dictated Date: 03/10/2025 15:08 ET Assigned Physician: Tabatha Brooks Reviewed and Electronically Signed By: Tabatha Brooks Signed Date: 03/10/2025 15:12 ET Workstation ID: [id number] Transcribed By: Self Edit Transcribed Date: 03/10/2025 15:08 ET Moises Garrison MD IM CT PROCEDURES F inal Result * (ABNORMAL) Basic metabolic panel (03/10/2025 6:43 AM EDT) Sodium 141 133 - 145 mmol/L LAB CHEMISTRY METHOD 03/10/2025 7:29 AM EDT [facility] Potassium 4.2 3.5 - 5.5 mmol/L LAB CHEMISTRY METHOD 03/10/2025 7:29 AM EDT [facility] Chloride 116(H) 96 - 110 mmol/L LAB CHEMISTRY METHOD 03/10/2025 7:29 AM EDT [facility] CO2 22 21 - 32 mmol/L LAB CHEMISTRY METHOD 03/10/2025 7:29 AM [facility] Anion Gap 3 3 - 11 LAB CHEMISTRY METHOD 03/10/2025 7:29 AM [facility] Glucose 86 70 - 100 mg/dL LAB CHEMISTRY METHOD 03/10/2025 7:29 AM [facility] BUN 6 5 - 25 mg/dL LAB CHEMISTRY METHOD 03/10/2025 7:29 AM [facility] Creatinine 0.61 0.50 - 1.10 mg/dL LAB CHEMISTRY METHOD 03/10/2025 7:29 AM [facility] eGFR 119 >=60 mL/min/1. 73m2 LAB CHEMISTRY METHOD 03/10/2025 7:29 AM [facility] Comment:Calculation based on the Chronic Kidney Disease Epidemiology Collaboration (CKD-EPI) equation refit without adjustment for race. BUN/Creatinine Ratio 9.8 LAB CHEMISTRY METHOD 03/10/2025 7:29 AM [facility] Calcium 7.8(L) 8.5 - 10.5 mg/dL LAB CHEMISTRY METHOD 03/10/2025 7:29 AM [facility] Blood Venous blood specimen / Unknown Venipuncture / Unknown 03/10/2025 6:43 AM EDT 03/10/2025 7:04 AM EDT us Meryl Gentile CANAL EQUIPMENT MAINTENANCE SUPERVISOR LAB BLOOD ORDERABLES Fin al Result [facility] [address] [place] [address], * CT Head wo Contrast (03/09/2025 6:55 [...] Hold for add-ons. 03/09/2025 8:01 PM EDT [facility] Comment:Auto resulted. Blood Venous blood specimen / Unknown 03/09/2025 6:33 PM EDT 03/09/2025 6:46 PM EDT Jaden rCamer MD LAB BLOOD ORDERABLES Fi nal Result [facility] [address] [place] [address], [place] [phone] * (ABNORMAL) Potassium (03/09/2025 6:33 PM EDT) Potassium 3.3(L) 3.5 - 5.5 mmol/L LAB CHEMISTRY METHOD 03/09/2025 8:17 PM EDT [facility] Comment:Hemolysis present Blood Venous blood specimen / Unknown 03/09/2025 6:33 PM EDT 03/09/2025 6:46 PM EDT us Merylthong Gentile CANAL EQUIPMENT MAINTENANCE SUPERVISOR LAB BLOOD ORDERABLES Fin al Result [facility] [address] [place] [address], [place] [phone] * XR Chest 2 Views (03/09/2025 2:55 [...] Signed Date: 03/09/2025 15:06 ET Workstation ID: [id number] Transcribed By: Self Edit Transcribed Date: 03/09/2025 [...] Signed Date: 03/09/2025 15:06 ET Workstation ID: [id number] Transcribed By: Self Edit Transcribed Date: 03/09/2025 15:05 ET us Rigoberto Quiroz MD IMG XR PROCEDURES Final Result * Troponin I high sensitivity (03/09/2025 2:14 PM EDT) Only the most recent of2 resultswithin the time period is included. [facility] High Sensitivity Troponin I <3 <=54 ng/L LAB CHEMISTRY METHOD 03/09/2025 4:06 PM EDT [facility] Blood Venous blood specimen / Unknown Venipuncture / Unknown 03/09/2025 2:14 PM EDT 03/09/2025 3:24 PM EDT Narrative [facility] - 03/09/2025 4:06 PM EDT High levels of biotin in samples may falsely decrease hsTroponin values. Use caution when interpreting hsTroponin results in patients taking biotin who exhibit renal impairment (eGFR <60) or in patients taking more than 20 mg/day of biotin. Rigoberto Quiroz MD LAB BLOOD ORDERABLES Final Res ult [facility] [address] [place] [address], * ECG 12 lead (03/09/2025 12:01 PM EDT) [facility] Ventricular Rate ECG 70 BPM GEM[facility] Atrial Rate 70 BPM GEMUSE P-R Interval 138 ms GEMUSE QRS Duration 82 ms GEMUSE Q-T Interval 418 ms GEMUSE QTc 451 ms GEMUSE P Wave Halbur 32 degrees GEMUSE R Halbur 62 degrees GEMUSE T Halbur 16 degrees GEMUSE ECG Interpretation Normal sinus rhythm T wave abnormality, consider inferior ischemia Abnormal ECG When compared with ECG of 21-NOV-2021 19:27, T wave inversion now evident in Anterior leads Confirmed by Naun KRAUSE JOHN ([id number]) on 03/09/2025 1:35:48 PM GEMUSE 03/09/2025 12:0 1 PM EDT 03/09/2025 1:35 PM EDT us Rigoberto Quiroz MD ECG ORDERABLES Final Result Performing Organization Address City/[facility] Co de Phone Number GEMUSE * hCG, serum, qualitative (03/09/2025 11:57 AM EDT) hCG Qual Negative Negative 03/09/2025 5:42 PM EDT [facility] Blood Venous blood specimen / Unknown Venipuncture / Unknown 03/09/2025 11:57 AM EDT 03/09/2025 1:26 PM EDT us Argenis Gamboa MD LAB BLOOD ORDERABLES Final Resul t Performing Organization Address [facility] Co de Phone Number [facility] [address] [place] [address], [place] [phone] * Magnesium (03/09/2025 11:57 AM EDT) Pathologist [facility] Magnesium 2.3 1.9 - 2.6 mg/dL LAB CHEMISTRY METHOD 03/09/2025 1:52 PM EDT [facility] Blood Venous blood specimen / Unknown Venipuncture / Unknown 03/09/2025 11:57 AM EDT 03/09/2025 1:26 PM EDT us Rigoberto Quiroz MD LAB BLOOD ORDERABLES Final Res ult Performing Organization Address [facility] Co de Phone Number [facility] [address] [place] [address], [place] [phone] from Last 3 Months Insurance [facility] PL[employer] Advance Directives * Full Code - [...] currently active code status orders. Care Teams Slag Skimmer Relationship Specialty Start Date End Date Physician, No Pcp PCP - General 03/09/25
--- OUTSIDE RECORDS SUMMARY | 2025-04-12 20:25 | XMS_ITS | Clinical Summary ---
Author Organization [facility] spital Address [address] [place] [address] Phone Care Team Providers Care Hospital Attendant Name Role Phone Unavailable Primary Care Provider Unavailabl e Encounters Date Type Department Care Team Description 02/10/2025 Orders Only [facility] [address] [place] [address] Odalis Frances, [facility] Family history of carrier of genetic disease [...] inal Result [facility] [address] [place] [address], [place] [phone] from Last 3 Months
== END 2025-04-12 20:13 | disposition home or self-care (01) ==
LOC: HO.MRI 20:12
PROVIDERS: PCP Internal Medicine; Visit Provider Internal Medicine
DX: R55 Syncope and collapse (principal)
CPT/HCPCS: 70551

== ENCOUNTER → 2025-04-13 10:42 | Outpatient (REF) | payer OTHER, SELFPAY ==
--- NOTE | 2025-04-13 10:45 | HM_ITS ---
Conclusion: 1. Patient was monitored for total period of 2 days 2. Baseline was normal sinus rhythm with average heart of 86 beats per minute 3. No significant arrhythmias or pauses noted 4. No patient reported events MTDD
--- NOTE | 2025-04-13 10:45 | CA_ITS ---
Transthoracic Echocardiogram Patient (Last, First, Middle): Amaya Montana, Gender: Female Date of : 1990 Age: 34 Procedure Date: 04/13/2025 Procedure Type: Transthoracic Echocardiogram Location: OP Height: 157.48 cm Weight: 60.78 kg BSA: 1.61 m2 Heart Rate: bpm BP: 92 / 58 mmHg Carpenter Ship: TO/RC Referring MD: Dolores Gonzalez MD Symptoms: R55 - Syncope and collapse Study Quality: Adequate ECG Rhythm: Sinus Conclusions: - The left ventricular systolic function is normal. The calculated ejection fraction is 63% by biplane method. - No obvious valvular pathology seen on this study. Findings Left Ventricle Normal left ventricular cavity size. There is normal left ventricular wall thickness. The left ventricular systolic function is normal. The calculated ejection fraction is 63% by biplane method. There is no evidence of regional wall motion abnormalities. Diastolic function is normal for age. Right Ventricle Normal right ventricular cavity size and systolic function. Atria Both atria are normal in size. Aortic Valve There is a normal trileaflet aortic valve. There is no aortic valve stenosis. There is no aortic valve regurgitation. Mitral Valve The mitral valve appears normal. There is no mitral valve regurgitation. There is no mitral valve stenosis. Pulmonic Valve The pulmonic valve is likely normal. Tricuspid Valve There is no tricuspid valve regurgitation. Tricuspid regurgitation envelope is inadequate for calculation of right ventricular systolic pressure. Great Vessels The asc aorta is normal in size. Venous The inferior vena cava is normal in size and collapses greater than 50% with inspiration. Pericardium/Pleural There is no evidence of pericardial effusion. Prior Study Comparison No significant change compared to prior study dated: 02/05/2022. Recommendations, Care & Conclusions No obvious valvular pathology seen on this study. Measurements 2D Linear Measurements IVSd: 0.66 0.6-0.9/0.6-1.0 cm LVIDd: 4.46 3.9-5.3/4.2-5.9 cm LVIDd Index: 2.77 2.4-3.2/2.2-3.1 cm/m2 LVIDs: 3.08 2.0-3.6 cm LVPWd: 0.69 0.7-1.1 cm LA Diam: 2.90 2.7-3.8/3.0-4.0 cm LAIDs Index: 1.80 1.5-2.3 cm/m2 LV Mass: 111.07 67-162/88-224 g LV Mass Index: 68.99 43-95/49-115 g/m2 LVOT Diam: 2.00 3.0+(-)1.3 cm 2D Systolic Function EF 4C: 58.50 >55% EF 2C: 65.00 >55% EF BiP: 62.80 >55% Mitral Valve MV Pk E: 0.86 MV PK A: 0.85 MV Decel Time: 146.00 E/A: 1.00 E'Lateral: 12.40 E'Medial: 8.27 E/E' Med: 10.40 E/E' Lat: 6.90 PHT: 43.00 MVA PHT: 5.12 Decel Giles: 5.87 Aortic Valve AoV Pk Bobby: 1.14 AoV Mn Bobby: 0.82 AoV VTI: 0.23 AoV Pk Grad: 5.00 Aov Mn Grad: 3.00 PRISCILLA Cont.VTI: 2.86 LVOT LVOT Pk Bobby: 1.07 LVOT Mn Bobby: 0.76 LVOT VTI: 0.21 LVOT Pk Grad: 5.00 LVOT Mn Grad: 2.00 LVOT Diam: 2.00 LVOT Area: 3.14 Diastolic Function MV Pk E: 0.86 MV Pk A: 0.85 E/A: 1.00 E'Medial: 8.27 E/E' Med: 10.40 E' Laterial: 12.40 E/E' Lat: 6.90 IVC Diam Exp: 1.40 Right Ventricle TAPSE (mm): 17.50 TVS' Bobby: 12.40 Tricuspid Valve RA Press: 3.00 IVC Diam Exp: 1.40 Great Vessels Aorta Sinus of Valsalva: 2.60 2.0-3.5 cm Ao Asc: 2.50 2.1-3.4 cm Pulmonary Veins Pulm Vein S/D 1.50 Pulmonary Valve PV Pk Bobby: 0.92 Peak PV Grad: 3.00 Updated in Other Vendor System with Status of Final Gamaliel Brooks MD electronically signed on 04/14/2025 4:45:14 PM with status of Final
--- OUTSIDE RECORDS SUMMARY | 2025-04-13 13:12 | XMS_ITS | Clinical Summary ---
Author Organization [facility] spital Address [address] [place] [address] Phone Care Team Providers Care Manager Of Network Name Role Phone Unavailable Primary Care Provider Unavailabl e Encounters Date Type Department Care Team Description 02/10/2025 Orders Only [facility] [address] [place] [address] Odalis Frances, [facility] [place] [place] Family history of carrier of genetic disease [...] inal Result [facility] [address] [place] [address], [place] [phone] from Last 3 Months
--- OUTSIDE RECORDS SUMMARY | 2025-04-13 13:12 | XMS_ITS | Clinical Summary ---
Author Organization [facility] Address [address] [place] [address] Phone Care Team Providers Care Corporate Strategy Intern Name Role Phone Physician, No Pcp Primary [...] EDT - 03/29/2025 12:39 AM EDT Emergency [facility] Emergency [address] [place] [phone] Jorge Ghosh MD Pyelonephritis (Primary Dx) Discharge Disposition: Home or Self Care 03/09/2025 2:13 PM EDT - 03/10/2025 4:54 PM EDT Hospital Encounter [facility]rology Unit [address] [place] [phone] Argenis Gamboa MD Seralathan, Manikandan, MD Kela, [...] CT abdomen and pelvis with contrast Comparison: CT/AZ/SR - ABDOMEN AND PELVIS C+ CT - [...] CT abdomen and pelvis with contrast Comparison: CT/AZ/SR - ABDOMEN AND PELVIS C+ CT - [...] resultswithin the time period is included. Specific [place] Urine 1.014 1.003 - 1.030 LAB URINALYSIS - AUTOMATED METHOD 03/28/2025 11:30 PM [facility] pH, Urine 6.0 5.0 - 8.0 pH LAB URINALYSIS - AUTOMATED METHOD 03/28/2025 11:30 PM [facility] Leukocytes, Urine Large(A) Negative LAB URINALYSIS - AUTOMATED METHOD 03/28/2025 11:30 PM [facility] Nitrite, Urine Negative Negative LAB URINALYSIS - AUTOMATED METHOD 03/28/2025 11:30 PM [facility] Protein, Urine Negative <=Trace mg/dL LAB URINALYSIS - AUTOMATED METHOD 03/28/2025 11:30 PM [facility] Glucose, Urine Negative Negative mg/dL LAB URINALYSIS - AUTOMATED METHOD 03/28/2025 11:30 PM [facility] Ketones, Urine Negative Negative mg/dL LAB URINALYSIS - AUTOMATED METHOD 03/28/2025 11:30 PM [facility] Urobilinogen, Urine 0.2 0.2 - 1.0 mg/dL LAB URINALYSIS - AUTOMATED METHOD 03/28/2025 11:30 PM [facility] Bilirubin, Urine Negative Negative LAB URINALYSIS - AUTOMATED METHOD 03/28/2025 11:30 PM [facility] Blood, Urine Negative Negative LAB URINALYSIS - AUTOMATED METHOD 03/28/2025 11:30 PM [facility] RBC, Urine 4 0 - 4 /HPF LAB URINALYSIS - AUTOMATED METHOD 03/28/2025 11:30 PM [facility] WBC, Urine 184.6(H) 0 - 4 /HPF LAB URINALYSIS - AUTOMATED METHOD 03/28/2025 11:[address] [facility] Squamous Epithelial, Urine 60 0 - 60 /LPF LAB URINALYSIS - AUTOMATED METHOD 03/28/2025 11:[address] [facility] Bacteria, Urine Few(A) Negative /HPF LAB URINALYSIS - AUTOMATED METHOD 03/28/2025 11:[address] [facility] Hyaline Casts, Urine 0.8 0 - 3 /LPF LAB URINALYSIS - AUTOMATED METHOD 03/28/2025 11:[address] [facility] Urine Urine specimen obtained by clean catch procedure / Unknown Non-blood Collection / Unknown 03/28/2025 10:40 PM EDT 03/28/2025 11:03 PM EDT us Jorge Ghosh MD LAB URINE ORDERABLES Final Result Performing Organization Address City/[facility]/ZIP Co de Phone Number [facility] [address] [place] [address], [place] [phone] * Dominguez urine culture tube (03/28/2025 10:40 PM EDT) Pathologist [facility] Extra Tube Hold for add-ons. 03/29/2025 1:[address] [facility] Comment:Auto resulted. Urine Urine specimen obtained by clean catch procedure / Unknown 03/28/2025 10:40 PM EDT 03/28/2025 11:04 PM EDT us Jorge Ghosh MD LAB URINE ORDERABLES Final Result Performing Organization Address [facility]/ZIP Co de Phone Number [facility] [address] [place] [address], [place] [phone] * (ABNORMAL) CBC auto differential (03/28/2025 8:54 PM EDT) Only the most recent of3 resultswithin the time period is included. WBC 10.2 4.8 - 10.8 K/[facility] LAB HEMETOLOGY METHOD 03/28/2025 9:17 PM [facility] RBC 3.70(L) 3.80 - 4.80 M/[facility] LAB HEMETOLOGY METHOD 03/28/2025 9:17 PM [facility] Hemoglobin 9.4(L) 11.5 - 16.0 g/dL LAB HEMETOLOGY METHOD 03/28/2025 9:17 PM [facility] Hematocrit 30.5(L) 35.0 - 47.0 % LAB HEMETOLOGY METHOD 03/28/2025 9:17 PM [facility] MCV 81.6 79.0 - 98.0 FL LAB HEMETOLOGY METHOD 03/28/2025 9:17 PM [facility] MCH 25.1(L) 27.0 - 32.0 pcg LAB HEMETOLOGY METHOD 03/28/2025 9:17 PM [facility] MCHC 30.8(L) 32.0 - 37.0 g/dL LAB HEMETOLOGY METHOD 03/28/2025 9:17 PM [facility] RDW 16.2(H) 11.0 - 15.0 % LAB HEMETOLOGY METHOD 03/28/2025 9:17 PM [facility] Platelets 271 130 - 400 K/[facility] LAB HEMETOLOGY METHOD 03/28/2025 9:17 PM [facility] MPV 11.7(H) 7.0 - 11.0 FL LAB HEMETOLOGY METHOD 03/28/2025 9:17 PM [facility] NRBC 0.0 <1.0 % LAB HEMETOLOGY METHOD 03/28/2025 9:17 PM [facility] NRBC Absolute 0.00 <0.10 K/[facility] LAB HEMETOLOGY METHOD 03/28/2025 9:[address] [facility] Neutrophils Relative 60.2 % LAB [facility]EMETOLOGY [facility] Lymphocytes Relative 28.7 % LAB HEMETOLOGY METHOD 03/28/2025 9:17 PM [facility] Monocytes Relative 5.6 % LAB HEMETOLOGY METHOD 03/28/2025 9:17 PM [facility] Eosinophils Relative 4.8 % LAB HEMETOLOGY METHOD 03/28/2025 9:17 PM [facility] Basophils Relative 0.4 % LAB HEMETOLOGY METHOD 03/28/2025 9:17 PM [facility] Immature Granulocytes Relative 0.3 % LAB HEMETOLOGY METHOD 03/28/2025 9:17 PM [facility] Neutrophils Absolute 6.12 1.50 - 7.00 K/mcL LAB HEMETOLOGY METHOD 03/28/2025 9:17 PM [facility] Lymphocytes Absolute 2.92 1.00 - 5.00 K/mcL LAB HEMETOLOGY METHOD 03/28/2025 9:17 PM [facility] Monocytes Absolute 0.57 0.20 - 1.00 K/mcL LAB HEMETOLOGY METHOD 03/28/2025 9:17 PM [facility] Eosinophils Absolute 0.49 0.00 - 0.50 K/mcL LAB HEMETOLOGY METHOD 03/28/2025 9:17 PM [facility] Basophils Absolute 0.04 0.00 - 0.20 K/mcL LAB HEMETOLOGY METHOD 03/28/2025 9:17 PM [facility] Immature Granulocytes Absolute 0.03 0.00 - 0.03 K/mcL LAB HEMETOLOGY METHOD 03/28/2025 9:17 PM [facility] Blood Venous blood specimen / Unknown Venipuncture / Unknown 03/28/2025 8:54 PM EDT 03/28/2025 9:08 PM EDT us Jorge Ghosh MD LAB BLOOD ORDERABLES Final Result Performing Organization Address [facility]/ZIP Co de Phone Number [facility] [address] [place] [address], [place] [phone] * HCG, quantitative (03/28/2025 8:54 PM EDT) [facility] hCG Quant <1 mIU/mL LAB CHEMISTRY METHOD 03/28/2025 10:[address] [facility] Blood Venous blood specimen / Unknown Venipuncture / Unknown 03/28/2025 8:54 PM EDT 03/28/2025 9:[address] [facility] - 03/28/2025 10:53 PM EDT Quantitative HCG Reference Ranges Time after Conception MIU/ML 0.2-1 Week 5-50 1-2 Weeks 50-500 2-3 Weeks 100-5,000 3-4 Weeks 500-10,000 4-5 Weeks 1,000-50,000 5-6 Weeks 10,000-100,000 6-8 Weeks 15,000-200,000 2-3 Months 10,000-100,000 2nd Trimester 1,000-94,000 3rd Trimester 2,500-90,000 Non- Females 1-3 us Jorge Ghosh MD LAB BLOOD ORDERABLES Final Result Performing Organization Address City/[facility]/ZIP Co de Phone Number [facility] [address] [place] [address], [place] [phone] * Lipase (03/28/2025 8:54 PM EDT) Only the most recent of2 resultswithin the time period is included. [facility] Lipase 45 13 - 75 unit/L LAB CHEMISTRY METHOD 03/28/2025 9:46 PM [facility] Blood Venous blood specimen / Unknown Venipuncture / Unknown 03/28/2025 8:54 PM EDT 03/28/2025 9:08 PM EDT Jorge Ghosh MD LAB BLOOD ORDERABLES Final Result [facility] [address] [place] [address], [place] [phone] * (ABNORMAL) Comprehensive metabolic panel (03/28/2025 8:54 PM EDT) Only the most recent of2 resultswithin the time period is included. [facility] Sodium 140 133 - 145 mmol/L LAB CHEMISTRY METHOD 03/28/2025 9:47 PM [facility] Potassium 4.2 3.5 - 5.5 mmol/L LAB CHEMISTRY METHOD 03/28/2025 9:47 PM [facility] Chloride 112(H) 96 - 110 mmol/L LAB CHEMISTRY METHOD 03/28/2025 9:47 PM [facility] CO2 24 21 - 32 mmol/L LAB CHEMISTRY METHOD 03/28/2025 9:47 PM [facility] Anion Gap 4 3 - 11 LAB CHEMISTRY METHOD 03/28/2025 9:47 PM [facility] Glucose 99 70 - 100 mg/dL LAB CHEMISTRY METHOD 03/28/2025 9:47 PM [facility] BUN 10 5 - 25 mg/dL LAB CHEMISTRY METHOD 03/28/2025 9:47 PM [facility] Creatinine 0.66 0.50 - 1.10 mg/dL LAB CHEMISTRY METHOD 03/28/2025 9:47 PM [facility] eGFR 117 >=60 mL/min/1. 73m2 LAB CHEMISTRY METHOD 03/28/2025 9:[address] [facility] Comment:Calculation based on the Chronic Kidney Disease Epidemiology Collaboration (CKD-EPI) equation refit without adjustment for race. BUN/Creatinine Ratio 15.2 LAB CHEMISTRY METHOD 03/28/2025 9:[address] [facility] Calcium 8.7 8.5 - 10.5 mg/dL LAB CHEMISTRY METHOD 03/28/2025 9:[address] [facility] AST (SGOT) 15 10 - 42 unit/L LAB CHEMISTRY METHOD 03/28/2025 9:47 PM [facility] ALT (SGPT) 19 10 - 60 unit/L LAB CHEMISTRY METHOD 03/28/2025 9:47 PM [facility] Alkaline Phosphatase 41(L) 42 - 121 unit/L LAB CHEMISTRY METHOD 03/28/2025 9:47 PM [facility] Total Protein 6.2 6.0 - 8.0 g/dL LAB CHEMISTRY METHOD 03/28/2025 9:47 PM [facility] Albumin 3.5 3.2 - 5.0 g/dL LAB CHEMISTRY METHOD 03/28/2025 9:47 PM [facility] Total Bilirubin 0.2 0.0 - 1.4 mg/dL LAB CHEMISTRY METHOD 03/28/2025 9:47 PM [facility] Blood Venous blood specimen / Unknown Venipuncture / Unknown 03/28/2025 8:54 PM EDT 03/28/2025 9:08 PM EDT Jorge Ghosh MD LAB BLOOD ORDERABLES Final Result [facility] [address] [place] [address], * ECG-Annotated (03/13/2025) us Provider Onbase MD [...] Signed Date: 03/10/2025 15:12 ET Workstation ID: [id number] Transcribed By: Self Edit Transcribed Date: 03/10/2025 15:08 ET Narrative 03/10/2025 3:12 PM EDT PROCEDURE: CTA HEAD AND NECK INDICATION: syncope. ?CVA TECHNIQUE: CTA of the head and neck with intravenous contrast. Multiplanar reformats. The examination was performed utilizing dose reduction techniques.3-D or MIP images were produced with postprocessing on an independent computer workstation. 90cc Omnipaque 370 injected. Scan was analyzed using [employer] AI based computer aided triage software. [...] is patent. Vertebrobasilar system is patent. Proximal mechanic insulator are patent. Major dural venous sinuses opacify [...] 90cc Omnipaque 370 injected. Scan wasanalyzed using [facility] Contact AI based computer aided [...] is patent. Vertebrobasilar system is patent. Proximal mechanic insulator are patent. Major dural venous sinuses opacify normally with contrast. Extracranial structures are unremarkable. Degenerative changes in thebones. IMPRESSION: NO ACUTE FINDINGS. -------- FINAL REPORT -------- Dictated By: Tabatha Brooks Dictated Date: 03/10/2025 15:08 ET Assigned Physician: Tabatha Brooks Reviewed and Electronically Signed By: Tabatha Brooks Signed Date: 03/10/2025 15:12 ET Workstation ID: [id number] Transcribed By: Self Edit Transcribed Date: 03/10/2025 15:08 ET Moises Garrison MD IM CT PROCEDURES F inal Result * (ABNORMAL) Basic metabolic panel (03/10/2025 6:43 AM EDT) Sodium 141 133 - 145 mmol/L LAB CHEMISTRY METHOD 03/10/2025 7:[address] [facility] Potassium 4.2 3.5 - 5.5 mmol/L LAB CHEMISTRY METHOD 03/10/2025 7:[address] [facility] Chloride 116(H) 96 - 110 mmol/L LAB CHEMISTRY METHOD 03/10/2025 7:[address] [facility] CO2 22 21 - 32 mmol/L LAB CHEMISTRY METHOD 03/10/2025 7:29 AM [facility] Anion Gap 3 3 - 11 LAB CHEMISTRY METHOD 03/10/2025 7:29 AM [facility] Glucose 86 70 - 100 mg/dL LAB CHEMISTRY METHOD 03/10/2025 7:29 AM [facility] BUN 6 5 - 25 mg/dL LAB CHEMISTRY METHOD 03/10/2025 7:29 AM [facility] Creatinine 0.61 0.50 - 1.10 mg/dL LAB CHEMISTRY METHOD 03/10/2025 7:29 AM [facility] eGFR 119 >=60 mL/min/1. 73m2 LAB CHEMISTRY METHOD 03/10/2025 7:29 AM [facility] Comment:Calculation based on the Chronic Kidney Disease Epidemiology Collaboration (CKD-EPI) equation refit without adjustment for race. BUN/Creatinine Ratio 9.8 LAB CHEMISTRY METHOD 03/10/2025 7:29 AM [facility] Calcium 7.8(L) 8.5 - 10.5 mg/dL LAB CHEMISTRY METHOD 03/10/2025 7:29 AM [facility] Blood Venous blood specimen / Unknown Venipuncture / Unknown 03/10/2025 6:43 AM EDT 03/10/2025 7:04 AM EDT us Meryl Gentile BLOCKER HAND LAB BLOOD ORDERABLES Fin al Result [facility] [address] [place] [address], * CT Head wo Contrast (03/09/2025 6:55 [...] Hold for add-ons. 03/09/2025 8:[address] [facility] Comment:Auto resulted. Blood Venous blood specimen / Unknown 03/09/2025 6:33 PM EDT 03/09/2025 6:46 PM EDT Jaden Cramer MD LAB BLOOD ORDERABLES Fi nal Result [facility] [address] [place] [address], [place] [phone] * (ABNORMAL) Potassium (03/09/2025 6:33 PM EDT) Potassium 3.3(L) 3.5 - 5.5 mmol/L LAB CHEMISTRY METHOD 03/09/2025 8:[address] [facility] Comment:Hemolysis present Blood Venous blood specimen / Unknown 03/09/2025 6:33 PM EDT 03/09/2025 6:46 PM EDT us Merylthong Gentile [employer] LAB BLOOD ORDERABLES Fin al Result [facility] [address] [place] [address], [place] [phone] * XR Chest 2 Views (03/09/2025 2:55 [...] Signed Date: 03/09/2025 15:06 ET Workstation ID: [id number] Transcribed By: Self Edit Transcribed Date: 03/09/2025 [...] Signed Date: 03/09/2025 15:06 ET Workstation ID: [id number] Transcribed By: Self Edit Transcribed Date: 03/09/2025 15:05 ET us Rigoberto Quiroz MD IMG XR PROCEDURES Final Result * Troponin I high sensitivity (03/09/2025 2:14 PM EDT) Only the most recent of2 resultswithin the time period is included. [facility] High Sensitivity Troponin I <3 <=54 ng/L LAB CHEMISTRY METHOD 03/09/2025 4:[address] [facility] Blood Venous blood specimen / Unknown Venipuncture / Unknown 03/09/2025 2:14 PM EDT 03/09/2025 3:[address] [facility] - 03/09/2025 4:06 PM EDT High levels of biotin in samples may falsely decrease hsTroponin values. Use caution when interpreting hsTroponin results in patients taking biotin who exhibit renal impairment (eGFR <60) or in patients taking more than 20 mg/day of biotin. Rigoberto Quiroz MD LAB BLOOD ORDERABLES Final Res ult [facility] [address] [place] [address], * ECG 12 lead (03/09/2025 12:01 PM EDT) [facility] Ventricular Rate ECG 70 BPM GEMUSE Atrial Rate 70 BPM GEMUSE P-R Interval 138 ms GEMUSE QRS Duration 82 ms GEMUSE Q-T Interval 418 ms GEMUSE QTc 451 ms GEMUSE P Wave [place] 32 degrees GEMUSE R [place] 62 degrees GEMUSE T [place] 16 degrees GEMUSE ECG Interpretation Normal sinus rhythm T wave abnormality, consider inferior ischemia Abnormal ECG When compared with ECG of 21-NOV-2021 19:27, T wave inversion now evident in Anterior leads Confirmed by Naun KRAUSE JOHN ([id number]) on 03/09/2025 1:35:48 PM GEM[facility] 03/09/2025 12:0 1 PM EDT 03/09/2025 1:35 PM EDT us Rigoberto Quiroz MD ECG ORDERABLES Final Result Performing Organization Address City/[facility] Co de Phone Number G[facility] * hCG, serum, qualitative (03/09/2025 11:57 AM EDT) hCG Qual Negative Negative 03/09/2025 5:[address] [facility] Blood Venous blood specimen / Unknown Venipuncture / Unknown 03/09/2025 11:57 AM EDT 03/09/2025 1:26 PM EDT us Argenis Gamboa MD LAB BLOOD ORDERABLES Final Resul t Performing Organization Address [facility] Co de Phone Number [facility] [address] [place] [address], [place] [phone] * Magnesium (03/09/2025 11:57 AM EDT) Pathologist [facility] Magnesium 2.3 1.9 - 2.6 mg/dL LAB CHEMISTRY METHOD 03/09/2025 1:[address] [facility] Blood Venous blood specimen / Unknown Venipuncture / Unknown 03/09/2025 11:57 AM EDT 03/09/2025 1:26 PM EDT us Rigoberto Quiroz MD LAB BLOOD ORDERABLES Final Res ult Performing Organization Address [facility] Co de Phone Number [facility] [address] [place] [address], [place] [phone] from Last 3 Months Insurance [employer] Advance Directives * Full Code - [...] currently active code status orders. Care Teams Corporate Strategy Intern Relationship Specialty Start Date End Date Physician, No Pcp PCP - General 03/09/25
== END ==
LOC: HO.CARD 10:42
PROVIDERS: PCP Internal Medicine; Visit Provider Internal Medicine
DX: R55 Syncope and collapse (principal)
CPT/HCPCS: 93225; 93306

== ENCOUNTER → 2025-04-13 10:45 | Outpatient (BNV) | payer OTHER, SELFPAY | PROVIDERS: PCP Internal Medicine; Visit Provider Internal Medicine | DX: R55 Syncope and collapse (principal) | CPT/HCPCS: 93306 ==

== ENCOUNTER 2025-04-20 09:46 | Outpatient (AMB) | payer OTHER, SELFPAY ==
--- NOTE | 2025-04-20 09:49 | A.OFFVIS_ITS ---
Vital Signs 04/20/25 09:55 Height 5 ft 2 in Weight 133 lb BMI 24.3 BP 112/70 Blood Pressure Location Rt brachial Position Sitting Respiration 17 Pulse 88 Pulse Source Pulse Oximeter Pulse Oximetry (%) 100 Oxygen Delivery Method Room Air Intake Visit Reasons: 2m with EB Migraine Executive Director Of Marketing Required: No Allergies acetaminophen (From TYLENOL) Allergy (Intermediate, Verified 04/20/25 09:56) Itching ibuprofen Allergy (Intermediate, Verified 04/20/25 09:56) pruritus oxycodone Allergy (Intermediate, Verified 04/20/25 09:56) rash APAP Allergy (Intermediate, Uncoded 04/11/25 10:35) Itching HPI Comments Details: Amaya is a 34-year-old female patient with a past medical history of anxiety, constipation, depression, FM, and migraine including symptoms of complicated migraine who is following in the clinic for her migraine care. She was last seen by Dr. Tatum in February of 2025. At the time their last visit, she had noticed an increase in the frequency of her headaches which were occurring upon awakening from sleep. She has tried several prophylactic medications in the past including Depakote, topiramate, propranolol, and verapamil with limited success. She was currently on duloxetine at that time. At the time of last visit, she was prescribed Nurtec 75 mg every other day for migraine prophylaxis. Today she tells me that she never started the Nurtec because it was denied by insurance. She continues to have near daily headaches lasting for at least 12 hours per day. She estimates that she has at least 20 migraine days per month. Her pain is generally bifrontal and occipital described as a pounding sensation in associated with light and sound sensitivity as well as nausea and occasionally vomiting. Sometimes when she has a migraine she has some difficulty with word finding. She denies any visual auras though in the past has had paresthesias in the hands and feet associated with her migraines. She does note some significant neck pain with history of scoliosis of the lumbar spine. She is concerned about structural changes to her cervical spine that may be contributing. She has been taking sumatriptan for abortive therapy and since February has been taking it nearly daily. [facility] Medical History Moderate recurrent major depression Fibromyalgia Chronic GERD Hand pain Constipation by delayed colonic transit Polyarthralgia Allergic rhinitis DALE (generalized anxiety disorder) Mild recurrent major depression Right ankle injury Obese Insomnia Constipation Low back pain Scoliosis Anxiety and depression Migraines Umbilical hernia Morbid obesity Umbilical pain Surgical History History of esophagogastroduodenoscopy (EGD) History of umbilical hernia repair Family History Father Essential hypertension Mother Diabetes mellitus Essential hypertension Pulmonary fibrosis Maternal Grandmother Unknown family medical history Brother No problems noted. Sister No problems noted. Sister No problems noted. Sister No problems noted. Son No problems noted. Social History Household Members: Children Housing: House Alcohol intake: never Patient Tobacco Use Status: Never used Tobacco e-Cigarette/Vaping Use: Never Used Second Hand Smoke Exposure: No service: No Current occupational status: unemployed Gender identity: Female Cognitive needs: No Hearing needs: No Vision needs: Yes Female Reproductive History Menstrual Age of Menarche: 10 Review of Systems Const All systems reviewed & are unremarkable except as noted in HPI and below Physical Exam Vital Signs: Last Vital Signs Pulse 88 04/20/25 09:55 Resp 17 04/20/25 09:55 BP 112/70 04/20/25 09:55 Pulse Ox 100 04/20/25 09:55 Oxygen Delivery Method Room Air 04/20/25 09:55 BMI result Body Mass Index 24.3 Const General: cooperative, healthy appearing, comfortable and no acute distress Nutritional Appearance: well nourished Orientation/consciousness: patient oriented x3 Limitations: no limitations HEENT Head: Yes normal to inspection and Yes normocephalic Eyes General: appearance normal, both eyes and all related structures Visual Leggett: normal visual leggett by confrontation Alignment and Position: alignment normal Periorbital: periorbital findings normal Eyelids: Yes eyelids normal Conjunctivae: conjunctivae normal Sclerae: sclerae normal Back/Spine/Pelvis Other: Bilateral occipital notch tenderness and bilateral trapezius tightening. Neuro General: patient oriented x3 Cranial nerves: Yes CN's II-XII intact bilaterally and Yes Facial sensation intact/muscles of mastication intact Cognition (Neuro): normal cognition Gait exam (Neuro): Normal gait present Motor exam (neuro): no tremor noted Romberg Test: Negative Pupils: Normal pupillary reactivity/response: bilateral Psych Appearance: grossly normal Mental Status: mental status grossly normal Speech and movement: Normal speech and movement present and Clear speech present Affect: normal affect Attitude: cooperative Thought process: Normal thought process present Thought content: Normal thought content present Insight: Good insight present (Psych) Judgement: Good judgement present (Psych) Assessment & Plan Assessment & Plan (1) Neck pain: Code(s): M54.2 - Cervicalgia Category: Medical (2) Chronic migraine without aura without status migrainosus, not intractable: Code(s): G43.709 - Chronic migraine without aura, not intractable, without status migrainosus Category: Medical Plan Amaya is a 34-year-old female patient with a past medical history of anxiety, constipation, depression, FM, and migraine including symptoms of complicated migraine who is following in the clinic for her migraine care. She has tried several agents in the past as listed above in the HPI. Unfortunately, she has had poor success in controlling her migraines and her insurance company denied the request for preventive Nurtec. She has however open to a trial of once monthly injectable therapy. I will start her on Emgality as we would like to avoid Aimovig for her history of constipation. I have ordered the loading dose and maintenance was for the Emgality and she will likely come to the clinic to have her 1st injection performed with me. For her acute therapy, she can still continue the sumatriptan however she was educated on medication overuse headache as it is likely playing a role in her headaches at this time. She was advised to slowly taper off of the sumatriptan which may help in the frequency of her migraines. At the same time, we can start the Emgality which may help to allow her to reduce the sumatriptan more easily. She is requesting imaging of her cervical spine, while C-spine imaging is likely low yield, she does have history of scoliosis and we will perform a C-spine x- ray to evaluate the alignment of her vertebrae to ensure that she has no misalignment of her upper C-spine which could contribute to headache. -Start a trial of emgality (loading dose and maintenance dose) -Sumatriptan for acute therapy. She was educated on medication overuse therapy and advised to limit use of sumatriptan to no more than 3 days per week -x-ray c-spine -follow up in 2 months formally. She may coming to the clinic sooner for her injections Orders: Orders XR cervical spine 4V Today G43.709 - Chronic migraine without aura, not intractable, without status migrainosus, M54.2 - Cervicalgia Medications: New galcanezumab-gnlm (Emgality Pen) Loading dose 240 mg (2 mL) subcut ONCE 2 mL 0RF galcanezumab-gnlm (Emgality Pen) 120 mg subcut QMONTH 1 mL 4RF Discontinued rimegepant (Nurtec ODT) Discontinued Reason: Doctor's Order 75 mg PO Q OTHER DAY 30 days 15 tabs 2RF Coding Level of Care Code Est Pt Level 4 (43390) Diagnoses Neck pain M54.2 Chronic migraine without aura without status migrainosus, not intractable G43.709
[2025-04-20 09:55] VITALS: BP 112/70; PULSE 88; RESP 17; O2SAT 100; BMI 24.3
--- OUTSIDE RECORDS SUMMARY | 2025-04-20 11:06 | XMS_ITS | Clinical Summary ---
Author Organization [facility] sp[facility] Address [address] [place] [address] Phone Care Team Providers Care Performance Test Engineer Name Role Phone Unavailable Primary Care Provider Unavailabl e Encounters Date Type Department Care Team Description 02/10/2025 Orders Only [facility] [address] [place] [id number] Odalis Frances, [facility] Family history of carrier of genetic disease [...] inal Result [facility] [address] [place] [id number], [place] [phone] from Last 3 Months
--- OUTSIDE RECORDS SUMMARY | 2025-04-20 11:06 | XMS_ITS | Clinical Summary ---
Author Organization [facility] Address [address] [place] [address] Phone Care Team Providers Care Leak Patcher Name Role Phone Physician, No Pcp Primary [...] EDT - 03/29/2025 12:39 AM EDT Emergency [facility] Emergency [address] [place] [id number] Jorge Ghosh MD Pyelonephritis (Primary Dx) Discharge Disposition: Home or Self Care 03/09/2025 2:13 PM EDT - 03/10/2025 4:54 PM EDT Hospital Encounter [facility] Urology Unit [address] [place] [id number] Argenis Gamboa MD Seralathan, Manikandan, MD Kela, [...] CT abdomen and pelvis with contrast Comparison: CT/MN/SR - ABDOMEN AND PELVIS C+ CT - [...] CT abdomen and pelvis with contrast Comparison: CT/MN/SR - ABDOMEN AND PELVIS C+ CT - [...] resultswithin the time period is included. Specific [place] Urine 1.014 1.003 - 1.030 LAB URINALYSIS - AUTOMATED METHOD 03/28/2025 11:30 PM [facility] pH, Urine 6.0 5.0 - 8.0 pH LAB URINALYSIS - AUTOMATED METHOD 03/28/2025 11:30 PM [facility] Leukocytes, Urine Large(A) Negative LAB URINALYSIS - AUTOMATED METHOD 03/28/2025 11:30 PM [facility] Nitrite, Urine Negative Negative LAB URINALYSIS - AUTOMATED METHOD 03/28/2025 11:30 PM [facility] Protein, Urine Negative <=Trace mg/dL LAB URINALYSIS - AUTOMATED METHOD 03/28/2025 11:30 PM [facility] Glucose, Urine Negative Negative mg/dL LAB URINALYSIS - AUTOMATED METHOD 03/28/2025 11:30 PM [facility] Ketones, Urine Negative Negative mg/dL LAB URINALYSIS - AUTOMATED METHOD 03/28/2025 11:30 PM [facility] Urobilinogen, Urine 0.2 0.2 - 1.0 mg/dL LAB URINALYSIS - AUTOMATED METHOD 03/28/2025 11:30 PM [facility] Bilirubin, Urine Negative Negative LAB URINALYSIS - AUTOMATED METHOD 03/28/2025 11:30 PM [facility] Blood, Urine Negative Negative LAB URINALYSIS - AUTOMATED METHOD 03/28/2025 11:30 PM [facility] RBC, Urine 4 0 - 4 /HPF LAB URINALYSIS - AUTOMATED METHOD 03/28/2025 11:30 PM [facility] WBC, Urine 184.6(H) 0 - 4 /HPF LAB URINALYSIS - AUTOMATED METHOD 03/28/2025 11:30 PM EDT [facility] Squamous Epithelial, Urine 60 0 - 60 /LPF LAB URINALYSIS - AUTOMATED METHOD 03/28/2025 11:30 PM EDT [facility] Bacteria, Urine Few(A) Negative /HPF LAB URINALYSIS - AUTOMATED METHOD 03/28/2025 11:30 PM EDT [facility] Hyaline Casts, Urine 0.8 0 - 3 /LPF LAB URINALYSIS - AUTOMATED METHOD 03/28/2025 11:30 PM EDT [facility] Urine Urine specimen obtained by clean catch procedure / Unknown Non-blood Collection / Unknown 03/28/2025 10:40 PM EDT 03/28/2025 11:03 PM EDT us Jorge Ghosh MD LAB URINE ORDERABLES Final Result Performing Organization Address City/[facility]/ZIP Co de Phone Number [facility] [address] [place] [address], [place] [phone] * Dominguez urine culture tube (03/28/2025 10:40 PM EDT) Pathologist [facility] Extra Tube Hold for add-ons. 03/29/2025 1:02 AM EDT [facility] Comment:Auto resulted. Urine Urine specimen obtained by clean catch procedure / Unknown 03/28/2025 10:40 PM EDT 03/28/2025 11:04 PM EDT us Jorge Ghosh MD LAB URINE ORDERABLES Final Result Performing Organization Address [facility]/ZIP Co de Phone Number [facility] [address] [place] [address], [place] [phone] * (ABNORMAL) CBC auto differential (03/28/2025 8:54 PM EDT) Only the most recent of3 resultswithin the time period is included. WBC 10.2 4.8 - 10.8 K/mcL LAB HEMETOLOGY METHOD 03/28/2025 9:17 PM [facility] RBC 3.70(L) 3.80 - 4.80 M/mcL LAB HEMETOLOGY [facility] Hemoglobin 9.4(L) 11.5 - 16.0 g/dL LAB HEMETOLOGY METHOD 03/28/2025 9:17 PM [facility] Hematocrit 30.5(L) 35.0 - 47.0 % LAB HEMETOLOGY METHOD 03/28/2025 9:17 PM [facility] MCV 81.6 79.0 - 98.0 FL LAB HEMETOLOGY METHOD 03/28/2025 9:17 PM [facility] MCH 25.1(L) 27.0 - 32.0 pcg LAB HEMETOLOGY METHOD 03/28/2025 9:17 PM [facility] MCHC 30.8(L) 32.0 - 37.0 g/dL LAB HEMETOLOGY METHOD 03/28/2025 9:17 PM [facility] RDW 16.2(H) 11.0 - 15.0 % LAB HEMETOLOGY METHOD 03/28/2025 9:17 PM [facility] Platelets 271 130 - 400 K/mcL LAB HEMETOLOGY METHOD 03/28/2025 9:17 PM [facility] MPV 11.7(H) 7.0 - 11.0 FL LAB HEMETOLOGY METHOD [facility] NRBC 0.0 <1.0 % LAB HEMETOLOGY METHOD 03/28/2025 9:17 PM [facility] NRBC Absolute 0.00 <0.10 K/mcL LAB HEMETOLOGY METHOD 03/28/2025 9:17 PM [facility] Neutrophils Relative 60.2 % LAB HEMETOLOGY METHOD 03/28/2025 9:17 PM [facility] Lymphocytes Relative 28.7 % LAB HEMETOLOGY METHOD 03/28/2025 9:17 PM [facility] Monocytes Relative 5.6 % LAB HEMETOLOGY METHOD 03/28/2025 9:17 PM [facility] Eosinophils Relative 4.8 % LAB HEMETOLOGY METHOD 03/28/2025 9:17 PM [facility] Basophils Relative 0.4 % LAB HEMETOLOGY METHOD 03/28/2025 9:17 PM [facility] Immature Granulocytes Relative 0.3 % LAB HEMETOLOGY METHOD 03/28/2025 9:17 PM [facility] Neutrophils Absolute 6.12 1.50 - 7.00 K/mcL LAB HEMETOLOGY METHOD 03/28/2025 9:17 PM [facility] Lymphocytes Absolute 2.92 1.00 - 5.00 K/mcL LAB HEMETOLOGY METHOD 03/28/2025 9:17 PM [facility] Monocytes Absolute 0.57 0.20 - 1.00 K/mcL LAB HEMETOLOGY METHOD 03/28/2025 9:17 PM [facility] Eosinophils Absolute 0.49 0.00 - 0.50 K/mcL LAB HEMETOLOGY METHOD 03/28/2025 9:17 PM [facility] Basophils Absolute 0.04 0.00 - 0.20 K/mcL LAB HEMETOLOGY METHOD 03/28/2025 9:17 PM [facility] Immature Granulocytes Absolute 0.03 0.00 - 0.03 K/mcL LAB HEMETOLOGY METHOD 03/28/2025 9:17 PM [facility] Blood Venous blood specimen / Unknown Venipuncture / Unknown 03/28/2025 8:54 PM EDT 03/28/2025 9:08 PM EDT us Jorge Ghosh MD LAB BLOOD ORDERABLES Final Result Performing Organization Address [facility]/ZIP Co de Phone Number [facility] [address] [place] [address], [place] [phone] * HCG, quantitative (03/28/2025 8:54 PM EDT) Pathologist [facility] hCG Quant <1 mIU/mL LAB CHEMISTRY METHOD 03/28/2025 10:53 PM EDT [facility] Blood Venous blood specimen / Unknown Venipuncture / Unknown 03/28/2025 8:54 PM EDT 03/28/2025 9:08 PM EDT Narrative [facility] - 03/28/2025 10:53 PM EDT Quantitative HCG Reference Ranges Time after Conception MIU/ML 0.2-1 Week 5-50 1-2 Weeks 50-500 2-3 Weeks 100-5,000 3-4 Weeks 500-10,000 4-5 Weeks 1,000-50,000 5-6 Weeks 10,000-100,000 6-8 Weeks 15,000-200,000 2-3 Months 10,000-100,000 2nd Trimester 1,000-94,000 3rd Trimester 2,500-90,000 Non- Females 1-3 us Jorge Ghosh MD LAB BLOOD ORDERABLES Final Result [facility] [address] [place] [address], [place] [phone] * Lipase (03/28/2025 8:54 PM EDT) Only the most recent of2 resultswithin the time period is included. Pathologist [facility] Lipase 45 13 - 75 unit/L LAB CHEMISTRY METHOD 03/28/2025 9:46 PM [facility] Blood Venous blood specimen / Unknown Venipuncture / Unknown 03/28/2025 8:54 PM EDT 03/28/2025 9:08 PM EDT Jorge Ghosh MD LAB BLOOD ORDERABLES Final Result [facility] [address] [place] [address], [place] [phone] * (ABNORMAL) Comprehensive metabolic panel (03/28/2025 8:54 PM EDT) Only the most recent of2 resultswithin the time period is included. [facility] Sodium 140 133 - 145 mmol/L LAB CHEMISTRY METHOD 03/28/2025 9:47 PM [facility] Potassium 4.2 3.5 - 5.5 mmol/L LAB CHEMISTRY METHOD 03/28/2025 9:47 PM [facility] Chloride 112(H) 96 - 110 mmol/L LAB CHEMISTRY METHOD 03/28/2025 9:47 PM [facility] CO2 24 21 - 32 mmol/L LAB CHEMISTRY METHOD 03/28/2025 9:47 PM [facility] Anion Gap 4 3 - 11 LAB CHEMISTRY METHOD 03/28/2025 9:47 PM [facility] Glucose 99 70 - 100 mg/dL LAB CHEMISTRY METHOD 03/28/2025 9:47 PM [facility] BUN 10 5 - 25 mg/dL LAB CHEMISTRY METHOD 03/28/2025 9:47 PM [facility] Creatinine 0.66 0.50 - 1.10 mg/dL LAB CHEMISTRY METHOD 03/28/2025 9:47 PM [facility] eGFR 117 >=60 mL/min/1. 73m2 LAB CHEMISTRY METHOD 03/28/2025 9:47 PM EDT [facility] Comment:Calculation based on the Chronic Kidney Disease Epidemiology Collaboration (CKD-EPI) equation refit without adjustment for race. BUN/Creatinine Ratio 15.2 LAB CHEMISTRY METHOD 03/28/2025 9:47 PM T [facility] Calcium 8.7 8.5 - 10.5 mg/dL LAB CHEMISTRY METHOD 03/28/2025 9:47 PM EDT [facility] AST (SGOT) 15 10 - 42 unit/L LAB CHEMISTRY METHOD 03/28/2025 9:47 PM [facility] ALT (SGPT) 19 10 - 60 unit/L LAB CHEMISTRY METHOD 03/28/2025 9:47 PM [facility] Alkaline Phosphatase 41(L) 42 - 121 unit/L LAB CHEMISTRY METHOD 03/28/2025 9:47 PM [facility] Total Protein 6.2 6.0 - 8.0 g/dL LAB CHEMISTRY METHOD 03/28/2025 9:47 PM [facility] Albumin 3.5 3.2 - 5.0 g/dL LAB CHEMISTRY METHOD 03/28/2025 9:47 PM [facility] Total Bilirubin 0.2 0.0 - 1.4 mg/dL LAB CHEMISTRY METHOD 03/28/2025 9:47 PM [facility] Blood Venous blood specimen / Unknown Venipuncture / Unknown 03/28/2025 8:54 PM EDT 03/28/2025 9:08 PM EDT Jorge Ghosh MD LAB BLOOD ORDERABLES Final Result [facility] [address] [place] [address], * ECG-Annotated (03/13/2025) us Provider Onbase ECG ORDERABLES Final Result * [...] Signed Date: 03/10/2025 15:12 ET Workstation ID: [id number] Transcribed By: Self Edit Transcribed Date: 03/10/2025 15:08 ET Narrative 03/10/2025 3:12 PM EDT PROCEDURE: CTA HEAD AND NECK INDICATION: syncope. ?CVA TECHNIQUE: CTA of the head and neck with intravenous contrast. Multiplanar reformats. The examination was performed utilizing dose reduction techniques.3-D or MIP images were produced with postprocessing on an independent computer workstation. 90cc Omnipaque 370 injected. Scan was analyzed using [employer] Contact AI based computer aided triage software. [...] is patent. Vertebrobasilar system is patent. Proximal family services specialist are patent. Major dural venous sinuses opacify [...] 90cc Omnipaque 370 injected. Scan wasanalyzed using [facility] Contact AI based computer aided triage [...] is patent. Vertebrobasilar system is patent. Proximal family services specialist are patent. Major dural venous sinuses opacify normally with contrast. Extracranial structures are unremarkable. Degenerative changes in thebones. IMPRESSION: NO ACUTE FINDINGS. -------- FINAL REPORT -------- Dictated By: Tabatha Brooks Dictated Date: 03/10/2025 15:08 ET Assigned Physician: Tabatha Brooks Reviewed and Electronically Signed By: Tabatha Brooks Signed Date: 03/10/2025 15:12 ET Workstation ID: [id number] Transcribed By: Self Edit Transcribed Date: 03/10/2025 15:08 ET Moises Garrison MD IM CT PROCEDURES F inal Result * (ABNORMAL) Basic metabolic panel (03/10/2025 6:43 AM EDT) Sodium 141 133 - 145 mmol/L LAB CHEMISTRY METHOD 03/10/2025 7:29 AM EDT [facility] Potassium 4.2 3.5 - 5.5 mmol/L LAB CHEMISTRY METHOD 03/10/2025 7:29 AM EDT [facility] Chloride 116(H) 96 - 110 mmol/L LAB CHEMISTRY METHOD 03/10/2025 7:29 AM EDT [facility] CO2 22 21 - 32 mmol/L LAB CHEMISTRY METHOD 03/10/2025 7:29 AM EDT [facility] Anion Gap 3 3 - [...] 03/10/2025 7:29 AM [facility] Blood Venous blood specimen / Unknown Venipuncture / Unknown 03/10/2025 6:43 AM EDT 03/10/2025 7:04 AM EDT us Meryl Gentile HYDRO EXCAVATION OPERATOR LAB BLOOD ORDERABLES Fin al Result [facility] [address] [place] [address], * CT Head wo Contrast (03/09/2025 6:55 [...] MD LAB BLOOD ORDERABLES Fi nal Result [facility] [address] [place] [address], [place] [phone] * (ABNORMAL) Potassium (03/09/2025 6:33 PM EDT) Potassium 3.3(L) 3.5 - 5.5 mmol/L LAB CHEMISTRY METHOD 03/09/2025 8:17 PM EDT [facility] Comment:Hemolysis present Blood Venous blood specimen / Unknown 03/09/2025 6:33 PM EDT 03/09/2025 6:46 PM EDT Meryl Gentile HYDRO EXCAVATION OPERATOR LAB BLOOD ORDERABLES Fin al Result [facility] [address] [place] [address], [place] [phone] * XR Chest 2 Views (03/09/2025 2:55 [...] Signed Date: 03/09/2025 15:06 ET Workstation ID: [id number] Transcribed By: Self Edit Transcribed Date: 03/09/2025 [...] Signed Date: 03/09/2025 15:06 ET Workstation ID: [id number] Transcribed By: Self Edit Transcribed Date: 03/09/2025 15:05 ET us Rigoberto Quiroz MD IMG XR PROCEDURES Final Result * Troponin I high sensitivity (03/09/2025 2:14 PM EDT) Only the most recent of2 resultswithin the time period is included. [facility] High Sensitivity Troponin I <3 [...] ult [facility] [address] [place] [address], * ECG 12 lead (03/09/2025 12:01 PM EDT) [facility] Ventricular Rate ECG 70 BPM [facility] Atrial Rate 70 BPM [facility] P-R Interval 138 ms [facility] QRS Duration 82 ms [facility] Q-T Interval 418 ms [facility] QTc 451 ms G[facility] P Wave [place] 32 degrees GEMUSE R [place] 62 degrees GEMUSE T [place] 16 degrees [facility] ECG Interpretation Normal sinus rhythm T wave abnormality, consider inferior ischemia Abnormal ECG When compared with ECG of 21-NOV-2021 19:27, T wave inversion now evident in Anterior leads Confirmed by Naun KRAUSE JOHN ([id number]) on 03/09/2025 1:35:48 PM [facility] 03/09/2025 12:0 1 PM EDT 03/09/2025 1:35 PM EDT us Rigoberto Quiroz MD ECG ORDERABLES Final Result Performing Organization Address City/[facility]/ZIP Co de Phone Number [facility] * hCG, serum, qualitative (03/09/2025 11:57 AM EDT) hCG Qual Negative Negative 03/09/2025 5:42 PM EDT [facility] Blood Venous blood specimen / Unknown Venipuncture / Unknown 03/09/2025 11:57 AM EDT 03/09/2025 1:26 PM EDT us Argenis Gamboa MD LAB BLOOD ORDERABLES Final Resul t Performing Organization Address [facility] Co de Phone Number [facility] [address] [place] [address], [place] [phone] * Magnesium (03/09/2025 11:57 AM EDT) Magnesium 2.3 1.9 - 2.6 mg/dL LAB CHEMISTRY METHOD 03/09/2025 1:52 PM EDT [facility] Blood Venous blood specimen / Unknown Venipuncture / Unknown 03/09/2025 11:57 AM EDT 03/09/2025 1:26 PM EDT us Rigoberto Quiroz MD LAB BLOOD ORDERABLES Final Res ult Performing Organization Address [facility] Co de Phone Number [facility] [address] [place] [address], [place] [phone] from Last 3 Months Insurance [facility] PL[facility] Advance Directives * Full Code - [...] currently active code status orders. Care Teams Leak Patcher Relationship Specialty Start Date End Date Physician, No Pcp PCP - General 03/09/25
== END 2025-04-20 10:22 | disposition home or self-care (01) ==
LOC: HO.HSM 09:47
PROVIDERS: PCP Internal Medicine; Visit Provider Nurse Practitioner
DX: M54.2 Cervicalgia (principal); G43.709 Chronic migraine without aura, not intractable, without status migrainosus
CPT/HCPCS: 99214

== ENCOUNTER → 2025-04-20 09:46 | Outpatient (BNVA) | payer OTHER, SELFPAY | PROVIDERS: PCP Internal Medicine; Visit Provider Nurse Practitioner | DX: M54.2 Cervicalgia (principal); G43.709 Chronic migraine without aura, not intractable, without status migrainosus | CPT/HCPCS: 99212 ==

== ENCOUNTER 2025-05-04 09:39 | Outpatient (AMB) | payer OTHER, SELFPAY ==
--- NOTE | 2025-05-04 09:42 | MHC.OFFVIS ---
Vital Signs 05/04/25 09:56 Height 5 ft 2 in Weight 130 lb BMI 23.8 BP 116/72 Blood Pressure Location Rt brachial Position Sitting Pulse 72 Pulse Source Pulse Oximeter Pulse Oximetry (%) 100 Oxygen Delivery Method Room Air Intake Visit Reasons: Low back pain, unspecified Intake Note: Pain today 01/22 Sale Professional Digital Marketing Required: No Accompanied by: Self / Same As Patient Allergies acetaminophen (From TYLENOL) Allergy (Intermediate, Verified 05/04/25 09:52) Itching ibuprofen Allergy (Intermediate, Verified 05/04/25 09:52) pruritus oxycodone Allergy (Intermediate, Verified 05/04/25 09:52) rash naproxen Allergy (Unknown, Verified 05/04/25 09:52) Gastrointestinal Upset APAP Allergy (Intermediate, Uncoded 04/11/25 10:35) Itching Medication List - Last Reconciled 05/04/25 by WILIAN Cole bupropion HCl XL 300 mg PO QAM cetirizine 10 mg PO DAILY PRN cholecalciferol (vitamin D3) 25 mcg PO DAILY 90 days clonazepam 1 mg PO BID PRN duloxetine 60 mg PO DAILY duloxetine 30 mg PO DAILY 90 days esomeprazole magnesium 40 mg PO DAILY famotidine 20 mg PO BEDTIME fluticasone propionate 50 mcg/actuation 2 sprays intranasal DAILY galcanezumab-gnlm (Emgality Pen) 240 mg (2 mL) subcut ONCE galcanezumab-gnlm (Emgality Pen) 120 mg subcut QMONTH lemborexant (Dayvigo) 10 mg PO BEDTIME 90 days lubiprostone 24 mcg PO BID magnesium hydroxide (Milk of Magnesia) 10 mL PO DAILY PRN ondansetron 4 mg PO DAILY prucalopride (Motegrity) 2 mg PO DAILY sumatriptan succinate 100 mg PO DAILY PRN topiramate 50 mg PO BID valacyclovir (Valtrex) 1,000 mg PO TID 7 days HPI Comments Details: The patient is a 34 year old individual presenting with chronic low back pain. The pain has been present for over 15 years, is localized to the lower lumbar region, and is described as a constant ache. It is exacerbated by everything, every movement, including walking, bending, twisting, pulling, pushing and lifting. The patient reports using heating pads with some relief and has tried remote physical therapy in the past with partial improvement. Past medical history is significant for depression, fibromyalgia, polyarthralgia, obesity, scoliosis, anxiety, and chronic migraines. The patient was evaluated for scoliosis at [facility] as a child, but was told it was too late to fix. The patient has a history of chronic migraines since childhood and is followed by Neurology. The patient takes topiramate and duloxetine. She has pending cervical spine xray. The patient reports an allergy to ibuprofen and Tylenol, causing itchiness, and an intolerance to naproxen, which causes stomach upset. The patient has no history of spine injections or surgery. The patient is currently unemployed. - Onset and Duration: The patient has had chronic low back pain for more than 15 years. - Quality and Character: The pain is described as a constant aching, tingling, sore, hurting, heavy, exhausting, sickening, punishing, spreading, tight, stiffness and muscle spasms. - Location and Radiation: The pain is localized to the upper and lower lumbar area and can encircle around the hips/iliac crest regions. Tenderness in the upper buttocks. - Exacerbating Factors: Pain is increased by all movements, including walking, bending forward and backward, twisting, pulling, pushing, and lifting. - Relieving Factors: The patient reports some relief with heating pads and partial improvement with prior physical therapy. - Associated symptoms: The patient reports feeling the hips lock, which are then difficult to unlock. - Interference with function: The patient reports noticing a tendency to bend more as the pain worsens. - Affect: The patient has a history of depression and anxiety and notes postural changes (bending more) when pain worsens. - Adverse Effects: The patient is unable to take ibuprofen due to itchiness and naproxen due to stomach upset. - Activities of Daily Living: Pain is increased with all movements, including walking, bending, and lifting. - Aberrant Drug Related Behaviors: No aberrant drug-related behaviors were discussed. - Analgesia: The patient uses heating pads and a TENS unit for pain. [facility] Medical History (Updated 05/05/25 @ 09:31 by WILIAN Cole) Moderate recurrent major depression Fibromyalgia Chronic GERD Hand pain Constipation by delayed colonic transit Polyarthralgia Allergic rhinitis DALE (generalized anxiety disorder) Mild recurrent major depression Right ankle injury Obese Insomnia Constipation Low back pain Scoliosis Anxiety and depression Migraines Umbilical hernia Morbid obesity Umbilical pain Surgical History History of esophagogastroduodenoscopy (EGD) History of umbilical hernia repair Family History Father Essential hypertension Mother Diabetes mellitus Essential hypertension Pulmonary fibrosis Maternal Grandmother Unknown family medical history Brother No problems noted. Sister No problems noted. Sister No problems noted. Sister No problems noted. Son No problems noted. Social History Household Members: Children Housing: House Alcohol intake: never Patient Tobacco Use Status: Never used Tobacco e-Cigarette/Vaping Use: Never Used Second Hand Smoke Exposure: No service: No Current occupational status: unemployed Gender identity: Female Cognitive needs: No Hearing needs: No Vision needs: Yes Female Reproductive History Menstrual Age of Menarche: 10 Review of Systems Const Details: - Musculoskeletal: Reports chronic upper and low back pain for over 15 years, polyarthralgia, neck pain, pain between the shoulder blades, and arthritis. - Neurological: Reports chronic migraines since childhood. - Psychiatric: Reports history of depression and anxiety, sees psychiatrist Gilbert Good. - Allergic/Immunologic: Reports allergy to ibuprofen causing itchiness and intolerance to naproxen causing stomach upset. Itching with Tylenol. All systems reviewed & are unremarkable except as noted in HPI and below Physical Exam Vital Signs: Last Vital Signs Pulse 72 05/04/25 09:56 BP 116/72 05/04/25 09:56 Pulse Ox 100 05/04/25 09:56 Oxygen Delivery Method Room Air 05/04/25 09:56 BMI result Body Mass Index 23.8 General: Appears afebrile. Alert and oriented. Mood and affect appropriate. Follows and participates in conversation appropriately. Respiratory effort is unlabored. No cough. Able to transition from sit to stand unassisted. Ambulates with bilaterally normal heel strike and toe off. General: Yes no CVA tenderness Back/Spine/Pelvis Other: Patient is able to walk and stand on heels and tip toes with no difficulties demonstrating good motor tone. Normal gait, no limping. Can flex forward to 65-70 degrees and extend to 5-10 degrees before experiencing lumbar pain, worse with extension. Demonstrates 5/5 strength of quadriceps bilaterally as well as flexion/dorsiflexion of bilateral feet against resistance. 2+ pedal pulses bilaterally. Straight leg rise with dorsiflexion negative bilaterally. +2 patellar and achilles reflexes bilaterally. Facet loading test positive bilaterally. Daylin sign, Carlos Eduardo?s, Gaenslen, Pelvic compression and Stinchfield tests are positive bilaterally. No groin pain with I/E hip rotations. Valsalva maneuver negative. Back: no CVA tenderness Cervical Spine: cervical ROM normal, cervical muscular tenderness, pain with cervical ROM, No Cervical spine scars present, cervical spasm, No Cervical spine tenderness and No step off deformity Thoracic/Lumbar Spine: thoracic and lumbar spine normal to inspection, No Thoracic/lumbar spine scar(s), Lasegue's sign negative, straight leg raise negative bilaterally, pain with thoraco-lumbar ROM, paraspinal muscle tenderness, No thoracic spinal tenderness and lumbar spinal tenderness at L4 and at L5 Pelvis: buttock tenderness bilaterally Sacroiliac joints: bilaterally tender to palpation Extrem General: Yes capillary refill normal, Yes no clubbing, cyanosis or edema and Yes no calf tenderness Assessment & Plan Assessment & Plan (1) Polyarthralgia: Code(s): M25.50 - Pain in unspecified joint Category: Medical (2) Fibromyalgia: Code(s): M79.7 - Fibromyalgia Category: Medical (3) Chronic low back pain: Code(s): M54.50 - Low back pain, unspecified; G89.29 - Other chronic pain Category: Medical (4) Lumbosacral spondylosis: Code(s): M47.817 - Spondylosis without myelopathy or radiculopathy, lumbosacral region Category: Medical (5) Cervicogenic headache: Code(s): G44.86 - Cervicogenic headache Category: Medical (6) Muscle spasms of neck: Code(s): M62.838 - Other muscle spasm Category: Medical (7) Lumbosacral spondylosis: Code(s): M47.817 - Spondylosis without myelopathy or radiculopathy, lumbosacral region Category: Medical (8) Scoliosis: Code(s): M41.9 - Scoliosis, unspecified Category: Medical (9) Sacroiliac joint pain: Code(s): M53.3 - Sacrococcygeal disorders, not elsewhere classified Category: Medical Plan An x-rays of the thoracic and lumbar spine have been ordered to further evaluate the patient's chronic pain. For medication management, baclofen is prescribed as a muscle relaxant, which may also help with chronic headaches and neck pain. A prescription for a lidocaine patch will also be sent for topical pain relief, to be used for up to 12 hours at a time. A referral will be placed for physical therapy for the neck and back at a facility in [place] per patient's request. The patient is to follow up after completing the course of physical therapy. The x-ray results will be communicated to the patient via phone call. All questions and concerns have been answered and patient agreed with the treatment plan. Follow up after PT and sooner as needed. Patient was informed and verbally consented to the use of an ambient scribe for clinic note documentation during this visit. Orders: Orders PT Evaluation and Treatment 05/04/25 G89.29 - Other chronic pain, M47.817 - Spondylosis without myelopathy or radiculopathy, lumbosacral region, M54.2 - Cervicalgia, M54.50 - Low back pain, unspecified XR thoracic spine 2V 05/04/25 G89.29 - Other chronic pain, M41.9 - Scoliosis, unspecified, M54.50 - Low back pain, unspecified XR lumbar spine 4V min 05/04/25 G89.29 - Other chronic pain, M47.817 - Spondylosis without myelopathy or radiculopathy, lumbosacral region, M54.50 - Low back pain, unspecified Medications: New baclofen 10 mg PO TID PRN 90 tabs 0RF muscle spasm 30 days G44.86 - Cervicogenic headache, M54.2 - Cervicalgia, M62.838 - Other muscle spasm Coding Level of Care Code New Pt Level 4 (31809) Diagnoses Polyarthralgia M25.50 Fibromyalgia M79.7 Chronic low back pain M54.50; G89.29 Lumbosacral spondylosis M47.817 Cervicogenic headache G44.86 Muscle spasms of neck M62.838 Scoliosis M41.9 Sacroiliac joint pain M53.3
[2025-05-04 09:56] VITALS: BP 116/72; PULSE 72; O2SAT 100; BMI 23.8
== END 2025-05-04 10:14 | disposition home or self-care (01) ==
LOC: HO.PMC 09:39
PROVIDERS: PCP Internal Medicine; Visit Provider Nurse Practitioner Family
DX: M25.50 Pain in unspecified joint (principal); M79.7 Fibromyalgia; M54.50 Low back pain, unspecified; G89.29 Other chronic pain; M47.817 Spondylosis without myelopathy or radiculopathy, lumbosacral region; G44.86 Cervicogenic headache; M62.838 Other muscle spasm; M41.9 Scoliosis, unspecified; M53.3 Sacrococcygeal disorders, not elsewhere classified
CPT/HCPCS: 99204

== ENCOUNTER 2025-05-04 09:39 | Outpatient (REF) | payer OTHER, SELFPAY ==
--- NOTE | ~2025-05-04 | XR_ITS ---
EXAMINATION: XR CERVICAL SPINE CLINICAL INFORMATION: M 54.2 -cervicalgia. COMPARISON: April 13, 2024. TECHNIQUE: AP, oblique, lateral and atlantoodontoid views. FINDINGS: Craniocervical junction is intact. Reverse curvature apex at C3-4. No acute cortical disruption or malalignment. Mild endplate sclerosis C5-C6 C6-7 and C7-T1 levels. Small osteophyte formation resulting in mild narrowing of the right C4 neuroforamina. No lytic or blastic lesions. XR/XR thoracic spine 2V IMPRESSION: Mild multilevel spondylosis without acute fracture or trauma-related listhesis. EXAMINATION: XR THORACIC SPINE CLINICAL INFORMATION: M41.9 - Scoliosis, unspecified COMPARISON: None available. TECHNIQUE: AP and lateral views FINDINGS: Mild S-shaped curvature of the thoracolumbar junction. No acute cortical disruption or malalignment. Mild endplate sclerosis and small marginal osteophyte formation in the lower thoracic spine. No lytic or blastic lesions. IMPRESSION: Mild scoliosis and mild spondylosis, thoracolumbar spine. EXAMINATION: XR LUMBOSACRAL SPINE WITH OBLIQUES CLINICAL INFORMATION: M54.50 -low back pain, unspecified COMPARISON: May 04, 2017. TECHNIQUE: AP oblique and lateral views. FINDINGS: Mild levoconvex curvature of the lower lumbar spine apex at L4. Facet joint hypertrophy at L5-S1 and to a lesser extent L4-5. No acute cortical disruption or malalignment. No lytic or blastic lesions. Spina bifida occulta S1, congenital. IMPRESSION: Spondylosis, L5-S1 and to a lesser extent L4-5. Mild levoconvex scoliosis. Electronically signed by: Jt Bland MD 05/04/2025 11:48 AM EST
--- NOTE | ~2025-05-04 | XR_ITS ---
EXAMINATION: XR CERVICAL SPINE CLINICAL INFORMATION: M 54.2 -cervicalgia. COMPARISON: April 13, 2024. TECHNIQUE: AP, oblique, lateral and atlantoodontoid views. FINDINGS: Craniocervical junction is intact. Reverse curvature apex at C3-4. No acute cortical disruption or malalignment. Mild endplate sclerosis C5-C6 C6-7 and C7-T1 levels. Small osteophyte formation resulting in mild narrowing of the right C4 neuroforamina. No lytic or blastic lesions. XR/XR lumbar spine 4V min IMPRESSION: Mild multilevel spondylosis without acute fracture or trauma-related listhesis. EXAMINATION: XR THORACIC SPINE CLINICAL INFORMATION: M41.9 - Scoliosis, unspecified COMPARISON: None available. TECHNIQUE: AP and lateral views FINDINGS: Mild S-shaped curvature of the thoracolumbar junction. No acute cortical disruption or malalignment. Mild endplate sclerosis and small marginal osteophyte formation in the lower thoracic spine. No lytic or blastic lesions. IMPRESSION: Mild scoliosis and mild spondylosis, thoracolumbar spine. EXAMINATION: XR LUMBOSACRAL SPINE WITH OBLIQUES CLINICAL INFORMATION: M54.50 -low back pain, unspecified COMPARISON: May 04, 2017. TECHNIQUE: AP oblique and lateral views. FINDINGS: Mild levoconvex curvature of the lower lumbar spine apex at L4. Facet joint hypertrophy at L5-S1 and to a lesser extent L4-5. No acute cortical disruption or malalignment. No lytic or blastic lesions. Spina bifida occulta S1, congenital. IMPRESSION: Spondylosis, L5-S1 and to a lesser extent L4-5. Mild levoconvex scoliosis. Electronically signed by: Jt Bland MD 05/04/2025 11:48 AM EST
--- NOTE | ~2025-05-04 | XR_ITS ---
EXAMINATION: XR CERVICAL SPINE CLINICAL INFORMATION: M 54.2 -cervicalgia. COMPARISON: April 13, 2024. TECHNIQUE: AP, oblique, lateral and atlantoodontoid views. FINDINGS: Craniocervical junction is intact. Reverse curvature apex at C3-4. No acute cortical disruption or malalignment. Mild endplate sclerosis C5-C6 C6-7 and C7-T1 levels. Small osteophyte formation resulting in mild narrowing of the right C4 neuroforamina. No lytic or blastic lesions. XR/XR cervical spine 4V IMPRESSION: Mild multilevel spondylosis without acute fracture or trauma-related listhesis. EXAMINATION: XR THORACIC SPINE CLINICAL INFORMATION: M41.9 - Scoliosis, unspecified COMPARISON: None available. TECHNIQUE: AP and lateral views FINDINGS: Mild S-shaped curvature of the thoracolumbar junction. No acute cortical disruption or malalignment. Mild endplate sclerosis and small marginal osteophyte formation in the lower thoracic spine. No lytic or blastic lesions. IMPRESSION: Mild scoliosis and mild spondylosis, thoracolumbar spine. EXAMINATION: XR LUMBOSACRAL SPINE WITH OBLIQUES CLINICAL INFORMATION: M54.50 -low back pain, unspecified COMPARISON: May 04, 2017. TECHNIQUE: AP oblique and lateral views. FINDINGS: Mild levoconvex curvature of the lower lumbar spine apex at L4. Facet joint hypertrophy at L5-S1 and to a lesser extent L4-5. No acute cortical disruption or malalignment. No lytic or blastic lesions. Spina bifida occulta S1, congenital. IMPRESSION: Spondylosis, L5-S1 and to a lesser extent L4-5. Mild levoconvex scoliosis. Electronically signed by: Jt Bland MD 05/04/2025 11:48 AM EST
--- OUTSIDE RECORDS SUMMARY | 2025-05-04 15:04 | XMS_ITS | Clinical Summary ---
Author Organization [facility] spital Address [address] [place] [address] Phone Care Team Providers Care Production Support Specialist Name Role Phone Unavailable Primary Care Provider Unavailabl e Encounters Date Type Department Care Team Description 02/10/2025 Orders Only [facility] [address] [place] [address] Odalis Frances, [facility] [...] inal Result [facility] [address] [place] [id number], [place] [phone] from Last 3 Months
== END 2025-05-04 09:40 | disposition home or self-care (01) ==
LOC: HO.XRAY 09:39
PROVIDERS: Absent Provider Nurse Practitioner; PCP Internal Medicine; Visit Provider Nurse Practitioner Family
DX: M79.7 Fibromyalgia (principal); M47.817 Spondylosis without myelopathy or radiculopathy, lumbosacral region; G44.86 Cervicogenic headache; M62.838 Other muscle spasm; M41.9 Scoliosis, unspecified; M53.3 Sacrococcygeal disorders, not elsewhere classified; G89.29 Other chronic pain; M25.50 Pain in unspecified joint
CPT/HCPCS: 72050; 72070; 72110; 99202

== ENCOUNTER → 2025-05-04 10:18 | Outpatient (BNV) | payer OTHER, SELFPAY | PROVIDERS: Absent Provider Nurse Practitioner; PCP Internal Medicine; Visit Provider Radiology Diagnostic Radiology | DX: M47.812 Spondylosis without myelopathy or radiculopathy, cervical region (principal); M47.816 Spondylosis without myelopathy or radiculopathy, lumbar region; M47.814 Spondylosis without myelopathy or radiculopathy, thoracic region | CPT/HCPCS: 72050; 72070; 72110 ==

== ENCOUNTER 2025-05-10 10:43 | Outpatient (AMB) | payer OTHER, SELFPAY ==
[2025-05-10 10:44] VITALS: BP 100/56; PULSE 86; O2SAT 96; BMI 23.8
--- NOTE | 2025-05-10 10:44 | A.OFFVIS_ITS ---
Vital Signs 05/10/25 10:44 Height 5 ft 2 in Weight 130 lb BMI 23.8 BP 100/56 L Blood Pressure Location Rt brachial Position Sitting Pulse 86 Pulse Source Pulse Oximeter Pulse Oximetry (%) 96 Oxygen Delivery Method Room Air Intake Visit Reasons: 3m Intake Note: Est pt for GERD + CIC mgmt. CC; Pt denies any GI concerns or sx at this time. States that she has introduced new supplements to her daily regimen which have helped with establishing a new baseline for her BMs. Reading Professor Required: No Accompanied by: Self / Same As Patient Allergies acetaminophen (From TYLENOL) Allergy (Intermediate, Verified 05/10/25 11:13) Itching ibuprofen Allergy (Intermediate, Verified 05/10/25 11:13) pruritus oxycodone Allergy (Intermediate, Verified 05/10/25 11:13) rash naproxen Allergy (Unknown, Verified 05/10/25 11:13) Gastrointestinal Upset APAP Allergy (Intermediate, Uncoded 05/10/25 11:13) Itching HPI HPI 3m: Details: LAST VISIT: Nausea Chronic GERD Constipation by delayed colonic transit Epigastric discomfort Plan Patient will continue taking Nexium. Avoid dietary triggers and late night snacking. Staying upright for minimal 3 hours after meals discussed with krysta joseph. She will stop Linzess as this is not working for her. Will try Amitiza twice a day. Patient will call us if she will have trouble moving her bowels. Milk of magnesia will be ordered as needed if no bowel movements in 2-3 days. Patient was encouraged to increase fluid intake and activity to promote better bowel motility. Follow-up in 3 months, sooner on as needed basis. She is agreeable to this plan and verbalizes understanding of instructions. She was given the opportunity to ask questions and all questions answered. ? Thank you for allowing me to participate in her care New lubiprostone (Amitiza) 24 mcg PO BID 60 caps 3RF magnesium hydroxide (Milk of Magnesia) 10 mL PO DAILY PRN 355 mL 0RF constipation TODAY'S VISIT Patient is here today for follow-up. Patient reports that she has been doing better since last visit. She is taking more supplements that is helping her with her bowels. She is taking digestive enzymes and pre biotics with probiotics. She reports that she has a bowel movement every day. Patient denies any abdominal pain or discomfort. Patient denies any dyspepsia, dysphagia or odynophagia. Patient reports that she was taking Amitiza in the morning and Motegrity at night time. We have long discussion about not taking dose to medications together. Amitiza can be taken twice a day and patient can take that alone or Motegrity by itself. Patient reports that she is drinking water. She is not exercising currently. Patient denies melena, hematochezia. Patient denies any dyspepsia, dysphagia or odynophagia. [facility] Medical History Moderate recurrent major depression Fibromyalgia Chronic GERD Hand pain Constipation by delayed colonic transit Polyarthralgia Allergic rhinitis DALE (generalized anxiety disorder) Mild recurrent major depression Right ankle injury Obese Insomnia Constipation Low back pain Scoliosis Anxiety and depression Migraines Umbilical hernia Morbid obesity Umbilical pain Surgical History History of esophagogastroduodenoscopy (EGD) History of umbilical hernia repair Family History Father Essential hypertension Mother Diabetes mellitus Essential hypertension Pulmonary fibrosis Maternal Grandmother Unknown family medical history Brother No problems noted. Sister No problems noted. Sister No problems noted. Sister No problems noted. Son No problems noted. Social History Household Members: Children Housing: House Alcohol intake: never Patient Tobacco Use Status: Never used Tobacco e-Cigarette/Vaping Use: Never Used Second Hand Smoke Exposure: No service: No Current occupational status: unemployed Gender identity: Female Cognitive needs: No Hearing needs: No Vision needs: Yes Female Reproductive History Menstrual Age of Menarche: 10 Physical Exam Vital Signs: Last Vital Signs Pulse 86 05/10/25 10:44 BP 100/56 L 05/10/25 10:44 Pulse Ox 96 05/10/25 10:44 Oxygen Delivery Method Room Air 05/10/25 10:44 BMI result Body Mass Index 23.8 Assessment & Plan Assessment & Plan (1) Nausea & vomiting: Code(s): R11.2 - Nausea with vomiting, unspecified Category: Medical Qualifiers: Vomiting type: unspecified Qualified Code(s): R11.2 - Nausea with vomiting, unspecified (2) Chronic GERD: Code(s): K21.9 - Gastro-esophageal reflux disease without esophagitis Category: Medical (3) Constipation by delayed colonic transit: Code(s): K59.01 - Slow transit constipation Category: Medical (4) Epigastric discomfort: Code(s): R10.13 - Epigastric pain Category: Medical Plan Patient reports that she has been doing well. Reports that she keeps the weight off even though she is not on a GLP 1. Continue current management of her bowels. Patient will try to increase exercise and increase water intake. Patient will follow-up in 6 months. She was encouraged to call us if you have any GI concerning symptoms. She is agreeable to this plan and verbalizes understanding of instructions. She was given the opportunity to ask questions and all questions answered. Thank you for allowing me to participate in her care Coding Level of Care Code Est Pt Level 4 (32902) Complex visit Add On G2211 Diagnoses Nausea and vomiting, unspecified vomiting type R11.2 Vomiting type: unspecified Chronic GERD K21.9 Constipation by delayed colonic transit K59.01 Epigastric discomfort R10.13 Time Spent (min) 35 Comment 25 minutes spent with patient and additional 10 minutes spent reviewing her records
--- OUTSIDE RECORDS SUMMARY | 2025-05-10 12:58 | XMS_ITS | Clinical Summary ---
Author Organization [facility] spital Address [address] [place] [address] Phone Care Team Providers Care Consumer Loan Specialist Name Role Phone Unavailable Primary Care Provider Unavailabl e Encounters Date Type Department Care Team Description 02/10/2025 Orders Only [facility] [address] [place] [address] Odalis Frances, [facility] [place] Family history of carrier of genetic disease [...] inal Result [facility] [address] [place] [id number], [place] [phone] from Last 3 Months
--- OUTSIDE RECORDS SUMMARY | 2025-05-10 12:58 | XMS_ITS | Clinical Summary ---
Author Organization [facility] Address [address] [place] [address] Phone Care Team Providers Care Purchase Analyst Name Role Phone Physician, No Pcp Primary Care Provider Unavaila ble Allergies Active Allergy Reactions Criticality Noted Date Comments Ibuprofen Nausea And Vomiting 03/09/2025 Naproxen 03/09/2025 Oxycodone Nausea And Vomiting,Rash 03/09/2025 Acetaminophen Itching 03/09/2025 Medications bisacodyL (DULCOLAX) 5 mg EC tablet Take 2 tablets (10 mg total) by mouth at bedtime. at bedtime 02/18/2025 Active buPROPion XL (WELLBUTRIN XL) 300 mg 24 hr tablet Take 1 tablet (300 mg total) by mouth 1 (one) time each day in the morning. 02/22/2025 Active clonazePAM (KlonoPIN) 1 mg tablet Take 1 tablet (1 mg total) by mouth 2 (two) times a day if needed for anxiety. 02/22/2025 Active DULoxetine (CYMBALTA) [address] capsule Take 1 capsule (60 mg total) by mouth 2 (two) times a day. 02/22/2025 Active Dayvigo 10 mg tablet Take 1 tablet by mouth at bedtime. Max Daily Amount: 1 tablet 02/23/2025 Active SUMAtriptan (IMITREX) 100 mg tablet Take 1 tablet (100 mg total) by mouth 1 (one) time if needed for migraine. 02/24/2025 Active Active Problems Problem Noted Date Diagnosed Date Syncope 03/09/2025 Encounters Date Type Department Care Team Description 03/28/2025 10:07 PM EDT - 03/29/2025 12:[address] [facility] [address] [place] [address] Jorge Ghosh MD Pyelonephritis (Primary Dx) Discharge Disposition: Home or Self Care 03/09/2025 2:13 PM EDT - 03/10/2025 4:54 PM EDT Hospital Encounter [facility] Unit [address] [place] [address] Argenis Gamboa MD Seralathan, Manikandan, MD [...] CT abdomen and pelvis with contrast Comparison: CT/MO/SR - ABDOMEN AND PELVIS C+ CT - [...] CT abdomen and pelvis with contrast Comparison: CT/MO/SR - ABDOMEN AND PELVIS C+ CT - [...] urine manually resulted (03/28/2025 10:43 PM EDT) [facility] HCG, Ur POC Negative Negative POC hCG Int QC Pass? Yes Yes Urine Urine specimen obtained by clean catch procedure / Unknown 03/28/2025 10:43 PM EDT Jorge Ghosh MD POINT OF CARE TEST ENTER/E DIT ORDERABLES Final Result * (ABNORMAL) Urinalysis with reflex microscopic (03/28/2025 10:40 PM EDT) Only the most recent of2 resultswithin the time period is included. [facility] Specific [place] Urine 1.014 1.003 - 1.030 LAB URINALYSIS - AUTOMATED METHOD 03/28/2025 11:30 PM EDT [facility] pH, Urine 6.0 5.0 - 8.0 pH LAB URINALYSIS - AUTOMATED METHOD 03/28/2025 11:30 PM [facility] Leukocytes, Urine Large(A) Negative LAB URINALYSIS - AUTOMATED METHOD 03/28/2025 11:30 PM [facility] Nitrite, Urine Negative Negative LAB URINALYSIS - AUTOMATED METHOD 03/28/2025 11:30 PM [facility] Protein, Urine Negative <=Trace mg/dL LAB URINALYSIS - AUTOMATED METHOD 03/28/2025 11:30 PM [facility] Glucose, Urine Negative Negative mg/dL LAB URINALYSIS - AUTOMATED METHOD 03/28/2025 11:30 PM [facility] Ketones, Urine Negative Negative mg/dL LAB URINALYSIS - AUTOMATED METHOD 03/28/2025 11:30 PM [facility] Urobilinogen, Urine 0.2 0.2 - 1.0 mg/dL LAB URINALYSIS - AUTOMATED METHOD 03/28/2025 11:30 PM [facility] Bilirubin, Urine Negative Negative LAB URINALYSIS - AUTOMATED METHOD 03/28/2025 11:30 PM [facility] Blood, Urine Negative Negative LAB URINALYSIS - AUTOMATED METHOD 03/28/2025 11:30 PM [facility] RBC, Urine 4 0 - 4 /HPF LAB URINALYSIS - AUTOMATED METHOD 03/28/2025 11:30 PM [facility] WBC, Urine 184.6(H) 0 - 4 /HPF LAB URINALYSIS - AUTOMATED METHOD 03/28/2025 11:30 PM [facility] Squamous Epithelial, Urine 60 0 - 60 /LPF LAB URINALYSIS - AUTOMATED METHOD 03/28/2025 11:30 PM [facility] Bacteria, Urine Few(A) Negative /HPF LAB URINALYSIS - AUTOMATED METHOD 03/28/2025 11:30 PM [facility] Hyaline Casts, Urine 0.8 0 - 3 /LPF LAB URINALYSIS - AUTOMATED METHOD 03/28/2025 11:30 PM EDT [facility] Urine Urine specimen obtained by clean catch procedure / Unknown Non-blood Collection / Unknown 03/28/2025 10:40 PM EDT 03/28/2025 11:03 PM EDT us Jorge Ghosh MD LAB URINE ORDERABLES Final Result [facility] [address] [place] [address], [place] [phone] * Dominguez urine culture tube (03/28/2025 10:40 PM EDT) Extra Tube Hold for add-ons. 03/29/2025 1:02 AM EDT [facility] Comment:Auto resulted. Urine Urine specimen obtained by clean catch procedure / Unknown 03/28/2025 10:40 PM EDT 03/28/2025 11:04 PM EDT us Jorge Ghosh MD LAB URINE ORDERABLES Final Result Performing Organization Address [facility] [address]/ZIP Co de Phone Number [facility] [address] [place] [address], [place] [phone] * (ABNORMAL) CBC auto differential (03/28/2025 8:54 PM EDT) Only the most recent of3 resultswithin the time period is included. WBC 10.2 4.8 - 10.8 K/mcL LAB HEMETOLOGY METHOD 03/28/2025 9:17 PM EDT [facility] RBC 3.70(L) 3.80 - 4.80 M/mcL LAB HEMETOLOGY METHOD 03/28/2025 9:17 PM EDT [facility] Hemoglobin 9.4(L) 11.5 - 16.0 g/dL LAB HEMETOLOGY METHOD 03/28/2025 9:17 PM EDT [facility] Hematocrit 30.5(L) 35.0 - 47.0 % LAB [facility]EMETOLOGY [facility]28[facility]25 9[facility] MCV 81.6 79.0 - 98.0 FL LAB HEMETOLOGY METHOD 03/28/2025 9:17 PM EDT [facility] MCH 25.1(L) 27.0 - 32.0 pcg LAB HEMETOLOGY METHOD 03/28/2025 9:17 PM [facility] MCHC 30.8(L) 32.0 - 37.0 g/dL LAB HEMETOLOGY METHOD 03/28/2025 9:17 PM [facility] RDW 16.2(H) 11.0 - 15.0 % LAB HEMETOLOGY METHOD 03/28/2025 9:17 PM [facility] Platelets 271 130 - 400 K/mcL LAB HEMETOLOGY METHOD 03/28/2025 9:17 PM [facility] MPV 11.7(H) 7.0 - 11.0 FL LAB HEMETOLOGY METHOD 03/28/2025 9:17 PM [facility] NRBC 0.0 <1.0 % LAB HEMETOLOGY METHOD 03/28/2025 9:17 PM [facility] NRBC Absolute 0.00 <0.10 K/mcL LAB HEMETOLOGY METHOD 03/28/2025 9:17 PM [facility] Neutrophils Relative 60.2 % LAB HEMETOLOGY METHOD 03/28/2025 9:17 PM [facility] Lymphocytes Relative 28.7 % LAB HEMETOLOGY METHOD 03/28/2025 9:17 PM [facility] Monocytes Relative 5.6 % LAB HEMETOLOGY METHOD 03/28/2025 9:17 PM EDT [facility] Eosinophils Relative 4.8 % LAB HEMETOLOGY METHOD 03/28/2025 9:17 PM EDT [facility] Basophils Relative 0.4 % LAB HEMETOLOGY METHOD 03/28/2025 9:17 PM EDT [facility] Immature Granulocytes Relative 0.3 % LAB HEMETOLOGY METHOD 03/28/2025 9:17 PM EDT [facility] Neutrophils Absolute 6.12 1.50 - 7.00 K/mcL LAB HEMETOLOGY METHOD 03/28/2025 9:17 PM EDT [facility] Lymphocytes Absolute 2.92 1.00 - 5.00 K/mcL LAB HEMETOLOGY METHOD 03/28/2025 9:17 PM EDT [facility] Monocytes Absolute 0.57 0.20 - 1.00 K/mcL LAB HEMETOLOGY METHOD 03/28/2025 9:17 PM EDT [facility] Eosinophils Absolute 0.49 0.00 - 0.50 K/mcL LAB HEMETOLOGY METHOD 03/28/2025 9:17 PM EDT [facility] Basophils Absolute 0.04 0.00 - 0.20 K/mcL LAB HEMETOLOGY METHOD 03/28/2025 9:17 PM EDT [facility] Immature Granulocytes Absolute 0.03 0.00 - 0.03 K/mcL LAB HEMETOLOGY METHOD 03/28/2025 9:17 PM EDT [facility] Blood Venous blood specimen / Unknown Venipuncture / Unknown 03/28/2025 8:54 PM EDT 03/28/2025 9:08 PM EDT Jorge Ghosh MD LAB BLOOD ORDERABLES Final Result [facility] [address] [place] [address], * HCG, quantitative (03/28/2025 8:54 PM EDT) hCG Quant <1 mIU/mL LAB CHEMISTRY METHOD 03/28/2025 10:53 PM EDT [facility] Blood Venous blood specimen / Unknown Venipuncture / Unknown 03/28/2025 8:54 PM EDT 03/28/2025 9:08 PM EDT Narrative [facility] - 03/28/2025 10:53 PM EDT Quantitative HCG Reference Ranges Time after Conception MIU/ML 0.2-1 Week 5-50 1-2 Weeks 50-500 2-3 Weeks 100-5,000 3-4 Weeks 500-10,000 4-5 Weeks 1,000-50,000 5-6 Weeks 10,000-100,000 6-8 Weeks 15,000-200,000 2-3 Months 10,000-100,000 2nd Trimester 1,000-94,000 3rd Trimester 2,500-90,000 Non- Females 1-3 us Jorge Ghosh MD LAB BLOOD ORDERABLES Final Result [facility] [address] [place] [address], * Lipase (03/28/2025 8:54 PM EDT) Only the most recent of2 resultswithin the time period is included. Lipase 45 13 - 75 unit/L LAB CHEMISTRY METHOD 03/28/2025 9:46 PM EDT [facility] Blood Venous blood specimen / Unknown Venipuncture / Unknown 03/28/2025 8:54 PM EDT 03/28/2025 9:08 PM EDT us Jorge Ghosh MD LAB BLOOD ORDERABLES Final Result [facility] [address] [place] [address], * (ABNORMAL) Comprehensive metabolic panel (03/28/2025 8:54 PM EDT) Only the most recent of2 resultswithin the time period is included. Sodium 140 133 - 145 mmol/L LAB CHEMISTRY METHOD 03/28/2025 9:47 PM EDT [facility] Potassium 4.2 3.5 - 5.5 mmol/L LAB CHEMISTRY METHOD 03/28/2025 9:47 PM [facility] Chloride 112(H) 96 - 110 mmol/L LAB CHEMISTRY METHOD 03/28/2025 9:47 PM [facility] CO2 24 21 - 32 mmol/L LAB CHEMISTRY METHOD 03/28/2025 9:47 PM [facility] Anion Gap 4 3 - 11 LAB CHEMISTRY METHOD 03/28/2025 9:47 PM [facility] Glucose 99 70 - 100 mg/dL LAB CHEMISTRY METHOD 03/28/2025 9:47 PM [facility] BUN 10 5 - 25 mg/dL LAB CHEMISTRY METHOD 03/28/2025 9:47 PM [facility] Creatinine 0.66 0.50 - 1.10 mg/dL LAB CHEMISTRY METHOD 03/28/2025 9:47 PM [facility] eGFR 117 >=60 mL/min/1. 73m2 LAB CHEMISTRY METHOD 03/28/2025 9:47 PM [facility] Comment:Calculation based on the Chronic Kidney Disease Epidemiology Collaboration (CKD-EPI) equation refit without adjustment for race. BUN/Creatinine Ratio 15.2 LAB CHEMISTRY METHOD 03/28/2025 9:47 PM [facility] Calcium 8.7 8.5 - 10.5 mg/dL LAB CHEMISTRY METHOD 03/28/2025 9:47 PM EDT [facility] AST (SGOT) 15 10 - 42 unit/L LAB CHEMISTRY METHOD 03/28/2025 9:47 PM EDT [facility] ALT (SGPT) 19 10 - 60 unit/L LAB CHEMISTRY METHOD 03/28/2025 9:47 PM EDT [facility] Alkaline Phosphatase 41(L) 42 - 121 unit/L LAB CHEMISTRY METHOD 03/28/2025 9:47 PM EDT [facility] Total Protein 6.2 6.0 - 8.0 g/dL LAB CHEMISTRY METHOD 03/28/2025 9:47 PM EDT [facility] Albumin 3.5 3.2 - 5.0 g/dL LAB CHEMISTRY METHOD 03/28/2025 9:47 PM EDT [facility] Total Bilirubin 0.2 0.0 - 1.4 mg/dL LAB CHEMISTRY METHOD 03/28/2025 9:47 PM EDT [facility] Blood Venous blood specimen / Unknown Venipuncture / Unknown 03/28/2025 8:54 PM EDT 03/28/2025 9:08 PM EDT Jorge Ghosh MD LAB BLOOD ORDERABLES Final Result [facility] [address] [place] [address], * ECG-Annotated (03/13/2025) us Provider Onbase ECG [...] Signed Date: 03/10/2025 15:12 ET Workstation ID: [id number] Transcribed By: Self Edit Transcribed Date: 03/10/2025 15:08 ET Narrative 03/10/2025 3:12 PM EDT PROCEDURE: CTA HEAD AND NECK INDICATION: syncope. ?CVA TECHNIQUE: CTA of the head and neck with intravenous contrast. Multiplanar reformats. The examination was performed utilizing dose reduction techniques.3-D or MIP images were produced with postprocessing on an independent computer workstation. 90cc Omnipaque 370 injected. Scan was analyzed using [employer] based computer aided triage software. Total DLP: [...] is patent. Vertebrobasilar system is patent. Proximal steel rule die maker are patent. Major dural venous sinuses opacify [...] 90cc Omnipaque 370 injected. Scan wasanalyzed using [employer] based computer aided triage software. Total DLP: [...] is patent. Vertebrobasilar system is patent. Proximal steel rule die maker are patent. Major dural venous sinuses opacify normally with contrast. Extracranial structures are unremarkable. Degenerative changes in thebones. IMPRESSION: NO ACUTE FINDINGS. -------- FINAL REPORT -------- Dictated By: Tabatha Brooks Dictated Date: 03/10/2025 15:08 ET Assigned Physician: Tabatha Brooks Reviewed and Electronically Signed By: Tabatha Brooks Signed Date: 03/10/2025 15:12 ET Workstation ID: [id number] Transcribed By: Self Edit Transcribed Date: 03/10/2025 15:08 ET Moises Garrison MD IM CT PROCEDURES F inal Result * (ABNORMAL) Basic metabolic panel (03/10/2025 6:43 AM EDT) Sodium 141 133 - 145 mmol/L LAB CHEMISTRY METHOD 03/10/2025 7:29 AM [facility] Potassium 4.2 3.5 - 5.5 mmol/L LAB CHEMISTRY METHOD 03/10/2025 7:29 AM [facility] Chloride 116(H) 96 - 110 mmol/L LAB CHEMISTRY METHOD 03/10/2025 7:29 AM [facility] CO2 22 21 - 32 mmol/L LAB CHEMISTRY METHOD 03/10/2025 7:29 AM [facility] Anion Gap 3 3 - 11 LAB CHEMISTRY METHOD 03/10/2025 7:29 AM [facility] Glucose 86 70 - 100 mg/dL LAB CHEMISTRY METHOD 03/10/2025 7:29 AM [facility] BUN 6 5 - 25 mg/dL LAB CHEMISTRY METHOD 03/10/2025 7:29 AM EDT [facility] Creatinine 0.61 0.50 - 1.10 mg/dL LAB CHEMISTRY METHOD 03/10/2025 7:29 AM EDT [facility] eGFR 119 >=60 mL/min/1. 73m2 LAB CHEMISTRY METHOD 03/10/2025 7:29 AM EDT [facility] Comment:Calculation based on the Chronic Kidney Disease Epidemiology Collaboration (CKD-EPI) equation refit without adjustment for race. BUN/Creatinine Ratio 9.8 LAB CHEMISTRY METHOD 03/10/2025 7:29 AM EDT [facility] Calcium 7.8(L) 8.5 - 10.5 mg/dL LAB CHEMISTRY METHOD 03/10/2025 7:29 AM EDT [facility] Blood Venous blood specimen / Unknown Venipuncture / Unknown 03/10/2025 6:43 AM EDT 03/10/2025 7:04 AM EDT us Meryl Gentile ABATEMENT WORKER LAB BLOOD ORDERABLES Fin al Result [facility] [address] [place] [address], * CT Head wo Contrast (03/09/2025 6:55 [...] Peres MD on 03/09/2025 19:47:30 Meryl Gentile ABATEMENT WORKER IMG CT PROCEDURES Final Result * SST tube (03/09/2025 6:33 PM EDT) Extra Tube Hold for add-ons. 03/09/2025 8:01 PM EDT [facility] Comment:Auto resulted. Blood Venous blood specimen / Unknown 03/09/2025 6:33 PM EDT 03/09/2025 6:46 PM EDT Jaden Cramer MD LAB BLOOD ORDERABLES Fi nal Result [facility] [address] [place] [address], * (ABNORMAL) Potassium (03/09/2025 6:33 PM EDT) Potassium 3.3(L) 3.5 - 5.5 mmol/L LAB CHEMISTRY METHOD 03/09/2025 8:17 PM EDT [facility] Comment:Hemolysis present Blood Venous blood specimen / Unknown 03/09/2025 6:33 PM EDT 03/09/2025 6:46 PM EDT Meryl Danie Gentile ABATEMENT WORKER LAB BLOOD ORDERABLES Fin al Result [facility] [address] [place] [address], [place] [phone] * XR Chest 2 Views (03/09/2025 2:55 [...] Signed Date: 03/09/2025 15:06 ET Workstation ID: [id number] Transcribed By: Self Edit Transcribed Date: 03/09/2025 [...] Signed Date: 03/09/2025 15:06 ET Workstation ID: [id number] Transcribed By: Self Edit Transcribed Date: 03/09/2025 15:05 ET Rigoberto Quiroz MD IMG XR PROCEDURES Final Result * Troponin I high sensitivity (03/09/2025 2:14 PM EDT) Only the most recent of2 resultswithin the time period is included. [facility] High Sensitivity Troponin I <3 <=54 ng/L LAB CHEMISTRY METHOD 03/09/2025 4:06 PM EDT [facility] Blood Venous blood specimen / Unknown Venipuncture / Unknown 03/09/2025 2:14 PM EDT 03/09/2025 3:24 PM EDT Narrative [facility] - 03/09/2025 4:06 PM EDT High levels of biotin in samples may falsely decrease hsTroponin values. Use caution when interpreting hsTroponin results in patients taking biotin who exhibit renal impairment (eGFR <60) or in patients taking more than 20 mg/day of biotin. us Rigoberto Quiroz MD LAB BLOOD ORDERABLES Final Res ult [facility] [address] [place] [address], [place] [phone] * ECG 12 lead (03/09/2025 12:01 PM EDT) [facility] Ventricular Rate ECG 70 BPM GEMUSE Atrial Rate 70 BPM GEMUSE P-R Interval 138 ms GEMUSE QRS Duration 82 ms GEMUSE Q-T Interval 418 ms GEMUSE QTc 451 ms GEMUSE P Wave [place] 32 degrees GEMUSE R [place] 62 degrees GEMUSE T [place] 16 degrees GEMUSE ECG Interpretation Normal sinus rhythm T wave abnormality, consider inferior ischemia Abnormal ECG When compared with ECG of 21-NOV-2021 19:27, T wave inversion now evident in Anterior leads Confirmed by Naun KRAUSE JOHN ([id number]) on 03/09/2025 1:35:48 PM GEMUSE 03/09/2025 12:0 1 PM EDT 03/09/2025 1:35 PM EDT us Rigoberto Quiroz MD ECG ORDERABLES Final Result G[facility] * hCG, serum, qualitative (03/09/2025 11:57 AM EDT) hCG Qual Negative Negative 03/09/2025 5:42 PM EDT [facility] Blood Venous blood specimen / Unknown Venipuncture / Unknown 03/09/2025 11:57 AM EDT 03/09/2025 1:26 PM EDT Argenis Gamboa MD LAB BLOOD ORDERABLES Final Resul t [facility] [address] [place] [address], [place] [phone] * Magnesium (03/09/2025 11:57 AM EDT) Magnesium 2.3 1.9 - 2.6 mg/dL LAB CHEMISTRY METHOD 03/09/2025 1:52 PM EDT [facility] Blood Venous blood specimen / Unknown Venipuncture / Unknown 03/09/2025 11:57 AM EDT 03/09/2025 1:26 PM EDT Rigoberto Quiroz MD LAB BLOOD ORDERABLES Final Res ult Performing Organization Address City/[facility] [address]/ZIP Co de Phone Number [facility] [address] [place] [address], [place] [phone] from Last 3 Months Insurance [facility] [employer] Advance Directives * Full [...] currently active code status orders. Care Teams Purchase Analyst Relationship Specialty Start Date End Date Physician, No Pcp PCP - General 03/09/25
== END 2025-05-10 11:03 | disposition home or self-care (01) ==
LOC: HO.HGI 10:43
PROVIDERS: PCP Internal Medicine; Visit Provider Nurse Practitioner Family
DX: R11.2 Nausea with vomiting, unspecified (principal); K21.9 Gastro-esophageal reflux disease without esophagitis; K59.01 Slow transit constipation; R10.13 Epigastric pain
CPT/HCPCS: 99214

== ENCOUNTER → 2025-05-10 10:43 | Outpatient (BNVA) | payer OTHER, SELFPAY | PROVIDERS: PCP Internal Medicine; Visit Provider Nurse Practitioner Family | DX: K21.9 Gastro-esophageal reflux disease without esophagitis (principal); K59.01 Slow transit constipation; R10.13 Epigastric pain; R11.2 Nausea with vomiting, unspecified | CPT/HCPCS: 99212 ==